=== PATIENT | male | born 1955 | race Caucasian/White ===

== ENCOUNTER 2021-01-09 13:45 | Emergency (ER) | payer BC, SELFPAY ==
[2021-01-09] VITALS (8 sets, daily range): BP systolic 99–131; BP diastolic 66–81; PULSE 74–103; RESP 18–36; TEMP 37.1; O2SAT 95–99
--- NOTE | ~2021-01-09 | XR_ITS ---
EXAMINATION: XR chest 1V portable DATE: 01/09/2021 16:37 INDICATION: Epigastric pain. TECHNIQUE: frontal view of the chest was obtained. COMPARISON: CT abdomen and pelvis dated 01/09/2021 FINDINGS: Patchy airspace opacities scattered throughout both lungs with appearance on CT suspicious for COVID pneumonia. No pleural effusion or pneumothorax. The cardiomediastinal silhouette is normal. Visualize d bones and soft tissues are unremarkable. IMPRESSION: 1. Patchy bilateral lung disease most suspicious for pneumonia including COVID pneumonia. Reviewed, dictated and finalized at location A.
--- NOTE | ~2021-01-09 | CT_ITS ---
EXAMINATION: CT abdomen pelvis w con DATE: 01/09/2021 16:24 INDICATION: Diffuse abdominal pain TECHNIQUE: Computed tomography (CT) of the abdomen and pelvis was performed with 100 cc Omnipaque 350 intravenous contrast. The dose-length product was 1509.64 mGy-cm. Automated exposure control and ite rative reconstruction technique were employed. COMPARISON: No prior studies for comparison. FINDINGS: There is patchy groundglass opacification, consistent with pneumonia. Heart size is normal. Small hiatal hernia. Atherosclerosis of the aorta and coronary arteries. No lymphadenopathy. Fatty infiltration of the liver. The spleen, pancreas, adrenal glands are unremarkable. There are small nonobstructing right renal sto santiago. There is a subcentimeter hypodensity in the left kidney, most likely benign cysts. Gallbladder i s present. No free air or free fluid. Mildly enlarged prostate gland. There is osteoarthritis of the hips, left greater than right. Mild lumbar spondylosis. IMPRESSION: 1. Patchy bilateral groundglass opacification, consistent with pneumonia. 2: Hepatic steatosis. 3: Nonobstructing right nephrolithiasis. Reviewed, dictated and finalized at location A.
[2021-01-09 14:29] LABS: Hematocrit 42.4 % (42.0-52.0); Hemoglobin 14.9 g/dL (14.0-18.0); Immature Granulocyte Absolute 0.02 K/mm3 (0.00-0.031); Immature Granulocyte Percent A 0.6 % (0-0.5); Lymphocytes Absolute Auto 0.42 K/mm3 (0.9-3.2); Lymphocytes Percent Auto 11.7 % (18.3-44.2); Mean Corpuscular HGB Conc 35.1 g/dl (32-36); Mean Corpuscular Hemoglobin 30.6 pg (26-34); Mean Corpuscular Volume 87.1 fl (80-100); Mean Platelet Volume 10.1 fl (7.4-10.4); Monocytes Absolute Auto 0.2 K/mm3 (0.1-0.6); Neutrophils Percent Auto 82.7 % (45.5-73.1); Platelet Count Result 163 k/mm3 (150-375); Red Blood Count 4.87 M/mm3 (4.6-6.20); Red Cell Distribution Width 13.8 % (11.5-14.5); White Blood Count 3.6 K/mm3 (4.5-10.0)
[2021-01-09 14:36] LABS: Potassium 3.3 mmol/L (3.4-5.0)
[2021-01-09 14:45] LABS: Alanine Aminotransferase 31 U/L (4-50); Albumin Level 4.2 g/dL (3.5-5.1); Alkaline Phosphatase 46 U/L (38-126); Anion Gap 8 mmol/L (8-16); Aspartate Amino Transferase 46 U/L (17-59); Bilirubin,Total 0.4 mg/dL (0.2-1.3); Blood Urea Nitrogen 16 mg/dL (9-20); Carbon Dioxide 28 mmol/L (22-30); Chloride 96 mmol/L (98-107); Estimated CRCL calculation 94 ml/min; Estimated Glomerular Filt Rate > 60; Glucose 134 mg/dL (75-110); Lipase 39 U/L (23-300); Sodium 132 mmol/L (137-145)
--- NOTE | 2021-01-09 15:44 | ED.NAVMDI ---
HPI - Nausea/Vomiting/Diarrhea General Chief complaint: Nausea/Vomiting/Diarrhea Stated complaint: vomiting x 4 days Time Seen by Provider: 01/09/21 15:40 Source: RN notes reviewed History of Present Illness HPI Narrative: Patient presents to emergency department from home for abdominal pain. Patient states symptoms began 4 days ago. States abdominal pain is diffuse described as cramping associated with numerous episodes of nausea vomiting. States has been unable to keep anything down. Denies any fevers or chills chest pain, shortness of breath, diarrhea or any other symptoms states he is taking no medication for the symptoms Related Data Allergies Allergy/AdvReac Type Severity Reaction Status Date / Time Sulfa (Sulfonamide Allergy Hives Verified 01/09/21 16:06 Antibiotics) Review of Systems Review of Systems: Narrative: Gen.: Denies fevers or chills ENT: Denies congestion Respiratory: Denies shortness of breath or cough CV: Denies chest pain or palpitations GI: See HPI denies burning, urgency, frequency or hematuria Musculoskeletal: Denies back pain or muscle pain Neuro: Denies numbness, tingling, weakness or focal weakness Skin: Denies rash Except as documented, all other systems reviewed and negative [facility] Past Medical History Medical History (Updated 01/09/21 @ 19:09 by Ricki Haider DO) Coronary artery disease Social History Social History (Updated 01/09/21 @ 15:45 by Ricki Haider DO) Smoking status: Never smoker Exam Narrative: Exam Narrative: APPEARANCE: No acute distress, nontoxic, resting in bed HEENT: Normocephalic, atraumatic, OMM RESPIRATORY: No respiratory distress, clear to auscultation bilaterally with no rhonchi wheezing or rales CARDIOVASCULAR: RRR s murmur ABDOMINAL: Soft nondistended diffusely tender to palpation no rebound or guarding MUSCULOSKELETAl: Moves all extremities. No clubbing, cyanosis or edema. NEURO: Awake and alert. Following commands, speech normal, no focal deficits SKIN:: Warm, dry. Normal Color PSYCHIATRIC: Normal affect/mood Course Course Emergency Course: Patient was CT scan obtained showing concerns of Covid pneumonia chest x-ray obtained which shows similar appearance will obtain swab patient's oxygen saturations remain normal in ED his nausea vomiting is improved he is able to eat and drink in ED with no emesis Discussed with patient results of workup and diagnosis. Discussed need for follow-up with primary care, proper use of medication, and reasons to return to the emergency department. Patient understands and agrees to current treatment plan Vital Signs Vital signs: Vital Signs Temperature 98.8 F 01/09/21 14:14 Pulse Rate 86 01/09/21 14:14 Respiratory Rate 18 01/09/21 14:14 Blood Pressure 124/69 01/09/21 14:14 Pulse Oximetry 98 01/09/21 14:14 Temperature 98.8 F 01/09/21 14:14 Pulse Rate 79 01/09/21 19:19 Respiratory Rate 36 H 01/09/21 19:19 Blood Pressure 115/68 01/09/21 19:19 Pulse Oximetry 95 01/09/21 19:19 MDM - Nausea/Vomiting/Diarrhea Lab Data Result diagrams: 01/09/21 14:20 01/09/21 14:20 Labs: Lab Results 01/09/21 01/09/21 01/09/21 Range/Units 14:20 14:20 16:48 WBC 3.6 L (4.5-10.0) K/mm3 RBC 4.87 (4.6-6.20) M/mm3 Hgb 14.9 (14.0-18.0) g/dL Hct 42.4 (42.0-52.0) % MCV 87.1 (80-100) fl MCH 30.6 (26-34) pg MCHC 35.1 (32-36) g/dl RDW 13.8 (11.5-14.5) % Plt Count 163 (150-375) k/mm3 MPV 10.1 (7.4-10.4) fl Immature Gran % (Auto) 0.6 H (0-0.5) % Neut % (Auto) 82.7 H (45.5-73.1) % Lymph % (Auto) 11.7 L (18.3-44.2) % [place] % (Auto) 5.0 (2.6-8.5) % Eos % (Auto) 0.0 (0-4.4) % Baso % (Auto) 0.0 L (0.2-1.2) % Lymph # (Auto) 0.42 L (0.9-3.2) K/mm3 [place] # (Auto) 0.2 (0.1-0.6) K/mm3 Eos # (Auto) 0.0 (0-0.3) K/mm3 Baso # (Auto) 0.0 (0.0-0.1) K/mm3 Abs Immat Gran (auto) 0.
[2021-01-09] MEDS: SODIUM CHLORIDE 0.9% IV 1,000 ML 999 ML IV CONT (16:12)
[2021-01-09] MEDS: KETOROLAC 30 MG/ML VIAL (*BKC) IV PUSH (16:13)
[2021-01-09] MEDS: ONDANSETRON INJ 4 MG/2 ML VIAL IV PUSH (16:13)
--- NOTE | 2021-01-09 16:15 | PC.NURSE ---
Pt to CT.
--- NOTE | 2021-01-09 16:28 | PC.NURSE ---
Pt returned from CT. No change in condition.
[2021-01-09 17:01] LABS: Add Urine Microscopic? YES; Appearance Urine Clear (Clear); Bilirubin Urine Negative (Negative); Blood Urine Negative (Negative); Color Urine Yellow (Yellow); Glucose Urine UA Negative (Negative); Ketones Urine Negative (Negative); Leukocyte Esterase Ur Negative LEU/UL (Negative); Mucus Urine Few /lpf; Nitrate Urine Negative (Negative); Protein Urine 2+ mg/dL (Negative); RBC Urine 0-2 /hpf (0-2); Squamous Epithelial Cell Urine Rare /hpf (Few); WBC Urine 0-3 /hpf
[2021-01-09 17:15] LABS: Specific Grav Ur 1.048 (1.001-1.035)
--- NOTE | 2021-01-09 17:58 | PC.NURSE ---
Pt given water, rosemarie mist, and crackers for PO challenge.
[2021-01-10 21:01] LABS: SARS-CoV-2 RNA PCR Positive
== END 2021-01-09 20:09 | disposition home or self-care (01) ==
PROVIDERS: Emergency Provider Emergency Medicine
DX: U07.1 COVID-19 (principal); R11.2 Nausea with vomiting, unspecified; I25.10 Atherosclerotic heart disease of native coronary artery without angina pectoris; K76.0 Fatty (change of) liver, not elsewhere classified; N20.0 Calculus of kidney; R91.8 Other nonspecific abnormal finding of lung field
CPT/HCPCS: 36415; 71045; 74177; 80053; 81001; 83690; 85025; 96361; 96374; 96375; 99284; C9803; J1885; J2405; J7030; Q9967; U0003; U0005

== ENCOUNTER 2021-01-13 17:38 | Emergency (ER) | payer BC, SELFPAY ==
[2021-01-13 17:44] VITALS: BP 119/67; PULSE 87; RESP 16; TEMP 35.6; O2SAT 94
[2021-01-13 18:51] VITALS: BP 131/85; PULSE 80; RESP 32; O2SAT 92
[2021-01-13 19:00] VITALS: O2SAT 92
[2021-01-13 19:03] LABS: Basophils Percent Auto 0.4 % (0.2-1.2); Eosinophils Absolute Auto 0.1 K/mm3 (0-0.3); Eosinophils Percent Auto 0.9 % (0-4.4); Hematocrit 45.9 % (42.0-52.0); Immature Granulocyte Absolute 0.05 K/mm3 (0.00-0.031); Immature Granulocyte Percent A 0.9 % (0-0.5); Lymphocytes Absolute Auto 0.83 K/mm3 (0.9-3.2); Mean Corpuscular HGB Conc 34.9 g/dl (32-36); Mean Corpuscular Hemoglobin 30.5 pg (26-34); Mean Corpuscular Volume 87.6 fl (80-100); Mean Platelet Volume 10.2 fl (7.4-10.4); Monocytes Absolute Auto 0.4 K/mm3 (0.1-0.6); Neutrophils Absolute Auto 4.1 K/mm3 (1.3-6.7); Neutrophils Percent Auto 74.8 % (45.5-73.1); Platelet Count Result 241 k/mm3 (150-375); Red Blood Count 5.24 M/mm3 (4.6-6.20); Red Cell Distribution Width 13.6 % (11.5-14.5); White Blood Count 5.5 K/mm3 (4.5-10.0)
--- NOTE | 2021-01-13 19:06 | ED.URI ---
HPI - URI/Sore Throat General Chief Complaint: Upper Respiratory Infection Stated Complaint: covid +, not getting better Time Seen by Provider: 01/13/21 19:06 History of Present Illness HPI Narrative: Nausea and vomiting for the past 8 days. This is associated with epigastric pain. He was seen here on 01/09 for these symptoms and had a CT of the abdomen which revealed lung findings consistent with COVID-19. Test confirmed that he had COVID. He reports that his symptoms have not changed since that time. He does have a cough as well. No Chest pain, SOB, fever. Related Data Home Medications Medication Instructions Recorded Confirmed atorvastatin 01/13/21 carvedilol 01/13/21 clopidogrel 01/13/21 fenofibrate micronized mg 01/13/21 hydrochlorothiazide 01/13/21 lisinopril 01/13/21 01/13/21 Allergies Allergy/AdvReac Type Severity Reaction Status Date / Time Sulfa (Sulfonamide Allergy Hives Verified 01/13/21 18:54 Antibiotics) Review of Systems Review of Systems: All systems reviewed & are unremarkable except as noted in HPI and below Constitutional: Constitutional: Denies fever(s) and Denies weakness ENT: Reports system reviewed and no additional complaints, except as documented Cardiovascular: Cardiovascular: Denies chest pain Respiratory: Respiratory: Reports cough and Denies dyspnea Gastrointestinal: Gastrointestinal: Reports abdominal pain, Denies diarrhea, Reports nausea and Reports vomiting Genitourinary: Genitourinary: Reports no additional male genitourinary complaints Musculoskeletal: Musculoskeletal: Reports myalgias Neurologic: Reports system reviewed and no additional complaints, except as documented [facility] Past Medical History Medical History (Updated 01/13/21 @ 20:35 by Cesar Barney MD) Coronary artery disease Social History Social History (Updated 01/09/21 @ 15:45 by Ricki Haider DO) Smoking status: Never smoker Gender identity (if verbalized by the patient): Male Exam Const: General: no acute distress and alert Nutritional Appearance: obese Orientation/consciousness: patient oriented x3 HENMT: Mouth: Yes dry mucous membranes Neck: Neck: normal visual inspection Resp: Effort & Inspection: normal respiratory effort Auscultation: crackles Cardio: Rate: regular rate Rhythm: regular rhythm GI: Inspection: non-distended GI Palp: Yes Soft to palpation, Yes Tenderness to palpation present (GI) (epigastric), No Guarding due to palpation present (GI) and No Rebound tenderness present Skin: General skin exam: normal color Neuro: General: patient oriented x3, moves all extremities and CN's II-XI intact bilaterally Speech: normal speech Extrem: General: normal to inspection Course Vital Signs Vital signs: Vital Signs Temperature 35.6 C L 01/13/21 17:44 Pulse Rate 87 01/13/21 17:44 Respiratory Rate 16 01/13/21 17:44 Blood Pressure 119/67 01/13/21 17:44 Pulse Oximetry 94 01/13/21 17:44 Temperature 36.8 C 01/13/21 19:22 Pulse Rate 80 01/13/21 19:22 Respiratory Rate 22 H 01/13/21 19:22 Blood Pressure 132/84 01/13/21 19:22 Pulse Oximetry 92 01/13/21 19:22 MDM - URI/Sore Throat MDM Narrative Medical decision making narrative: labs reassuring. Mild hypokalemia replaced. Feeling better after fluids and Reglan. Oxygenating well. No SOB. Medical Records Attestation: I reviewed the patient's medical records. Lab Data Attestation: I reviewed the patient's lab results. Result diagrams: 01/13/21 18:56 01/13/21 18:56 Labs: Lab Results 01/13/21 01/13/21 Range/Units 18:56 18:56 WBC 5.5 (4.5-10.0) K/mm3 RBC 5.24 (4.6-6.20) M/mm3 Hgb 16.0 (14.0-18.0) g/dL Hct 45.9 (42.0-52.0) % MCV 87.6 (80-100) fl MCH 30.5 (26-34) pg MCHC 34.9 (32-36) g/dl RDW 13.6 (11.5-14.5) % Plt Count 241 (150-375) k/mm3 MPV 10.2 (7.4-10.4) fl Immature Gran % (Auto)
--- NOTE | 2021-01-13 19:10 | PC.NURSE ---
Assumed care of pt. at this time. Report from NANDO Almaraz
[2021-01-13 19:13] LABS: Alanine Aminotransferase 29 U/L (4-50); Albumin Level 4.3 g/dL (3.5-5.1); Alkaline Phosphatase 53 U/L (38-126); Anion Gap 12 mmol/L (8-16); Aspartate Amino Transferase 48 U/L (17-59); Blood Urea Nitrogen 25 mg/dL (9-20); Calcium 9.4 mg/dL (8.4-10.2); Carbon Dioxide 24 mmol/L (22-30); Chloride 103 mmol/L (98-107); Estimated CRCL calculation 95 ml/min; Estimated Glomerular Filt Rate > 60; Glucose 129 mg/dL (75-110); Potassium 3.1 mmol/L (3.4-5.0); Sodium 139 mmol/L (137-145)
[2021-01-13 19:22] VITALS: BP 132/84; PULSE 80; RESP 22; TEMP 36.8; O2SAT 92
[2021-01-13] MEDS: SODIUM CHLORIDE 0.9% IV 1,000 ML 999 ML IV CONT (19:28)
[2021-01-13] MEDS: METOCLOPRAMIDE HCL INJ 10 MG/2 ML VIAL IV PUSH (19:28)
[2021-01-13] MEDS: POTASSIUM CHLORIDE 20 MEQ TABLET 40 MEQ PO (20:30)
[2021-01-13 20:40] VITALS: BP 148/79; PULSE 77; RESP 26; O2SAT 94
== END 2021-01-13 20:40 | disposition home or self-care (01) ==
PROVIDERS: Emergency Medicine; Emergency Provider Emergency Medicine
DX: R11.2 Nausea with vomiting, unspecified (principal); I25.10 Atherosclerotic heart disease of native coronary artery without angina pectoris
CPT/HCPCS: 36415; 80053; 85025; 96361; 96374; 99284; A9270; J2765; J7030

== ENCOUNTER 2024-08-21 23:54 | Inpatient (IN) | payer MEDICARE, SELFPAY ==
--- NOTE | ~2024-08-21 | XR_ITS ---
XR chest 1V portable Ordering provider: Addison Marlow MD History: 69 years Male with . RAPID HEART RATE HX OF NE WITH STENTS . Comparison: None. FINDINGS: MEDIASTINUM: The cardiac silhouette is slightly enlarged. Congestive claudia. LUNGS: No infiltrates, effusions or pneumothorax. Bilateral interstitial changes since noted suggesti ve of pulmonary edema. Superimposed Pneumonitis is not excluded.. OTHER: No free air under the diaphragm. IMPRESSION: Cardiomegaly with cardiac decompensation and pulmonary edema. Superimposed pneumonitis cannot be excl uded. Reviewed, dictated and finalized at location A. STANT STATISTICIAN IMPRESSION: Cardiomegaly with cardiac decompensation and pulmonary edema. Superimposed pneu monitis cannot be excluded.
[2024-08-22] VITALS (30 sets, daily range): BP systolic 109–140; BP diastolic 68–102; PULSE 64–150; RESP 17–26; TEMP 36.3–36.8; O2SAT 93–100; BMI 48.9
--- NOTE | 2024-08-22 | ECHO_ITS ---
Patient Info Name: Krishna Armando Age: 69 years : 1955 Gender: Male Ht: 67 in Wt: 290 lbs BSA: 2.56 m2 HR: 74 bpm BP: 130 / 81 mmHg Technical Quality: Poor Exam Date: 08/22/2024 3:42 PM Exam Location: Echo Lab Patient Status: Outpatient Admit Date: 08/22/2024 Staff Ordering Physician: Panfilo Salazar MD Courtesy Bus Driver: Elizabeth Paul RDCS Attending Provider: Adolfo Hunt MD Exam Type: CA echo dop color flow w con Study Info Indications - CHEST PAIN Complete two-dimensional, color flow and Doppler transthoracic echocardiogram is performed with contrast to opacify the left ventricle and to improve the deliniation of the left ventricle endocardial borders. Contrast/Agitated Saline Contrast/Ag. Saline: Definity Amount: 2.00 ml Existing IV Access: Yes Reason for Poor Study: patient body habitus Summary 1. Technically suboptimal study due to poor sonographic images. 2. Definity contrast administered improved wall motion interpretation. 3. Left ventricular chamber dimension is normal. 4. Left ventricular systolic function is normal, estimated at 60-65%. 5. There is mild concentric increased left ventricular wall thickness. 6. The left ventricular diastolic function is grade I diastolic dysfunction. 7. E/e' 9 is minimally elevated. 8. Left atrial chamber dimension is mildly enlarged. 9. There is mild aortic valve sclerosis. Left Ventricle E/e' 9 is minimally elevated. Definity contrast administered improved wall motion interpretation. Technically suboptimal study due to poor sonographic images. Left ventricular chamber dimension is normal. Left ventricular systolic function is normal, estimated at 60-65%. There is mild concentric increased left ventricular wall thickness. The left ventricular diastolic function is grade I diastolic dysfunction. Right Ventricle Right ventricular systolic function is normal and with normal TAPSE 2.3 cm. Right ventricular chamber dimension is normal. Left Atria Left atrial chamber dimension is mildly enlarged. Right Atria Right atrial chamber dimension is normal. Aortic Valve The aortic valve is not well visualized. Cannot determine number of aortic valve leaflets. There is no aortic valve stenosis by valve area and gradients. There is mild aortic valve sclerosis. There is no aortic valve regurgitation. Pulmonic Valve There is no pulmonic regurgitation. Mitral Valve There is no mitral valve stenosis. There is no mitral valve regurgitation. Tricuspid Valve There is no tricuspid valve regurgitation. Pericardium/Pleural There is no pericardial effusion. Inferior Vena Cava Normal inferior vena cava with >50% collapse upon inspiration consistent with normal right atrial pressure, 5 mmHg. Aorta The aortic root size at the sinus of Valsalva is normal. Left Ventricular Outflow Tract Name Value Normal LVOT 2D LVOT Diameter 2.08 cm LVOT Doppler LVOT Peak Gradient 3 mmHg LVOT Mean Gradient 2 mmHg LVOT VTI 17.90 cm LVOT VTI/AV VTI Ratio 0.67 LVOT Stroke Volume 60.79 ml LVOT CO 3.96 l/min LVOT CI 1.54 L/min/m2 Pulmonic Valve Name Value Normal RVOT Doppler RVOT Peak Gradient 4 mmHg PV Doppler PV Peak Gradient 4 mmHg Mitral Valve Name Value Normal MV Doppler MV Decel Hyde 472.00 cm/s2 MV PHT 0 s MV Area (PHT) 4.26 cm2 4.00-5.00 MV Diastolic Function MV E Peak Velocity 84.12 cm/s MV A Peak Velocity 89.71 cm/s MV E/A 0.94 MV Decel Time 0 s MV Annular TDI MV E/e' (Septal) 11.24 <=8.00 MV E/e' (Lateral) 8.24 <=8.00 MV E/e' (Average) 9.74 Tricuspid Valve Name Value Normal Estimated PAP/RSVP RA Pressure 5 mmHg <=5 Aorta Name Value Normal Ascending Aorta Ao Root Diameter (MM) 3.03 cm Ao Root Diam Index (MM) 1.18 cm/m2 Aortic Valve Name Value Normal AV Doppler AV Peak Velocity 120.81 cm/s AV Peak Gradient 6 mmHg AV Mean Gradient 3 mmHg AV VTI 26.81 cm AV Area (Cont Eq VTI) 2.27 cm2 >=3.00 AV Area (Cont Eq Stephen) 2.42 cm2 AV Regurgitation 2D LVOT Area 3.40 cm2 Ventricles Name Value Normal LV Dimensions 2D/MM IVS Diastolic Thickness (2D) 1.41 cm 0.60-1.00 LVID Diastole (2D) 5.13 cm 4.20-5.80 LVIW Diastolic Thickness (2D) 1.13 cm 0.60-1.00 LVID Systole (2D) 3.16 cm 2.50-4.00 LVOT Diameter 2.08 cm LV Mass (2D Cubed) 263.75 g 88.00-224.00 LV Mass Index (2D Cubed) 0.01 g/cm2 0.00-0.01 Relative Wall Thickness (2D) 0.44 LV Fractional Shortening/Ejection Fraction 2D/MM LV Fractional Shortening (2D) 38 % 25-43 LV EF (2D Teicholz) 68 % 52-72 LV Diastolic Volume (4C MOD) 136.00 ml LV EF (4C MOD) 71 % LV Diastolic Volume (2C MOD) 159.45 ml LV EF (2C MOD) 59 % LV Diastolic Volume (BP MOD) 147.31 ml 62.00-150.00 LV Diastolic Volume Index (BP MOD) 0.06 l/m2 0.03-0.07 LV Systolic Volume (BP MOD) 52.16 ml 21.00-61.00 LV Systolic Volume Index (BP MOD) 0.02 l/m2 0.01-0.03 LV EF (BP MOD) 65 % 52-72 LV Diastolic Length (4C) 9.40 cm LV Systolic Length (4C) 8.19 cm LV Stroke Volume (4C MOD) 95.92 ml Atria Name Value Normal LA Dimensions LA Dimension (MM) 3.60 cm 3.00-4.10 LA Volume (4C A-L) 76.32 ml LA Volume (BP A-L) 92.30 ml Report Signatures
--- NOTE | 2024-08-22 00:01 | ECG_ITS ---
Test Date: 2024-08-22 00:01:07 Measurements Intervals [place] Rate: 150 P: 0 UT: 0 QRS: 29 QRSD: 94 T: 38 QT: 275 QTc: 435 Interpretive Statements ATRIAL FIBRILLATION WITH RAPID VENTRICULAR RESPONSE No previous ECG available for comparison Electronically Signed On 08-22-2024 15:14:26 AUTOMATION CONSULTANT by Daylin Daigle M.D.
[2024-08-22] MEDS: ASPIRIN 81 MG CHEWABLE TABLET 324 MG PO (00:11)
[2024-08-22] MEDS: dilTIAZem HCl INJ 25 MG/5 ML VIAL 20 MG IV PUSH (00:24)
[2024-08-22] MEDS: dilTIAZem 100 MG/100 ML 100 MG/100 ML BAG IV CONT (00:27)
[2024-08-22 00:33] LABS: INR 0.9; Prothrombin Time 12.9 Seconds (11.1-14.7)
[2024-08-22 00:34] LABS: Partial Thromboplastin Time 22.1 Seconds (22.3-36.8)
[2024-08-22 00:37] LABS: Alanine Aminotransferase 26 U/L (6-50); Albumin Level 4.1 g/dL (3.5-5.1); Alkaline Phosphatase 60 U/L (38-126); Anion Gap 5 mmol/L (4-12); Aspartate Amino Transferase 24 U/L (17-59); Bilirubin,Total 0.5 mg/dL (0.2-1.3); Blood Urea Nitrogen 22 mg/dL (9-20); Calcium 8.8 mg/dL (8.4-10.2); Carbon Dioxide 26 mmol/L (22-30); Chloride 102 mmol/L (98-107); Estimated CRCL calculation 115 ml/min; Estimated Glomerular Filt Rate > 60; Glucose 202 mg/dL (65-110); Lipase 35 U/L (23-300); Potassium 4.5 mmol/L (3.4-5.0); Sodium 133 mmol/L (137-145)
[2024-08-22 00:46] LABS: Basophils Percent Auto 0.3 % (0.2-1.2); Eosinophils Percent Auto 0.1 % (0-4.4); Hematocrit 43.9 % (42.0-52.0); Hemoglobin 14.8 g/dL (14.0-18.0); Immature Granulocyte Percent A 2.4 % (0-0.5); Lymphocytes Absolute Auto 0.99 K/mm3 (0.9-3.2); Lymphocytes Percent Auto 7.9 % (18.3-44.2); Mean Corpuscular HGB Conc 33.7 g/dl (32-36); Mean Corpuscular Hemoglobin 31.2 pg (26-34); Mean Corpuscular Volume 92.6 fl (80-100); Mean Platelet Volume 10.3 fl (7.4-10.4); Monocytes Absolute Auto 0.8 K/mm3 (0.1-0.6); Monocytes Percent Auto 6.6 % (2.6-8.5); Neutrophils Absolute Auto 10.3 K/mm3 (1.3-6.7); Neutrophils Percent Auto 82.7 % (45.5-73.1); Platelet Count Result 227 k/mm3 (150-375); Red Blood Count 4.74 M/mm3 (4.6-6.20); Red Cell Distribution Width 14.5 % (11.5-14.5); White Blood Count 12.5 K/mm3 (4.5-10.0)
[2024-08-22 00:52] LABS: Troponin I 0.058 ng/mL (0.000-0.034)
[2024-08-22 01:34] LABS: NT Pro B Type Natriuretic Pept 416 pg/mL (19.9-100)
--- NOTE | 2024-08-22 01:47 | ED_ITS ---
HPI - General Adult General Chief complaint: Chest Pain Stated complaint: chest pain Time Seen by Provider: 08/22/24 00:19 History of Present Illness HPI narrative: patient is a 69-year-old gentleman presents emergency department with chief complaint of chest pain. Patient reports that he was sleeping and woke up with pain in his chest. Patient reports that he had an ME about 10 years ago and had stents placed in his heart the patient reports he also has history of hypertension high cholesterol the patient reports that he feels as though his heart is it is racing Related Data Home Medications Medication Instructions Recorded Confirmed atorvastatin 40 mg tablet 01/13/21 carvedilol 3.125 mg tablet 01/13/21 clopidogrel 75 mg tablet 01/13/21 fenofibrate micronized 134 mg mg 01/13/21 capsule hydrochlorothiazide 25 mg tablet 01/13/21 lisinopril 5 mg tablet 01/13/21 01/13/21 Allergies Allergy/AdvReac Type Severity Reaction Status Date / Time Sulfa (Sulfonamide Allergy Hives Verified 01/13/21 18:54 Antibiotics) Review of Systems Review of Systems: A 10 system review of systems was completed on the patient and is negative except for what is stated in the HPI. Nursing and ancillary documentation was reviewed. [facility] Past Medical History Medical History Coronary artery disease Social History Social History Smoking status: Never smoker Gender identity (if verbalized by the patient): Male Exam Narrative: GENERAL: Well-appearing, well-nourished, and in no acute distress. HEAD: Normocephalic, atraumatic. EYES: PERRLA and EOMI. ENT: Nares clear, no rhinorrhea or epistaxis. Mucous membranes moist. NECK: Supple. CHEST: Clear to auscultation. No respiratory distress. HEART: tachycardic rate and irregular rhythm. No murmur heard. Normal peripheral pulses. ABDOMEN: Soft, nontender, nondistended, normal active bowel sounds. EXTREMITIES: Normal range of motion. No edema. SKIN: Warm, dry, no rash. NEURO: No focal deficits. Alert and oriented x3. PSYCH: Normal mood and affect. Course Vital Signs Vital signs: Vital Signs Temperature 36.6 C 12/03/24 00:05 Pulse Rate 150 H 08/22/24 00:05 Respiratory Rate 26 H 08/22/24 00:05 Blood Pressure 135/102 H 08/22/24 00:05 Pulse Oximetry 95 08/22/24 00:05 Oxygen Delivery Room Air 08/22/24 00:05 Temperature 36.6 C 08/22/24 01:04 Pulse Rate 114 H 08/22/24 01:34 Respiratory Rate 20 08/22/24 01:04 Blood Pressure 120/77 08/22/24 01:34 Pulse Oximetry 96 08/22/24 01:04 Oxygen Delivery Room Air 08/22/24 00:16 Medical Decision Making MDM Narrative Medical decision making narrative: differential diagnosis includes dysrhythmia, ACS, EKG showed atrial fibrillation with rapid ventricular response chest x-ray showed no focal infiltrate initial troponin is 0.058 BNP was 416 patient was started on a Cardizem drip Vital Signs Vital Signs: Vital Signs Temperature 36.6 C 08/22/24 00:05 Pulse Rate 150 H 08/22/24 00:05 Respiratory Rate 26 H 08/22/24 00:05 Blood Pressure 135/102 H 08/22/24 00:05 Pulse Oximetry 95 08/22/24 00:05 Oxygen Delivery Room Air 08/22/24 00:05 Temperature 36.6 C 08/22/24 01:04 Pulse Rate 114 H 08/22/24 01:34 Respiratory Rate 20 08/22/24 01:04 Blood Pressure 120/77 08/22/24 01:34 Pulse Oximetry 96 08/22/24 01:04 Oxygen Delivery Room Air 08/22/24 00:16 Lab Data 08/22/24 00:12 08/22/24 00:12 Labs: Lab Results 08/22/24 Range/Units 00:12 WBC 12.5 H (4.5-10.0) K/mm3 RBC 4.74 (4.6-6.20) M/mm3 Hgb 14.8 (14.0-18.0) g/dL Hct 43.9 (42.0-52.0) % MCV 92.6 (80-100) fl MCH 31.2 (26-34) pg MCHC 33.7 (32-36) g/dl RDW 14.5 (11.5-14.5) % Plt Count 227 (150-375) k/mm3 MPV 10.3 (7.4-10.4) fl Immature Gran % (Auto) 2.4 H (0-0.5) % Neut % (Auto) 82.7 H (45.5-73.1) % Lymph % (Auto) 7.9 L (18.3-44.2) % [place] % (Auto) 6.6 (2.6-8.5) % Eos % (Auto) 0.1 (0-4.4) % Baso % (Auto) 0.3 (0.2-1.2) % Lymph # (Auto) 0.99 (0.9-3.2) K/mm3 [place] # (Auto) 0.8 H (0.1-0.6) K/mm3 Eos # (Auto) 0.0 (0-0.3) K/mm3 Baso # (Auto) 0.0 (0.0-0.1) K/mm3 Abs Immat Gran (auto) 0.30 H (0.00-0.031) K/mm3 Absolute Neuts (auto) 10.3 H (1.3-6.7) K/mm3 Absolute Nucleated RBC 0.000 (0.0-0.012) K/mm3 Nucleated RBC % 0.0 (0.0-0.2) % PT 12.9 (11.1-14.7) Seconds INR 0.9 APTT 22.1 L (22.3-36.8) Seconds Sodium 133 L (137-145) mmol/L Potassium 4.5 (3.4-5.0) mmol/L Chloride 102 (98-107) mmol/L Carbon Dioxide 26 (22-30) mmol/L Anion Gap 5 (4-12) mmol/L BUN 22 H (9-20) mg/dL Creatinine 0.70 (0.7-1.3) mg/dL Estim Creat Clear Calc 115 ml/min Estimated GFR > 60 (59 - ) Glucose 202 H (65-110) mg/dL Calcium 8.8 (8.4-10.2) mg/dL Total Bilirubin 0.5 (0.2-1.3) mg/dL AST 24 (17-59) U/L ALT 26 (6-50) U/L Alkaline Phosphatase 60 (38-126) U/L Troponin I 0.058 H* (0.000-0.034) ng/mL NT-Pro-B Natriuret Pep 416 H (19.9-100) pg/mL Total Protein 7.0 (6.3-8.2) g/dL Albumin 4.1 (3.5-5.1) g/dL Lipase 35 (23-300) U/L Critical Care Time Critical Care Time Critical Care Time: Yes Total Critical Care Time: 30 Discharge Plan Discharge Clinical Impression: Chest pain, Atrial fibrillation with rapid ventricular response Patient Disposition: Still a Patient Condition: Stable Prescriptions: No Action albuterol sulfate 90 mcg/actuation HFA aerosol inhaler 2 puff INHALATION QID PRN (Reason: shortness of breath or wheezing) Qty: 6.7 0RF promethazine 12.5 mg tablet 12.5 mg PO TID PRN (Reason: nausea and vomiting) Qty: 10 0RF Rx Instructions: 3 doses during day; last dose no later than 4 hr before bedtime atorvastatin 40 mg tablet clopidogrel 75 mg tablet carvedilol 3.125 mg tablet fenofibrate micronized 134 mg capsule lisinopril 5 mg tablet hydrochlorothiazide 25 mg tablet metoclopramide HCl [Reglan] 10 mg tablet 10 mg PO Q6H PRN (Reason: nausea and vomiting) Qty: 20 0RF Follow-up/Referrals: PHYSICIAN,FLIGHT COMMUNICATIONS SPECIALIST [Primary Care Provider] - Time of Disposition: 01:51
--- NOTE | 2024-08-22 02:41 | ECG_ITS ---
Test Date: 2024-08-22 02:49:04 Measurements Intervals [place] Rate: 119 P: 0 ND: 0 QRS: 26 QRSD: 93 T: 38 QT: 304 QTc: 428 Interpretive Statements ATRIAL FIBRILLATION WITH RAPID VENTRICULAR RESPONSE Compared to ECG 08/22/2024 00:01:07 No significant changes Electronically Signed On 08-22-2024 15:23:27 FINAL INSPECTOR SHUTTLE by Daylin Daigle M.D.
[2024-08-22 03:17] LABS: Troponin I 0.976 ng/mL (0.000-0.034)
--- NOTE | 2024-08-22 05:35 | ECG_ITS ---
Test Date: 2024-08-22 05:42:52 Measurements Intervals [place] Rate: 96 P: 0 IA: 0 QRS: 32 QRSD: 93 T: 42 QT: 348 QTc: 441 Interpretive Statements ATRIAL FIBRILLATION Compared to ECG 08/22/2024 02:49:04 RVR NO LONGER PRESENT Electronically Signed On 08-22-2024 15:24:06 GYMNASIUM TEACHER by Daylin Daigle M.D.
[2024-08-22] MEDS: dilTIAZem 100 MG/100 ML 100 MG/100 ML BAG 15 MG IV CONT (07:58)
[2024-08-22] MEDS: ASPIRIN 81 MG CHEWABLE TABLET PO (08:40)
--- NOTE | 2024-08-22 09:41 | ECG_ITS ---
Test Date: 2024-08-22 09:44:25 Measurements Intervals [place] Rate: 66 P: -66 ND: 148 QRS: 26 QRSD: 102 T: 48 QT: 400 QTc: 420 Interpretive Statements ECTOPIC ATRIAL RHYTHM POSSIBLE LEFT ATRIAL ENLARGEMENT [-0.1mV P-WAVE IN V1/V2] Compared to ECG 08/22/2024 05:42:52 Ectopic atrial rhythm now present Atrial fibrillation no longer present Electronically Signed On 08-22-2024 15:29:01 NONPROFIT FINANCIAL CONTROLLER by Daylin Daigle M.D.
[2024-08-22] MEDS: HEPARIN SOD/D5W 100 UNITS/ML 25,000 UNITS/250 ML BAG 10 UNITS IV CONT (09:48)
[2024-08-22] MEDS: HEPARIN SODIUM 5,000 UNITS/ML VIAL 4000 UNITS IV PUSH ×2 (09:48→17:29)
--- NOTE | 2024-08-22 09:53 | P.HP_ITS ---
H&P: HPI History of Present Illness Date/Time: 08/22/24 09:53 Chief Complaint: Chest pain Narrative: 69-year-old gentleman presents emergency department with chief complaint of chest pain. Patient reports that he was sleeping and woke up with pain in his chest. Patient reports that he had an ME about 10 years ago and had stents placed in his heart the patient reports he also has history of hypertension high cholesterol the patient reports that he feels as though his heart is it is racing. Upon evaluation in the ED patient denies any chest pain, shortness of breath, palpitation. Patient endorsed having cardiac stent that was placed in 2014 at [facility] at [place], [place]. 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 Patient denies any smoking history and diabetes. Yesterday alcides und 10:00 p.m. patient had a chest pain/tightness. He immediately seek medical attention. He reports the chest pain was not as painful as like last time when he had cardiac stent. Pertinent labs: WBC 12.5, PT 12.9, INR 0.9, PTT 22.1, sodium 133, glucose 202 Trop: 0.058>0.976> 2.620 EKG : Ectopic atrial rhythm possible left atrial enlargement CXR: Cardiomegaly with cardiac decompensation and pulmonary edema. Superimposed pneumonitis cannot be excluded Consulted cardiology. Started the patient on heparin drip and given aspirin and statin. Patient was started on Cardizem drip Review of Systems Review of Systems: A 10 system review of systems was completed on the patient and is negative ex cept for what is stated in the HPI. Nursing and ancillary documentation was reviewed. All systems reviewed & are unremarkable except as noted in HPI and below Constitutional: Constitutional: Reports as per HPI, Denies chills and Denies fever(s) ENT: Denies dizziness Cardiovascular: Cardiovascular: Reports as per HPI, Reports chest pain, Denies syncope, Reports irregular heart rhythm and Reports dyspnea Respiratory: Respiratory: Reports as per HPI and Reports dyspnea Gastrointestinal: Gastrointestinal: Reports as per HPI and Denies abdominal pain Genitourinary: Genitourinary: Reports as per HPI and Denies dysuria Musculoskeletal: Musculoskeletal: Reports as per HPI Neurologic: Reports as per HPI, Denies dizziness and Denies syncope [facility] Past Medical History Medical History Coronary artery disease Family History Family History (Updated 08/22/24 @ 03:39 by Katya Love RN) Mother Pancreatic cancer Sibling Breast cancer Grandparent Breast cancer Father Acute myocardial infarction Social History Social History Smoking packs per day: 1 Smoking cigarettes per day: 20.0 Years smoked: 20 Smoking pack-years: 20.00 Smoking status: Former smoker Substance use type: does not use Do You Feel Safe in your Home?: Yes Lack of Transportation: No Lack of Food: Never True Current Housing: I Have Housing Concerned About Future Housing: No Difficulty Paying Gas/Electric Bills: No Difficulty Paying for Meds: No Currently Unemployed: No Education: High School Diploma/GED Difficulty w/ Childcare or Family Care: No Gender identity (if verbalized by the patient): Male Spiritual care concerns: No Meds Home Medications and Allergies Home Medications Medication Instructions Recorded Confirmed Type atorvastatin 40 mg tablet 80 mg PO DAILY 01/13/21 08/22/24 History carvedilol 3.125 mg tablet 3.125 mg PO BID 01/13/21 08/22/24 History clopidogrel 75 mg tablet 75 mg PO DAILY 01/13/21 08/22/24 History hydrochlorothiazide 25 mg tablet 25 mg PO DAILY 01/13/21 08/22/24 History lisinopril 5 mg tablet 5 mg PO DAILY 01/13/21 08/22/24 History prednisone 20 mg tablet 40 mg PO DAILY 08/22/24 08/22/24 History Allergies Allergy/AdvReac Type Severity Reaction Status Date / Time Sulfa (Sulfonamide Allergy Hives Verified 01/13/21 18:54 Antibiotics) Vital Signs Vital Signs - 24 hr 08/22/24 00:05 08/22/24 00:12 08/22/24 00:16 Temperature 97.9 F Pulse Rate 150 H Respiratory Rate 26 H Blood Pressure 135/102 H Pulse Oximetry 95 100 96 Oxygen Delivery Room Air Room Air Room Air 08/22/24 00:20 08/22/24 00:27 08/22/24 01:03 Temperature Pulse Rate 134 H 136 H 119 H Respiratory Rate 22 H Blood Pressure 134/85 116/83 109/77 Pulse Oximetry 96 Oxygen Delivery 08/22/24 01:04 08/22/24 01:34 08/22/24 02:40 Temperature 97.8 F Pulse Rate 119 H 114 H 99 Respiratory Rate 20 Blood Pressure 109/77 120/77 Pulse Oximetry 96 Oxygen Delivery 08/22/24 02:54 08/22/24 04:38 08/22/24 06:18 Temperature 97.9 F 98.1 F 98.3 F Pulse Rate 102 H 101 H 91 Respiratory Rate 26 H 17 18 Blood Pressure 129/95 H 126/68 125/80 Pulse Oximetry 96 95 97 Oxygen Delivery 08/22/24 07:24 08/22/24 07:52 08/22/24 07:58 Temperature Pulse Rate 93 98 104 H Respiratory Rate Blood Pressure 119/91 H 129/79 Pulse Oximetry Oxygen Delivery 08/22/24 09:10 08/22/24 09:43 08/22/24 09:43 Temperature Pulse Rate 65 70 70 Respiratory Rate 20 Blood Pressure 140/88 130/78 Pulse Oximetry 98 Oxygen Delivery 08/22/24 09:45 Temperature Pulse Rate 70 Respiratory Rate 20 Blood Pressure 130/78 Pulse Oximetry 97 Oxygen Delivery Exam Narrative: GENERAL: Well-appearing, well-nourished, and in no acute distress. HEAD: Normocephalic, atraumatic. EYES: PERRLA and EOMI. ENT: Nares clear, no rhinorrhea or epistaxis. Mucous membranes moist. NECK: Supple. CHEST: Clear to auscultation. No respiratory distress. HEART: tachycardic rate and irregular rhythm. No murmur heard. Normal peripheral pulses. ABDOMEN: Soft, nontender, nondistended, normal active bowel sounds. EXTREMITIES: Normal range of motion. No edema. SKIN: Warm, dry, no rash. NEURO: No focal deficits. Alert and oriented x3. PSYCH: Normal mood and affect. Const: General: cooperative, healthy appearing, comfortable and obese Nutritional Appearance: obese Orientation/consciousness: oriented to person, oriented to place and oriented to time Resp: Auscultation: clear to auscultation bilaterally, no crackles, no rales, no rhonchi and no wheezes Cardio: Rate: regular rate Rhythm: regular rhythm Heart sounds: no murmurs Peripheral pulses: dorsalis pedis present Neuro: General: oriented to person, oriented to place and oriented to time Extrem: Right lower extremity: no edema Left lower extremity: no edema H&P: Results Labs Labs: Short CBC 08/22/24 Range/Units 00:12 WBC 12.5 H (4.5-10.0) K/mm3 Hgb 14.8 (14.0-18.0) g/dL Hct 43.9 (42.0-52.0) % Plt Count 227 (150-375) k/mm3 BMP 08/22/24 00:12 Sodium 133 L Potassium 4.5 Chloride 102 Carbon Dioxide 26 BUN 22 H Creatinine 0.70 Glucose 202 H Calcium 8.8 Cardiac Enzymes 08/22/24 08/22/24 08/22/24 Range/Units 00:12 02:44 05:31 Troponin I 0.058 H* 0.976 H* D 2.620 H* D (0.000-0.034) ng/mL Liver Function 08/22/24 Range/Units 00:12 Total Bilirubin 0.5 (0.2-1.3) mg/dL AST 24 (17-59) U/L ALT 26 (6-50) U/L Alkaline Phosphatase 60 (38-126) U/L Albumin 4.1 (3.5-5.1) g/dL Assessment and Plan Assessment and plan (1) Chest pain: Code(s): R07.9 - Chest pain, unspecified Status: Acute Assessment and Plan: No pain now. But due to significant rise in troponin at 2.62 discussed [facility] and he is agreeable. Continue heparin drip. Obtain echo. Risks/benefits/alternative to [facility] discuss and he is agreeable to [facility]. [place] [facility] [place] [facility] for tomorrow. Keep NPO after midnight. (2) Atrial fibrillation with rapid ventricular response: Code(s): I48.91 - Unspecified atrial fibrillation Status: Acute Assessment and Plan: Back in sinus rhythm. New onset. [id number] 3. Start Amiodarone 200 mg PO BID to maintain sinus rhythm. (3) Coronary artery disease: Code(s): I25.10 - Atherosclerotic heart disease of [place] coronary artery without angina pectoris Status: Acute Assessment and Plan: History of 2 stents in 2015 in [place], [place]. 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 (4) Hypertension: Code(s): I10 - Essential (primary) hypertension Status: Acute Assessment and Plan: Stable. (5) Dyslipidemia: Code(s): E78.5 - Hyperlipidemia, unspecified Status: Acute Assessment and Plan: On Atorvastatin. (6) Hypersomnia: Code(s): G47.10 - Hypersomnia, unspecified Status: Acute Assessment and Plan: Will need outpatient sleep study. Plan Non ST elevation [place] -Atorvastatin 40 mg, and aspirin 81 mg to his regimen -Cardiology consulted -Trend Troponin -Recommend weaning him off diltiazem drip -continue heparin drip and give sublingual nitro if needed -Echocardiogram pending -Denies any illicit drug use -Reviewed EKG and CXR A.Fib with RVR -Start Amiodarone 200 mg PO BID to maintain sinus rhythm. -Cardizem drip -On heparin drip -CHADVASC 3 Hospitalist [facility] Advance Care Plan I have confirmed that the patient's Advanced Care Plan is present, code status is documented, or surrogate decision maker is listed in patient medical record.: Yes Medication Reconciliation I have utilized all available resources to obtain, update and review the patients current medications (includes all prescriptions, OTC, herbals, cannabis, and nutritional supplements).: Yes
[2024-08-22] MEDS: AZITHROMYCIN 250 MG TABLET 500 MG PO (12:14)
[2024-08-22] MEDS: ATORVASTATIN 40 MG TABLET PO (12:15)
[2024-08-22] MEDS: cefTRIAXone 2 GM/NS 100 ML 2 GM/100 ML BAG IVPB (12:15)
--- NOTE | 2024-08-22 13:28 | PM.CNCAR ---
Assessment and Plan Assessment and plan (1) Atrial fibrillation with rapid ventricular response: Code(s): I48.91 - Unspecified atrial fibrillation Status: Acute Assessment and Plan: Back in sinus rhythm. New onset. [id number] 3. Start Amiodarone 200 mg PO BID to maintain sinus rhythm. (2) Chest pain: Code(s): R07.9 - Chest pain, unspecified Status: Acute Assessment and Plan: No pain now. But due to significant rise in troponin at 2.62 discussed [facility] and he is agreeable. Continue heparin drip. Obtain echo. Risks/benefits/alternative to C discuss and he is agreeable to [facility]. Will consult [facility] for [facility] for tomorrow. Keep NPO after midnight. (3) Coronary artery disease: Code(s): I25.10 - Atherosclerotic heart disease of [place] coronary artery without angina pectoris Status: Acute Assessment and Plan: History of 2 stents in 2014 in [place], [place]. 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 (4) Hypertension: Code(s): I10 - Essential (primary) hypertension Status: Acute Assessment and Plan: Stable. (5) Dyslipidemia: Code(s): E78.5 - Hyperlipidemia, unspecified Status: Acute Assessment and Plan: On Atorvastatin. (6) Hypersomnia: Code(s): G47.10 - Hypersomnia, unspecified Status: Acute Assessment and Plan: Will need outpatient sleep study. History of Present Illness History of Present Illness Consult date/time: 08/22/24 13:28 Reason For Visit: Atrial fibrillation with rapid ventricular respons Narrative: 69 yr old man presents to ER with chest pain. He has a history of [facility] with 2 stents placed in 2014 in [facility], hypertension, dyslipidemia. is at bedside. He is visiting the area and from [place], [place] and has stand up forklift operator there. Reports he went to bed and woke up at 10 pm with chest pain. He came to ER and found to be in rapid atrial fib and elevated troponin. He then spontaneously converted to sinus rhythm and no longer having chest pains. He normally can walk 1 block. Admits to snoring, waking up and daytime sleepiness. Denies orthopnea, PND, edema, dizziness. Review of Systems Review of Systems: All systems reviewed & are unremarkable except as noted in HPI and below Constitutional: Constitutional: Reports as per HPI, Denies chills and Denies fever(s) Cardiovascular: Cardiovascular: Reports as per HPI, Reports chest pain and Reports irregular heart rhythm Respiratory: Respiratory: Reports as per HPI and Reports dyspnea Gastrointestinal: Gastrointestinal: Reports as per HPI and Denies abdominal pain Genitourinary: Genitourinary: Reports as per HPI and Denies dysuria Musculoskeletal: Musculoskeletal: Reports as per HPI Neurologic: Reports as per HPI, Denies dizziness and Denies syncope [facility] Past Medical History Medical History Coronary artery disease Family History Family History (Updated 08/22/24 @ 03:39 by Katya Love RN) Mother Pancreatic cancer Sibling Breast cancer Grandparent Breast cancer Father Acute myocardial infarction Social History Social History Smoking packs per day: 1 Smoking cigarettes per day: 20.0 Years smoked: 20 Smoking pack-years: 20.00 Smoking status: Former smoker Substance use type: does not use Do You Feel Safe in your Home?: Yes Lack of Transportation: No Lack of Food: Never True Current Housing: I Have Housing Concerned About Future Housing: No Difficulty Paying Gas/Electric Bills: No Difficulty Paying for Meds: No Currently Unemployed: No Education: High School Diploma/GED Difficulty w/ Childcare or Family Care: No Gender identity (if verbalized by the patient): Male Spiritual care concerns: No Meds Home Medications and Allergies Home Medications Medication Instructions Recorded Confirmed Type atorvastatin 40 mg tablet 80 mg PO DAILY 01/13/21 08/22/24 History carvedilol 3.125 mg tablet 3.125 mg PO BID 01/13/21 08/22/24 History clopidogrel 75 mg tablet 75 mg PO DAILY 01/13/21 08/22/24 History hydrochlorothiazide 25 mg tablet 25 mg PO DAILY 01/13/21 08/22/24 History lisinopril 5 mg tablet 5 mg PO DAILY 01/13/21 08/22/24 History prednisone 20 mg tablet 40 mg PO DAILY 08/22/24 08/22/24 History Allergies Allergy/AdvReac Type Severity Reaction Status Date / Time Sulfa (Sulfonamide Allergy Hives Verified 01/13/21 18:54 Antibiotics) Vital Signs Vital Signs - 24 hr 08/22/24 00:05 08/22/24 00:12 08/22/24 00:16 Temperature 97.9 F Pulse Rate 150 H Respiratory Rate 26 H Blood Pressure 135/102 H Pulse Oximetry 95 100 96 Oxygen Delivery Room Air Room Air Room Air 08/22/24 00:20 08/22/24 00:27 08/22/24 01:03 Temperature Pulse Rate 134 H 136 H 119 H Respiratory Rate 22 H Blood Pressure 134/85 116/83 109/77 Pulse Oximetry 96 Oxygen Delivery 08/22/24 01:04 08/22/24 01:34 08/22/24 02:40 Temperature 97.8 F Pulse Rate 119 H 114 H 99 Respiratory Rate 20 Blood Pressure 109/77 120/77 Pulse Oximetry 96 Oxygen Delivery 08/22/24 02:54 08/22/24 04:38 08/22/24 06:18 Temperature 97.9 F 98.1 F 98.3 F Pulse Rate 102 H 101 H 91 Respiratory Rate 26 H 17 18 Blood Pressure 129/95 H 126/68 125/80 Pulse Oximetry 96 95 97 Oxygen Delivery 08/22/24 07:24 08/22/24 07:52 08/22/24 07:58 Temperature Pulse Rate 93 98 104 H Respiratory Rate Blood Pressure 119/91 H 129/79 Pulse Oximetry Oxygen Delivery 08/22/24 09:10 08/22/24 09:43 08/22/24 09:43 Temperature Pulse Rate 65 70 70 Respiratory Rate 20 Blood Pressure 140/88 130/78 Pulse Oximetry 98 Oxygen Delivery 08/22/24 09:45 08/22/24 11:19 08/22/24 12:18 Temperature Pulse Rate 70 74 67 Respiratory Rate 20 19 20 Blood Pressure 130/78 130/81 136/79 Pulse Oximetry 97 97 99 Oxygen Delivery 08/22/24 13:04 Temperature Pulse Rate 73 Respiratory Rate 18 Blood Pressure 126/80 Pulse Oximetry 100 Oxygen Delivery Exam Const: General: cooperative, healthy appearing, comfortable and obese Resp: Auscultation: clear to auscultation bilaterally, no crackles, no rales, no rhonchi and no wheezes Cardio: Rate: regular rate Rhythm: regular rhythm Heart sounds: no murmurs Peripheral pulses: dorsalis pedis present GI: GI Palp: No abdominal tenderness and Yes Soft to palpation Neuro: General: oriented to person, oriented to place and oriented to time Extrem: Right lower extremity: no edema Left lower extremity: no edema Results Labs and Meds 08/22/24 00:12 08/22/24 00:12 Lab results: Cardiac Enzymes 08/22/24 08/22/24 08/22/24 Range/Units 00:12 02:44 05:31 AST 24 (17-59) U/L Troponin I 0.058 H* 0.976 H* D 2.620 H* D (0.000-0.034) ng/mL Coagulation 08/22/24 Range/Units 00:12 PT 12.9 (11.1-14.7) Seconds APTT 22.1 L (22.3-36.8) Seconds CBC 08/22/24 Range/Units 00:12 WBC 12.5 H (4.5-10.0) K/mm3 RBC 4.74 (4.6-6.20) M/mm3 Hgb 14.8 (14.0-18.0) g/dL Hct 43.9 (42.0-52.0) % Plt Count 227 (150-375) k/mm3 Lymph # (Auto) 0.99 (0.9-3.2) K/mm3 [place] # (Auto) 0.8 H (0.1-0.6) K/mm3 Eos # (Auto) 0.0 (0-0.3) K/mm3 Baso # (Auto) 0.0 (0.0-0.1) K/mm3 Comprehensive Metabolic Panel 08/22/24 Range/Units 00:12 Sodium 133 L (137-145) mmol/L Potassium 4.5 (3.4-5.0) mmol/L Chloride 102 (98-107) mmol/L Carbon Dioxide 26 (22-30) mmol/L BUN 22 H (9-20) mg/dL Creatinine 0.70 (0.7-1.3) mg/dL Glucose 202 H (65-110) mg/dL Calcium 8.8 (8.4-10.2) mg/dL AST 24 (17-59) U/L ALT 26 (6-50) U/L Alkaline Phosphatase 60 (38-126) U/L Total Protein 7.0 (6.3-8.2) g/dL Albumin 4.1 (3.5-5.1) g/dL Intake and Output 08/21/24 08/22/24 08/22/24 23:59 07:59 15:59 Intake Total 100.0 126.3 Balance 100.0 126.3 Intake: IV 100.0 126.3 dilTIAZem 100 MG/100 ML 100 mg 100.0 26.3 In 100 ml @ 15 MG/HR 15 mls/hr IV CONT .[id number] [facility] Rx#: [id number] cefTRIAXone 2 GM/NS 100 ML 2 gm 100 In 100 ml @ 200 mls/hr IVPB Q24H [facility] Rx#:[id number] Patient Weight 08/22/24 23:59 Weight 131.81 kg
--- NOTE | 2024-08-22 14:17 | ADMGEN ---
This patient, Krishna Armando, was admitted to Intensive Care Unit-4. Patient/family oriented to hospital policies and general routines including ID bracelet, bed and alarms, visiting hours, pain management, procedures, bathroom and other care routines, personal items, smoking policy, room service/diet, and visiting hours. Information on how to activate the Rapid Response Team has been discussed. Patient/Family are encouraged to report perceived risks to care and to ask questions if they do not understand what they are told or what they should do.
[2024-08-22 14:52] LABS: Cholesterol 192 mg/dL (0-200); HDL Direct 59 mg/dL; Triglycerides 113 mg/dL (<150)
[2024-08-22 15:02] LABS: LDL Cholesterol Direct 103 mg/dL
[2024-08-22] MEDS: PERFLUTREN LIPID MICROSPHERES 1.5 ML VIAL DILUTED TO 10 ML TOTAL VOLUME IV PUSH (16:30)
[2024-08-22] MEDS: AMIODARONE HCL 200 MG TABLET PO (16:38)
[2024-08-22 17:10] LABS: Partial Thromboplastin Time 28.4 Seconds (22.3-36.8)
[2024-08-22] MEDS: carvediloL 3.125 MG TABLET PO (20:23)
[2024-08-22 23:16] LABS: Partial Thromboplastin Time 52.2 Seconds (22.3-36.8)
[2024-08-23] VITALS (34 sets, daily range): BP systolic 91–140; BP diastolic 53–87; PULSE 62–93; RESP 14–25; TEMP 36.6–36.9; O2SAT 94–100
[2024-08-23] MEDS: HEPARIN SODIUM 5,000 UNITS/ML VIAL 4000 UNITS IV PUSH (00:20)
[2024-08-23] MEDS: HEPARIN SOD/D5W 100 UNITS/ML 25,000 UNITS/250 ML BAG 18 UNITS IV CONT (05:42)
[2024-08-23 07:14] LABS: Basophils Absolute Auto 0.1 K/mm3 (0.0-0.1); Basophils Percent Auto 0.6 % (0.2-1.2); Eosinophils Absolute Auto 0.2 K/mm3 (0-0.3); Eosinophils Percent Auto 2.1 % (0-4.4); Hematocrit 43.9 % (42.0-52.0); Hemoglobin 14.5 g/dL (14.0-18.0); Immature Granulocyte Absolute 0.24 K/mm3 (0.00-0.031); Immature Granulocyte Percent A 2.3 % (0-0.5); Lymphocytes Absolute Auto 1.86 K/mm3 (0.9-3.2); Lymphocytes Percent Auto 18.1 % (18.3-44.2); Mean Corpuscular Hemoglobin 31.4 pg (26-34); Monocytes Absolute Auto 0.8 K/mm3 (0.1-0.6); Monocytes Percent Auto 8.2 % (2.6-8.5); Neutrophils Percent Auto 68.7 % (45.5-73.1); Platelet Count Result 185 k/mm3 (150-375); Red Blood Count 4.62 M/mm3 (4.6-6.20); Red Cell Distribution Width 14.7 % (11.5-14.5); White Blood Count 10.3 K/mm3 (4.5-10.0)
[2024-08-23 07:27] LABS: Partial Thromboplastin Time 86.9 Seconds (22.3-36.8)
[2024-08-23 07:49] LABS: Troponin I 0.995 ng/mL (0.000-0.034)
--- NOTE | 2024-08-23 07:57 | PM.PNCARD ---
Progress Note: A&P Assessment and Plan (1) Atrial fibrillation with rapid ventricular response: Code(s): I48.91 - Unspecified atrial fibrillation Status: Acute Assessment and Plan: Back in sinus rhythm. New onset. [id number] 3. Start Amiodarone 200 mg PO BID to maintain sinus rhythm. After LHC, will start DOAC. (2) Chest pain: Code(s): R07.9 - Chest pain, unspecified Status: Acute Assessment and Plan: No pain now. But due to significant rise in troponin and peaked at 2.62 discussed LHC and he is agreeable. 08/22/24 Echo: TDS. EF 60-65%, mild LVH, grade I diastolic dysfunction (E/e' 9), mild LAE. Continue heparin drip. Risks/benefits/alternative to LHC discuss and he is agreeable to [facility]. Consulted [facility] for C. Keep NPO. (3) Coronary artery disease: Code(s): I25.10 - Atherosclerotic heart disease of [place] coronary artery without angina pectoris Status: Acute Assessment and Plan: History of 2 stents in 2015 in [place], [place]. 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 (4) Hypertension: Code(s): I10 - Essential (primary) hypertension Status: Acute Assessment and Plan: Stable. (5) Dyslipidemia: Code(s): E78.5 - Hyperlipidemia, unspecified Status: Acute Assessment and Plan: On Atorvastatin. (6) Hypersomnia: Code(s): G47.10 - Hypersomnia, unspecified Status: Acute Assessment and Plan: Will need outpatient sleep study. Subjective Date/time seen: 08/23/24 07:57 Interval history: Denies any more chest pain or sob. Exam Const: General: cooperative, healthy appearing, comfortable and obese Nutritional Appearance: obese Orientation/consciousness: oriented to person, oriented to place and oriented to time Resp: Auscultation: clear to auscultation bilaterally, no crackles, no rales, no rhonchi and no wheezes Cardio: Rate: regular rate Rhythm: regular rhythm Heart sounds: no murmurs Peripheral pulses: dorsalis pedis present Neuro: General: oriented to person, oriented to place and oriented to time Extrem: Right lower extremity: no edema Left lower extremity: no edema Objective Data Vital Signs Vital Signs: Vital Signs - 24 hr 08/22/24 07:58 08/22/24 09:10 08/22/24 09:43 Temperature Pulse Rate 104 H 65 70 Respiratory Rate 20 Blood Pressure 129/79 140/88 130/78 Pulse Oximetry 98 Oxygen Delivery 08/22/24 09:43 08/22/24 09:45 08/22/24 11:19 Temperature Pulse Rate 70 70 74 Respiratory Rate 20 19 Blood Pressure 130/78 130/81 Pulse Oximetry 97 97 Oxygen Delivery 08/22/24 12:18 08/22/24 13:04 08/22/24 14:16 Temperature 97.5 F L Pulse Rate 67 73 67 Respiratory Rate 20 18 20 Blood Pressure 136/79 126/80 138/87 Pulse Oximetry 99 100 97 Oxygen Delivery 08/22/24 14:00 08/22/24 14:00 08/22/24 14:03 Temperature Pulse Rate 64 72 Respiratory Rate Blood Pressure Pulse Oximetry Oxygen Delivery Room Air 08/22/24 16:38 08/22/24 16:00 08/22/24 16:00 Temperature 97.4 F L Pulse Rate 68 65 Respiratory Rate 19 Blood Pressure 131/84 Pulse Oximetry 96 Oxygen Delivery Room Air 08/22/24 16:00 08/22/24 18:00 08/22/24 20:20 Temperature 97.6 F Pulse Rate 64 73 71 Respiratory Rate 23 H Blood Pressure 115/68 Pulse Oximetry 93 Oxygen Delivery 08/22/24 20:23 08/22/24 20:00 08/22/24 20:00 Temperature Pulse Rate 76 70 Respiratory Rate Blood Pressure Pulse Oximetry Oxygen Delivery Room Air 08/23/24 00:16 08/23/24 00:00 08/23/24 00:00 Temperature 98.4 F Pulse Rate 67 65 Respiratory Rate 17 Blood Pressure 100/58 L Pulse Oximetry 100 Oxygen Delivery Room Air 08/23/24 04:00 08/23/24 04:21 08/23/24 04:00 Temperature 98.3 F Pulse Rate 68 63 Respiratory Rate 18 Blood Pressure 122/53 L Pulse Oximetry 96 Oxygen Delivery Room Air 08/23/24 05:53 Temperature Pulse Rate 69 Respiratory Rate Blood Pressure Pulse Oximetry Oxygen Delivery Intake/Output Intake/Output: Intake & Output 08/20/24 08/21/24 08/22/24 08/23/24 23:59 23:59 23:59 23:59 Intake Total 938.3 723.4 Output Total 700 400 Balance 238.3 323.4 Meds/Results Medications: Active Medications Generic Name Dose Route Start Last Admin Trade Name Freq PRN Reason Stop Dose Admin Acetaminophen 650 mg 08/22/24 01:52 Acetaminophen 325 Mg Tablet PO Q4H PRN Mild Pain (1-3) or Fever Amiodarone HCl 200 mg 08/22/24 17:00 08/22/24 16:38 Amiodarone Hcl 200 Mg Tablet PO 200 mg BID BETITO Administration Aspirin 81 mg 08/22/24 08:00 08/22/24 08:40 Aspirin 81 Mg Chewable Tablet PO 81 mg DAILY@0800 BETITO Administration Atorvastatin Calcium 40 mg 08/22/24 10:00 08/22/24 12:15 Atorvastatin 40 Mg Tablet PO 40 mg DAILY BETITO Administration Azithromycin 500 mg 08/22/24 10:10 08/22/24 12:14 Azithromycin 250 Mg Tablet PO 500 mg DAILY BETITO Administration Carvedilol 3.125 mg 08/22/24 21:00 08/22/24 20:23 Carvedilol 3.125 Mg Tablet PO 3.125 mg Q12HR BETITO Administration Heparin Sodium (Porcine) 4,000 units 08/22/24 09:28 08/23/24 00:20 Heparin Sodium 5,000 Units/Ml Vial IV PUSH 4,000 units PRN PRN Administration aPTT less than 55 seconds Heparin Sodium (Porcine) 3,500 units 08/22/24 09:28 Heparin Sodium 5,000 Units/Ml Vial IV PUSH PRN PRN aPTT 55 - 70 seconds Heparin Sodium/Dextrose 25,000 units in 250 mls @ 18 mls/hr 08/22/24 10:00 08/23/24 07:40 Heparin Sodium/D5w 100 Units/Ml IV CONT 1,800 units/hr .[id number] [facility] 18 mls/hr Titration Protocol 1,800 UNITS/HR Ceftriaxone Sodium 2 gm in 100 mls @ 200 mls/hr 08/22/24 10:00 08/22/24 13:04 Rocephin 2 Gm/Ns 100 Ml IVPB Infused Q24H BETITO Infusion Lisinopril 5 mg 08/23/24 09:00 Lisinopril 5 Mg Tablet PO QAM BETITO Ondansetron HCl 4 mg 08/22/24 01:52 Ondansetron Inj 4 Mg/2 Ml Vial IV PUSH Q4H PRN Nausea Radiology Results: ITS Impressions Chest X-Ray 08/22/24 00:45 IMPRESSION: Cardiomegaly with cardiac decompensation and pulmonary edema. Superimposed pneumonitis cannot be excluded. Labs Labs: Laboratory Results - last 24 hr 08/22/24 08/22/24 08/22/24 05:22 16:38 22:55 WBC RBC Hgb Hct MCV MCH MCHC RDW Plt Count MPV Immature Gran % (Auto) Neut % (Auto) Lymph % (Auto) [place] % (Auto) Eos % (Auto) Baso % (Auto) Lymph # (Auto) [place] # (Auto) Eos # (Auto) Baso # (Auto) Abs Immat Gran (auto) Absolute Neuts (auto) Absolute Nucleated RBC Nucleated RBC % APTT 28.4 52.2 H Troponin I Triglycerides 113 Cholesterol 192 LDL Cholesterol Direct 103 HDL Direct 59 08/23/24 07:04 WBC 10.3 H RBC 4.62 Hgb 14.5 Hct 43.9 MCV 95.0 MCH 31.4 MCHC 33.0 RDW 14.7 H Plt Count 185 MPV 10.0 Immature Gran % (Auto) 2.3 H Neut % (Auto) 68.7 Lymph % (Auto) 18.1 L [place] % (Auto) 8.2 Eos % (Auto) 2.1 Baso % (Auto) 0.6 Lymph # (Auto) 1.86 [place] # (Auto) 0.8 H Eos # (Auto) 0.2 Baso # (Auto) 0.1 Abs Immat Gran (auto) 0.24 H Absolute Neuts (auto) 7.0 H Absolute Nucleated RBC 0.000 Nucleated RBC % 0.0 APTT 86.9 H Troponin I 0.995 H* Triglycerides Cholesterol LDL Cholesterol Direct HDL Direct
--- NOTE | 2024-08-23 09:00 | ECG_ITS ---
Test Date: 2024-08-23 09:40:17 Measurements Intervals [place] Rate: 68 P: 44 NH: 137 QRS: 8 QRSD: 97 T: 34 QT: 417 QTc: 447 Interpretive Statements SINUS RHYTHM CAN NOT RULE OUT INFERIOR MYOCARDIAL INFARCTION ABNORMAL ECG Compared to ECG 08/22/2024 09:44:25 Ectopic atrial rhythm no longer present Electronically Signed On 08-23-2024 11:01:08 ASSISTANCE COORDINATOR by Dinesh Martinez M.D.
[2024-08-23] MEDS: lisinopriL 5 MG TABLET PO (09:21)
[2024-08-23] MEDS: AZITHROMYCIN 250 MG TABLET 500 MG PO (09:21)
[2024-08-23] MEDS: ASPIRIN 81 MG CHEWABLE TABLET PO (09:21)
[2024-08-23] MEDS: ATORVASTATIN 40 MG TABLET PO (09:21)
[2024-08-23] MEDS: carvediloL 3.125 MG TABLET PO ×2 (09:21→20:05)
[2024-08-23] MEDS: AMIODARONE HCL 200 MG TABLET PO ×2 (09:22→20:05)
[2024-08-23] MEDS: cefTRIAXone 2 GM/NS 100 ML 2 GM/100 ML BAG IVPB (10:00)
--- NOTE | 2024-08-23 14:03 | PM.CNCAR ---
Assessment and Plan Assessment and plan (1) Atrial fibrillation with rapid ventricular response: Code(s): I48.91 - Unspecified atrial fibrillation Status: Acute (2) Chest pain: Code(s): R07.9 - Chest pain, unspecified Status: Acute (3) Hypertension: Code(s): I10 - Essential (primary) hypertension Status: Acute (4) Dyslipidemia: Code(s): E78.5 - Hyperlipidemia, unspecified Status: Acute (5) Elevated troponin: Code(s): R79.89 - Other specified abnormal findings of blood chemistry Status: Acute Assessment and Plan: Will proceed with [facility]. Further recommendations and plan pending results of cardiac catheterization. History of Present Illness History of Present Illness Consult date/time: 08/23/24 14:03 Requesting physician: Mushtaq Maharaj DO Consult reason: Other ([facility]) Reason For Visit: Atrial fibrillation with rapid ventricular respons Narrative: We are consulted for [facility] by Dr. Maharaj. This is a 69 year old male with CAD s/p prior stents, hypertension, hyperlipidemia who presented to [facility] for chest pain. Found to be in atrial fibrillation with RVR, which is a new diagnosis for him. Workup showed troponin elevation with peak of 2.620. Initial EKGs with atrial fibrillation with RVR, now in sinus rhythm. Echocardiogram shows LVEF 60-65%, no regional wall motion abnormality noted. Given chest pain and elevated troponins, patient is referred for [facility]. Review of Systems Review of Systems: All systems reviewed & are unremarkable except as noted in HPI and below (HPI) [facility] Past Medical History Medical History Coronary artery disease Family History Family History Mother Pancreatic cancer Sibling Breast cancer Grandparent Breast cancer Father Acute myocardial infarction Social History Social History Smoking packs per day: 1 Smoking cigarettes per day: 20.0 Years smoked: 20 Smoking pack-years: 20.00 Smoking status: Former smoker Substance use type: does not use Do You Feel Safe in your Home?: Yes Lack of Transportation: No Lack of Food: Never True Current Housing: I Have Housing Concerned About Future Housing: No Difficulty Paying Gas/Electric Bills: No Difficulty Paying for Meds: No Currently Unemployed: No Education: High School Diploma/GED Difficulty w/ Childcare or Family Care: No Gender identity (if verbalized by the patient): Male Spiritual care concerns: No Meds Home Medications and Allergies Home Medications Medication Instructions Recorded Confirmed Type atorvastatin 40 mg tablet 80 mg PO DAILY 01/13/21 08/22/24 History carvedilol 3.125 mg tablet 3.125 mg PO BID 01/13/21 08/22/24 History clopidogrel 75 mg tablet 75 mg PO DAILY 01/13/21 08/22/24 History hydrochlorothiazide 25 mg tablet 25 mg PO DAILY 01/13/21 08/22/24 History lisinopril 5 mg tablet 5 mg PO DAILY 01/13/21 08/22/24 History prednisone 20 mg tablet 40 mg PO DAILY 08/22/24 08/22/24 History Allergies Allergy/AdvReac Type Severity Reaction Status Date / Time Sulfa (Sulfonamide Allergy Hives Verified 01/13/21 18:54 Antibiotics) Vital Signs Vital Signs - 24 hr 08/22/24 14:16 08/22/24 16:38 08/22/24 16:00 Temperature 36.4 C L 36.3 C L Pulse Rate 67 68 65 Respiratory Rate 20 19 Blood Pressure 138/87 131/84 Pulse Oximetry 97 96 Oxygen Delivery 08/22/24 16:00 08/22/24 16:00 08/22/24 18:00 Temperature Pulse Rate 64 73 Respiratory Rate Blood Pressure Pulse Oximetry Oxygen Delivery Room Air 08/22/24 20:20 08/22/24 20:23 08/22/24 20:00 Temperature 36.4 C Pulse Rate 71 76 Respiratory Rate 23 H Blood Pressure 115/68 Pulse Oximetry 93 Oxygen Delivery Room Air 08/22/24 20:00 08/23/24 00:16 08/23/24 00:00 Temperature 36.9 C Pulse Rate 70 67 Respiratory Rate 17 Blood Pressure 100/58 L Pulse Oximetry 100 Oxygen Delivery Room Air 08/23/24 00:00 08/23/24 04:00 08/23/24 04:21 Temperature 36.8 C Pulse Rate 65 68 Respiratory Rate 18 Blood Pressure 122/53 L Pulse Oximetry 96 Oxygen Delivery Room Air 08/23/24 04:00 08/23/24 05:53 08/23/24 08:00 Temperature 36.6 C Pulse Rate 63 69 66 Respiratory Rate 14 Blood Pressure 117/60 Pulse Oximetry 95 Oxygen Delivery 08/23/24 09:21 08/23/24 09:22 08/23/24 08:00 Temperature Pulse Rate 69 77 68 Respiratory Rate Blood Pressure Pulse Oximetry Oxygen Delivery 08/23/24 10:00 08/23/24 11:41 08/23/24 12:00 Temperature 36.9 C Pulse Rate 69 71 62 Respiratory Rate 23 H Blood Pressure 121/83 Pulse Oximetry 96 Oxygen Delivery Exam Const: General: no acute distress Other: Morbidly obese HENMT: Mouth: Yes moist mucous membranes Eyes: General: appearance normal, both eyes and all related structures Sclera: sclerae normal Resp: Effort & Inspection: normal respiratory effort Cardio: Rate: regular rate Rhythm: regular rhythm Skin: General skin exam: normal color Neuro: Speech: normal speech Psych: Mental Status: mental status grossly normal Affect: normal affect Results Labs and Meds 08/23/24 07:04 08/22/24 00:12 Lab results: Cardiac Enzymes 08/23/24 Range/Units 07:04 Troponin I 0.995 H* (0.000-0.034) ng/mL Coagulation 08/22/24 08/22/24 08/23/24 Range/Units 16:38 22:55 07:04 APTT 28.4 52.2 H 86.9 H (22.3-36.8) Seconds Lipids 08/22/24 Range/Units 05:22 Triglycerides 113 (<150) mg/dL Cholesterol 192 (0-200) mg/dL CBC 08/23/24 Range/Units 07:04 WBC 10.3 H (4.5-10.0) K/mm3 RBC 4.62 (4.6-6.20) M/mm3 Hgb 14.5 (14.0-18.0) g/dL Hct 43.9 (42.0-52.0) % Plt Count 185 (150-375) k/mm3 Lymph # (Auto) 1.86 (0.9-3.2) K/mm3 [place] # (Auto) 0.8 H (0.1-0.6) K/mm3 Eos # (Auto) 0.2 (0-0.3) K/mm3 Baso # (Auto) 0.1 (0.0-0.1) K/mm3 Intake and Output 08/22/24 08/23/24 08/23/24 23:59 07:59 15:59 Intake Total 712.0 723.4 100 Output Total 700 400 850 Balance 12.0 323.4 -750 Intake: IV 112.0 173.4 100 Heparin Sod/D5w 100 Units/ml 25 112.0 173.4 ,000 units In 250 ml @ 1,800 UNITS/HR 18 mls/hr IV CONT . [id number] [facility] Rx#:[id number] cefTRIAXone 2 GM/NS 100 ML 2 gm 100 In 100 ml @ 200 mls/hr IVPB Q24H [facility] Rx#:[id number] Oral 600 550 Output: Urine 700 400 850 Patient Weight 08/23/24 23:59 Weight 142.5 kg
--- NOTE | 2024-08-23 14:09 | WPDMODSED ---
Moderate Sedation Note-Pt Data Patient Data Diagnosis: Coronary artery disease Present Complaint: Chest pain Procedure to be performed/Plan: Coronary angiography, left heart cath, +/- PCI Allergies Allergy/AdvReac Type Severity Reaction Status Date / Time Sulfa (Sulfonamide Allergy Hives Verified 01/13/21 18:54 Antibiotics) Home Medications Medication Instructions Recorded Confirmed Type atorvastatin 40 mg tablet 80 mg PO DAILY 01/13/21 08/22/24 History carvedilol 3.125 mg tablet 3.125 mg PO BID 01/13/21 08/22/24 History clopidogrel 75 mg tablet 75 mg PO DAILY 01/13/21 08/22/24 History hydrochlorothiazide 25 mg tablet 25 mg PO DAILY 01/13/21 08/22/24 History lisinopril 5 mg tablet 5 mg PO DAILY 01/13/21 08/22/24 History prednisone 20 mg tablet 40 mg PO DAILY 08/22/24 08/22/24 History Current Medications: Active Medications Acetaminophen (Acetaminophen 325 Mg Tablet) 650 mg PO Q4H PRN PRN Reason: Mild Pain (1-3) or Fever Amiodarone HCl (Amiodarone Hcl 200 Mg Tablet) 200 mg PO BID [facility] Last Admin: 08/23/24 09:22 Dose: 200 mg Aspirin (Aspirin 81 Mg Chewable Tablet) 81 mg PO DAILY@0800 [facility] Last Admin: 08/23/24 09:21 Dose: 81 mg Atorvastatin Calcium (Atorvastatin 40 Mg Tablet) 40 mg PO DAILY [facility] Last Admin: 08/23/24 09:21 Dose: 40 mg Azithromycin (Azithromycin 250 Mg Tablet) 500 mg PO DAILY [facility] Last Admin: 08/23/24 09:21 Dose: 500 mg Carvedilol (Carvedilol 3.125 Mg Tablet) 3.125 mg PO Q12HR [facility] Last Admin: 08/23/24 09:21 Dose: 3.125 mg Heparin Sodium (Porcine) (Heparin Sodium 5,000 Units/Ml Vial) 4,000 units IV PUSH PRN PRN PRN Reason: aPTT less than 55 seconds Last Admin: 08/23/24 00:20 Dose: 4,000 units Heparin Sodium (Porcine) (Heparin Sodium 5,000 Units/Ml Vial) 3,500 units IV PUSH PRN PRN PRN Reason: aPTT 55 - 70 seconds Heparin Sodium/Dextrose (Heparin Sodium/D5w 100 Units/Ml) 25,000 units in 250 mls @ 18 mls/hr IV CONT .[id number] [facility]; Protocol Last Titration: 08/23/24 07:40 Dose: 1,800 units/hr, 18 mls/hr Ceftriaxone Sodium (Rocephin 2 Gm/Ns 100 Ml) 2 gm in 100 mls @ 200 mls/hr IVPB Q24H [facility] Last Infusion: 08/23/24 10:30 Dose: Infused Lisinopril (Lisinopril 5 Mg Tablet) 5 mg PO QAM [facility] Last Admin: 08/23/24 09:21 Dose: 5 mg Ondansetron HCl (Ondansetron Inj 4 Mg/2 Ml Vial) 4 mg IV PUSH Q4H PRN PRN Reason: Nausea Sedation/Anesthesia: No previous sedation/anesthesia problems (including family history). [facility] Past Medical History Medical History Coronary artery disease Family History Family History Mother Pancreatic cancer Sibling Breast cancer Grandparent Breast cancer Father Acute myocardial infarction Social History Social History Smoking packs per day: 1 Smoking cigarettes per day: 20.0 Years smoked: 20 Smoking pack-years: 20.00 Smoking status: Former smoker Substance use type: does not use Do You Feel Safe in your Home?: Yes Lack of Transportation: No Lack of Food: Never True Current Housing: I Have Housing Concerned About Future Housing: No Difficulty Paying Gas/Electric Bills: No Difficulty Paying for Meds: No Currently Unemployed: No Education: High School Diploma/GED Difficulty w/ Childcare or Family Care: No Gender identity (if verbalized by the patient): Male Spiritual care concerns: No Mod Sed Physical Exam Physical Exam Pre Procedural Exam: Normal: Appearance, Lungs, Heart Rate, Heart Rhythm and Neuro Exam Hours since solid foods: 12 Hours since liquid intake: 8 Mallampati Classification: class III Internal Medicine - PN: Obj Da Vital Signs Vital Signs: Vital Signs - 24 hr 08/22/24 14:16 08/22/24 16:38 08/22/24 16:00 Temperature 36.4 C L 36.3 C L Pulse Rate 67 68 65 Respiratory Rate 20 19 Blood Pressure 138/87 131/84 Pulse Oximetry 97 96 Oxygen Delivery 08/22/24 16:00 08/22/24 16:00 08/22/24 18:00 Temperature Pulse Rate 64 73 Respiratory Rate Blood Pressure Pulse Oximetry Oxygen Delivery Room Air 08/22/24 20:20 08/22/24 20:23 08/22/24 20:00 Temperature 36.4 C Pulse Rate 71 76 Respiratory Rate 23 H Blood Pressure 115/68 Pulse Oximetry 93 Oxygen Delivery Room Air 08/22/24 20:00 08/23/24 00:16 08/23/24 00:00 Temperature 36.9 C Pulse Rate 70 67 Respiratory Rate 17 Blood Pressure 100/58 L Pulse Oximetry 100 Oxygen Delivery Room Air 08/23/24 00:00 08/23/24 04:00 08/23/24 04:21 Temperature 36.8 C Pulse Rate 65 68 Respiratory Rate 18 Blood Pressure 122/53 L Pulse Oximetry 96 Oxygen Delivery Room Air 08/23/24 04:00 08/23/24 05:53 08/23/24 08:00 Temperature 36.6 C Pulse Rate 63 69 66 Respiratory Rate 14 Blood Pressure 117/60 Pulse Oximetry 95 Oxygen Delivery 08/23/24 09:21 08/23/24 09:22 08/23/24 08:00 Temperature Pulse Rate 69 77 68 Respiratory Rate Blood Pressure Pulse Oximetry Oxygen Delivery 08/23/24 10:00 08/23/24 11:41 08/23/24 12:00 Temperature 36.9 C Pulse Rate 69 71 62 Respiratory Rate 23 H Blood Pressure 121/83 Pulse Oximetry 96 Oxygen Delivery 08/23/24 14:00 Temperature Pulse Rate 79 Respiratory Rate Blood Pressure Pulse Oximetry Oxygen Delivery Intake/Output Intake/Output: Intake & Output 08/20/24 08/21/24 08/22/24 08/23/24 23:59 23:59 23:59 23:59 Intake Total 938.3 823.4 Output Total 700 1250 Balance 238.3 -426.6 Meds/Results Medications: Active Medications Generic Name Dose Route Start Last Admin Trade Name Freq PRN Reason Stop Dose Admin Acetaminophen 650 mg 08/22/24 01:52 Acetaminophen 325 Mg Tablet PO Q4H PRN Mild Pain (1-3) or Fever Amiodarone HCl 200 mg 08/22/24 17:00 08/23/24 09:22 Amiodarone Hcl 200 Mg Tablet PO 200 mg BID BETITO Administration Aspirin 81 mg 08/22/24 08:00 08/23/24 09:21 Aspirin 81 Mg Chewable Tablet PO 81 mg DAILY@0800 BETITO Administration Atorvastatin Calcium 40 mg 08/22/24 10:00 08/23/24 09:21 Atorvastatin 40 Mg Tablet PO 40 mg DAILY BETITO Administration Azithromycin 500 mg 08/22/24 10:10 08/23/24 09:21 Azithromycin 250 Mg Tablet PO 500 mg DAILY BETITO Administration Carvedilol 3.125 mg 08/22/24 21:00 08/23/24 09:21 Carvedilol 3.125 Mg Tablet PO 3.125 mg Q12HR BETITO Administration Heparin Sodium (Porcine) 4,000 units 08/22/24 09:28 08/23/24 00:20 Heparin Sodium 5,000 Units/Ml Vial IV PUSH 4,000 units PRN PRN Administration aPTT less than 55 seconds Heparin Sodium (Porcine) 3,500 units 08/22/24 09:28 Heparin Sodium 5,000 Units/Ml Vial IV PUSH PRN PRN aPTT 55 - 70 seconds Heparin Sodium/Dextrose 25,000 units in 250 mls @ 18 mls/hr 08/22/24 10:00 08/23/24 07:40 Heparin Sodium/D5w 100 Units/Ml IV CONT 1,800 units/hr .[id number] BETITO 18 mls/hr Titration Protocol 1,800 UNITS/HR Ceftriaxone Sodium 2 gm in 100 mls @ 200 mls/hr 08/22/24 10:00 08/23/24 10:30 Rocephin 2 Gm/Ns 100 Ml IVPB Infused Q24H BETITO Infusion Lisinopril 5 mg 08/23/24 09:00 08/23/24 09:21 Lisinopril 5 Mg Tablet PO 5 mg QAM BETITO Administration Ondansetron HCl 4 mg 08/22/24 01:52 Ondansetron Inj 4 Mg/2 Ml Vial IV PUSH Q4H PRN Nausea Radiology Results: ITS Impressions Chest X-Ray 08/22/24 00:45 IMPRESSION: Cardiomegaly with cardiac decompensation and pulmonary edema. Superimposed pneumonitis cannot be excluded. Labs 08/23/24 07:04 08/22/24 00:12 Labs: Laboratory Results - last 24 hr 08/22/24 08/22/24 08/22/24 05:22 16:38 22:55 WBC RBC Hgb Hct MCV MCH MCHC RDW Plt Count MPV Immature Gran % (Auto) Neut % (Auto) Lymph % (Auto) [place] % (Auto) Eos % (Auto) Baso % (Auto) Lymph # (Auto) [place] # (Auto) Eos # (Auto) Baso # (Auto) Abs Immat Gran (auto) Absolute Neuts (auto) Absolute Nucleated RBC Nucleated RBC % APTT 28.4 52.2 H Troponin I Triglycerides 113 Cholesterol 192 LDL Cholesterol Direct 103 HDL Direct 59 08/23/24 07:04 WBC 10.3 H RBC 4.62 Hgb 14.5 Hct 43.9 MCV 95.0 MCH 31.4 MCHC 33.0 RDW 14.7 H Plt Count 185 MPV 10.0 Immature Gran % (Auto) 2.3 H Neut % (Auto) 68.7 Lymph % (Auto) 18.1 L [place] % (Auto) 8.2 Eos % (Auto) 2.1 Baso % (Auto) 0.6 Lymph # (Auto) 1.86 [place] # (Auto) 0.8 H Eos # (Auto) 0.2 Baso # (Auto) 0.1 Abs Immat Gran (auto) 0.24 H Absolute Neuts (auto) 7.0 H Absolute Nucleated RBC 0.000 Nucleated RBC % 0.0 APTT 86.9 H Troponin I 0.995 H* Triglycerides Cholesterol LDL Cholesterol Direct HDL Direct ASA Classification/Sedation ASA Classification/Sedation ASA Class: III Emergent: No Risks: Risks, benefits and alternatives explained and patient/family accepted plan for sedation. Patient re-evaluated immediately prior to sedation.
[2024-08-23 14:13] LABS: Partial Thromboplastin Time 76.4 Seconds (22.3-36.8)
--- NOTE | 2024-08-23 14:19 | P.PCNCC_ITS ---
Cardiac Cath Procedure Note Date of procedure:: 08/23/24 Performing physician:: CATHETERIZATION LABORATORY REPORT Procedure Date: 08/23/2024 Biological Science Technician: Daylin Daigle M.D., [facility]? Referring Physician: Dr. Mushtaq Maharaj ? Anesthesia: Versed and Fentanyl were ordered and given in my presence at 14:43, procedure en ded at 15:13. Supervision of nurse monitored moderate sedation with Versed and Fentanyl was provided for 30 minutes. Total of Versed 1mg, Fentanyl 75mcg, Morphine 0.5mg were administered by the Brush Worker NANDO Kahn Pre-op Diagnosis: Coronary artery disease Post-op Diagnosis: 1. Angiographically, there is a moderate hazy 50% stenosis of the distal left main. IVUS of the distal left main shows an eccentric calcific stenosis, with MLA of 7.8mm2. 2. The RCA is METAL[employer] OPERATION in the distal portion. There are [id number] collaterals filling the distal RCA branches. Procedure(s): 1. Moderate sedation 2. Ultrasound-guided access of the right radial artery 3. Coronary angiography 4. IVUS of the left main Access Site: Right radial artery Brief History and Clinical Indications: Patient is a 69 year old male with CAD s/p prior stents, hypertension, hyperlipidemia who presented to [place] for chest pain. Found to be in atrial fibrillation with RVR, which is a new diagnosis for him. Workup showed troponin elevation with peak of 2.620. Initial EKGs with atrial fibrillation with RVR, now in sinus rhythm. Echocardiogram shows LVEF 60-65%, no regional wall motion abnormality noted. Given chest pain a nd elevated troponins, patient is referred for [facility]. All risks, benefits and alternatives to left heart catheterization with or without percutaneous coronary intervention was discussed at length with the patient. Risk of complications including but not limited to bleeding, infection, arrhythmia, stroke, worsening kidney function, blood loss, groin hematoma, limb loss, emergency coronary artery bypass grafting, and even were discussed with the patient and all questions were answered. The patient understood and wished to proceed. Time out called, patient name, date of , medical record number, allergies, procedure performed, identify Biological Science Technician, patient and staff member concurred with accurate data, procedure carried on. Findings: LEFT HEART CATHETERIZATION FINDINGS: 1. Left main: There is haziness in the distal left main, appreciated on the caudal views. Angiographically, there is a moderate 50% stenosis of the distal left main. IVUS of the distal left main shows an eccentric calcific stenosis, with MLA of 7.8mm2. 2. Left anterior descending: The LAD and the diagonal branches have mild diffuse disease without any significant obstructive angiographic disease. 3. Left circumflex: The left circumflex artery and the main marginal branches have mild diffuse disease without any significant obstructive angiographic disease. 4. Right coronary artery: The RCA is the dominant vessel. The RCA has slow flow. The RCA is METALIZ[employer] FIELD OPERATION in the distal portion. There are [id number] collaterals filling the distal RCA branches. Description of Procedure: Informed consent signed and placed in the chart. Patient transferred to forestry farm laborer room. Prepped and draped in usual sterile fashion. 2% lidocaine injected subcutaneously in right wrist area. 22-gauge venipuncture catheter used to access the right radial artery under u ltrasound guidance. 6-FR slender sheath placed in right radial artery. Nitroglycerine and Verapamil were given intraarterial through the sheath. Versacore wire advanced under fluoroscopy 5F Tig 4 diagnostic catheter engaged Left Main Coronary Artery. 5F Tig 4 diagnostic catheter engaged Right Coronary Artery Multiple orthogonal angiogram obtained and reviewed Angiomax was used for anticoagulation. 6F EBU 3.0 guide catheter was used to intubate the left main 0.014 [place] coronary wire was passed in to the LAD. IVUS catheter advanced into the LAD and pulled back into the left main. IVUS of the distal left main shows an eccentric calcific stenosis, with MLA of 7.8mm2. IVUS catheter removed. Coronary wire and guide-catheter were removed No angiographic complications identified. Hemostasis was achieved by application of TR band. Disposition: Floor Plan: The patient will be monitored in the recovery area. The above findings were discussed with the referring physician. Continue aggressive medical therapy and risk factor modification. ? Daylin Daigle M.D. Interventional Cardiology
--- NOTE | 2024-08-23 15:20 | P.PNIM_ITS ---
Progress Note: A&P Assessment and Plan (1) Chest pain: Code(s): R07.9 - Chest pain, unspecified Status: Acute Assessment and Plan: No pain now. But due to significant rise in troponin at 2.62 discussed [facility] and he is agreeable. Continue heparin drip. Obtain echo. Risks/benefits/alternative to [facility] discuss and he is agreeable to [facility]. Will consult [facility] [place] [facility] for tomorrow. Keep NPO after midnight. (2) Atrial fibrillation with rapid ventricular response: Code(s): I48.91 - Unspecified atrial fibrillation Status: Acute Assessment and Plan: Back in sinus rhythm. New onset. [id number] 3. Start Amiodarone 200 mg PO BID to maintain sinus rhythm. (3) Coronary artery disease: Code(s): I25.10 - Atherosclerotic heart disease of [place] coronary artery without angina pectoris Status: Acute Assessment and Plan: History of 2 stents in 2015 in [place], [place]. 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 (4) Hypertension: Code(s): I10 - Essential (primary) hypertension Status: Acute Assessment and Plan: Stable. (5) Dyslipidemia: Code(s): E78.5 - Hyperlipidemia, unspecified Status: Acute Assessment and Plan: On Atorvastatin. (6) Hypersomnia: Code(s): G47.10 - Hypersomnia, unspecified Status: Acute Assessment and Plan: Will need outpatient sleep study. Plan Non ST elevation NE -Patient underwent cardiac catheterization today. Left main artery shows moderate 50% stenosis, left anterior descending and diagonal branches shows mild diffuse disease without any significant obstructive, left circumflex and main marginal branches have mild diffuse disease without any significant obstruction, right coronary artery has slow flow. Please refer to the full cardiac catheterization report. Cardiology advised aggressive medical therapy and risk factor modification -Atorvastatin 40 mg, and aspirin 81 mg to his regimen -Cardiology consulted -Trend Troponin -Recommend weaning him off diltiazem drip -continue heparin drip and give sublingual nitro if needed -Echocardiogram pending -Denies any illicit drug use -Reviewed EKG and CXR A.Fib with RVR -Start Amiodarone 200 mg PO BID to maintain sinus rhythm. -Cardizem drip -On heparin drip -CHADVASC 3 Subjective Date/time seen: 08/23/24 15:20 Interval history: Patient underwent cardiac catheterization today. Left main artery shows moderate 50% stenosis, left anterior descending and diagonal branches shows mild diffuse disease without any significant obstructive, left circumflex and main marginal branches have mild diffuse disease without any significant obstruction, right coronary artery has slow flow. Please refer to the full cardiac catheterization report. Cardiology advised aggressive medical therapy and risk factor modification Review of Systems Review of Systems: A 10 system review of systems was completed on the patient and is negative except for what is stated in the HPI. Nursing and ancillary documentation was reviewed. All systems reviewed & are unremarkable except as noted in HPI and below Constitutional: Constitutional: Reports as per HPI, Denies chills and Denies fever(s) ENT: Denies dizziness Cardiovascular: Cardiovascular: Reports as per HPI, Reports chest pain, Denies syncope, Reports irregular heart rhythm and Reports dyspnea Respiratory: Respiratory: Reports as per HPI and Reports dyspnea Gastrointestinal: Gastrointestinal: Reports as per HPI and Denies abdominal pain Genitourinary: Genitourinary: Reports as per HPI and Denies dysuria Musculoskeletal: Musculoskeletal: Reports as per HPI Neurologic: Reports as per HPI, Denies dizziness and Denies syncope Exam Narrative: GENERAL: Well-appearing, well-nourished, and in no acute distress. HEAD: Normocephalic, atraumatic. EYES: PERRLA and EOMI. ENT: Nares clear, no rhinorrhea or epistaxis. Mucous membranes moist. NECK: Supple. CHEST: Clear to auscultation. No respiratory distress. HEART: tachycardic rate and irregular rhythm. No murmur heard. Normal peripheral pulses. ABDOMEN: Soft, nontender, nondistended, normal active bowel sounds. EXTREMITIES: Normal range of motion. No edema. SKIN: Warm, dry, no rash. NEURO: No focal deficits. Alert and oriented x3. PSYCH: Normal mood and affect. Const: General: cooperative, healthy appearing, comfortable and obese Nutritional Appearance: obese Orientation/consciousness: oriented to person, oriented to place and oriented to time Resp: Auscultation: clear to auscultation bilaterally, no crackles, no rales, no rhonchi and no wheezes Cardio: Rate: regular rate Rhythm: regular rhythm Heart sounds: no murmurs Peripheral pulses: dorsalis pedis present Neuro: General: oriented to person, oriented to place and oriented to time Extrem: Right lower extremity: no edema Left lower extremity: no edema Objective Data Vital Signs Vital Signs: Vital Signs - 24 hr 08/22/24 16:38 08/22/24 16:00 08/22/24 16:00 Temperature 97.4 F L Pulse Rate 68 65 Respiratory Rate 19 Blood Pressure 131/84 Pulse Oximetry 96 Oxygen Delivery Room Air 08/22/24 16:00 08/22/24 18:00 08/22/24 20:20 Temperature 97.6 F Pulse Rate 64 73 71 Respiratory Rate 23 H Blood Pressure 115/68 Pulse Oximetry 93 Oxygen Delivery 08/22/24 20:23 08/22/24 20:00 08/22/24 20:00 Temperature Pulse Rate 76 70 Respiratory Rate Blood Pressure Pulse Oximetry Oxygen Delivery Room Air 08/23/24 00:16 08/23/24 00:00 08/23/24 00:00 Temperature 98.4 F Pulse Rate 67 65 Respiratory Rate 17 Blood Pressure 100/58 L Pulse Oximetry 100 Oxygen Delivery Room Air 08/23/24 04:00 08/23/24 04:21 08/23/24 04:00 Temperature 98.3 F Pulse Rate 68 63 Respiratory Rate 18 Blood Pressure 122/53 L Pulse Oximetry 96 Oxygen Delivery Room Air 08/23/24 05:53 08/23/24 08:00 08/23/24 09:21 Temperature 97.8 F Pulse Rate 69 66 69 Respiratory Rate 14 Blood Pressure 117/60 Pulse Oximetry 95 Oxygen Delivery 08/23/24 09:22 08/23/24 08:00 08/23/24 10:00 Temperature Pulse Rate 77 68 69 Respiratory Rate Blood Pressure Pulse Oximetry Oxygen Delivery 08/23/24 11:41 08/23/24 12:00 08/23/24 14:00 Temperature 98.4 F Pulse Rate 71 62 79 Respiratory Rate 23 H Blood Pressure 121/83 Pulse Oximetry 96 Oxygen Delivery Intake/Output Intake/Output: Intake & Output 08/20/24 08/21/24 08/22/24 08/23/24 23:59 23:59 23:59 23:59 Intake Total 938.3 941.9 Output Total 700 1250 Balance 238.3 -308.1 Meds/Results Medications: Active Medications Generic Name Dose Route Start Last Admin Trade Name Freq PRN Reason Stop Dose Admin Acetaminophen 650 mg 08/22/24 01:52 Acetaminophen 325 Mg Tablet PO Q4H PRN Mild Pain (1-3) or Fever Amiodarone HCl 200 mg 08/22/24 17:00 08/23/24 09:22 Amiodarone Hcl 200 Mg Tablet PO 200 mg BID BETITO Administration Aspirin 81 mg 08/22/24 08:00 08/23/24 09:21 Aspirin 81 Mg Chewable Tablet PO 81 mg DAILY@0800 BETITO Administration Atorvastatin Calcium 40 mg 08/22/24 10:00 08/23/24 09:21 Atorvastatin 40 Mg Tablet PO 40 mg DAILY BETITO Administration Azithromycin 500 mg 08/22/24 10:10 08/23/24 09:21 Azithromycin 250 Mg Tablet PO 500 mg DAILY BETITO Administration Carvedilol 3.125 mg 08/22/24 21:00 08/23/24 09:21 Carvedilol 3.125 Mg Tablet PO 3.125 mg Q12HR BETITO Administration Heparin Sodium (Porcine) 4,000 units 08/22/24 09:28 08/23/24 00:20 Heparin Sodium 5,000 Units/Ml Vial IV PUSH 4,000 units PRN PRN Administration aPTT less than 55 seconds Heparin Sodium (Porcine) 3,500 units 08/22/24 09:28 Heparin Sodium 5,000 Units/Ml Vial IV PUSH PRN PRN aPTT 55 - 70 seconds Heparin Sodium/Dextrose 25,000 units in 250 mls @ 18 mls/hr 08/22/24 10:00 08/23/24 14:15 Heparin Sodium/D5w 100 Units/Ml IV CONT 1,800 units/hr .[id number] BETITO 18 mls/hr Titration Protocol 1,800 UNITS/HR Ceftriaxone Sodium 2 gm in 100 mls @ 200 mls/hr 08/22/24 10:00 08/23/24 10:30 Rocephin 2 Gm/Ns 100 Ml IVPB Infused Q24H BETITO Infusion Lisinopril 5 mg 08/23/24 09:00 08/23/24 09:21 Lisinopril 5 Mg Tablet PO 5 mg QAM BETITO Administration Ondansetron HCl 4 mg 08/22/24 01:52 Ondansetron Inj 4 Mg/2 Ml Vial IV PUSH Q4H PRN Nausea Radiology Results: ITS Impressions Chest X-Ray 08/22/24 00:45 IMPRESSION: Cardiomegaly with cardiac decompensation and pulmonary edema. Superimposed pneumonitis cannot be excluded. Labs Labs: Laboratory Results - last 24 hr 08/22/24 08/22/24 08/23/24 16:38 22:55 07:04 WBC 10.3 H RBC 4.62 Hgb 14.5 Hct 43.9 MCV 95.0 MCH 31.4 MCHC 33.0 RDW 14.7 H Plt Count 185 MPV 10.0 Immature Gran % (Auto) 2.3 H Neut % (Auto) 68.7 Lymph % (Auto) 18.1 L [place] % (Auto) 8.2 Eos % (Auto) 2.1 Baso % (Auto) 0.6 Lymph # (Auto) 1.86 [place] # (Auto) 0.8 H Eos # (Auto) 0.2 Baso # (Auto) 0.1 Abs Immat Gran (auto) 0.24 H Absolute Neuts (auto) 7.0 H Absolute Nucleated RBC 0.000 Nucleated RBC % 0.0 APTT 28.4 52.2 H 86.9 H Troponin I 0.995 H* 08/23/24 13:47 WBC RBC Hgb Hct MCV MCH MCHC RDW Plt Count MPV Immature Gran % (Auto) Neut % (Auto) Lymph % (Auto) [place] % (Auto) Eos % (Auto) Baso % (Auto) Lymph # (Auto) [place] # (Auto) Eos # (Auto) Baso # (Auto) Abs Immat Gran (auto) Absolute Neuts (auto) Absolute Nucleated RBC Nucleated RBC % APTT 76.4 H Troponin I Hospitalist [facility] Advance Care Plan I have confirmed that the patient's Advanced Care Plan is present, code status is documented, or surrogate decision maker is listed in patient medical record.: Yes Medication Reconciliation I have utilized all available resources to obtain, update and review the patients current medications (includes all prescriptions, OTC, herbals, cannabis, and nutritional supplements).: Yes
[2024-08-23] MEDS: APIXABAN 5 MG TABLET PO (20:05)
[2024-08-24] VITALS (11 sets, daily range): BP systolic 100–161; BP diastolic 58–86; PULSE 55–82; RESP 18–22; TEMP 36.6–36.8; O2SAT 92–97
--- NOTE | 2024-08-24 07:55 | P.PNCA_ITS ---
Progress Note: A&P Assessment and Plan (1) Atrial fibrillation with rapid ventricular response: Code(s): I48.91 - Unspecified atrial fibrillation Status: Acute Assessment and Plan: Back in sinus rhythm. New onset. [id number] 3. On Amiodarone 200 mg PO BID to maintain sinus rhythm. Started Eliquis 5 mg BID. May d/c home from cardiology standpoint. 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 (2) Chest pain: Code(s): R07.9 - Chest pain, unspecified Status: Acute Assessment and Plan: Resolved. Due to rapid HR in atrial fib with 100% CARE COORDINATION MANAGER of distal RCA. But due to significant rise in troponin and peaked at 2.62 discussed [facility] and he is agreeable. 08/22/24 Echo: TDS. EF 60-65%, mild LVH, grade I diastolic dysfunction (E/e' 9), mild LAE. (3) Coronary artery disease: Code(s): I25.10 - Atherosclerotic heart disease of [place] coronary artery without angina pectoris Status: Acute Assessment and Plan: History of 2 stents in 2014 in [place], [place]. 08/23/[address] Daigle: LM distal 50%, RCA distal CARE COORDINATION MANAGER with left to right collaterals. (4) Hypertension: Code(s): I10 - Essential (primary) hypertension Status: Acute Assessment and Plan: Stable. (5) Dyslipidemia: Code(s): E78.5 - Hyperlipidemia, unspecified Status: Acute Assessment and Plan: On Atorvastatin. (6) Hypersomnia: Code(s): G47.10 - Hypersomnia, unspecified Status: Acute Assessment and Plan: Will need outpatient sleep study. Subjective Date/time seen: 08/24/24 07:55 Interval history: Denies any more chest pain or sob. Right wrist splinted on arm board. No bruits/hematoma/bleeding. Exam Const: General: cooperative, healthy appearing, comfortable and obese Nutritional Appearance: obese Orientation/consciousness: oriented to person, oriented to place and oriented to time Resp: Auscultation: clear to auscultation bilaterally, no crackles, no rales, no rhonchi and no wheezes Cardio: Rate: regular rate Rhythm: regular rhythm Heart sounds: no murmurs Peripheral pulses: dorsalis pedis present Neuro: General: oriented to person, oriented to place and oriented to time Extrem: Right lower extremity: no edema Left lower extremity: no edema Objective Data Vital Signs Vital Signs: Vital Signs - 24 hr 08/23/24 08:00 08/23/24 09:21 08/23/24 09:22 Temperature 97.8 F Pulse Rate 66 69 77 Pulse Rate [Bilateral Radial Palpation] Respiratory Rate 14 Blood Pressure 117/60 Pulse Oximetry 95 Oxygen Delivery 08/23/24 08:00 08/23/24 10:00 08/23/24 11:41 Temperature 98.4 F Pulse Rate 68 69 71 Pulse Rate [Bilateral Radial Palpation] Respiratory Rate 23 H Blood Pressure 121/83 Pulse Oximetry 96 Oxygen Delivery 08/23/24 12:00 08/23/24 14:00 08/23/24 15:40 Temperature Pulse Rate 62 79 68 Pulse Rate [Bilateral Radial Palpation] Respiratory Rate 18 Blood Pressure 118/75 Pulse Oximetry 97 Oxygen Delivery Room Air 08/23/24 15:40 08/23/24 15:55 08/23/24 15:55 Temperature Pulse Rate 71 Pulse Rate [Bilateral Radial Palpation] 68 71 Respiratory Rate 23 H Blood Pressure 133/76 Pulse Oximetry 100 Oxygen Delivery Room Air 08/23/24 16:10 08/23/24 16:15 08/23/24 16:25 Temperature Pulse Rate 71 82 Pulse Rate [Bilateral Radial Palpation] 71 Respiratory Rate 21 H 18 Blood Pressure 120/68 125/70 Pulse Oximetry 98 98 Oxygen Delivery Room Air Room Air 08/23/24 16:25 08/23/24 16:40 08/23/24 16:40 Temperature Pulse Rate 91 Pulse Rate [Bilateral Radial Palpation] 71 91 Respiratory Rate 21 H Blood Pressure 120/68 Pulse Oximetry 97 Oxygen Delivery Room Air 08/23/24 16:55 08/23/24 16:55 08/23/24 17:15 Temperature 97.8 F Pulse Rate 78 78 Pulse Rate [Bilateral Radial Palpation] 78 Respiratory Rate 19 17 Blood Pressure 132/74 103/62 Pulse Oximetry 97 97 Oxygen Delivery Room Air 08/23/24 17:26 08/23/24 17:15 08/23/24 17:46 Temperature Pulse Rate 79 93 77 Pulse Rate [Bilateral Radial Palpation] Respiratory Rate 19 20 22 H Blood Pressure 103/59 L 103/62 123/67 Pulse Oximetry 96 98 97 Oxygen Delivery Room Air 08/23/24 18:00 08/23/24 18:06 08/23/24 18:30 Temperature Pulse Rate 78 80 75 Pulse Rate [Bilateral Radial Palpation] Respiratory Rate 16 20 Blood Pressure 140/54 L 125/75 Pulse Oximetry 96 95 Oxygen Delivery 08/23/24 18:50 08/23/24 19:02 08/23/24 20:05 Temperature Pulse Rate 70 75 72 Pulse Rate [Bilateral Radial Palpation] Respiratory Rate 17 20 Blood Pressure 121/80 124/68 Pulse Oximetry 96 97 Oxygen Delivery 08/23/24 20:05 08/23/24 20:00 08/23/24 19:15 Temperature 98 F Pulse Rate 72 76 Pulse Rate [Bilateral Radial Palpation] Respiratory Rate 25 H Blood Pressure 103/87 Pulse Oximetry 96 Oxygen Delivery Room Air 08/23/24 19:30 08/23/24 20:00 08/23/24 20:30 Temperature Pulse Rate 85 69 79 Pulse Rate [Bilateral Radial Palpation] Respiratory Rate 25 H 20 18 Blood Pressure 91/65 L 106/59 L 137/80 Pulse Oximetry 95 96 96 Oxygen Delivery 08/23/24 21:00 08/23/24 20:00 08/23/24 22:00 Temperature Pulse Rate 82 74 77 Pulse Rate [Bilateral Radial Palpation] Respiratory Rate 23 H 20 Blood Pressure 94/55 L 116/70 Pulse Oximetry 94 96 Oxygen Delivery 08/24/24 00:00 08/24/24 00:00 08/24/24 00:00 Temperature 98 F Pulse Rate 79 55 L Pulse Rate [Bilateral Radial Palpation] Respiratory Rate 20 Blood Pressure 161/67 H Pulse Oximetry 97 Oxygen Delivery Room Air 08/24/24 01:00 08/24/24 02:00 08/24/24 03:40 Temperature Pulse Rate 61 64 Pulse Rate [Bilateral Radial Palpation] Respiratory Rate 22 H 20 Blood Pressure 125/63 125/63 Pulse Oximetry 96 97 Oxygen Delivery Room Air 08/24/24 03:42 08/24/24 04:00 Temperature 98.2 F Pulse Rate 77 67 Pulse Rate [Bilateral Radial Palpation] Respiratory Rate 20 Blood Pressure 134/75 Pulse Oximetry 95 Oxygen Delivery Intake/Output Intake/Output: Intake & Output 08/21/24 08/22/24 08/23/24 08/24/24 23:59 23:59 23:59 23:59 Intake Total 938.3 1266.9 240 Output Total 700 1250 1000 Balance 238.3 16.9 -760 Meds/Results Medications: Active Medications Generic Name Dose Route Start Last Admin Trade Name Freq PRN Reason Stop Dose Admin Acetaminophen 650 mg 08/22/24 01:52 Acetaminophen 325 Mg Tablet PO Q4H PRN Mild Pain (1-3) or Fever Amiodarone HCl 200 mg 08/22/24 17:00 08/23/24 20:05 Amiodarone Hcl 200 Mg Tablet PO 200 mg BID BETITO Administration Apixaban 5 mg 08/23/24 21:00 08/23/24 20:05 Apixaban 5 Mg Tablet PO 5 mg Q12HR BETITO Administration Aspirin 81 mg 08/22/24 08:00 08/23/24 09:21 Aspirin 81 Mg Chewable Tablet PO 81 mg DAILY@0800 BETITO Administration Atorvastatin Calcium 40 mg 08/22/24 10:00 08/23/24 09:21 Atorvastatin 40 Mg Tablet PO 40 mg DAILY BETITO Administration Azithromycin 500 mg 08/22/24 10:10 08/23/24 09:21 Azithromycin 250 Mg Tablet PO 500 mg DAILY BETITO Administration Carvedilol 3.125 mg 08/22/24 21:00 08/23/24 20:05 Carvedilol 3.125 Mg Tablet PO 3.125 mg Q12HR BETITO Administration Ceftriaxone Sodium 2 gm in 100 mls @ 200 mls/hr 08/22/24 10:00 08/23/24 10:30 Rocephin 2 Gm/Ns 100 Ml IVPB Infused Q24H BETITO Infusion Lisinopril 5 mg 08/23/24 09:00 08/23/24 09:21 Lisinopril 5 Mg Tablet PO 5 mg QAM BETITO Administration Ondansetron HCl 4 mg 08/22/24 01:52 Ondansetron Inj 4 Mg/2 Ml Vial IV PUSH Q4H PRN Nausea Radiology Results: ITS Impressions Chest X-Ray 08/22/24 00:45 IMPRESSION: Cardiomegaly with cardiac decompensation and pulmonary edema. Superimposed pneumonitis cannot be excluded. Labs Labs: Laboratory Results - last 24 hr 08/23/24 13:47 APTT 76.4 H
[2024-08-24] MEDS: lisinopriL 5 MG TABLET PO (08:59)
[2024-08-24] MEDS: AZITHROMYCIN 250 MG TABLET 500 MG PO (08:59)
[2024-08-24] MEDS: ATORVASTATIN 40 MG TABLET PO (08:59)
[2024-08-24] MEDS: ASPIRIN 81 MG CHEWABLE TABLET PO (08:59)
[2024-08-24] MEDS: carvediloL 3.125 MG TABLET PO (08:59)
[2024-08-24] MEDS: APIXABAN 5 MG TABLET PO (09:00)
[2024-08-24] MEDS: cefTRIAXone 2 GM/NS 100 ML 2 GM/100 ML BAG IVPB (09:00)
[2024-08-24] MEDS: AMIODARONE HCL 200 MG TABLET PO (09:00)
--- NOTE | 2024-08-24 12:44 | PM.DS ---
DS: Admitting Diagnosis Discharge Date 08/24/2024 Admitting Diagnosis Chest pain DS: Discharge Diagnosis Discharge Diagnosis (1) Chest pain: Code(s): R07.9 - Chest pain, unspecified Status: Acute Assessment and Plan: Please refer to hospital course for brief summary No pain now. But due to significant rise in troponin at 2.62 discussed [facility] and he is agreeable. Continue heparin drip. Obtain echo. Risks/benefits/alternative to [facility] discuss and he is agreeable to [facility]. [place] [facility] [place] [facility] for tomorrow. Keep NPO after midnight. (2) Atrial fibrillation with rapid ventricular response: Code(s): I48.91 - Unspecified atrial fibrillation Status: Acute Assessment and Plan: Back in sinus rhythm. New onset. [id number] 3. Start Amiodarone 200 mg PO BID to maintain sinus rhythm. (3) Coronary artery disease: Code(s): I25.10 - Atherosclerotic heart disease of [place] coronary artery without angina pectoris Status: Acute Assessment and Plan: History of 2 stents in 2014 in [place], [place]. 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 (4) Hypertension: Code(s): I10 - Essential (primary) hypertension Status: Acute Assessment and Plan: Stable. (5) Dyslipidemia: Code(s): E78.5 - Hyperlipidemia, unspecified Status: Acute Assessment and Plan: On Atorvastatin. (6) Hypersomnia: Code(s): G47.10 - Hypersomnia, unspecified Status: Acute Assessment and Plan: Will need outpatient sleep study. Plan Non ST elevation DC -Patient underwent cardiac catheterization today. Left main artery shows moderate 50% stenosis, left anterior descending and diagonal branches shows mild diffuse disease without any significant obstructive, left circumflex and main marginal branches have mild diffuse disease without any significant obstruction, right coronary artery has slow flow. Please refer to the full cardiac catheterization report. Cardiology advised aggressive medical therapy and risk factor modification -Atorvastatin 40 mg, and aspirin 81 mg to his regimen -Cardiology consulted -Trend Troponin -Recommend weaning him off diltiazem drip -continue heparin drip and give sublingual nitro if needed -Echocardiogram pending -Denies any illicit drug use -Reviewed EKG and CXR A.Fib with RVR -Start Amiodarone 200 mg PO BID to maintain sinus rhythm. -Cardizem drip -On heparin drip -CHADVASC 3 DS: Summary Hospital Course Hospital Course: 69-year-old gentleman presents emergency department with chief complaint of chest pain. Patient reports that he was sleeping and woke up with pain in his chest. Patient reports that he had an DC about 10 years ago and had stents placed in his heart the patient reports he also has history of hypertension high cholesterol the patient reports that he feels as though his heart is it is racing. Upon evaluation in the ED patient denies any chest pain, shortness of breath, palpitation. Patient endorsed having cardiac stent that was placed in 2014 at [facility] at [place], [place]. He follows with the dog food shredder operator at [place], [place]. Patient denies any smoking history and diabetes. Yesterday around 10:00 p.m. patient had a chest pain/tightness. He immediately seek medical attention. He reports the chest pain was not as painful as like last time when he had cardiac stent. Pertinent labs: WBC 12.5, PT 12.9, INR 0.9, PTT 22.1, sodium 133, glucose 202 Trop: 0.058>0.976> 2.620 EKG : Ectopic atrial rhythm possible left atrial enlargement CXR: Cardiomegaly with cardiac decompensation and pulmonary edema. Superimposed pneumonitis cannot be excluded Consulted cardiology. Started the patient on heparin drip and given aspirin and statin. Patient underwent cardiac catheterization . Left main artery shows moderate 50% stenosis, left anterior descending and diagonal branches shows mild diffuse disease without any significant obstructive, left circumflex and main marginal branches have mild diffuse disease without any significant obstruction, right coronary artery has slow flow. Please refer to the full cardiac catheterization report. Cardiology advised aggressive medical therapy. Patient had a new onset of AFib. Cardiology started the patient on amiodarone 200 mg p.o. b.i.d. and started Eliquis 5 mg b.i.d.. Patient was already taking aspirin and Plavix due to his stent placement in 2014. Today I discussed with the patient and stop the Plavix and agreed to continuing aspirin and Eliquis. Patient agrees with the complete plan. Patient is discharged with the following instruction: Advised to follow with the dog food shredder operator at [place], [place] In the event of chest pain, shortness of breath, palpitation medical attention. During the hospitalization patient was diagnosed with AFib and started on amiodarone 200 mg p.o. q.d. and apixaban 5 mg p.o. b.i.d.. Patient takes aspirin and clopidogrel due to cardiac stent that was placed 2014. Currently with stopping clopidogrel and continuing aspirin and apixaban for his anticoagulation. Status at Discharge Cognitive/behavioral status at discharge: Stable Time Spent with Patient Time attestation: Total time spent providing and/or coordinating discharge services: 45 minutes Exam Narrative: GENERAL: Well-appearing, well-nourished, and in no acute distress. HEAD: Normocephalic, atraumatic. EYES: PERRLA and EOMI. ENT: Nares clear, no rhinorrhea or epistaxis. Mucous membranes moist. NECK: Supple. CHEST: Clear to auscultation. No respiratory distress. HEART: tachycardic rate and irregular rhythm. No murmur heard. Normal peripheral pulses. ABDOMEN: Soft, nontender, nondistended, normal active bowel sounds. EXTREMITIES: Normal range of motion. No edema. SKIN: Warm, dry, no rash. NEURO: No focal deficits. Alert and oriented x3. PSYCH: Normal mood and affect. Const: General: cooperative, healthy appearing, comfortable and obese Nutritional Appearance: obese Orientation/consciousness: oriented to person, oriented to place and oriented to time Resp: Auscultation: clear to auscultation bilaterally, no crackles, no rales, no rhonchi and no wheezes Cardio: Rate: regular rate Rhythm: regular rhythm Heart sounds: no murmurs Peripheral pulses: dorsalis pedis present Neuro: General: oriented to person, oriented to place and oriented to time Extrem: Right lower extremity: no edema Left lower extremity: no edema DS: Data Data Completed and Pending Labs on day of discharge: Labs from last 24 hours 08/23/24 13:47 APTT 76.4 H Discharge Plan Discharge Attending physician on discharge: Panfilo Salazar Consulting providers: Randy Campo; Mushtaq Maharaj; Daylin Daigle Discharging Clinician: Panfilo Salazar Anticipated Discharge Date/Time: 08/24/24 11:05 Patient Disposition: Home, Self-Care Activity: as tolerated Diet: heart healthy Discharge Instructions: Advised to follow with the dog food shredder operator at [place], [place] In the event of chest pain, shortness of breath, palpitation medical attention. During the hospitalization patient was diagnosed with AFib and started on amiodarone 200 mg p.o. q.d. and apixaban 5 mg p.o. b.i.d.. Patient takes aspirin and clopidogrel due to cardiac stent that was placed 2014. Currently with stopping clopidogrel and continuing aspirin and apixaban for his anticoagulation. Patient Instructions: Antibiotic Form, A-fib (Atrial Fibrillation) (DC), Heart Catheterization (DC) Stand Alone Forms: General Discharge Information Follow-up/Referrals: Mushtaq Maharaj DO [Physician] - 1 Week (During the hospitalization patient was diagnosed with AFib and started on amiodarone 200 mg p.o. q.d. and apixaban 5 mg p.o. b.i.d.. Patient takes aspirin and clopidogrel due to cardiac stent that was placed 2014. Currently with stopping clopidogrel and continuing aspirin and apixaban for his anticoagulation.) Randy Campo MD [Physician] - 1 Week (During the hospitalization patient was diagnosed with AFib and started on amiodarone 200 mg p.o. q.d. and apixaban 5 mg p.o. b.i.d.. Patient takes aspirin and clopidogrel due to cardiac stent that was placed 2014. Currently with stopping clopidogrel and continuing aspirin and apixaban for his anticoagulation.) Discharge Medications: New amiodarone [Pacerone] 200 mg Tablet 200 mg PO BID Qty: 30 0RF carvedilol [Coreg] 3.125 mg Tablet 3.125 mg PO Q12HR Qty: 30 0RF aspirin [Children's Aspirin] 81 mg Tablet,Chewable 81 mg PO DAILY@0800 Qty: 30 0RF Eliquis 5 mg Tablet 5 mg PO Q12HR Qty: 30 0RF Continued atorvastatin 40 mg tablet 80 mg PO DAILY lisinopril 5 mg tablet 5 mg PO DAILY hydrochlorothiazide 25 mg tablet 25 mg PO DAILY Discontinued clopidogrel 75 mg tablet 75 mg PO DAILY carvedilol 3.125 mg tablet 3.125 mg PO BID prednisone 20 mg tablet 40 mg PO DAILY Date of admission: 08/23/24 16:14 Primary Care Provider: PHYSICIAN,SPECIAL EDUCATION PARAPROFESSIONAL Admitting Provider: Adolfo Hunt Attending physician on admission: Adolfo Hunt Condition: Stable
--- NOTE | 2024-08-24 13:34 | PC.NURSE ---
PT dc with . iv and tele leads removed. Instructions given to both parties and both parties verbalized understanding. Patient had eloquis coupon. Medical record release form placed in chart. BRANDIN sampson.
--- NOTE | 2024-09-01 15:27 | IVDEFINITY ---
Prior to administration of IV Definity the patient was educated on the risks and benefits of the imaging enhancing agent including potential adverse side effects. The patient verbalized understanding. Allergies were verified. No exclusion criteria were identified and at least one of the following inclusion criteria were met: 1) physician request, 2) patient technically difficult to image (per the [place] Society of Echocardiography guidelines of two or more segments not discernable within the apical view), or 3) questionable left ventricular function. ?
== END 2024-08-24 13:25 | disposition home or self-care (01) | DRG 287 ==
LOC: ANHED 08-22 01:53 → ANHIMU 08-22 02:35 → ANHICU 08-22 12:25
PROVIDERS: Internal Medicine; Internal Medicine Cardiovascular Disease; Admitting Provider Internal Medicine; Emergency Provider Emergency Medicine; Visit Provider General Practice
PROC: 4A023N7 Measurement of Cardiac Sampling and Pressure, Left Heart, Percutaneous Approach (ICD-10-PCS; CPT 93454; principal; 2024-08-23 13:00)
PROC: 4A023N7 Measurement of Cardiac Sampling and Pressure, Left Heart, Percutaneous Approach (ICD-10-PCS; 2024-08-23 13:00)
DX: I25.10 Atherosclerotic heart disease of native coronary artery without angina pectoris (principal); I25.2 Old myocardial infarction; I25.82 Chronic total occlusion of coronary artery; I10 Essential (primary) hypertension; I48.91 Unspecified atrial fibrillation; E78.5 Hyperlipidemia, unspecified; G47.10 Hypersomnia, unspecified; R07.9 Chest pain, unspecified; R79.89 Other specified abnormal findings of blood chemistry; Z95.5 Presence of coronary angioplasty implant and graft; Z79.82 Long term (current) use of aspirin; Z87.891 Personal history of nicotine dependence; Z79.02 Long term (current) use of antithrombotics/antiplatelets; Z28.21 Immunization not carried out because of patient refusal
CPT/HCPCS: 36415; 71045; 80053; 80061; 83690; 83880; 84484; 85025; 85610; 85730; 92978; 93005; 93454; 96365; 96366; 96375; 99285; A9270; C1753; C1769; C1887; C1894; C8929; G0378; J0583; J0696; J1644; J2003; J2250; J2270; J2305; J3010; J7050; Q9957

== ENCOUNTER 2024-10-27 09:39 | Emergency (ER) | payer MEDICARE, SELFPAY ==
[2024-10-27 09:51] VITALS: BP 126/98; PULSE 74; RESP 14; TEMP 36.5; O2SAT 96
--- OUTSIDE RECORDS SUMMARY | 2024-10-27 10:23 | XMS_ITS ---
Author Organization [facility] Address [address], [place] [id number] Care Team Providers Care Subcontract Manager Name Role Phone DAFNE DWYER Primary Care Provider REASON FOR VISIT annual check up/allergies/rash Encounters Encounter Location Date Provider Diagnosis [facility] [address], [place] [id number] 06/14/2024 DAFNE DWYER Plan Of Treatment No Information Progress Notes * Krishna ARMANDO EDOB:1955 (69 yo M)Acc No.[id number]:06/14/2024 Progress Notes Patient: Suleiman OBRIENy Delia Provider: Sharon DWYER MD :1955 A ge:69 Y S ex:Male Date:06/14/2024 Address:[address] [id number] Subjective: * Chief Complaints: * 1 . Annual check up/allergies/rash. * Medical History: Objective: * Vitals: Assessment: Plan: * Treatment: * * Electronic signature of DAFNE DWYER MD on 10/27/2024 at 10:23 AM CIRCULAR TANK COOPER Sign off status: Pending * Provider: Sharon DWYER MD Date: 0 06/14/2024 Generated for Shruti travis/Catalino/eTransmitting on: 10/27/2024 10:23 AM CIRCULAR TANK COOPER
--- OUTSIDE RECORDS SUMMARY | 2024-10-27 10:23 | XMS_ITS | Encounter Summary ---
Author Organization [facility] Address [address] [facility] [place] [address] Phone Care Team Providers Care Airport Manager Name Role Phone Provider, None Primary Care Provider Unavailabl e Reason for Visit * Reason Comments Medication Refill Lisinopril Encounter Details Date Type Department Care Team (Late st Contact Info) Description 03/03/2021 Refill [facility] [place] - [facility] - [facility] [address] [place] [id number] Rj Kern MD [address], [place] [id number] Medication Refill (Lisinopril) Social History Tobacco Use Types Packs/Day Years Used Date Smoking Tobacco: Former Cigarettes 1 13 0 09/20/1988 - 09/20/2001 Smokeless Tobacco: Never Alcohol Use Standard Drinks/Week Comments No 0 (1 standard drink = 0.6 oz pur e alcohol) Sex and Gender Information Value Date Recorded Sex Assigned at Not on file Legal Sex Male 3:36 PM CDT Gender Identity Not on file Sexual Orientation Not on file documented as of this encounter Miscellaneous Notes * Telephone Encounter - Daphne Gomes RN - 03/03/2021 3:38 PM CDT Medication failed the protocol, provider to review and approve the medication order if appropriate. In recall 10/2021 Lab request mailed to patient 02/05/21 Requested Prescriptions Signed Prescriptions Disp Refills lisinopril (PRINIVIL, ZESTRIL) 5 MG Tablet 90 Tablet 0 Sig: TAKE 1 TABLET BY MOUTH DAILY RUDDY Inhibitors Protocol Failed - 03/03/2021 2:46 PM Failed - Serum potassium on record in past 12 months No results found for: POTASSIUM, POCTK Failed - GFR on record in past 12 months GFR, EST. Date Value Ref Range Status 05/25/2015 >60 >=60 Final Comment: Creatinine Clearance is the preferred criteria for selecting drug dose adjustments in renally impaired patients. The GFR is provided as additional pertinent clinical information. GFR is reported in mL/min/1.73 sq m. GFR, EST. NONAFRICAN Date Value Ref Range Status 05/25/2015 >60 >=60 Final Passed - Visit with relevant provider in past 18 months or upcoming 90 days Recent Visits Date Type Provider Dept 11/13/20 Office Visit Best Stone MD [facility] [place] 10/31/19 Office Visit Latha Romero MULTIPLE SLIDE OPERATOR, REMARKETING REP [facility] [place] [facility] Showing recent visits within past 548 days and meeting all other requirements Future Appointments No visits were found meeting these conditions. Showing future appointments within next 90 days and meeting all other requirements Passed - Blood pressure on record Clinician-entered: BP Readings from Last 3 Encounters: 11/13/20 110/70 10/31/19 116/70 09/21/18 102/70 Patient-entered: No data recorded documented in this encounter Plan of Treatment Upcoming Encounters Date Type Department Care Team (Late st Contact Info) Description 12/19/2024 11:45 AM CDT [facility] [place] [facility] - [facility] [address] [place] [phone] Emily Knight APRN, REMARKETING REP [address] [place] [address] documented as of this encounter Visit Diagnoses Diagnosis Coronary artery disease involving [place] coronary artery of [place] heart without angina pectoris ST elevation myocardial infarction involving right coronary artery (HCC) Acute myocardial infarction of inferoposterior wall, initial episode of care Essential hypertension Unspecified essential hypertension documented in this encounter Care Teams Airport Manager Relationship Specialty Start Date End Date Provider, None [place] PCP - General 06/20/15 documented as of this encounter
--- OUTSIDE RECORDS SUMMARY | 2024-10-27 10:23 | XMS_ITS | Patient Health Record ---
Author Organization [facility] Address [address] [place] [address] Care Team Providers Care Woodworking Bench Carpenter Name Role Phone Sanjay Mcwilliams MD Primary Care Provider Unavailtanya e Myles Simeon Unavailable [phone] Allergies No Known Allergies Reason For Referral No Information Medications Medication SIG (Take, Route, Frequency, Duration) Notes Start Date End Date Status Cyclobenzaprine HCl 10 MG 1 tablet at bedtime as needed Orally Once a day 07/13/2022 Active Aspirin Adult Low Strength 81 MG Oral daily for 0 take 1 (one) Tablet by Oral route daily 05/13/2022 Active Fenofibrate Micronized 134 MG Oral daily for 0 take 1 (one) Capsule by Oral route daily 05/13/2022 Active Docusate Sodium 100 MG TAKE ONE CAPSULE BY MOUTH TWICE DAILY NEEDED for 90 Active Atorvastatin Calcium 40 MG Oral daily for 0 take 1 (one) Tablet by Oral route daily 05/13/2022 Active Clopidogrel Bisulfate 75 MG Oral daily for 0 heaven e 1 (one) Tablet by Oral route daily 05/13/2022 Active HYDROcodone-Acetaminophen 10-325 MG 1 tablet as needed Orally every 6 hrs 06/25/2022 Active Carvedilol 3.125 MG Oral daily for 0 take 1 (one ) Tablet by Oral route daily 05/13/2022 Active Lisinopril 5 MG Oral daily for 0 take 1 (one) Tablet by Oral route daily 05/13/2022 Active hydroCHLOROthiazide 25 MG Oral daily for 0 take 1 (one) Tablet by Oral route daily 05/13/2022 Active Problems Problem Type SNOMED Code ICD Code Onset Dates Problem Status W/U Status Risk Notes Problem [id number] Unilateral primary osteoarthritis, left hip (M16.12) Active confirmed Problem 23720762 Left hip pain (M25.552) Active confirmed Problem 36411612 Impaired gait an d mobility (R26.89) Active confirmed Problem Localized, primary osteoarthritis of the pelvic region and thigh (334002054) Bilateral primary osteoarthritis of hip (M16.0) 05/13/20 22 Active confirmed Plan Of Treatment No Information Insurance Providers Payer Name Payer Address Payer Phone Subscriber Number Group Number Insured Name Patient Relationship to Insured Coverage Start Date Coverage End Date Medicare Part B [address] [facility] [place] [id number] Krishna Armando Self - patient is the insured 2 [facility] [address] [place] [address] [phone] [id number] Krishna Armando Self - patient is the insured 2 Medical (General) History Medical History History ICD Code ACUTE MYOCARDIAL INFARCTION, HYPERLIPIDEMIA, HYPERTENSION, Surgical History Surgery Date(Month/Year) Heart Surgery Heart surgery Left JONNATHAN 2021
--- OUTSIDE RECORDS SUMMARY | 2024-10-27 10:23 | XMS_ITS ---
Author Organization [facility] Address [address], [place] [id number] Care Team Providers Care Donor Technician Name Role Phone DAFNE DWYER Primary Care Provider [phone] REASON FOR VISIT annual visit Encounters Encounter Location Date Provider Diagnosis [facility] [address], [place] [id number] 06/28/2024 DAFNE DWYER Plan Of Treatment No Information Progress Notes * Krishna ARMANDO EDOB:1955 (69 yo M)Acc No.[id number]:06/28/2024 Progress Notes Patient: Krishna OBRIEN Provider: Sharon DWYER MD :1955 A ge:69 Y S ex:Male Date:06/28/2024 Address:[address] [id number] Subjective: * Chief Complaints: * 1 . Annual visit. * Medical History: Objective: * Vitals: Assessment: Plan: * Treatment: * * Electronic signature of DAFNE DWYER MD on 10/27/2024 at 10:23 AM HOME DELIVERY DRIVER Sign off status: Pending * Provider: Sharon DWYER MD Date: 1 Generated for Shruti travis/Catalino/Elliotitting on: 0 10/27/2024 10:23 AM HOME DELIVERY DRIVER
--- OUTSIDE RECORDS SUMMARY | 2024-10-27 10:23 | XMS_ITS | Clinical Summary ---
Author Organization [facility] Address [address] [place] [address] Phone Care Team Providers Care Inventory Control Supervisor Name Role Phone Provider, None Primary Care Provider Unavailabl e Allergies Active Allergy Reactions Criticality Noted Date Comments Statins Other (see Comments) 02/05/2016 Intolerance to high intensity statin Sulfa Antibiotics Hives,Unknown 05/23/2015 Medications ibuprofen (MOTRIN) 200 MG Tablet Take 800 mg by mouth every 8 hours as needed. Active aspirin 81 MG Chewable Tablet Take 1 Tab by mouth daily. 100 Tab 0 5 Active carvedilol (COREG) 3.125 MG TabletIndication s:ST elevation myocardial infarction involving right coronary artery (HCC),Coronary artery disease involving [place] coronary artery of [place] heart without angina pectoris Take 1 Tablet by mouth 2 times daily. 180 Tablet 3 4 Active hydroCHLOROthiaz julio c 25 MG Tablet Take 1 Tablet by mouth daily. 90 Tablet 3 4 Active lisinopril (PRINIVIL, ZESTRIL) 5 MG TabletIndication s:ST elevation myocardial infarction involving right coronary artery (HCC),Coronary artery disease involving [place] coronary artery of [place] heart without angina pectoris Take 1 Tablet by mouth daily. 90 Tablet 3 4 Active nitroGLYCERIN (NITROSTAT) 0.4 MG SL TabletIndication s:ST elevation myocardial infarction involving right coronary artery (HCC),Coronary artery disease involving [place] coronary artery of [place] heart without angina pectoris 1 Tablet by Sublingual route every 5 minutes as needed for Chest pain. 25 Tablet 3 4 Active atorvastatin (LIPITOR) 80 MG Tablet TAKE 1 TABLET BY MOUTH DAILY 90 Tablet 3 4 Active rivaroxaban (Xarelto) 20 MG TabletIndication s:Atrial Fibrillation Take 1 Tablet by mouth daily (with dinner). Take with food. Indications: Atrial Fibrillation 90 Tablet 3 4 Active amiodarone (CORDARONE) 200 MG Tablet Take 1 Tablet by mouth daily. 90 Tablet 4 Active Active Problems Problem Noted Date Diagnosed Date Coronary artery disease invo lving [place] coronary artery of [place] heart without angina pectoris 02/05/2016 STEMI (ST elevation myocardial infarction) 05/23 HTN (hypertension) 05/23/2015 HLD (hyperlipidemia) 05/23/2015 Encounters Date Type Department Care Team Description 09/18/2024 11:00 AM MANNEQUIN SANDER AND FINISHER Office Visit [id number] [place] [address] elevation myocardial infarction involving right coronary artery (HCC) (Primary Dx); Primary hypertension; Pure hypercholesterolemia ; Coronary artery disease involving [place] coronary artery of [place] heart without angina pectoris Discharge Disposition: Discharged to home or Selfcare 09/18/2024 Travel 09/07/2024 [facility] [address] [place] [address] Rj Kern MD OTHER (Eliquis cost - changed to Xarelto ) 09/04[facility]20[facility] [address] [place] [address] Rj Kern MD Medication Refill 08/22/2024 Telephone [facility] [address] [place] [phone] Rj Kern MD patient is in ED at [facility] (Emergency room near [facility] ) from Last 3 Months Immunizations Immunization Administration Dates Next Due TDAP Vaccine 05/01/2021 Family History Medical History Relation Name Comments Heart Attack Father Relation Name Status Comments Father Social History Tobacco Use Types Packs/Day Years Used Date Smoking Tobacco: Former Cigarettes 1 13 0 09/20/1988 - 09/20/2001 Smokeless Tobacco: Never Tobacco Cessation:Counseling Given: Not Answered Alcohol Use Standard Drinks/Week Comments No 0 (1 standard drink = 0.6 oz pur e alcohol) Sex and Gender Information Value Date Recorded Sex Assigned at Not on file Legal Sex Male 3:36 PM CDT Gender Identity Not on file Sexual Orientation Not on file Last Filed Vital Signs Vital Sign Reading Time Taken Comments Blood Pressure 120/70 09/18/2024 11:08 AM MANNEQUIN SANDER AND FINISHER Pulse 76 09/18/2024 11:08 AM MANNEQUIN SANDER AND FINISHER Temperature 36.9 C (98.4 F) 05/25/2015 7:29 AM CDT Respiratory Rate 16 09/18/2024 11:08 AM MANNEQUIN SANDER AND FINISHER Oxygen Saturation 96% 10/31/2019 2:57 PM MANNEQUIN SANDER AND FINISHER Inhaled Oxygen Concentration - - Weight 146 kg (321 lb 12.8 oz) 09/18/2024 11:08 AM MANNEQUIN SANDER AND FINISHER Height 172.7 cm (5' 8 ) 09/18/2024 11:08 AM MANNEQUIN SANDER AND FINISHER Body Mass Index 48.93 09/18/2024 11:08 AM MANNEQUIN SANDER AND FINISHER Plan of Treatment Upcoming Encounters Date Type Department Care Team (Late st Contact Info) Description 12/19/2024 11:45 AM CDT Office Visit [facility] Cardiovascular [place] - Cardiology [facility] [address] [place] [phone] Emily Knight, PARTS ANALYST, TECHNICIAN TRAINEE [address] [place] [address] Health Maintenance Due Date Last Done Comments Hepatitis C Virus (HCV) Screening 1955 Colonoscopy 2002 Colorectal Cancer Screening 2002 Cologuard 2007 Immunochemical Fecal Occult Blood 2007 Pneumococcal Immunization (5 0+ years) (1 of 1 - PCV) 2007 Zoster Immunization (1 of 2) 2007 PSA Discussion 2012 Respiratory Syncytial Virus (RSV) Immunization (Adult) (1 - Risk 60-74 years 1-dose series) 2017 AAA Screening Ultrasound 2022 Influenza Immunization (#1) 2024 SARS-COV-2 Immunization ( season) 2024 03/11/2021, 02/04/2021 Td Immunization Every 10 Yea rs (Adults With 1 Tdap) 05/01/2031 05/01/2021 DTaP/Tdap/Td Immunization Discontinued 05/01/2021 Hepatitis B Immunization Aged Out No longer eligible based on patient's age to complete this topic Meningococcal Immunization (ACWY) Aged Out No longer eligible based on patient's age to complete this topic Rotavirus Immunization Aged Out No lo nger eligible based on patient's age to complete this topic Medical Devices Implanted Type Area Proposal Analyst Device Identifier Shelf Expiration Date Model / Serial / Lot Stent Cor Zahraak Rx Vision 3.5x12mm - [id number] Implanted:Qty : 1 on 05/23/2015 [facility]PL[facility] Right: Coronary [employer] [id number] / / [id number] Device Clsr Plug Angio-Seal Sts + 6fr - [id number] Implanted:Qty : 1 on 05/23/2015 by [facility] IMPLANT Right: Groin ST [employer] / ATRIAL FIB [id number] / / [id number] Procedures Procedure Name Priority Date/Time Associated Diagnosis Comments EKG SCAN 08/23/2024 12:00 AM MANNEQUIN SANDER AND FINISHER UR 24 HR CREATININE CLEARANCE 08/23/2024 12:00 AM MANNEQUIN SANDER AND FINISHER CMP (COMPREHENSIVE METABOLIC PANEL) 08/23/2024 12:00 AM MANNEQUIN SANDER AND FINISHER TROPONIN I (TRP I) 08/23/2024 12 :00 AM MANNEQUIN SANDER AND FINISHER APTT (PTT) 08/23/2024 12:00 AM MANNEQUIN SANDER AND FINISHER COMPLETE BLOOD COUNT (CBC) WITH DIFF 08/23/2024 12:00 AM MANNEQUIN SANDER AND FINISHER CARDIOLOGY PROCEDURE 08/23/2024 12:00 AM MANNEQUIN SANDER AND FINISHER EKG SCAN 08/22/2024 12:00 AM MANNEQUIN SANDER AND FINISHER CARDIOLOGY CONSULT 08/22/2024 12 :00 AM MANNEQUIN SANDER AND FINISHER LIPID PANEL 08/22/2024 12:00 AM MANNEQUIN SANDER AND FINISHER PROTIME (PT) (PROTHROMBIN TIME) 08/22/2024 12:00 AM MANNEQUIN SANDER AND FINISHER LIPASE 08/22/2024 12:00 AM MANNEQUIN SANDER AND FINISHER B-TYPE NATRIURETIC PEPTIDE (BNP) 08/22/2024 12:00 AM MANNEQUIN SANDER AND FINISHER ECHO GENERIC 08/22/2024 12:00 AM MANNEQUIN SANDER AND FINISHER XR - CHEST 08/22/2024 12:00 AM MANNEQUIN SANDER AND FINISHER from Last 3 Months Results * EKG SCAN (08/23/2024 12:00 AM MANNEQUIN SANDER AND FINISHER) Only the most recent of2 resultswithin the time period is included. 08/23/2024 us Provider Scan IMG ECG ORDERABLES Final Result Performing Organization Address [facility] de Phone Number RESULTING AGENCY * CARDIOLOGY PROCEDURE (08/23/2024 12:00 AM MANNEQUIN SANDER AND FINISHER) Anatomical Region Laterality Modality Other 08/23/2024 us Provider Scan CV PROCEDURES SCHED Final Result * UR 24 HR CREATININE CLEARANCE (08/23/2024 12:00 AM MANNEQUIN SANDER AND FINISHER) 08/23/2024 us Provider Scan CHEMISTRY ORDERABLES Final Resul t Performing Organization Address [facility] de Phone Number SCAN * TROPONIN I (TRP I) (08/23/2024 12:00 AM MANNEQUIN SANDER AND FINISHER) 08/23/2024 us Provider Scan CHEMISTRY ORDERABLES Final Resul t Performing Organization Address [facility] Co de Phone Number SCAN * APTT (PTT) (08/23/2024 12:00 AM MANNEQUIN SANDER AND FINISHER) 08/23/2024 us Provider Scan HEMATOLOGY ORDERABLES Final Resu lt Performing Organization Address [facility] de Phone Number SCAN * CMP (COMPREHENSIVE METABOLIC PANEL) (08/23/2024 12:00 AM MANNEQUIN SANDER AND FINISHER) 08/23/2024 us Provider Scan CHEMISTRY ORDERABLES Final Resul t Performing Organization Address [facility] de Phone Number SCAN * COMPLETE BLOOD COUNT (CBC) WITH DIFF (08/23/2024 12:00 AM MANNEQUIN SANDER AND FINISHER) 08/23/2024 us Provider Scan HEMATOLOGY ORDERABLES Final Resu lt Performing Organization Address [facility] de Phone Number SCAN * ECHO GENERIC (08/22/2024 12:00 AM MANNEQUIN SANDER AND FINISHER) LV EF(estimated)% 63 RESULTING AGENCY 08/22/2024 us Provider Scan IMG ECHO ORDERABLES Final Result Performing Organization Address [facility] de Phone Number RESULTING AGENCY * XR - CHEST (08/22/2024 12:00 AM MANNEQUIN SANDER AND FINISHER) 08/22/2024 us Provider Scan IMG DIAGNOSTIC ORDERABLES Final Result Performing Organization Address [facility] de Phone Number SCAN * CARDIOLOGY CONSULT (08/22/2024 12:00 AM MANNEQUIN SANDER AND FINISHER) 08/22/2024 us Provider Scan GENERIC SCAN ORDERS CONSULT Madhavi l Result Performing Organization Address [facility] de Phone Number SCAN * PROTIME (PT) (PROTHROMBIN TIME) (08/22/2024 12:00 AM MANNEQUIN SANDER AND FINISHER) INR 0.9 SCAN 08/22/2024 us Provider Scan HEMATOLOGY ORDERABLES Final Resu lt SCAN * LIPID PANEL (08/22/2024 12:00 AM MANNEQUIN SANDER AND FINISHER) CHOLESTEROL 192 SCAN HDL CHOLESTEROL 59 SCAN LDL 103 SCAN 08/22/2024 us Provider Scan CHEMISTRY ORDERABLES Final Resul t SCAN * LIPASE (08/22/2024 12:00 AM MANNEQUIN SANDER AND FINISHER) 08/22/2024 us Provider Scan CHEMISTRY ORDERABLES Final Resul t SCAN * B-TYPE NATRIURETIC PEPTIDE (BNP) (08/22/2024 12:00 AM MANNEQUIN SANDER AND FINISHER) 08/22/2024 us Provider Scan CHEMISTRY ORDERABLES Final Resul t SCAN from Last 3 Months Insurance MEDICARE [place] Advance Directives * Full Code (Latest Code Status on File) Date Activated Date Inactivated Comments 05/23/2015 5:21 PM 05/25/2015 1:20 PM Full Code: FULL ARREST: Attempt Resuscitation/CPR and use intubation and mechanical ventilation as indicated. PRE-ARREST: Use all measures to stabilize patient. Care Teams Inventory Control Supervisor Relationship Specialty Start Date End Date Provider, Janey CHARLES PCP - General 06/20/15
--- OUTSIDE RECORDS SUMMARY | 2024-10-27 10:23 | XMS_ITS ---
Author Organization [facility] Address [address] [place], [place] [id number] Care Team Providers Care Road Train Driver Name Role Phone DAFNE DWYER Primary Care Provider REASON FOR VISIT rash Medications Medication SIG (Take, Route, Fr equency, Duration) Notes Start Date End Date Status predniSONE 20 mg 3 tablets daily for 5 days then 2 tablets daily for 5 days then 1 tablet daily for 5 days then 1/2 tablet daily for 4 days. orally once a day for 19 days 08/16/2024 Active Encounters Encounter Location Date Provider Diagnosis [facility] Primary and [facility] [address] [place] [phone] 08/16/2024 DAFNE DWYER Plan Of Treatment Medication Medication Name Sig Start Date Stop Date Notes predniSONE 20 mg 3 tablets daily for 5 days then 2 tablets daily for 5 days then 1 tablet daily for 5 days then 1/2 tablet daily for 4 days. orally once a day for 19 days 08/16/2024 Progress Notes * Krishna ARMANDO EDOB:1955 (69 yo M)Acc No.[id number]:08/16/2024 Patient: Ant BANKS Krishna Lin :1955 A ge:69 Y S ex:Male [address] [place] [address] * Refills Start predniSONE tablet, 20 mg, orally, 34, 3 tablets daily for 5 days then 2 tablets daily for 5 days then 1 tablet daily for 5 days then 1/2 tablet daily for 4 days., once a day, 19 days, Refills=0 Subjective: * Chief Complaints: * R thais * Medical History: * Surgical History: * Hospitalization/Major Diagno stic Procedure: * Medications: Objective: * Vitals: * Physical Examination: Assessment: Plan: * Treatment: * Procedure Codes: * true * Date: Generated for Shruti Farley/Javid on: 0 10/27/2024 10:23 AM TRAINING PROJECT MANAGER
--- OUTSIDE RECORDS SUMMARY | 2024-10-27 10:24 | XMS_ITS | Encounter Summary ---
Author Organization [facility] Address [address] [place] [address] Phone Care Team Providers Care Home Care Physical Therapist Name Role Phone Sanjay Mcwilliams MD Primary Care Provider [phone] Encounter Details Date Type Department Care Team ([facility] st Contact Info) Description 07/02/2022 Anesthesia Event [facility] [address] [place] [address] Jc Toledo, DO [address] [place] [address] Social History Tobacco Use Types Packs/Day Years Used Date Smoking Tobacco: Never Assessed Sex and Gender Information Value Date Recorded Sex Assigned at Not on file Legal Sex Male 8:45 AM CDT Gender Identity Not on file Sexual Orientation Not on file documented as of this encounter Plan of Treatment Not on file documented as of this encounter Visit Diagnoses Not on filedocumented in this encounter Care Teams Home Care Physical Therapist Relationship Specialty Start Date End Date Sanjay Mcwilliams MD [address] [place] [address] PCP - General 06/25/22 documented as of this encounter
--- OUTSIDE RECORDS SUMMARY | 2024-10-27 10:24 | XMS_ITS | Clinical Summary ---
Author Organization [facility] Address [address] [place] [address] Phone Care Team Providers Care Hr Assistant Name Role Phone Sanjay Mcwilliams MD Primary Care Provider [phone] Medications * This document contains information received from the source organization and may not represent a complete record from that organization. lisinopriL 5 mg tablet Take 1 tablet by mouth daily. 01/06/2017 Active aspirin 81 mg chewable tablet Chew 81 mg by mouth daily. 05/24/2015 Active atorvastatin (LIPITOR) 40 mg tablet Take 40 mg by mouth daily. Active fenofibrate micronized (LOFIBRA) 134 mg Cap capsule Take 134 mg by mouth daily. Active carvediloL (COREG) 3.125 mg tablet Take 1 tablet by mouth 2 (two) times daily. 12/16/2016 Active hydroCHLOROthiaz julio c 25 mg tablet 1 tablet daily. 06/16/2012 Active clopidogreL (PLAVIX) 75 mg tablet 1 tablet daily. 08/06/2021 Active nitroglycerin (NITROSTAT) 0.3 mg sublingual tablet as needed 08/06/2021 Active Family History Medical History Relation Name Comments Heart Father Ovarian Cancer Mother Breast Cancer Sister Relation Name Status Comments Father Alive Mother Sister Social History Tobacco Use Types Packs/Day Years Used Date Smoking Tobacco: Former Cigarettes Q uit: 10/21/2006 Smokeless Tobacco: Never Alcohol Use Standard Drinks/Week Comments No 0 (1 standard drink = 0.6 oz pur e alcohol) Interpersonal Safety Answer Date Record ed Feels unsafe at home, work, or school Not on joe e 10/24/2023 Feels threatened by someone Not on file 12/2023 Witholding contact with othe rs or doing things outside of your home Not on file 10/24/2023 Physical Abuse Not on file 10/24/2023 Sex and Gender Information Value Date Recorded Sex Assigned at Not on file Legal Sex Male 8:45 AM CDT Gender Identity Not on file Sexual Orientation Not on file Last Filed Vital Signs Vital Sign Reading Time Taken Comments Blood Pressure 112/60 07/02/2022 3:10 PM CDT Pulse 99 07/02/2022 3:10 PM CDT Temperature 36.1 C (97 F) 07/02/2022 3:10 PM CDT Respiratory Rate 20 07/02/2022 3:10 PM CDT Oxygen Saturation - - Inhaled Oxygen Concentration - - Weight 128.3 kg (282 lb 13.6 oz) 07/02/2022 8:30 AM CDT Height 170.2 cm (5' 7 ) 07/02/2022 8:30 AM CDT Body Mass Index 44.3 07/02/2022 8:30 AM CDT Plan of Treatment Not on file Medical Devices Implanted Type Area Blending Machine Feeder Device Identifier Shelf Expiration Date Model / Serial / Lot Acet Shell R3 3h 60mm - [id number] Implanted:06/20 (Quantity not on file) Left: Hip [employer] [id number] 12/26/2031 [id number] / / [id number] Fem Head 09/02 Oxnm 28mm +8 - [id number] Implanted:06/20 (Quantity not on file) Left: Hip [employer] [id number] 08/16/2031 [id number] / / [id number] Or 30 Degree Dual Mobility Insert Implanted:06/20 (Quantity not on file) Left: Hip [employer] ORTH[employer] [id number] 03/15/2031 [id number] / / [id number] Or 30 Degree Dual Mobility Liner Implanted:06/20 (Quantity not on file) Left: Hip [employer]TH[employer] [id number] 03/30/2031 [id number] / / [id number] Pwdr Hemoabsorb Jenna 3gm - [id number] Implanted:06/20 (Quantity not on file) Left: Hip [email or web address] [id number] 03/17/2027 [id number] / / [id number] Redapt Femoral Standard Offset Implanted:06/20 (Quantity not on file) Left: Hip [employer] ORTHO [id number] 12/22/2029 [id number] / / [id number] Care Teams Hr Assistant Relationship Specialty Start Date End Date Sanjay Mcwilliams MD [address] [place] [address] PCP - General 06/25/22
--- OUTSIDE RECORDS SUMMARY | 2024-10-27 10:24 | XMS_ITS | Encounter Summary ---
Author Organization [facility] Address [address] [facility] [place] [address] Phone Care Team Providers Care Master Steam Yacht Name Role Phone Provider, None Primary Care Provider Unavailabl e Reason for Visit * Reason Comments Medication Refill Plavix- patient requ ires 90 day supply Encounter Details Date Type Department Care Team (Late st Contact Info) Description 05/13/2021 Refill [facility] Cardiovascular [place] - Cardiology - [facility] [address] [place] [phone] Rj Kern MD [address], [place] [id number] Medication Refill (Plavix- patient requires 90 day supply) Social History Tobacco Use Types Packs/Day Years [...] encounter Miscellaneous Notes * Telephone Encounter - Chinyere Schmidt RN - 05/13/2021 1:13 PM CDT Medication failed the protocol, provider to review and approve the medication order if appropriate. - Second letter sent to patient to obtain missing labs - small supply of medication given to patient - ok per Dr. Kern In recall for 10/2021 Requested Prescriptions Pending Prescriptions Disp Refills clopidogrel (PLAVIX) 75 MG Tablet [Pharmacy Med Name: CLOPIDOGREL 75MG TABLETS] 90 Tablet 0 Sig: TAKE 1 TABLET BY MOUTH DAILY Plavix Protocol Failed - 05/13/2021 1:13 PM Failed - GFR on record in past 12 months No results found for: GFRNA Passed - Visit with relevant provider in past 18 months or upcoming 90 days Recent Visits Date Type Provider Dept 11/13/20 Office Visit Best Stone MD [facility] [place] Showing recent visits within past 548 days and meeting all other requirements Future Appointments No visits were found meeting these conditions. Showing future appointments within next 90 days and meeting all other requirements documented in this encounter Plan of Treatment Upcoming Encounters Date Type Department Care Team (Late st Contact Info) Description 12/19/2024 11:45 AM CDT Office Visit [facility] Cardiovascular [place] - Cardiology - [facility] [address] [place] [address] Emily Knight, NURSING STAFFING COORDINATOR, SPOUT WORKER [address] [place] [address] documented as of this encounter Visit Diagnoses Diagnosis Coronary artery disease involving [place] coronary artery of [place] heart without angina pectoris ST elevation myocardial infarction involving right coronary artery (HCC) Acute myocardial infarction of inferoposterior wall, initial episode of care documented in this encounter Care Teams Master Steam Yacht Relationship Specialty Start Date End Date Provider, None [place] PCP - General 06/20/15 documented as of this encounter
--- OUTSIDE RECORDS SUMMARY | 2024-10-27 10:24 | XMS_ITS | Patient Health Record ---
Author Organization [facility] Address [address], [place] [id number] Care Team Providers Care Fitter Up Name Role Phone DAFNE DWYER Primary Care Provider Allergies Allergen (clinical drug ingredient) Drug/Non Drug Allergy documented on EMR Reaction Allergy Type Onset Date Status Sulfa hives Drug Allergy Active Reason For Referral No Information Medications Medication SIG (Take, Route, Frequency, Duration) Notes Start Date End Date Status Nitrostat 0.3 mg 1 tab(s) sublinguall y every 5 minutes for 30 days prn Active predniSONE 20 mg 3 tablets daily for 5 days then 2 tablets daily for 5 days then 1 tablet daily for 5 days then 1/2 tablet daily for 4 days. orally once a day for 19 days 08/16/2024 Active atorvastatin 40 mg 1 tab(s) orally once a day (at bedtime) Active Plavix 75 mg 1 tab(s) orally once a day Active hydroCHLOROthiazide 25 mg 1 cap(s) orally once a day 06/16/2012 Active aspirin 81 mg 1 tab(s) orally once a day Active fenofibrate 134 mg 1 cap(s) orally once a day 05/22 Active Coreg 3.125 mg 1 tab(s) orally once a day Active lisinopril 5 mg 1 tab(s) orally once a day Active Immunizations Vaccine Route Administration Date Status Comme nts Boostrix (Tdap) IM Intramuscular 05/01/2021 Administered Social History Tobacco Use: Social History Observation Description Date Details (start date - stop date) Former Smoker NA - NA Tobacco Use: Question Answer Notes Are you a: former smoker Start age-16, Qu it age-37, Packs per day-1 Are you an other tobacco user? No Alcohol Screening: Question Answer Notes Did you have a drink containing alcohol in the p ast year? No Points 0 Interpretation Negative Section Notes: Diet Healthy , Lifestyle act theodora Diet Healthy , Lifestyle act theodora Diet Healthy , Lifestyle act theodora Diet Healthy , Lifestyle act theodora Diet Healthy , Lifestyle act theodora Diet Healthy , Lifestyle act theodora Diet Healthy , Lifestyle act theodora Diet Healthy , Lifestyle act theodora Diet Healthy , Lifestyle act theodora Diet Healthy , Lifestyle act theodora Diet Healthy , Lifestyle act theodora Diet Healthy , Lifestyle act theodora Diet Healthy , Lifestyle act theodora Diet Healthy , Lifestyle act theodora Diet Healthy , Lifestyle act theodora Diet Healthy , Lifestyle act theodora Diet Healthy , Lifestyle act theodora Diet Healthy , Lifestyle act theodora Problems Problem Type SNOMED Code ICD Code Onset Dates Problem Status W/U Status Risk Notes Problem 226902426 Impaired fasting glucose (R73.01) Active confirmed Problem Essential hypertension (57647137) Essential (primary) hypertension (I10) Active confirmed Problem Morbid obesity (666026948) Morbid obesity with BMI of 40.0-44.9, adult (E66.01) Active confirmed Problem 168011582 Atherosclerotic heart disease of [place] coronary artery without angina pectoris (I25.10) Active confirmed Problem 217677997 Mixed hyperlipidemia (E78.2) Active confirmed Problem 928014932860130 Primary osteoarthritis of left hip (M16.12) Active confirmed Problem 878842977 History of [place] (myocardial infarction) (I25.2) Active confirmed Encounters Encounter Location Date Provider Diagnosis [facility] and [facility] [address] [place] [id number] 08/16/2024 DAFNE DWYER Plan Of Treatment No Information Medical (General) History Medical History History ICD Code Essential (primary) hypertension I10 Morbid obesity with BMI of 40.0-44.9, ad ult E66.01 Mixed hyperlipidemia E78.2 Atherosclerotic heart diseas e of [place] coronary artery without angina pectoris I25.10 History of [place] (myocardial infarction) I2 5.2 Impaired fasting glucose R73.01 Primary osteoarthritis of left hip M16.1 2 Surgical History Surgery Date(Month/Year) Restorationist-Left Hip Replacement-Dr. Mary shaneelt July 02, 2022 stents in heart: 80% occluded Hospitalization History Reason Date(Month/Year) heart attack
[2024-10-27 11:36] VITALS: RESP 18
--- OUTSIDE RECORDS SUMMARY | 2024-10-27 12:11 | XMS_ITS | Clinical Summary ---
Author Organization [facility] Address [address] [place] [address] Phone Care Team Providers Care Oxyacetylene Burner Name Role Phone Provider, None Primary Care [...] right coronary artery (HCC),Coronary artery disease involving [place] coronary artery of [place] heart without angina pectoris Take 1 Tablet by mouth 2 times daily. 180 Tablet 3 4 Active hydroCHLOROthiaz julio c 25 MG Tablet Take 1 Tablet by mouth daily. 90 Tablet 3 4 Active lisinopril (PRINIVIL, ZESTRIL) 5 MG TabletIndication s:ST elevation myocardial infarction involving right coronary artery (HCC),Coronary artery disease involving [place] coronary artery of [place] heart without angina pectoris Take 1 Tablet by mouth daily. 90 Tablet 3 4 Active nitroGLYCERIN (NITROSTAT) 0.4 MG SL TabletIndication s:ST elevation myocardial infarction involving right coronary artery (HCC),Coronary artery disease involving [place] coronary artery of [place] heart without angina pectoris 1 Tablet by [...] Diagnosed Date Coronary artery disease invo lving [place] coronary artery of [place] heart without angina pectoris 02/05/2016 STEMI (ST elevation myocardial infarction) 05/23 HTN (hypertension) 05/23/2015 HLD (hyperlipidemia) 05/23/2015 Encounters Date Type Department Care Team Description 09/18/2024 11:00 AM SENSOR SPECIALIST Office Visit [facility] [id number] [place] [address] elevation myocardial infarction involving right coronary artery (HCC) (Primary Dx); Primary hypertension; Pure hypercholesterolemia ; Coronary artery disease involving [place] coronary artery of [place] heart without angina pectoris Discharge Disposition: Discharged to home or Selfcare 09/18/2024 Travel 09/07/2024 [facility] [address] [place] [address] Rj Kern MD OTHER (Eliquis cost - changed to Xarelto ) 09/04/2024 [facility] [address] [place] [address] Rj Kern MD Medication Refill 08/22/2024 Telephone [facility] [address] [place] [phone] Rj Kern MD patient is in ED at [facility] (Emergency room near [facility] ) from Last 3 Months Immunizations Immunization [...] Comments Blood Pressure 120/70 09/18/2024 11:08 AM SENSOR SPECIALIST Pulse 76 09/18/2024 11:08 AM SENSOR SPECIALIST Temperature 36.9 C (98.4 F) 05/25/2015 7:29 AM CDT Respiratory Rate 16 09/18/2024 11:08 AM SENSOR SPECIALIST Oxygen Saturation 96% 10/31/2019 2:57 PM SENSOR SPECIALIST Inhaled Oxygen Concentration - - Weight 146 kg (321 lb 12.8 oz) 09/18/2024 11:08 AM SENSOR SPECIALIST Height 172.7 cm (5' 8 ) 09/18/2024 11:08 AM SENSOR SPECIALIST Body Mass Index 48.93 09/18/2024 11:08 AM SENSOR SPECIALIST Plan of Treatment Upcoming Encounters Date Type Department Care Team (Late st Contact Info) Description 12/19/2024 11:45 AM CDT Office Visit [facility] Cardiovascular [place] - Cardiology [facility] [address] [place] [phone] Emily Knight, STAMP CLERK, NURSING HOME DIRECTOR [address] [place] [address] Health Maintenance Due Date Last Done Comments [...] this topic Medical Devices Implanted Type Area End Polisher Device Identifier Shelf Expiration Date Model / Serial / Lot Stent Cor Zahraak Rx Vision 3.5x12mm - [id number] Implanted:Qty : 1 on 05/23/2015 by Ian Cisneros MD at [facility] IMPLANT Right: Coronary [employer] [id number] / / [id number] Device Clsr Plug Angio-Seal Sts + 6fr - [id number] Implanted:Qty : 1 on 05/23/2015 by Ian Cisneros MD at [facility] IMPLANT Right: Groin ST YSABEL / ATRIAL FIB [id number] / / [id number] Procedures Procedure Name Priority Date/Time Associated Diagnosis Comments EKG SCAN 08/23/2024 12:00 AM SENSOR SPECIALIST UR 24 HR CREATININE CLEARANCE 08/23/2024 12:00 AM SENSOR SPECIALIST CMP (COMPREHENSIVE METABOLIC PANEL) 08/23/2024 12:00 AM SENSOR SPECIALIST TROPONIN I (TRP I) 08/23/2024 12 :00 AM SENSOR SPECIALIST APTT (PTT) 08/23/2024 12:00 AM SENSOR SPECIALIST COMPLETE BLOOD COUNT (CBC) WITH DIFF 08/23/2024 12:00 AM SENSOR SPECIALIST CARDIOLOGY PROCEDURE 08/23/2024 12:00 AM SENSOR SPECIALIST EKG SCAN 08/22/2024 12:00 AM SENSOR SPECIALIST CARDIOLOGY CONSULT 08/22/2024 12 :00 AM SENSOR SPECIALIST LIPID PANEL 08/22/2024 12:00 AM SENSOR SPECIALIST PROTIME (PT) (PROTHROMBIN TIME) 08/22/2024 12:00 AM SENSOR SPECIALIST LIPASE 08/22/2024 12:00 AM SENSOR SPECIALIST B-TYPE NATRIURETIC PEPTIDE (BNP) 08/22/2024 12:00 AM SENSOR SPECIALIST ECHO GENERIC 08/22/2024 12:00 AM SENSOR SPECIALIST XR - CHEST 08/22/2024 12:00 AM SENSOR SPECIALIST from Last 3 Months Results * EKG SCAN (08/23/2024 12:00 AM SENSOR SPECIALIST) Only the most recent of2 resultswithin the time period is included. 08/23/2024 us Provider Scan IMG ECG ORDERABLES Final Result Performing Organization Address [facility] de Phone Number RESULTING AGENCY * CARDIOLOGY PROCEDURE (08/23/2024 12:00 AM SENSOR SPECIALIST) Anatomical Region Laterality Modality Other 08/23/2024 us Provider Scan CV PROCEDURES SCHED Final Result * UR 24 HR CREATININE CLEARANCE (08/23/2024 12:00 AM SENSOR SPECIALIST) 08/23/2024 us Provider Scan CHEMISTRY ORDERABLES Final Resul t Performing Organization Address [facility] de Phone Number SCAN * TROPONIN I (TRP I) (08/23/2024 12:00 AM SENSOR SPECIALIST) 08/23/2024 us Provider Scan CHEMISTRY ORDERABLES Final Resul t Performing Organization Address [facility] Co de Phone Number SCAN * APTT (PTT) (08/23/2024 12:00 AM SENSOR SPECIALIST) 08/23/2024 us Provider Scan HEMATOLOGY ORDERABLES Final Resu lt Performing Organization Address [facility] de Phone Number SCAN * CMP (COMPREHENSIVE METABOLIC PANEL) (08/23/2024 12:00 AM SENSOR SPECIALIST) 08/23/2024 us Provider Scan CHEMISTRY ORDERABLES Final Resul t Performing Organization Address [facility] de Phone Number SCAN * COMPLETE BLOOD COUNT (CBC) WITH DIFF (08/23/2024 12:00 AM SENSOR SPECIALIST) 08/23/2024 us Provider Scan HEMATOLOGY ORDERABLES Final Resu lt Performing Organization Address [facility] de Phone Number SCAN * ECHO GENERIC (08/22/2024 12:00 AM SENSOR SPECIALIST) LV EF(estimated)% 63 RESULTING AGENCY 08/22/2024 us Provider Scan IMG ECHO ORDERABLES Final Result Performing Organization Address [facility] de Phone Number RESULTING AGENCY * XR - CHEST (08/22/2024 12:00 AM SENSOR SPECIALIST) 08/22/2024 us Provider Scan IMG DIAGNOSTIC ORDERABLES Final Result Performing Organization Address [facility] de Phone Number SCAN * CARDIOLOGY CONSULT (08/22/2024 12:00 AM SENSOR SPECIALIST) 08/22/2024 us Provider Scan GENERIC SCAN ORDERS CONSULT Madhavi l Result Performing Organization Address [facility] de Phone Number SCAN * PROTIME (PT) (PROTHROMBIN TIME) (08/22/2024 12:00 AM SENSOR SPECIALIST) INR 0.9 SCAN 08/22/2024 us Provider Scan HEMATOLOGY ORDERABLES Final Resu lt SCAN * LIPID PANEL (08/22/2024 12:00 AM SENSOR SPECIALIST) CHOLESTEROL 192 SCAN HDL CHOLESTEROL 59 SCAN LDL 103 SCAN 08/22/2024 us Provider Scan CHEMISTRY ORDERABLES Final Resul t SCAN * LIPASE (08/22/2024 12:00 AM SENSOR SPECIALIST) 08/22/2024 us Provider Scan CHEMISTRY ORDERABLES Final Resul t SCAN * B-TYPE NATRIURETIC PEPTIDE (BNP) (08/22/2024 12:00 AM SENSOR SPECIALIST) 08/22/2024 us Provider Scan CHEMISTRY ORDERABLES Final Resul t SCAN from Last 3 Months Insurance MEDICARE [address] [place] [address] [place] [id number] Advance Directives * Full Code (Latest Code Status on File) Date Activated Date Inactivated Comments 05/23/2015 5:21 PM 05/25/2015 1:20 PM Full Code: FULL ARREST: Attempt Resuscitation/CPR and use intubation and mechanical ventilation as indicated. PRE-ARREST: Use all measures to stabilize patient. Care Teams Oxyacetylene Burner Relationship Specialty Start Date End Date Provider, Janey CHARLES PCP - General 06/20/15
--- OUTSIDE RECORDS SUMMARY | 2024-10-27 12:11 | XMS_ITS | Clinical Summary ---
Author Organization [facility] Address [address] [place] [address] Phone Care Team Providers Care Leather Sponger Name Role Phone Sanjay Mcwilliams MD Primary Care Provider [phone] Medications * This document contains information received [...] on file Medical Devices Implanted Type Area Silver Miner Device Identifier Shelf Expiration Date Model / Serial / Lot Acet Shell R3 3h 60mm - [id number] Implanted:06/20 (Quantity not on file) Left: Hip [employer] [id number] 12/26/2031 [id number] / / [id number] Fem Head 09/02 Oxnm 28mm +8 - [id number] Implanted:06/20 (Quantity not on file) Left: Hip [employer] [id number] 08/16/2031 [id number] / / [id number] Or 30 Degree Dual Mobility Insert Implanted:06/20 (Quantity not on file) Left: Hip [employer] ORTHO [id number] 03/15/2031 [id number] / / [id number] Or 30 Degree Dual Mobility Liner Implanted:06/20 (Quantity not on file) Left: Hip [employer]THO [id number] 03/30/2031 [id number] / / [id number] Pwdr Hemoabsorb Jenna 3gm - [id number] Implanted:06/20 (Quantity not on file) Left: Hip [employer] [id number] 03/17/2027 [id number] / / [id number] Redapt Femoral Standard Offset Implanted:06/20 (Quantity not on file) Left: Hip [employer] ORTHO [id number] 12/22/2029 [id number] / / [id number] Care Teams Leather Sponger Relationship Specialty Start Date End Date Sanjay Mcwilliams MD [address] [place] [address] PCP - General 06/25/22
--- OUTSIDE RECORDS SUMMARY | 2024-10-27 12:11 | XMS_ITS | Encounter Summary ---
Author Organization [facility] Address [address] [place] [address] Phone Care Team Providers Care Forensic Audit Expert Name Role Phone Sanjay Mcwilliams MD Primary Care Provider [phone] Encounter Details Date Type Department Care Team ([facility] st Contact Info) Description 07/02/2022 Anesthesia Event [facility] [address] [place] [address] Jc Toledo, DO [address] [place] [address] Social History Tobacco Use Types Packs/Day Years [...] on filedocumented in this encounter Care Teams Forensic Audit Expert Relationship Specialty Start Date End Date Sanjay Mcwilliams MD [address] [place] [address] PCP - General 06/25/22 documented as of this encounter
--- OUTSIDE RECORDS SUMMARY | 2024-10-27 12:11 | XMS_ITS | Encounter Summary ---
Author Organization [facility] Address [address] [facility] [place] [address] Phone Care Team Providers Care Cat Swamper Name Role Phone Provider, None Primary Care Provider Unavailabl e Reason for Visit * Reason Comments Medication Refill Lisinopril Encounter Details Date Type Department Care Team (Late st Contact Info) Description 03/03/2021 Refill [facility] Cardiovascular [place] - Cardiology - [facility] [address] [place] [phone] Rj Kern MD [address] [place], [place] [phone] Medication Refill (Lisinopril) Social History Tobacco Use [...] Office Visit Best Stone MD [facility] [place] 10/31/19 Office Visit Latha Romero NET SQL DEVELOPER, SECURITY CONTROL CENTER OPERATOR [facility] [place] Showing recent visits within past 548 days [...] Description 12/19/2024 11:45 AM CDT [facility] [place] [facility] [address] [place] [phone] Emily Knight APRN, SECURITY CONTROL CENTER OPERATOR [address] [place] [address] documented as of this encounter Visit Diagnoses Diagnosis Coronary artery disease involving [place] coronary artery of [place] heart without angina pectoris ST elevation myocardial infarction involving right coronary artery (HCC) Acute myocardial infarction of inferoposterior wall, initial episode of care Essential hypertension Unspecified essential hypertension documented in this encounter Care Teams Cat Swamper Relationship Specialty Start Date End Date Provider, None [place] PCP - General 06/20/15 documented as of this encounter
--- OUTSIDE RECORDS SUMMARY | 2024-10-27 12:11 | XMS_ITS | Encounter Summary ---
Author Organization [facility] Address [address] [facility] [place] [address] Phone Care Team Providers Care Art Specialist Name Role Phone Provider, None Primary Care Provider Unavailabl e Reason for Visit * Reason Comments Medication Refill Plavix- patient requ ires 90 day supply Encounter Details Date Type Department Care Team (Late st Contact Info) Description 05/13/2021 Refill [facility] Cardiovascular [place] - Cardiology - [facility] [address] [place] [address] Rj Kern MD [address] [place], [place] [phone] Medication Refill (Plavix- patient requires 90 day [...] Office Visit Best Stone MD [facility] [place] Showing recent visits within past 548 days and meeting all other requirements Future Appointments No visits were found meeting these conditions. Showing future appointments within next 90 days and meeting all other requirements documented in this encounter Plan of Treatment Upcoming Encounters Date Type Department Care Team (Late st Contact Info) Description 12/19/2024 11:45 AM CDT Office Visit [facility] Cardiovascular [place] - Cardiology - [facility] [address] [place] [address] Emily Knight, CARPET INSTALLATION SPECIALIST, SERGING MACHINE OPERATOR AUTOMATIC [address] [place] [address] documented as of this encounter Visit Diagnoses Diagnosis Coronary artery disease involving [place] coronary artery of [place] heart without angina pectoris ST elevation myocardial infarction involving right coronary artery (HCC) Acute myocardial infarction of inferoposterior wall, initial episode of care documented in this encounter Care Teams Art Specialist Relationship Specialty Start Date End Date Provider, None [place] PCP - General 06/20/15 documented as of this encounter
--- NOTE | 2024-10-27 12:21 | ED_ITS ---
HPI - General Adult General Chief complaint: Unspecified <NANCY Jacob Last Filed: 10/27/24 18:44> Stated complaint: woke up w/ swelling to the R. side of the face <Ewa Moses PA-C - Last Filed: 10/27/24 18:44> Time Seen by Provider: 10/27/24 11:23 <NANCY Jacob Last Filed: 10/27/24 18:44> History of Present Illness HPI narrative: 69-year-old male with history of hyper lipidemia, hypertension, AFib, CAD presents to emergency department for swelling to the right side of his face. Patient's is at bedside and states she notices swelling at the kitchen table this morning around 6:00 a.m.. States the patient's lips were swollen, more so on the right side. [place] told that many of his buddies there that the right side his face seemed more swollen and that he should come to the ED. The patient is on lisinopril for hypertension. He states the swelling is significantly improved. He denies tongue swelling, difficulty breathing, neck swelling, difficulty swallowing, otalgia, sore th roat, dental pain. Denies focal numbness or weakness. <NANCY Jacob Last Filed: 10/27/24 18:44> Related Data Home medications: Home Medications ?Medication ?Instructions ?Recorded ?Confirmed ?Last Taken ?Type atorvastatin 40 mg tablet 80 mg PO DAILY 01/13/21 10/27/24 10/27/24 History hydrochlorothiazide 25 mg tablet 25 mg PO DAILY 01/13/21 10/27/24 10/27/24 History lisinopril 5 mg tablet 5 mg PO DAILY 01/13/21 10/27/24 10/27/24 History amiodarone 200 mg tablet (Pacerone) 200 mg PO Q24H 10/27/24 10/27/24 10/27/24 History rivaroxaban 20 mg tablet (Xarelto) 20 mg PO DAILY afib 10/27/24 10/27/24 10/26/24 History <Ewa Moses PA-C - Last Filed: 10/27/24 18:44> Allergies/adverse reactions: Allergies Allergy/AdvReac Type Severity Reaction Status Date / Time Sulfa (Sulfonamide Allergy Hives Verified 01/13/21 18:54 Antibiotics) <Ewa Moses PA-C - Last Filed: 10/27/24 18:44> Review of Systems Review of Systems: All systems reviewed & are unremarkable except as noted in HPI and below <Ewa Moses PA-C - Last Filed: 10/27/24 18:44> PMFSH Past Medical History Medical History: Medical History Coronary artery disease <Ewa Moses PA-C - Last Filed: 10/27/24 18:44> Family History Family History: Family History Mother Pancreatic cancer Sibling Breast cancer Grandparent Breast cancer Father Acute myocardial infarction <Ewa Moses PA-C - Last Filed: 10/27/24 18:44> Social History Social History: Social History Smoking packs per day: 1 Smoking cigarettes per day: 20.0 Years smoked: 20 Smoking pack-years: 20.00 Smoking status: Former smoker Substance use type: does not use Do You Feel Safe in your Home?: Yes Lack of Transportation: No Lack of Food: Never True Current Housing: I Have Housing Concerned About Future Housing: No Difficulty Paying Gas/Electric Bills: No Difficulty Paying for Meds: No Currently Unemployed: No Education: High School Diploma/GED Difficulty w/ Childcare or Family Care: No Gender identity (if verbalized by the patient): Male Spiritual care concerns: No <Ewa Moses PA-C - Last Filed: 10/27/24 18:44> Exam Narrative: GENERAL: Well-appearing, well-nourished, and in no acute distress. HEAD: Normocephalic, atraumatic. EYES: PERRLA and EOMI. ENT: Nares clear, no rhinorrhea or epistaxis. Mucous membranes moist. right upper lip edema, no wounds, edentulous, no tongue edema, no edema posterior pharynx or uvula, no airway compromise, no dysphonia or dysphagia NECK: Supple. CHEST: Clear to auscultation. No respiratory distress. HEART: Regular rate and rhythm. No murmur heard. Normal peripheral pulses. EXTREMITIES: Normal range of motion. No edema. SKIN: Warm, dry, no rash. NEURO: No focal deficits. Alert and oriented x3. Cranial nerves 2-12 intact. Strength 5/5 BUE and BLE. Sensation intact throughout. Normal [id number]. No pronator drift. <Ewa Moses PA-C - Last Filed: 10/27/24 18:44> Course JUNIOR QA ANALYST/PA Physician Supervision I agree with midlevel documentation; I performed the medical decision making component of this evaluation. I had independent ratw-yz-[id number] time with the patient and performed my own independent evaluation and assessment. <Mat York MD - Last Filed: 10/28/24 11:30> Vital Signs Vital signs: Vital Signs Temperature 36.5 C 10/27/24 09:51 Pulse Rate 74 10/27/24 09:51 Respiratory Rate 14 10/27/24 09:51 Blood Pressure 126/98 H 10/27/24 09:51 Pulse Oximetry 96 10/27/24 09:51 Oxygen Delivery Room Air 10/27/24 09:51 Temperature 36.8 C 10/27/24 14:03 Pulse Rate 82 10/27/24 14:03 Respiratory Rate 19 10/27/24 14:03 Blood Pressure 152/84 H 10/27/24 14:03 Pulse Oximetry 98 10/27/24 14:03 Oxygen Delivery Room Air 10/27/24 09:51 <Ewa Moses PA-C - Last Filed: 10/27/24 18:44> Vital Signs Temperature 36.5 C 10/27/24 09:51 Pulse Rate 74 10/27/24 09:51 Respiratory Rate 14 10/27/24 09:51 Blood Pressure 126/98 H 10/27/24 09:51 Pulse Oximetry 96 10/27/24 09:51 Oxygen Delivery Room Air 10/27/24 09:51 Temperature 36.8 C 10/27/24 14:03 Pulse Rate 82 10/27/24 14:03 Respiratory Rate 19 10/27/24 14:03 Blood Pressure 152/84 H 10/27/24 14:03 Pulse Oximetry 98 10/27/24 14:03 Oxygen Delivery Room Air 10/27/24 09:51 <Mat York MD - Last Filed: 10/28/24 11:30> Medical Decision Making MDM Narrative Medical decision making narrative: 69-year-old male presents emergency department for right-sided facial swelling since 6:00 a.m. this morning. Vitals are stable. Exam significant for mild edema to the right upper lip. He has no tongue edema, no posterior pharynx edema, no airway compromise, dysphonia or dysphagia. Patient is neurovascularly intact. He is on lisinopril. Suspect mild angioedema. Patient was given IM Decadron, Pepcid and Benadryl in the ED and monitored with improvement. Feel he is safe to be discharged home. Discussed discontinuation of lisinopril and close follow-up with PCP. Return precautions discussed. He is agreeable to plan verbalized understanding. Discharged in stable condition. <Ewa Moses PA-C - Last Filed: 10/27/24 18:44> Vital Signs Vital Signs: Vital Signs Temperature 36.5 C 10/27/24 09:51 Pulse Rate 74 10/27/24 09:51 Respiratory Rate 14 10/27/24 09:51 Blood Pressure 126/98 H 10/27/24 09:51 Pulse Oximetry 96 10/27/24 09:51 Oxygen Delivery Room Air 10/27/24 09:51 Temperature 36.8 C 10/27/24 14:03 Pulse Rate 82 10/27/24 14:03 Respiratory Rate 19 10/27/24 14:03 Blood Pressure 152/84 H 10/27/24 14:03 Pulse Oximetry 98 10/27/24 14:03 Oxygen Delivery Room Air 10/27/24 09:51 <Ewa Moses PA-C - Last Filed: 10/27/24 18:44> Vital Signs Temperature 36.5 C 10/27/24 09:51 Pulse Rate 74 10/27/24 09:51 Respiratory Rate 14 10/27/24 09:51 Blood Pressure 126/98 H 10/27/24 09:51 Pulse Oximetry 96 10/27/24 09:51 Oxygen Delivery Room Air 10/27/24 09:51 Temperature 36.8 C 10/27/24 14:03 Pulse Rate 82 10/27/24 14:03 Respiratory Rate 19 10/27/24 14:03 Blood Pressure 152/84 H 10/27/24 14:03 Pulse Oximetry 98 10/27/24 14:03 Oxygen Delivery Room Air 10/27/24 09:51 <Mat York MD - Last Filed: 10/28/24 11:30> Discharge Plan Discharge Clinical Impression: Lip edema <Ewa Moses PA-C - Last Filed: 10/27/24 18:44> Patient Disposition: Home, Self-Care <Ewa Moses PA-C - Last Filed: 10/27/24 18:44> Condition: Stable <Ewa Moses PA-C - Last Filed: 10/27/24 18:44> Instructions: Antibiotic Form, Angioedema (ED) <NANCY Jacob Last Filed: 10/27/24 18:44> Additional Instructions: Your evaluated in the emergency department for swelling to her lip. This may be due to the lisinopril your on for blood pressure. Please stop taking his medicine and follow up with her primary care provider. Take the steroids, Benadryl Pepcid as directed. Return to the emergency department if you develop worsening swelling, difficulty breathing or swallowing, or other concerning symptoms. <Ewa Moses PA-C - Last Filed: 10/27/24 18:44> Patient Language: Cape Verdean <Ewa Moses PA-C - Last Filed: 10/27/24 18:44> Prescriptions: New prednisone 20 mg tablet 40 mg PO DAILY Qty: 10 0RF diphenhydramine HCl 25 mg capsule 25 mg PO TID PRN (Reason: allergic reaction) Qty: 14 0RF famotidine 20 mg tablet 20 mg PO BID Qty: 14 0RF No Action atorvastatin 40 mg tablet 80 mg PO DAILY lisinopril 5 mg tablet 5 mg PO DAILY hydrochlorothiazide 25 mg tablet 25 mg PO DAILY carvedilol [Coreg] 3.125 mg Tablet 3.125 mg PO Q12HR Qty: 30 0RF aspirin [Children's Aspirin] 81 mg Tablet,Chewable 81 mg PO DAILY@0800 Qty: 30 0RF Eliquis 5 mg Tablet 5 mg PO Q12HR Qty: 30 0RF Xarelto 20 mg tablet 20 mg PO DAILY Rx Instructions: must administer with evening meal amiodarone [Pacerone] 200 mg Tablet 200 mg PO Q24H <Ewa Moses PA-C - Last Filed: 10/27/24 18:44> Follow-up/Referrals: PHYSICIAN,DIRECTOR OF DANCE [Primary Care Provider] - <Ewa Moses PA-C - Last Filed: 10/27/24 18:44>
[2024-10-27] MEDS: diphenhydrAMINE HCl CAP 25 MG CAPSULE PO (12:40)
[2024-10-27] MEDS: FAMOTIDINE 20 MG TABLET PO (12:40)
[2024-10-27] MEDS: dexAMETHasone SOD PHOS INJ 10 MG/ML 1 ML VIAL IM (12:40)
[2024-10-27 14:03] VITALS: BP 152/84; PULSE 82; RESP 19; TEMP 36.8; O2SAT 98
== END 2024-10-27 14:05 | disposition home or self-care (01) ==
PROVIDERS: Emergency Provider Physician Assistant
DX: R60.0 Localized edema (principal); E78.5 Hyperlipidemia, unspecified; I10 Essential (primary) hypertension; I48.91 Unspecified atrial fibrillation; I25.10 Atherosclerotic heart disease of native coronary artery without angina pectoris; Z79.01 Long term (current) use of anticoagulants; Z87.891 Personal history of nicotine dependence
CPT/HCPCS: 96372; 99283; A9270; J1100

== ENCOUNTER 2024-11-04 08:39 | Outpatient (CLI) | payer MEDICARE, SELFPAY ==
--- OUTSIDE RECORDS SUMMARY | 2024-11-04 08:50 | XMS_ITS | Clinical Summary ---
Author Organization [facility] Address [address] [place] [address] Phone Care Team Providers Care Seafood Farmer Name Role Phone Provider, None Primary Care [...] right coronary artery (HCC),Coronary artery disease involving ho-chunk coronary artery of ho-chunk heart without angina pectoris Take 1 Tablet by mouth 2 times daily. 180 Tablet 3 4 Active hydroCHLOROthiaz julio c 25 MG Tablet Take 1 Tablet by mouth daily. 90 Tablet 3 4 Active lisinopril (PRINIVIL, ZESTRIL) 5 MG TabletIndication s:ST elevation myocardial infarction involving right coronary artery (HCC),Coronary artery disease involving ho-chunk coronary artery of ho-chunk heart without angina pectoris Take 1 Tablet by mouth daily. 90 Tablet 3 4 Active nitroGLYCERIN (NITROSTAT) 0.4 MG SL TabletIndication s:ST elevation myocardial infarction involving right coronary artery (HCC),Coronary artery disease involving ho-chunk coronary artery of ho-chunk heart without angina pectoris 1 Tablet by [...] Diagnosed Date Coronary artery disease invo lving ho-chunk coronary artery of ho-chunk heart without angina pectoris 02/05/2016 STEMI (ST elevation myocardial infarction) 05/23 HTN (hypertension) 05/23/2015 HLD (hyperlipidemia) 05/23/2015 Encounters Date Type Department Care Team Description 09/18/2024 11:00 AM REPORTING SPECIALIST Office Visit [facility] [place] [id number] [place] [address] elevation myocardial infarction involving right coronary artery (HCC) (Primary Dx); Primary hypertension; Pure hypercholesterolemia ; Coronary artery disease involving ho-chunk coronary artery of ho-chunk heart without angina pectoris Discharge Disposition: Discharged to home or Selfcare 09/18/2024 Travel 09/07/2024 [facility] [address] [place] [address] Rj Kern MD OTHER (Eliquis cost - changed to Xarelto ) 09/04/2024 [facility] [address] [place] [address] Rj Kern MD Medication Refill 08/22/2024 Telephone [facility] [address] [place] [phone] Rj Kern MD patient is in ED at [facility] (Emergency room near [facility] ) from Last 3 Months Immunizations [...] Comments Blood Pressure 120/70 09/18/2024 11:08 AM REPORTING SPECIALIST Pulse 76 09/18/2024 11:08 AM REPORTING SPECIALIST Temperature 36.9 C (98.4 F) 05/25/2015 7:29 AM CDT Respiratory Rate 16 09/18/2024 11:08 AM REPORTING SPECIALIST Oxygen Saturation 96% 10/31/2019 2:57 PM REPORTING SPECIALIST Inhaled Oxygen Concentration - - Weight 146 kg (321 lb 12.8 oz) 09/18/2024 11:08 AM REPORTING SPECIALIST Height 172.7 cm (5' 8 ) 09/18/2024 11:08 AM REPORTING SPECIALIST Body Mass Index 48.93 09/18/2024 11:08 AM REPORTING SPECIALIST Plan of Treatment Upcoming Encounters Date Type Department Care Team (Late st Contact Info) Description 12/19/2024 11:45 AM CDT Office Visit [facility] Cardiovascular [place] - Cardiology [facility] [address] [place] [phone] Emily Knight, SUSTAINABILITY CONSULTANT, TDP DISPLAYS ANALYST [address] [place] [address] Health Maintenance Due Date Last Done Comments [...] this topic Medical Devices Implanted Type Area Almond Paste Mixer Device Identifier Shelf Expiration Date Model / Serial / Lot Stent Cor Zahraak Rx Vision 3.5x12mm - [id number] Implanted:Qty : 1 on 05/23/2015 by [facility]neros [facility] at [facility] IMPLANT Right: Coronary [employer] [id number] / / [id number] Device Clsr Plug Angio-Seal Sts + 6fr - [id number] Implanted:Qty : 1 on 05/23/2015 by Ian Cinseros MD at [facility] IMPLANT Right: Groin ST [employer] / ATRIAL FIB [id number] / / [id number] Procedures Procedure Name Priority Date/Time Associated Diagnosis Comments EKG SCAN 08/23/2024 12:00 AM REPORTING SPECIALIST UR 24 HR CREATININE CLEARANCE 08/23/2024 12:00 AM REPORTING SPECIALIST CMP (COMPREHENSIVE METABOLIC PANEL) 08/23/2024 12:00 AM REPORTING SPECIALIST TROPONIN I (TRP I) 08/23/2024 12 :00 AM REPORTING SPECIALIST APTT (PTT) 08/23/2024 12:00 AM REPORTING SPECIALIST COMPLETE BLOOD COUNT (CBC) WITH DIFF 08/23/2024 12:00 AM REPORTING SPECIALIST CARDIOLOGY PROCEDURE 08/23/2024 12:00 AM REPORTING SPECIALIST EKG SCAN 08/22/2024 12:00 AM REPORTING SPECIALIST CARDIOLOGY CONSULT 08/22/2024 12 :00 AM REPORTING SPECIALIST LIPID PANEL 08/22/2024 12:00 AM REPORTING SPECIALIST PROTIME (PT) (PROTHROMBIN TIME) 08/22/2024 12:00 AM REPORTING SPECIALIST LIPASE 08/22/2024 12:00 AM REPORTING SPECIALIST B-TYPE NATRIURETIC PEPTIDE (BNP) 08/22/2024 12:00 AM REPORTING SPECIALIST ECHO GENERIC 08/22/2024 12:00 AM REPORTING SPECIALIST XR - CHEST 08/22/2024 12:00 AM REPORTING SPECIALIST from Last 3 Months Results * EKG SCAN (08/23/2024 12:00 AM REPORTING SPECIALIST) Only the most recent of2 resultswithin the time period is included. 08/23/2024 us Provider Scan IMG ECG ORDERABLES Final Result Performing Organization Address [facility] de Phone Number RESULTING AGENCY * CARDIOLOGY PROCEDURE (08/23/2024 12:00 AM REPORTING SPECIALIST) Anatomical Region Laterality Modality Other 08/23/2024 us Provider Scan CV PROCEDURES SCHED Final Result * UR 24 HR CREATININE CLEARANCE (08/23/2024 12:00 AM REPORTING SPECIALIST) 08/23/2024 us Provider Scan CHEMISTRY ORDERABLES Final Resul t Performing Organization Address [facility] de Phone Number SCAN * TROPONIN I (TRP I) (08/23/2024 12:00 AM REPORTING SPECIALIST) 08/23/2024 us Provider Scan CHEMISTRY ORDERABLES Final Resul t Performing Organization Address [facility] Co de Phone Number SCAN * APTT (PTT) (08/23/2024 12:00 AM REPORTING SPECIALIST) 08/23/2024 us Provider Scan HEMATOLOGY ORDERABLES Final Resu lt Performing Organization Address [facility] de Phone Number SCAN * CMP (COMPREHENSIVE METABOLIC PANEL) (08/23/2024 12:00 AM REPORTING SPECIALIST) 08/23/2024 us Provider Scan CHEMISTRY ORDERABLES Final Resul t Performing Organization Address [facility] de Phone Number SCAN * COMPLETE BLOOD COUNT (CBC) WITH DIFF (08/23/2024 12:00 AM REPORTING SPECIALIST) 08/23/2024 us Provider Scan HEMATOLOGY ORDERABLES Final Resu lt Performing Organization Address [facility] de Phone Number SCAN * ECHO GENERIC (08/22/2024 12:00 AM REPORTING SPECIALIST) LV EF(estimated)% 63 RESULTING AGENCY 08/22/2024 us Provider Scan IMG ECHO ORDERABLES Final Result Performing Organization Address [facility] de Phone Number RESULTING AGENCY * XR - CHEST (08/22/2024 12:00 AM REPORTING SPECIALIST) 08/22/2024 us Provider Scan IMG DIAGNOSTIC ORDERABLES Final Result Performing Organization Address [facility] de Phone Number SCAN * CARDIOLOGY CONSULT (08/22/2024 12:00 AM REPORTING SPECIALIST) 08/22/2024 us Provider Scan GENERIC SCAN ORDERS CONSULT Madhavi l Result Performing Organization Address [facility] de Phone Number SCAN * PROTIME (PT) (PROTHROMBIN TIME) (08/22/2024 12:00 AM REPORTING SPECIALIST) INR 0.9 SCAN 08/22/2024 us Provider Scan HEMATOLOGY ORDERABLES Final Resu lt SCAN * LIPID PANEL (08/22/2024 12:00 AM REPORTING SPECIALIST) CHOLESTEROL 192 SCAN HDL CHOLESTEROL 59 SCAN LDL 103 SCAN 08/22/2024 us Provider Scan CHEMISTRY ORDERABLES Final Resul t SCAN * LIPASE (08/22/2024 12:00 AM REPORTING SPECIALIST) 08/22/2024 us Provider Scan CHEMISTRY ORDERABLES Final Resul t SCAN * B-TYPE NATRIURETIC PEPTIDE (BNP) (08/22/2024 12:00 AM REPORTING SPECIALIST) 08/22/2024 us Provider Scan CHEMISTRY ORDERABLES Final Resul t SCAN from Last 3 Months Insurance MEDICARE [place] Advance Directives * Full Code (Latest Code Status on File) Date Activated Date Inactivated Comments 05/23/2015 5:21 PM 05/25/2015 1:20 PM Full Code: FULL ARREST: Attempt Resuscitation/CPR and use intubation and mechanical ventilation as indicated. PRE-ARREST: Use all measures to stabilize patient. Care Teams Seafood Farmer Relationship Specialty Start Date End Date Provider, Janey CHARLES PCP - General 06/20/15
--- OUTSIDE RECORDS SUMMARY | 2024-11-04 08:51 | XMS_ITS | Encounter Summary ---
Author Organization [facility] Address [address] [facility] [place] [address] Phone Care Team Providers Care Traffic Ii Manager Name Role Phone Provider, None Primary Care Provider Unavailabl e Reason for Visit * Reason Comments Medication Refill Lisinopril Encounter Details Date Type Department Care Team (Late st Contact Info) Description 03/03/2021 Refill [facility] Cardiovascular [place] - Cardiology - [facility] [address] [place] [phone] Rj Kern MD [address] [place], [place] [phone] Medication Refill (Lisinopril) Social History Tobacco Use [...] Office Visit Best Stone MD [facility] [place] 10/31/19 Office Visit Latha Romero PIER WORKER, DIRECTOR OF REHABILITATION AND WELLNESS [facility] [place] Showing recent visits within past 548 days [...] Description 12/19/2024 11:45 AM CDT [facility] [place] - Card[facility] - [facility] [address] [place] [phone] Emily Knight APRN, DIRECTOR OF REHABILITATION AND WELLNESS [address] [place] [address] documented as of this encounter Visit Diagnoses Diagnosis Coronary artery disease involving [place] coronary artery of [place] heart without angina pectoris ST elevation myocardial infarction involving right coronary artery (HCC) Acute myocardial infarction of inferoposterior wall, initial episode of care Essential hypertension Unspecified essential hypertension documented in this encounter Care Teams Traffic Ii Manager Relationship Specialty Start Date End Date Provider, None [place] PCP - General 06/20/15 documented as of this encounter
--- OUTSIDE RECORDS SUMMARY | 2024-11-04 08:51 | XMS_ITS | Clinical Summary ---
Author Organization [facility] Address [address] [place] [address] Phone Care Team Providers Care Pipe Layer Name Role Phone Sanjay Mcwilliams MD Primary Care Provider [phone] Medications * This document contains information received [...] on file Medical Devices Implanted Type Area Talent Advisor Device Identifier Shelf Expiration Date Model / Serial / Lot Acet Shell R3 3h 60mm - [id number] Implanted:06/20 (Quantity not on file) Left: Hip [employer] [id number] 12/26/2031 [id number] / / [id number] Fem Head 09/02 Oxnm 28mm +8 - [id number] Implanted:06/20 (Quantity not on file) Left: Hip [employer] [id number] 08/16/2031 [id number] / / [id number] Or 30 Degree Dual Mobility Insert Implanted:06/20 (Quantity not on file) Left: Hip [employer]THO [id number] 03/15/2031 [id number] / / [id number] Or 30 Degree Dual Mobility Liner Implanted:06/20 (Quantity not on file) Left: Hip [employer]THO [id number] 03/30/2031 [id number] / / [id number] Pwdr Hemoabsorb Jenna 3gm - [id number] Implanted:06/20 (Quantity not on file) Left: Hip [employer] [id number] 03/17/2027 [id number] / / [id number] Redapt Femoral Standard Offset Implanted:06/20 (Quantity not on file) Left: Hip [employer] ORTHO [id number] 12/22/2029 [id number] / / [id number] Care Teams Pipe Layer Relationship Specialty Start Date End Date Sanjay Mcwilliams MD [address] [place] [address] PCP - General 06/25/22
--- OUTSIDE RECORDS SUMMARY | 2024-11-04 08:51 | XMS_ITS | Encounter Summary ---
Author Organization [facility] Address [address] [facility] [address] Phone Care Team Providers Care Sales And Marketing Assistant Name Role Phone Provider, None Primary Care Provider Unavailabl e Reason for Visit * Reason Comments Medication Refill Plavix- patient requ ires 90 day supply Encounter Details Date Type Department Care Team (Late st Contact Info) Description 05/13/2021 Refill [facility] Cardiovascular [place] - Cardiology - [facility] [address] [place] [phone] Rj Kern MD [address], [place] [phone] Medication Refill (Plavix- patient requires 90 day [...] Office Visit Best Stone MD [facility] [place] Showing recent visits within past 548 days and meeting all other requirements Future Appointments No visits were found meeting these conditions. Showing future appointments within next 90 days and meeting all other requirements documented in this encounter Plan of Treatment Upcoming Encounters Date Type Department Care Team (Late st Contact Info) Description 12/19/2024 11:45 AM CDT Office Visit [facility] Cardiovascular [place] - Cardiology - [facility] [address] [place] [address] Emily Knight, TRANSITION COACH, BIOMEDICAL SPECIALIST [address] [place] [address] documented as of this encounter Visit Diagnoses Diagnosis Coronary artery disease involving sitka coronary artery of sitka heart without angina pectoris ST elevation myocardial infarction involving right coronary artery (HCC) Acute myocardial infarction of inferoposterior wall, initial episode of care documented in this encounter Care Teams Sales And Marketing Assistant Relationship Specialty Start Date End Date Provider, None [place] PCP - General 06/20/15 documented as of this encounter
--- OUTSIDE RECORDS SUMMARY | 2024-11-04 08:51 | XMS_ITS | Encounter Summary ---
Author Organization [facility] Address [address] [place] [address] Phone Care Team Providers Care Sealer Dry Cell Name Role Phone Sanjay Mcwilliams MD Primary Care Provider [phone] Encounter Details Date Type Department Care Team ([facility] st Contact Info) Description 07/02/2022 Anesthesia Event [facility] [address] [place] [address] Jc [place], DO [address] [place] [address] Social History Tobacco Use Types Packs/Day Years [...] on filedocumented in this encounter Care Teams Sealer Dry Cell Relationship Specialty Start Date End Date Sanjay Mcwilliams MD [address] [place] [address] PCP - General 06/25/22 documented as of this encounter
--- OUTSIDE RECORDS SUMMARY | 2024-11-04 08:51 | XMS_ITS | Patient Health Record ---
Author Organization [facility] Address [address] [place] [address] Care Team Providers Care Car Rental Sales Assistant Name Role Phone Sanjay Mcwilliams MD Primary Care Provider Unavailtanya e Myles Simeon Unavailable [phone] Allergies No Known Allergies Reason For Referral [...] Problem Status W/U Status Risk Notes Problem [id number] Unilateral primary osteoarthritis, left hip (M16.12) Active confirmed Problem 21298143 Left hip pain (M25.552) Active confirmed Problem 47072846 Impaired gait an d mobility (R26.89) Active confirmed Problem Localized, primary osteoarthritis of the pelvic region and thigh (963678148) Bilateral primary osteoarthritis of hip (M16.0) 05/13/20 22 Active confirmed Plan Of Treatment No Information Insurance Providers Payer Name Payer Address Payer Phone Subscriber Number Group Number Insured Name Patient Relationship to Insured Coverage Start Date Coverage End Date Medicare Part B [address] [facility] [place] [id number] Krishna Armando Self - patient is the insured 2 [facility] Insurance [address] [place] [address] [phone] [id number] Krishna Armando Self - patient is the insured 2 Medical (General) History Medical History History ICD Code ACUTE MYOCARDIAL INFARCTION, HYPERLIPIDEMIA, HYPERTENSION, Surgical History Surgery Date(Month/Year) Heart Surgery Heart surgery Left JONNATHAN 2021
[2024-11-04 10:35] LABS: Thyroid Stimulating Hormone 0.914 uIU/mL (0.465-4.680)
== END 2024-11-04 08:40 | disposition home or self-care (01) ==
DX: E78.00 Pure hypercholesterolemia, unspecified (principal); I10 Essential (primary) hypertension; I25.10 Atherosclerotic heart disease of native coronary artery without angina pectoris; I21.11 ST elevation (STEMI) myocardial infarction involving right coronary artery
CPT/HCPCS: 36415; 84443

== ENCOUNTER 2025-05-04 13:37 | Emergency (ER) | payer MEDICARE, SELFPAY ==
[2025-05-04] VITALS (8 sets, daily range): BP systolic 132–156; BP diastolic 67–83; PULSE 60–72; RESP 16–24; TEMP 36.4; O2SAT 87–97
--- NOTE | ~2025-05-04 | CT_ITS ---
CLINICAL INDICATION: Right sided abdominal pain COMPARISON: 01/09/2021. TECHNIQUE: Multiple contiguous axial images of the abdomen and pelvis were performed following the ad ministration of with 100 mL Omnipaque-350 intravenous contrast The dose-length product (DLP) was 1826.14 mGy-cm. Automated exposure control and iterative reconstruction technique were employed. FINDINGS/OBSERVATIONS: Visualized lower thorax: The bilateral lung bases are clear. The heart is enlarged, without pericardial effusion. Liver: The liver demonstrates homogeneously decreased enhancement and is enlarged measuring 21 cm in longitu dinal dimension, increased from 2020 examination within the liver measured 19 cm. In longitudinal dim ension. Gallbladder and biliary system: The gallbladder is only minimally distended, and otherwise unremarkable. Pancreas: Fatty atrophy of the pancreas, all but the distal most tail, without enlargement since 2020 . The pancreas otherwise enhances homogeneously without ductal dilatation. Spleen: The spleen enhances homogeneously and is borderline enlarged measuring 13 cm in longitudinal dimensio n. Kidneys: Interval development of a 4.5 mm obstructing stone within the proximal right ureter with res ulting hydronephrosis and proximal hydroureteronephrosis. Redemonstration of nonobstructing stones within the upper and lower poles of the right kidney, both m easuring 4 mm. Interval development of a 3 mm nonobstructing calculus within the interpolar region of the left kidne y and an additional 3 mm calculus within the upper pole of the left kidney. The remainder of the left kidney and ureter are unremarkable. Adrenal glands: Unremarkable. Gastrointestinal tract: Colonic diverticulosis without surrounding inflammatory change.. Appendix: The appendix is not definitively visualized. However, no pericecal inflammatory change is identified suggest the presence of acute appendicitis. Vasculature: Calcified atherosclerotic disease within the abdominal aorta, without aneurysmal dilatation. Lymph nodes: No pathologically enlarged or morphologically suspicious lymph nodes within the retroperitoneum or at the root of the mesentery. Pelvic structures: The bladder is only minimally distended, and otherwise unremarkable. The prostate gland is not enlarged. Body wall and musculoskeletal: Small fat-containing umbilical hernia. Age-appropriate degenerative disease within the lower thoracic and lumbosacral spines. There are brid ging endplate osteophytes at multiple levels in the lower thoracic spine, consistent with diffuse idi opathic skeletal hyperostosis (DISH). Interval placement of a left total hip prosthetic since prior examination. IMPRESSION: Right-sided hydronephrosis and proximal hydroureter secondary to a 4.5 mm obstructing stone in the pr oximal right ureter. Nonobstructing stones present bilaterally. Hepatomegaly with borderline splenomegaly, an interval change from prior. Reviewed, dictated and finalized at location A. IMPRESSION: Right-sided hydronephrosis and proximal hydroureter secondary to a 4.5 mm obstr ucting stone in the proximal right ureter. Nonobstructing stones present bilaterally. Hepatomegaly with borderline splenomegaly, an interval change from prior.
--- NOTE | ~2025-05-04 | XR_ITS ---
Exam: Abdomen 1V HISTORY: prox R stone COMPARISON: Reference is made to CT examination of the abdomen and pelvis performed 2 hours earlier TECHNIQUE: Supine images of the abdomen FINDINGS: Redemonstration of a 4.5 mm calculus within the proximal to mid right ureter with right-sided hydrone phrosis. The left kidney is unremarkable. IMPRESSION: 4.5 mm calculus within the proximal to mid right ureter. Reviewed, dictated and finalized at location A.
--- OUTSIDE RECORDS SUMMARY | 2025-05-04 13:40 | XMS_ITS ---
Author Organization [facility] Address [address], [place] [address] Care Team Providers Care Camp Nurse Name Role Phone DAFNE DWYER Primary Care Provider REASON FOR VISIT annual check up/allergies/rash Encounters Encounter Location Date Provider Diagnosis [facility] [address], [place] [address] 06/14/2024 DAFNE DWYER Plan Of Treatment No Information Progress Notes * Krishna ARMANDO EDOB:1955 (70 yo M)Acc No.[id number]:06/14/2024 Progress Notes Patient: Suleiman OBRIENy Delia Provider: Sharon DWYER MD :1955 A ge:69 Y S ex:Male Date:06/14/2024 Address[place] [place] Subjective: * Chief Complaints: * 1 . Annual check up/allergies/rash. * Medical History: Objective: * Vitals: Assessment: Plan: * Treatment: * Images: * Electronic signature of DAFNE DWYER MD on 05/04/2025 at 01:40 PM CDT Sign off status: Pending * Provider: Sharon DWYER MD Date: 06/14/2024 Generated for Dericki angy/Catalino/eTransmitting on: 05/04/2025 01:40 PM CDT
--- OUTSIDE RECORDS SUMMARY | 2025-05-04 13:40 | XMS_ITS | Clinical Summary ---
Author Organization [facility] Address [address] [facility] [address] Phone Care Team Providers Care Traffic Maintenance Officer Name Role Phone Provider, None Primary Care Provider Emily Lam APRN, SLUDGE CONTROL OPERATOR Unavailable [phone] Allergies Active Allergy Reactions Criticality Noted Date Comments Carlos Inhibitors Other (see Comments) High 02/15/2025 Probable angioedema wit Lisinopril Lisinopril Swelling 01/15/2025 Lip and tongue swelling Statins Other (see Comments) 02/05/2016 Intolerance to high intensity statin Sulfa Antibiotics Hives,Unknown 05/23/2015 Medications ibuprofen (MOTRIN) 200 MG Tablet Take 800 mg by mouth every 8 hours as needed. Active aspirin 81 MG Chewable Tablet Take 1 Tab by mouth daily. 100 Tab 0 5 Active nitroGLYCERIN (NITROSTAT) 0.4 MG SL TabletIndication s:ST elevation myocardial infarction involving right coronary artery (HCC),Coronary artery disease involving [place] coronary artery of [place] heart without angina pectoris 1 Tablet by [...] Atrial Fibrillation 90 Tablet 3 4 Active carvedilol (COREG) 3.125 MG TabletIndication s:ST elevation myocardial infarction involving right coronary artery (HCC),Coronary artery disease involving [place] coronary artery of [place] heart without angina pectoris Take 2 Tablets by mouth 2 times daily. 180 Tablet 3 5 Active amiodarone (CORDARONE) 200 MG Tablet Take 1 Tablet by mouth daily. 90 Tablet 5 Active amLODIPine (NORVASC) 5 MG Tablet Take 1 Tablet by mouth daily. 90 Tablet 3 5 Active hydroCHLOROthiaz julio c 25 MG Tablet TAKE 1 TABLET BY MOUTH DAILY 90 Tablet 3 5 Active Active Problems Problem Noted Date Diagnosed Date Coronary artery disease invo lving [place] coronary artery of [place] heart without angina pectoris 02/05/2016 STEMI (ST elevation myocardial infarction) 05/23 HTN (hypertension) 05/23/2015 HLD (hyperlipidemia) 05/23/2015 Encounters Date Type Department Care Team Description 04/17/[address] [facility] [address] [place] [address] Rj Kern MD Edema in Legs (Likely from Amlodipine ) 02/15/2025 [facility] [address] [facility] [place] [address] Rj Kern MD Medication Refill 02/14/2025 [facility] [facility] [address] [facility] [place] [address] Rj Kern MD BP update - Amlodipine added 02/14/2025 [facility] [address] [facility] [place] [address] Rj Kern MD Medication Management (Refills on Amiodarone) 02/01/2025 [facility] [address] [facility] [place] [address] Rj Kern MD OTHER (Lisinopril) from Last 3 Months Immunizations Immunization Administration [...] Sign Reading Time Taken Comments Blood Pressure 120/80 01/15/2025 10:32 AM CDT left arm Pulse 60 01/15/2025 10:32 AM CDT Temperature 36.9 C (98.4 F) 05/25/2015 7:29 AM CDT Respiratory Rate 16 01/15/2025 10:3 2 AM CDT Oxygen Saturation 96% 10/31/2019 2:57 PM WINDOW MAKER Inhaled Oxygen Concentration - - Weight 147.6 kg (325 lb 6.4 oz) 025 10:32 AM CDT Height 172.7 cm (5' 8) 01/15/2025 10:3 2 AM CDT Body Mass Index 49.48 01/15/2025 10:32 AM CDT Plan of Treatment Upcoming Encounters Date Type Department Care Team (Late st Contact Info) Description 10/18/2025 9:15 AM WINDOW MAKER Office Visit [facility] - [facility] [address] [place] [address] Leyda Brooks, BRAKE DRUM MOLDER, SLUDGE CONTROL OPERATOR [address] [place] [address] Health Maintenance Due Date Last Done Comments Hepatitis C Virus (HCV) Screening 1955 Cologuard 2002 Colonoscopy 2002 Colorectal Cancer Screening 2002 Immunochemical Fecal Occult Blood 2002 Pneumococcal Immunization (5 0+ years) (1 of 1 - PCV) 2007 Zoster Immunization (1 of 2) 2007 PSA Discussion 2012 Respiratory Syncytial Virus (RSV) Immunization (Adult) (1 - Risk 60-74 years 1-dose series) 2017 AAA Screening Ultrasound 2022 SARS-COV-2 Immunization (3 - season) 2024 03/11/2021, 02/04/2021 Influenza Immunization (#1) 2025 Td Immunization Every 10 Yea rs (Adults With 1 Tdap) 05/01/2031 05/01/2021 DTaP/Tdap/Td Immunization Discontinued 05/01/2021 Hepatitis B Immunization Aged Out No longer eligible based on patient's age to complete this topic Human Papillomavirus (HPV) Immunization Aged Out No longer eligible based on patient's age to complete this topic Meningococcal Immunization (ACWY) Aged Out No longer eligible based on patient's age to complete this topic Rotavirus Immunization Aged Out No lo nger eligible based on patient's age to complete this topic Medical Devices Implanted Type Area Diabetes Trainer Device Identifier Shelf Expiration Date Model / Serial / Lot Stent Cor Maritza Rx Vision 3.5x12mm - [id number] Implanted:Qty : 1 on 05/23/2015 by Ian [facility]neros MD at [facility] IMPLANT Right: Coronary [employer] [id number] / / [id number] Device Clsr Plug Angio-Seal Sts + 6fr - [id number] Implanted:Qty : 1 on 05/23/2015 by Ian Cisneros MD at [facility] IMPLANT Right: Groin ST YSABEL / ATRIAL FIB [id number] / / [id number] Insurance MEDICARE C [employer] Advance Directives * Full Code (Latest Code Status on File) Date Activated Date Inactivated Comments 05/23/2015 5:21 PM 05/25/2015 1:20 PM Full Code: FULL ARREST: Attempt Resuscitation/CPR and use intubation and mechanical ventilation as indicated. PRE-ARREST: Use all measures to stabilize patient. Care Teams Traffic Maintenance Officer Relationship Specialty Start Date End Date Provider, None [place] PCP - General 06/20/15 Emily Knight, BRAKE DRUM MOLDER, SLUDGE CONTROL OPERATOR [address] [place] [address] Nurse Practitioner Advanced Practice Nurse 12/05/24
--- OUTSIDE RECORDS SUMMARY | 2025-05-04 13:40 | XMS_ITS | Clinical Summary ---
Author Organization [facility] Address [address] [place] [address] Care Team Providers Care Weir Fisher Name Role Phone Sanjay Mcwilliams MD Primary Care Provider [phone] Source Comments This disclosure is being made pursuant to the [employer] program and maynot contain all information available regarding this patient.[facility] Allergies Active Allergy Reactions Criticality Noted Date Comments Statins Other (See Comments) 01/25/2017 Intolerance to high intensity statin Sulfa Antibiotics Hives,Other (See Comments) High 01/25/2017 Medications lisinopril (PRINIVIL,ZESTRI L) 5 MG tablet Take 1 tablet by mouth daily. 0 01/06/2017 Active aspirin low dose 81 MG CHEW Chew 81 mg by mouth daily. 05/24/2015 Active atorvastatin (LIPITOR) 40 MG tablet Take 40 mg by mouth daily. Active fenofibrate micronized (LOFIBRA) 134 MG capsule Take 134 mg by mouth daily. Active carvedilol (COREG) 3.125 MG tablet Take 1 tablet by mouth 2 (two) times daily. 1 12/16/2016 Active hydrochlorothiaz julio c (HYDRODIURIL) 25 MG tablet 1 tablet daily. 06/16/2012 Active clopidogrel (PLAVIX) 75 MG tablet 1 tablet daily. 08/06/2021 Active nitroGLYCERIN (NITROSTAT) 0.3 MG SL tablet as needed. 08/06/2021 Activ e Active Problems Problem Noted Date Diagnosed Date BMI 45.0-49.9, adult 01/25/2017 Coronary artery disease invo lving [place] coronary artery of [place] heart without angina pectoris 02/05/2016 STEMI (ST elevation myocardial infarction) 05/23 HTN (hypertension) 05/23/2015 Hyperlipidemia 05/23/2015 Family History Medical History Relation Name Comments Heart disease Father Ovarian cancer Mother Breast cancer Sister Relation Name Status Comments Father Alive Mother Sister Social History Tobacco Use Types Packs/Day Years Used Date Smoking Tobacco: Former Cigarettes Q uit: 10/21/2006 Smokeless Tobacco: Never Alcohol Use Standard Drinks/Week Comments No 0 (1 standard drink = 0.6 oz pur e alcohol) Sex and Gender Information Value Date Recorded Sex Assigned at Not on file Legal Sex Male 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 Gender Identity Not on file Sexual Orientation Not on file Last Filed Vital Signs Vital Sign Reading Time Taken Comments Blood Pressure 112/60 07/02/2022 3:10 PM CDT Pulse 99 07/02/2022 3:10 PM CDT Temperature 36.1 C (97 F) 07/02/2022 3:10 PM CDT Respiratory Rate 20 07/02/2022 3:10 PM CDT Oxygen Saturation 94% 07/02/2022 3:10 PM CDT Inhaled Oxygen Concentration - - Weight 128.3 kg (282 lb 13.6 oz) 07/02/2022 8:30 AM CDT Height 170.2 cm (5' 7) 07/02/2022 8:30 AM CDT Body Mass Index 44.3 07/02/2022 8:30 AM CDT Plan of Treatment Health Maintenance Due Date Last Done Comments CT Colonography 1955 Colonoscopy 1955 Colorectal Cancer Screening 1955 Fecal DNA Test 1955 Lab-Cholesterol Screening 1955 Lab-Hepatitis C Screening 1955 Sigmoidoscopy 1955 Pneumococcal Vaccines 50+ (1 of 2 - PCV) 1976 Tetanus/Pertussis Vaccine Teen/Adult (1 - Tdap) 1976 FOBT/FIT 1977 Zoster (Shingles) Vaccine 50 + (1 of 2) 2007 First Medicare Annual Wellne ss (AWV) 03/20/2023 COVID-19 Vaccine (3 - 2023-2 5 season) 2024 03/11/2021, 02/04/2021 Influenza Vaccine (#1) 2025 RSV Adult (1 - 1-dose 75+ series) 2032 HIB Vaccine Aged Out No longer eligi ble based on patient's age to complete this topic HPV Vaccine (9-26yo & Shared Decision 27-45yo) Aged Out No longer eligible b ased on patient's age to complete this topic Hepatitis A Vaccine Aged Out No longe r eligible based on patient's age to complete this topic IPV Vaccine Aged Out No longer eligi ble based on patient's age to complete this topic Meningococcal Conjugate Vaccine Aged Out No longer eligible b ased on patient's age to complete this topic RSV < 20 Months Aged Out No longer el igible based on patient's age to complete this topic Goals Goal Patient Goal Type Associated Problems Recent Progress Patient-Stated? Author Blood Pressure < 140/90 Blood Pressure 112/60(2021 3:10 PM CDT) Sara Nam APN Medical Devices Implanted Type Area Hospice Registered Nurse Device Identifier Shelf Expiration Date Model / Serial / Lot Pwdr Hemoabsorb Jenna 3gm - [id number] Implanted:Qty: 1 on 07/02/2022 by Myles Simeon MD at [facility] Left: Hip BARD ACCESS SYSTEMS I [id number] 03/17/2027 [id number] / / [id number] Or 30 Degree Dual Mobility Liner Implanted:Qty: 1 on 07/02/2022 by Myles Simeon MD at [facility] Left: Hip HAIDER \T\ NEPHEW ORTHO [id number] 03/30/2031 [id number] / / [id number] Acet Shell R3 3h 60mm - [id number] Implanted:Qty: 1 on 07/02/2022 by Myles Simeon MD at [facility] Left: Hip HAIDER \T\ NEPHEW INC [id number] 12/26/2031 [id number] / / [id number] Redapt Femoral Standard Offset Implanted:Qty: 1 on 07/02/2022 by Myles Simeon MD at [facility] Left: Hip HAIDER \T\ NEPHEW ORTHO [id number] 12/22/2029 [id number] / / [id number] Fem Head 09/02 Oxnm 28mm +8 - [id number] Implanted:Qty: 1 on 07/02/2022 by Myles Simeon MD at [facility] Left: Hip HAIDER \T\ [employer] INC [id number] 08/16/2031 [id number] / / [id number] Or 30 Degree Dual Mobility Insert Implanted:Qty: 1 on 07/02/2022 by Myles Simeon MD at [facility] Left: Hip HAIDER \T\ NEPHEW ORTHO [id number] 03/15/2031 [id number] / / [id number] Insurance MEDICARE [facility] Care Teams Weir Fisher Relationship Specialty Start Date End Date Sanjay Mcwilliams MD [address] [place] [address] PCP - General Family Medicine 06/25/22
--- OUTSIDE RECORDS SUMMARY | 2025-05-04 13:40 | XMS_ITS ---
Author Organization [facility] Address [address], [place] [address] Care Team Providers Care Aquatics Group Fitness Instructor Name Role Phone DAFNE DWYER Primary Care Provider REASON FOR VISIT annual visit Encounters Encounter Location Date Provider Diagnosis [facility] [address], [place] [id number] 06/28/2024 DAFNE DWYER Plan Of Treatment No Information Progress Notes * Krishna ARMANDO EDOB:1955 (70 yo M)Acc No.[id number]:06/28/2024 Progress Notes Patient: Krishna OBRIEN Provider: Sharon DWYER MD :1955 A ge:69 Y S ex:Male Date:06/28/2024 Address:[address] [id number] Subjective: * Chief Complaints: * 1 . Annual visit. * Medical History: Objective: * Vitals: Assessment: Plan: * Treatment: * Images: * Electronic signature of DAFNE DWYER MD on 05/04/2025 at 01:40 PM CDT Sign off status: Pending * Provider: Sharon DWYER MD Date: 1 Generated for Shruti travis/Catalino/Elliotitting on: 0 05/04/2025 01:40 PM CDT
--- OUTSIDE RECORDS SUMMARY | 2025-05-04 13:41 | XMS_ITS | Clinical Summary ---
Author Organization [facility] Address [address] [place] [address] Phone Care Team Providers Care District Medical Examiner Name Role Phone Sanjay Mcwilliams MD Primary Care Provider [phone] Medications * This document contains information received [...] on file Medical Devices Implanted Type Area Batch Freezer Device Identifier Shelf Expiration Date Model / Serial / Lot Acet Shell R3 3h 60mm - [id number] Implanted:06/20 (Quantity not on file) Left: Hip HAIDER AND [employer] [id number] 12/26/2031 [id number] / / [id number] Fem Head 09/02 Oxnm 28mm +8 - [id number] Implanted:06/20 (Quantity not on file) Left: Hip Koudai AND NEP[employer]W INC [id number] 08/16/2031 [id number] / / [id number] Or 30 Degree Dual Mobility Insert Implanted:06/20 (Quantity not on file) Left: Hip HAIDER AND NEPHEW ORTHO [id number] 03/15/2031 [id number] / / [id number] Or 30 Degree Dual Mobility Liner Implanted:06/20 (Quantity not on file) Left: Hip HAIDER AND NEPHEW ORTHO [id number] 03/30/2031 [id number] / / [id number] Pwdr Hemoabsorb Jenna 3gm - [id number] Implanted:06/20 (Quantity not on file) Left: Hip GlobeIn [employer]ESS [employer] INC [id number] 03/17/2027 [id number] / / [id number] Redapt Femoral Standard Offset Implanted:06/20 (Quantity not on file) Left: Hip HAIDER AND NEPHEW ORTHO [id number] 12/22/2029 [id number] / / [id number] Care Teams District Medical Examiner Relationship Specialty Start Date End Date Sanjay Mcwilliams MD [address] [place] [address] [facility] - General 06/25/22
--- OUTSIDE RECORDS SUMMARY | 2025-05-04 13:41 | XMS_ITS | Patient Health Record ---
Author Organization [facility] Address [address] [place] [address] Care Team Providers Care Protection Officer Name Role Phone Sanjay Mcwilliams MD Primary Care Provider Unavailtanya e Myles Simeon Unavailable [phone] Allergies No Known Allergies Reason For Referral No Information Medications Medication SIG (Take, Route, Frequency, Duration) Notes Start Date End Date Status Cyclobenzaprine HCl 10 MG 1 tablet at bedtime as needed Orally Once a day 07/13/2022 Active Aspirin Adult Low Strength 81 MG Oral daily; Duration: 0 take 1 (one) Tablet by Oral route daily 05/13/2022 Active Fenofibrate Micronized 134 MG Oral daily; Duration: 0 take 1 (one) Capsule by Oral route daily 05/13/2022 Active Docusate Sodium 100 MG TAKE ONE CAPSULE BY MOUTH TWICE DAILY NEEDED; Duration: 90 Active Atorvastatin Calcium 40 MG Oral daily; Duration: 0 take 1 (one) Tablet by Oral route daily 05/13/2022 Active Clopidogrel Bisulfate 75 MG Oral daily; Duration: 0 take 1 (one) Tablet by Oral route daily 05/13/2022 Active HYDROcodone-Acetaminophen 10-325 MG 1 tablet as needed Orally every 6 hrs 06/25/2022 Active Carvedilol 3.125 MG Oral daily; Duration: 0 take 1 (one) Tablet by Oral route daily 05/13/2022 Active Lisinopril 5 MG Oral daily; Duration: 0 take 1 (one) Tablet by Oral route daily 05/13/2022 Active hydroCHLOROthiazide 25 MG Oral daily; Duration: 0 take 1 (one) Tablet by Oral route daily 05/13/2022 Active Problems Problem Type SNOMED Code ICD Code Onset Dates Problem Status W/U Status Risk Notes Problem Localized, primary osteoarthritis of the pelvic region and thigh (679112418) Unilateral primary osteoarthritis, left hip (M16.12) Active confirmed Problem Arthralgia of the pelvic region and thigh (064121664) Left hip pain (M25.552) Active confirmed Problem Abnormal gait (59525206) Impaired gait and mobility (R26.89) Active confirmed Problem Localized, primary osteoarthritis of the pelvic region and thigh (242639288) Bilateral primary osteoarthritis of hip (M16.0) 05/13/20 22 Active confirmed Plan Of Treatment No Information Insurance Providers Payer Name Payer Address Payer Phone Subscriber Number Group Number Insured Name Patient Relationship to Insured Coverage Start Date Coverage End Date Medicare Part B [address] [place], [place] [id number] Krishna Armando Self - patient is the insured 2 [facility] Insurance [address] [place] [address] [id number] Krishna Armando Self - patient is the insured 2 Medical (General) History Medical History History ICD Code ACUTE MYOCARDIAL INFARCTION, HYPERLIPIDEMIA, HYPERTENSION, Surgical History Surgery Date(Month/Year) Heart Surgery Heart surgery Left JONNATHAN 2021
--- OUTSIDE RECORDS SUMMARY | 2025-05-04 13:41 | XMS_ITS | Patient Health Record ---
Author Organization [facility] Address [address], [place] [address] Care Team Providers Care Financial Sales Associate Name Role Phone DAFNE DWYER Primary Care Provider [phone] GILMAR GALAN Unavailable [phone] Allergies Allergen (clinical drug ingredient) Drug/Non Drug [...] Problem Status W/U Status Risk Notes Problem 209066767 Impaired fasting glucose (R73.01) Active confirmed Problem Essential hypertension (76508708) Essential (primary) hypertension (I10) Active confirmed Problem Morbid obesity (553232050) Morbid obesity with BMI of 40.0-44.9, adult (E66.01) Active confirmed Problem 387330789 Atherosclerotic heart disease of [place] coronary artery without angina pectoris (I25.10) Active confirmed Problem 277401110 Mixed hyperlipidemia (E78.2) Active confirmed Problem 820744839227501 Primary osteoarthritis of left hip (M16.12) Active confirmed Problem 448083032 History of ND (myocardial infarction) (I25.2) Active confirmed Encounters Encounter Location Date Provider Diagnosis [facility] [address] [place] [address] 08/16/2024 DAFNE DWYER [facility] [address], [place] [address] 11/01/2024 GILMAR GALAN Plan Of Treatment No Information Medical (General) History Medical History History ICD Code Essential (primary) hypertension I10 Morbid obesity with BMI of 40.0-44.9, ad ult E66.01 Mixed hyperlipidemia E78.2 Atherosclerotic heart diseas e of [place] coronary artery without angina pectoris I25.10 History of ND (myocardial infarction) I2 5.2 Impaired fasting glucose R73.01 Primary osteoarthritis of left hip M16.1 2 Surgical History Surgery Date(Month/Year) [facility]Left [facility]-Dr. Hernandez jone July 02, 2022 stents in heart: 80% occluded Hospitalization History Reason Date(Month/Year) heart attack
--- OUTSIDE RECORDS SUMMARY | 2025-05-04 13:41 | XMS_ITS | Encounter Summary ---
Author Organization [facility] Address [address] [place] [address] Phone Care Team Providers Care Video Clerk Name Role Phone Sanjay Mcwilliams MD Primary Care Provider [phone] Encounter Details Date Type Department Care Team (Late st Contact Info) Description 07/02/2022 Anesthesia Event [facility] [address] [place] [address] Jc Toledo, DO [address] [place] [address] Social History Tobacco Use Types Packs/Day Years [...] on filedocumented in this encounter Care Teams Video Clerk Relationship Specialty Start Date End Date Sanjay Mcwilliams MD [address] [place] [address] PCP - General 06/25/22 documented as of this encounter
--- OUTSIDE RECORDS SUMMARY | 2025-05-04 13:41 | XMS_ITS | Encounter Summary ---
Author Organization [facility] Address [address] [facility] [place] [address] Phone Care Team Providers Care Game Developer Name Role Phone Provider, None Primary Care Provider Emily Lam APRN, ABSTRACT CLERK Unavailable [phone] Reason for Visit * Reason Comments Medication Refill Lisinopril Encounter Details Date Type Department Care Team (Late st Contact Info) Description 03/03/2021 [facility]ill [facility] [address] [place] [address] Rj Kern MD [address], [place] [address] Medication Refill (Lisinopril) Social History Tobacco Use [...] Office Visit Best Stone MD [facility] 10/31/19 Office Visit Latha Romero APN, ABSTRACT CLERK [facility] Showing recent visits within past 548 days [...] st Contact Info) Description 10/18/2025 9:15 AM FINANCIAL SERVICES ASSISTANT Office Visit [facility] [address] [place] [phone] Leyda Brooks APRN, ABSTRACT CLERK [address] [facility] [place] [address] documented as of this encounter Visit Diagnoses Diagnosis Coronary artery disease involving [place] coronary artery of king salmon heart without angina pectoris ST elevation myocardial infarction involving right coronary artery (HCC) Acute myocardial infarction of inferoposterior wall, initial episode of care Essential hypertension Unspecified essential hypertension documented in this encounter Care Teams Game Developer Relationship Specialty Start Date End Date Provider, None [place] PCP - General 06/20/15 Emily Knight, ENTRY LEVEL ACCOUNT REPRESENTATIVE, ABSTRACT CLERK [address] [place] [address] Nurse Practitioner Advanced Practice Nurse 12/05/24 documented as of this encounter
--- OUTSIDE RECORDS SUMMARY | 2025-05-04 13:41 | XMS_ITS | Encounter Summary ---
Author Organization [facility] Address [address] [facility] [place] [address] Phone Care Team Providers Care Hog Killer Name Role Phone Provider, None Primary Care Provider Emily Lam APRN, COMBAT SYSTEMS OFFICER Unavailable [phone] Reason for Visit * Reason Comments Medication Refill Plavix- patient requ ires 90 day supply Encounter Details Date Type Department Care Team (Late st Contact Info) Description 05/13/[facility] [place] [facility] - [facility] [address] [place] [address] Rj Kern MD [address] [place], [place] [id number] Medication Refill (Plavix- patient requires 90 day [...] Office Visit Best Stone MD [facility] [place] Showing recent visits within past 548 days and meeting all other requirements Future Appointments No visits were found meeting these conditions. Showing future appointments within next 90 days and meeting all other requirements documented in this encounter Plan of Treatment Upcoming Encounters Date Type Department Care Team (Late st Contact Info) Description 10/18/2025 9:15 AM ENGINEERING DESIGN SUPERVISOR Office Visit [facility] Cardiovascular [place] - Cardiology - [facility] [address] [place] [address] Leyda Brooks APRN, COMBAT SYSTEMS OFFICER [address] [place] [address] documented as of this encounter Visit Diagnoses Diagnosis Coronary artery disease involving [place] coronary artery of [place] heart without angina pectoris ST elevation myocardial infarction involving right coronary artery (HCC) Acute myocardial infarction of inferoposterior wall, initial episode of care documented in this encounter Care Teams Hog Killer Relationship Specialty Start Date End Date Provider, None [place] PCP - General 06/20/15 Emily Knight APRN, COMBAT SYSTEMS OFFICER [address] [place] [address] Nurse Practitioner Advanced Practice Nurse 12/05/24 documented as of this encounter
[2025-05-04 14:43] LABS: Hematocrit 40.4 % (42.0-52.0); Hemoglobin 13.5 g/dL (14.0-18.0); Immature Granulocyte Percent A 0.7 % (0-0.5); Lymphocytes Absolute Auto 1.14 K/mm3 (0.9-3.2); Mean Corpuscular HGB Conc 33.4 g/dl (32-36); Mean Corpuscular Hemoglobin 30.8 pg (26-34); Mean Corpuscular Volume 92.2 fl (80-100); Nucleated Red Blood Cells Absolute Auto 0.000 K/mm3 (0.0-0.012); Nucleated Red Blood Cells Perc 0.0 % (0.0-0.2); Platelet Count Result 194 k/mm3 (150-375); Red Blood Count 4.38 M/mm3 (4.6-6.20); White Blood Count 8.4 K/mm3 (4.5-10.0)
--- NOTE | 2025-05-04 14:51 | ED.ABDPAIN ---
HPI - Abdominal Pain General Chief Complaint: Abdominal Pain Stated Complaint: abd/back Time Seen by Provider: 05/04/25 14:16 Source: patient Mode of arrival: ambulatory Limitations: no limitations History of Present Illness HPI narrative: Patient is a 70-year-old male who presents the ED with report of right-sided abdominal and flank pain. Patient reports he has had intermittent right-sided abdominal pain for the past couple of days. Became more localized to right side and wrapping around to his right mid back today. Reports nausea. Denies vomiting. Denies diarrhea. Has had some recent constipation, but took a pfhc-ovu-xrigaev laxative and states this is resolved. Denies urinary complaints, dysuria, hematuria. Denies fevers. Reports history of kidney stone, but unsure if this felt similar. Related Data Home Medications ?Medication ?Instructions ?Recorded ?Confirmed ?Last Taken ?Type atorvastatin 40 mg tablet 80 mg PO DAILY 01/13/21 10/27/24 10/27/24 History hydrochlorothiazide 25 mg tablet 25 mg PO DAILY 01/13/21 10/27/24 10/27/24 History lisinopril 5 mg tablet 5 mg PO DAILY 01/13/21 10/27/24 10/27/24 History amiodarone 200 mg tablet (Pacerone) 200 mg PO Q24H 10/27/24 10/27/24 10/27/24 History rivaroxaban 20 mg tablet (Xarelto) 20 mg PO DAILY afib 10/27/24 10/27/24 10/26/24 History Allergies Allergy/AdvReac Type Severity Reaction Status Date / Time Sulfa (Sulfonamide Allergy Hives Verified 05/04/25 14:09 Antibiotics) Review of Systems Review of Systems: All systems reviewed & are unremarkable except as noted in HPI. All systems reviewed & are unremarkable except as noted in HPI and below PMFSH Past Medical History Medical History Coronary artery disease Family History Family History Mother Pancreatic cancer Sibling Breast cancer Grandparent Breast cancer Father Acute myocardial infarction Social History Social History Smoking packs per day: 1 Smoking cigarettes per day: 20.0 Years smoked: 20 Smoking pack-years: 20.00 Smoking status: Former smoker Substance use type: does not use Do You Feel Safe in your Home?: Yes Lack of Transportation: No Lack of Food: Never True Current Housing: I Have Housing Concerned About Future Housing: No Difficulty Paying Gas/Electric Bills: No Difficulty Paying for Meds: No Currently Unemployed: No Education: High School Diploma/GED Difficulty w/ Childcare or Family Care: No Gender identity (if verbalized by the patient): Male Spiritual care concerns: No Exam Narrative: GENERAL: Uncomfortable, morbidly obese with BMI of 46.6, in moderate acute distress due to pain. HEAD: Normocephalic, atraumatic. RESPIRATORY: Airway patent, respirations nonlabored. Clear to auscultation bilaterally, no rales, rhonchi, wheezing. CARDIOVASCULAR: Regular rate and rhythm without murmurs, rubs, or gallops. ABDOMINAL: Soft, tenderness to palpation right mid to upper abdomen, nondistended. Normoactive BS. Positive CVA tenderness on right. MUSCULOSKELETAL: Moves all extremities. No gross deformities. SKIN: Warm, dry, normal color. NEURO: A&O X3. Speech clear. No ataxic movements. PSYCHIATRIC: Anxious. Normal interaction. Course Vital Signs Vital signs: Vital Signs Temperature 97.6 F 05/04/25 13:46 Pulse Rate 65 05/04/25 13:46 Respiratory Rate 16 05/04/25 13:46 Blood Pressure 150/80 H 05/04/25 13:46 Pulse Oximetry 97 05/04/25 13:46 Temperature 97.6 F 05/04/25 13:46 Pulse Rate 69 05/04/25 16:32 Respiratory Rate 21 H 05/04/25 16:32 Blood Pressure 151/83 H 05/04/25 16:32 Pulse Oximetry 94 05/04/25 16:32 Oxygen Delivery Room Air 05/04/25 14:07 MDM - Abdominal Pain MDM Narrative Medical decision making narrative: Patient presented to ED with right-sided abdominal and flank pain. Vital signs stable upon arrival, however patient very uncomfortable appearing, in mild acute distress due to pain. Pain control given. Laboratory studies without leukocytosis or significant anemia. Kidney function is stable. Blood glucose is mildly elevated to 174. Lactic acid 1.7. Normal LFTs and lipase. UA with small amount of RBC, no signs of infection. CT scan of abdomen/pelvis was obtained and showing 4.5 mm proximal right ureteral stone. Consistent with clinical picture. Does show right hydroureteronephrosis. KUB was obtained and shows evidence of stone as well. Patient given fluids, Flomax, pain control. On re-evaluation, he is feeling improved. Discussed discharge home with pain medication versus admission for urologic evaluation. Patient would like to try going home. Does feel comfortable doing so. Discussed strict return precautions. He voiced understanding. Will provide Urology information for follow-up. Discharged in stable condition. Medical Records Attestation: I reviewed the patient's medical records. Lab Data Attestation: I reviewed the patient's lab results. 05/04/25 14:37 05/04/25 14:37 Labs: Lab Results 05/04/25 05/04/25 Range/Units 14:37 16:44 WBC 8.4 (4.5-10.0) K/mm3 RBC 4.38 L (4.6-6.20) M/mm3 Hgb 13.5 L (14.0-18.0) g/dL Hct 40.4 L (42.0-52.0) % MCV 92.2 (80-100) fl MCH 30.8 (26-34) pg MCHC 33.4 (32-36) g/dl RDW 14.8 H (11.5-14.5) % Plt Count 194 (150-375) k/mm3 MPV 10.1 (7.4-10.4) fl Immature Gran % (Auto) 0.7 H (0-0.5) % Neut % (Auto) 75.4 H (45.5-73.1) % Lymph % (Auto) 13.6 L (18.3-44.2) % [place] % (Auto) 8.8 H (2.6-8.5) % Eos % (Auto) 1.0 (0-4.4) % Baso % (Auto) 0.5 (0.2-1.2) % Lymph # (Auto) 1.14 (0.9-3.2) K/mm3 [place] # (Auto) 0.7 H (0.1-0.6) K/mm3 Eos # (Auto) 0.1 (0-0.3) K/mm3 Baso # (Auto) 0.0 (0.0-0.1) K/mm3 Abs Immat Gran (auto) 0.06 H (0.00-0.031) K/mm3 Absolute Neuts (auto) 6.3 (1.3-6.7) K/mm3 Absolute Nucleated RBC 0.000 (0.0-0.012) K/mm3 Nucleated RBC % 0.0 (0.0-0.2) % Sodium 137 (137-145) mmol/L Potassium 3.6 (3.4-5.0) mmol/L Chloride 103 (98-107) mmol/L Carbon Dioxide 24 (22-30) mmol/L Anion Gap 10 (4-12) mmol/L BUN 11 D (9-20) mg/dL Creatinine 0.78 (0.7-1.3) mg/dL Estim Creat Clear Calc 104 ml/min Estimated GFR > 60 (59 - ) Glucose 174 H (65-110) mg/dL Lactic Acid 1.7 (0.7-2.0) mmol/L Calcium 9.1 (8.4-10.2) mg/dL Total Bilirubin 0.6 (0.2-1.3) mg/dL AST 29 (17-59) U/L ALT 33 (6-50) U/L Alkaline Phosphatase 65 (38-126) U/L Total Protein 7.3 (6.3-8.2) g/dL Albumin 4.2 (3.5-5.1) g/dL Lipase 17 L (23-300) U/L Urine Color Yellow (Yellow) Urine Appearance Clear (Clear) Urine pH 5.5 (5.0-9.0) Ur Specific Noel > 1.045 H (1.001-1.035) Urine Protein Negative (Negative) mg/dL Urine Glucose (UA) Negative (Negative) mg/dL Urine Ketones Negative (Negative) mg/dL Ur Blood (Man) 1+ H (Negative) Urine Nitrate Negative (Negative) Urine Bilirubin Negative (Negative) Urine Urobilinogen 0.2 (<2.0) mg/dL Leukocyte Esterase Rfl Negative (Negative) CHANDU/UL Urine RBC 11-20 H (0-2) /hpf Urine WBC 0-5 (0-3) /hpf Ur Squamous Epith Cells None seen (Few) /hpf Urine Bacteria None seen /hpf Urine Casts 0-2 Imaging Data Attestation: I personally reviewed and interpreted this imaging study as follows: Radiologist's impression: ITS Impressions Abdomen/Pelvis CT 05/04/25 15:27 IMPRESSION: Right-sided hydronephrosis and proximal hydroureter secondary to a 4.5 mm obstructing stone in the proximal right ureter. Nonobstructing stones present bilaterally. Hepatomegaly with borderline splenomegaly, an interval change from prior. Abdomen X-Ray 05/04/25 17:29 IMPRESSION: 4.5 mm calculus within the proximal to mid right ureter. Discharge Plan Discharge Clinical Impression: Calculus of proximal right ureter Patient Disposition: Home Condition: Stable Instructions: Antibiotic Form, Kidney Stones (ED), How to Strain Your Urine (ED), Flank Pain (ED) Additional Instructions: Take Flomax daily as prescribed. Continue Tylenol as needed for pain, 1000mg every 6 hours. Utilize oxycodone as needed for more severe pain. Zofran for nausea. Stay well hydrated. Strain urine to collect stone. Follow-up with urology for further evaluation if needed. Return to the ED if you experience worsening or severe pain, unable to keep down food/drink, fevers, uncontrollable nausea/vomiting, unable to urinate, or any other symptoms of concern. Patient Language: Rwandan Prescriptions: New tamsulosin [Flomax] 0.4 mg capsule 0.4 mg PO DAILY Qty: 7 0RF ondansetron 4 mg tablet,disintegrating 4 mg PO Q8H PRN (Reason: nausea and vomiting) Qty: 15 0RF oxycodone 5 mg tablet 5 mg PO Q6H PRN (Reason: pain) Qty: 15 0RF No Action atorvastatin 40 mg tablet 80 mg PO DAILY lisinopril 5 mg tablet 5 mg PO DAILY hydrochlorothiazide 25 mg tablet 25 mg PO DAILY carvedilol [Coreg] 3.125 mg Tablet 3.125 mg PO Q12HR Qty: 30 0RF aspirin [Children's Aspirin] 81 mg Tablet,Chewable 81 mg PO DAILY@0800 Qty: 30 0RF Eliquis 5 mg Tablet 5 mg PO Q12HR Qty: 30 0RF Xarelto 20 mg tablet 20 mg PO DAILY Rx Instructions: must administer with evening meal amiodarone [Pacerone] 200 mg Tablet 200 mg PO Q24H prednisone 20 mg tablet 40 mg PO DAILY Qty: 10 0RF diphenhydramine HCl 25 mg capsule 25 mg PO TID PRN (Reason: allergic reaction) Qty: 14 0RF famotidine 20 mg tablet 20 mg PO BID Qty: 14 0RF Follow-up/Referrals: Angel Luis Lovell MD [Physician] - (UROLOGY) PHYSICIAN,MUSICAL INSTRUMENT MAKER [Primary Care Provider] - Time of Disposition: 17:34
[2025-05-04] MEDS: MORPHINE SULFATE (*CRX) 4 MG/ML INJ IV PUSH (14:53)
[2025-05-04] MEDS: ONDANSETRON INJ 4 MG/2 ML VIAL IV PUSH (14:53)
[2025-05-04 14:59] LABS: Alanine Aminotransferase 33 U/L (6-50); Albumin Level 4.2 g/dL (3.5-5.1); Alkaline Phosphatase 65 U/L (38-126); Anion Gap 10 mmol/L (4-12); Aspartate Amino Transferase 29 U/L (17-59); Bilirubin,Total 0.6 mg/dL (0.2-1.3); Blood Urea Nitrogen 11 mg/dL (9-20); Calcium 9.1 mg/dL (8.4-10.2); Carbon Dioxide 24 mmol/L (22-30); Chloride 103 mmol/L (98-107); Estimated CRCL calculation 104 ml/min; Estimated Glomerular Filt Rate > 60; Glucose 174 mg/dL (65-110); Lipase 17 U/L (23-300); Potassium 3.6 mmol/L (3.4-5.0); Sodium 137 mmol/L (137-145); Total Protein 7.3 g/dL (6.3-8.2)
[2025-05-04] MEDS: HYDROmorphone HCL INJ (*CRX) 1 MG/ML SYR 0.5 MG IV PUSH (15:46)
[2025-05-04] MEDS: SODIUM CHLORIDE 0.9% IV 1,000 ML 999 ML IV CONT (16:19)
[2025-05-04 16:54] LABS: Add Urine Microscopic? YES; Appearance Urine Clear (Clear); Glucose Urine UA Negative (Negative); Leukocyte Esterase Ur Negative LEU/UL (Negative); Nitrate Urine Negative (Negative); Non Pathogenic Casts 0-2; Specific Grav Ur > 1.045 (1.001-1.035)
--- OUTSIDE RECORDS SUMMARY | 2025-05-04 16:58 | XMS_ITS | Encounter Summary ---
Author Organization [facility] Address [address] [facility] [place] [address] Phone Care Team Providers Care Traveler Changer Name Role Phone Provider, None Primary Care Provider Emily Lam APRN, DRY DRUG WORKER Unavailable [phone] Reason for Visit * Reason Comments Medication Refill Lisinopril Encounter Details Date Type Department Care Team (Late st Contact Info) Description 03/03/20[facility] [place] [facility] - [facility] [address] [place] [address] Rj Kern MD [address], [place] [id number] Medication Refill (Lisinopril) Social History Tobacco Use [...] Office Visit Best Stone MD [facility] [place] 10/31/19 Office Visit Latha Romero APN, DRY DRUG WORKER [facility] [place] Showing recent visits within past 548 days [...] st Contact Info) Description 10/18/2025 9:15 AM LATHE SPOTTER [facility] [place] - [facility] - [facility] [address] [place] [phone] Leyda Brooks APRN, DRY DRUG WORKER [address] [facility] [place] [address] documented as of this encounter Visit Diagnoses Diagnosis Coronary artery disease involving [place] coronary artery of [place] heart without angina pectoris ST elevation myocardial infarction involving right coronary artery (HCC) Acute myocardial infarction of inferoposterior wall, initial episode of care Essential hypertension Unspecified essential hypertension documented in this encounter Care Teams Traveler Changer Relationship Specialty Start Date End Date Provider, None [place] PCP - General 06/20/15 Emily Knight, LEAD ENTERPRISE ARCHITECT, DRY DRUG WORKER [address] [place] [address] Nurse Practitioner Advanced Practice Nurse 12/05/24 documented as of this encounter
--- OUTSIDE RECORDS SUMMARY | 2025-05-04 16:58 | XMS_ITS | Clinical Summary ---
Author Organization [employer] [facility] Address [address] [place] [address] Phone Care Team Providers Care Sunglass Clip Attacher Name Role Phone Sanjay Mcwilliams MD Primary Care Provider [phone] Medications * This document contains information received [...] on file Medical Devices Implanted Type Area Settlement Clerk Device Identifier Shelf Expiration Date Model / Serial / Lot Acet Shell R3 3h 60mm - [id number] Implanted:06/20 (Quantity not on file) Left: Hip [employer]IDER [employer] NEP[employer] INC [id number] 12/26/2031 [id number] / / [id number] Fem Head 09/02 Oxnm 28mm +8 - [id number] Implanted:06/20 (Quantity not on file) Left: Hip Travolver [employer] NE[employer] INC [id number] 08/16/2031 [id number] / / [id number] Or 30 Degree Dual Mobility Insert Implanted:06/20 (Quantity not on file) Left: Hip HAIDER AND NEPHEW ORTHO [id number] 03/15/2031 [id number] / / [id number] Or 30 Degree Dual Mobility Liner Implanted:06/20 (Quantity not on file) Left: Hip HAIDER AND NEPHEW ORTHO [id number] 03/30/2031 [id number] / / [id number] Pwdr Hemoabsorb Jenna 3gm - [id number] Implanted:06/20 (Quantity not on file) Left: Hip [employer]s ACCESS [employer] INC [id number] 03/17/2027 [id number] / / [id number] Redapt Femoral Standard Offset Implanted:06/20 (Quantity not on file) Left: Hip HAIDER AND NEPHEW ORTHO [id number] 12/22/2029 [id number] / / [id number] Care Teams Sunglass Clip Attacher Relationship Specialty Start Date End Date Sanjay Mcwilliams MD [address] [place] [address] [facility] - General 06/25/22
--- OUTSIDE RECORDS SUMMARY | 2025-05-04 16:58 | XMS_ITS | Clinical Summary ---
Author Organization [facility] Address [address] [place] [address] Care Team Providers Care Morgue Technician Name Role Phone Sanjay Mcwilliams MD Primary Care Provider [phone] Source Comments This disclosure is being made pursuant to the mySociety program and maynot contain all information available regarding this patient.[facility] Allergies Active Allergy Reactions Criticality Noted Date [...] adult 01/25/2017 Coronary artery disease invo lving citizen [place] coronary artery of citizen [place] heart without angina pectoris 02/05/2016 STEMI (ST [...] on file Legal Sex Male 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 Gender Identity Not on file Sexual Orientation [...] Nam APN Medical Devices Implanted Type Area Pattern Maker Programer Device Identifier Shelf Expiration Date Model / Serial / Lot Pwdr Hemoabsorb Jenna 3gm - [id number] Implanted:Qty: 1 on 07/02/2022 by Myles Simeon MD at [facility] Left: Hip BARD ACCESS SYSTEMS I [id number] 03/17/2027 [id number] / / [id number] Or 30 Degree Dual Mobility Liner Implanted:Qty: 1 on 07/02/2022 by Myles Simeon MD at [facility] Left: Hip HAIDER \T\ NEPHEW ORTHO [id number] 03/30/2031 [id number] / / [id number] Acet Shell R3 3h 60mm - [id number] Implanted:Qty: 1 on 07/02/2022 by Myles Simeon MD at [facility] Left: Hip HAIDER \T\ NEPHEW INC [id number] 12/26/2031 [id number] / / [id number] Redapt Femoral Standard Offset Implanted:Qty: 1 on 07/02/2022 by Myles Simeon MD at [facility] Left: Hip HAIDER \T\ NEPHEW ORTHO [id number] 12/22/2029 [id number] / / [id number] Fem Head 09/02 Oxnm 28mm +8 - [id number] Implanted:Qty: 1 on 07/02/2022 by Myles Simeon MD at [facility] Left: Hip HAIDER \T\ NEP[employer]W INC [id number] 08/16/2031 [id number] / / [id number] Or 30 Degree Dual Mobility Insert Implanted:Qty: 1 on 07/02/2022 by Myles Simeon MD at [facility] Left: Hip HAIDER \T\ NEPHEW ORTHO [id number] 03/15/2031 [id number] / / [id number] Insurance MEDICARE [facility] Care Teams Morgue Technician Relationship Specialty Start Date End Date Sanjay Mcwilliams MD [address] [place] [address] PCP - General Family Medicine 06/25/22
--- OUTSIDE RECORDS SUMMARY | 2025-05-04 16:58 | XMS_ITS | Encounter Summary ---
Author Organization [facility] Address [address] [place] [address] Phone Care Team Providers Care Diamond Picker Name Role Phone Sanjay Mcwilliams MD Primary Care Provider [phone] Encounter Details Date Type Department Care Team (Late st Contact Info) Description 07/02/2022 Anesthesia Event [facility] [address] [place] [address] Jc Toledo, DO [address] [place] [address] Social History Tobacco Use Types Packs/Day Years [...] on filedocumented in this encounter Care Teams Diamond Picker Relationship Specialty Start Date End Date Sanjay Mcwilliams MD [address] [place] [address] PCP - General 06/25/22 documented as of this encounter
--- OUTSIDE RECORDS SUMMARY | 2025-05-04 16:58 | XMS_ITS | Clinical Summary ---
Author Organization [facility] Address [address] [place] [address] Phone Care Team Providers Care Tapper Shank Name Role Phone Provider, None Primary Care Provider Emily Lam APRN, MOBILE PHONE SALESPERSON Unavailable [phone] Allergies Active Allergy Reactions Criticality Noted Date [...] right coronary artery (HCC),Coronary artery disease involving [place] coronary artery of [place] heart without angina pectoris 1 Tablet by [...] right coronary artery (HCC),Coronary artery disease involving [place] coronary artery of [place] heart without angina pectoris Take 2 Tablets [...] Diagnosed Date Coronary artery disease invo lving [place] coronary artery of [place] heart without angina pectoris 02/05/2016 STEMI (ST elevation myocardial infarction) 05/23 HTN (hypertension) 05/23/2015 HLD (hyperlipidemia) 05/23/2015 Encounters Date Type Department Care Team Description 04/17/20[address] [facility] [address] [place] [address] Rj Kern MD Edema in Legs (Likely from Amlodipine ) 02/15/2025 Refill [facility] [address] [facility] [place] [address] Rj Kern MD Medication Refill 02/14/2025 Telephone [facility] [address] [facility] [place] [address] Rj Kern MD BP update - Amlodipine added 02/14/2025 Telephone [facility] [address] [facility] [place] [address] Rj Kern MD Medication Management (Refills on Amiodarone) 02/01/2025 Telephone [facility] [address] [facility] [place] [address] Rj Kern MD OTHER (Lisinopril) from [...] CDT Oxygen Saturation 96% 10/31/2019 2:57 PM RIDING SILKS CUSTODIAN Inhaled Oxygen Concentration - - Weight 147.6 kg (325 lb 6.4 oz) 025 10:32 AM CDT Height 172.7 cm (5' 8) 01/15/2025 10:3 2 AM CDT Body Mass Index 49.48 01/15/2025 10:32 AM CDT Plan of Treatment Upcoming Encounters Date Type Department Care Team (Late st Contact Info) Description 10/18/2025 9:15 AM RIDING SILKS CUSTODIAN Office Visit [facility] Cardi[facility] [place] - Cardiology - [facility] [address] [place] [address] Leyda Brooks, TRANSMISSION TECHNICIAN, MOBILE PHONE SALESPERSON [address] [place] [address] Health Maintenance Due Date Last Done Comments [...] this topic Medical Devices Implanted Type Area Material Scheduler Device Identifier Shelf Expiration Date Model / Serial / Lot Stent Cor Maritza Rx Vision 3.5x12mm - [id number] Implanted:Qty : 1 on 05/23/2015 by Ian Cisneros MD at [facility] IMPLANT Right: Coronary [employer] [id number] / / [id number] Device Clsr Plug Angio-Seal Sts + 6fr - [id number] Implanted:Qty : 1 on 05/23/2015 by Ian Cisneros MD at [facility] IMPLANT Right: Groin ST YSABEL / ATRIAL FIB [id number] / / [id number] Insurance MEDICARE C [employer] Advance Directives * Full Code (Latest Code Status on File) Date Activated Date Inactivated Comments 05/23/2015 5:21 PM 05/25/2015 1:20 PM Full Code: FULL ARREST: Attempt Resuscitation/CPR and use intubation and mechanical ventilation as indicated. PRE-ARREST: Use all measures to stabilize patient. Care Teams Tapper Shank Relationship Specialty Start Date End Date Provider, None [place] PCP - General 06/20/15 Emily Knight, TRANSMISSION TECHNICIAN, MOBILE PHONE SALESPERSON [address] [place] [address] Nurse Practitioner Advanced Practice Nurse 12/05/24
--- OUTSIDE RECORDS SUMMARY | 2025-05-04 16:58 | XMS_ITS | Encounter Summary ---
Author Organization [facility] Address [address] [facility] [place] [address] Phone Care Team Providers Care Dispatch Supervisor Name Role Phone Provider, None Primary Care Provider Emily Lam APRN, CUTTING AND CREASING PRESS OPERATOR Unavailable [phone] Reason for Visit * Reason Comments Medication Refill Plavix- patient requ ires 90 day supply Encounter Details Date Type Department Care Team (Late st Contact Info) Description 05/13/2021 [facility] [place] [facility] - [facility] [address] [place] [address] Rj Kern MD [address] [place], [place] [id number] Medication Refill (Plavix- patient requires 90 day [...] Office Visit Best Stone MD [facility] [place] Showing recent visits within past 548 days and meeting all other requirements Future Appointments No visits were found meeting these conditions. Showing future appointments within next 90 days and meeting all other requirements documented in this encounter Plan of Treatment Upcoming Encounters Date Type Department Care Team (Late st Contact Info) Description 10/18/2025 9:15 AM JTAC Office Visit [facility] Cardiovascular [place] - Cardiology - [facility] [address] [place] [address] Leyda Brooks APRN, CUTTING AND CREASING PRESS OPERATOR [address] [place] [address] documented as of this encounter Visit Diagnoses Diagnosis Coronary artery disease involving tribe coronary artery of tribe heart without angina pectoris ST elevation myocardial infarction involving right coronary artery (HCC) Acute myocardial infarction of inferoposterior wall, initial episode of care documented in this encounter Care Teams Dispatch Supervisor Relationship Specialty Start Date End Date Provider, None [place] PCP - General 06/20/15 Emily Knight APRN, CUTTING AND CREASING PRESS OPERATOR [address] [place] [address] Nurse Practitioner Advanced Practice Nurse 12/05/24 documented as of this encounter
[2025-05-04] MEDS: TAMSULOSIN HCL 0.4 MG CAPSULE PO (17:40)
== END 2025-05-04 17:58 | disposition home or self-care (01) ==
PROVIDERS: Student in an Organized Health Care Education/Training Program; Emergency Provider Physician Assistant
DX: N13.2 Hydronephrosis with renal and ureteral calculous obstruction (principal); I25.10 Atherosclerotic heart disease of native coronary artery without angina pectoris; E66.01 Morbid (severe) obesity due to excess calories; Z68.42 Body mass index [BMI] 45.0-49.9, adult; Z87.891 Personal history of nicotine dependence; Z79.01 Long term (current) use of anticoagulants; Z79.899 Other long term (current) drug therapy; Z79.82 Long term (current) use of aspirin; R16.0 Hepatomegaly, not elsewhere classified
CPT/HCPCS: 36415; 74018; 74177; 80053; 81001; 83605; 83690; 85025; 96361; 96374; 96375; 96376; 99284; A9270; J1171; J2270; J2405; J7030; Q9967

== ENCOUNTER 2025-05-05 11:21 | Observation (INO) | payer MEDICARE, SELFPAY ==
--- NOTE | ~2025-05-05 | CT_ITS ---
EXAMINATION: CT abdomen pelvis wo con DATE: 05/05/2025 11:56 INDICATION: Flank pain TECHNIQUE: Computed tomography (CT) of the abdomen and pelvis was performed without intravenous contr ast. Automated exposure control and iterative reconstruction technique were employed. The dose-length product was 1325.67 mGy-cm. COMPARISON: 05/04/2025 FINDINGS: Mild dependent atelectasis in bilateral lower lobes with small bilateral calcified pulmonary nodules consistent with old granulomatous disease. Heart size is normal. Atherosclerotic coronary artery calc ification. No pericardial or pleural effusion. Small sliding-type hiatal hernia. Liver, gallbladder, spleen and bilateral adrenal glands are normal. Mild fatty pancreatic atrophy. Bilateral nephrolithia sis with 2 stones in the right kidney measuring up to 5 mm, 2 stones in left kidney measuring up to 2 mm and 5 mm stone in the proximal right ureter with mild right hydronephrosis. Subcentimeter high at tenuation likely proteinaceous/hemorrhagic cyst at the interpolar region of the left kidney. Addition al 1.5 cm low-attenuation left renal cyst. Single diverticulum along the distal descending colon with out adjacent from positioning to suggest diverticular colitis. No bowel obstruction. The appendix is not visualized. No pericecal inflammatory change to suggest acute appendicitis. Prostatomegaly measur ing approximately 5.4 x 4.4 cm. The prostate and bladder are partially obscured by dense metallic str eak artifact from a left total hip arthroplasty. No free intraperitoneal gas or fluid. No pathologica lly enlarged abdominal or pelvic lymphadenopathy. Moderate lower thoracic, mild lumbar and severe lum bosacral spondylosis. IMPRESSION: 1. No significant change in bilateral nephrolithiasis with 5 mm at least partially obstructing stone at the proximal right ureter with mild right hydronephrosis. Reviewed, dictated and finalized at location A. IMPRESSION: 1. No significant change in bilateral nephrolithiasis with 5 mm at least partia lly obstructing stone at the proximal right ureter with mild right hydronephros is.
--- NOTE | ~2025-05-05 | XR_ITS ---
INTRAOPERATIVE FLUOROSCOPY: CLINICAL HISTORY: 70 years old Male; stone, rt cysto w/stent PROCEDURE COMMENTS: Limited intraoperative fluoroscopy of the retroperitoneum was performed. CUMULATIVE DOSE: 53 mGy FLUOROSCOPY TIME: 54 seconds FINDINGS/IMPRESSION: Please refer to operative note for further details. Reviewed, dictated and finalized at location A.
--- NOTE | ~2025-05-05 | XR_ITS ---
EXAMINATION: XR chest 1V portable Exam Date/Time: 05/05/2025 16:50 CDT HISTORY: Hypoxia Comparison: 08/22/2024. RESULT: Lines, tubes, and devices: None. Lungs and pleura: Clear. Cardiomediastinal silhouette: Stable. Other: No acute osseous or upper abdominal finding. IMPRESSION: No acute cardiopulmonary process. Reviewed, dictated and finalized at location K.
--- OUTSIDE RECORDS SUMMARY | 2025-05-05 11:23 | XMS_ITS | Encounter Summary ---
Author Organization [facility] Address [address] [place] [address] Phone Care Team Providers Care Transitions Manager Name Role Phone Sanjay Mcwilliams MD Primary Care Provider [phone] Encounter Details Date Type Department Care Team (Late st Contact Info) Description 07/02/2022 Anesthesia Event [facility] [address] [place] [address] Jc Toledo, DO [address] [place] [address] Social History Tobacco Use Types Packs/Day Years [...] on filedocumented in this encounter Care Teams Transitions Manager Relationship Specialty Start Date End Date Sanjay Mcwilliams MD [address] [place] [address] PCP - General 06/25/22 documented as of this encounter
--- OUTSIDE RECORDS SUMMARY | 2025-05-05 11:23 | XMS_ITS | Encounter Summary ---
Author Organization [facility] Address [address] [facility] [place] [address] Phone Care Team Providers Care Nuclear Medicine Technician Name Role Phone Provider, None Primary Care Provider Emily Lam APRN, HELMET HAT PUNCHER Unavailable [phone] Reason for Visit * Reason Comments Medication Refill Lisinopril Encounter Details Date Type Department Care Team (Late st Contact Info) Description 03/03/2021 [facility] [place] [facility] - [facility] [address] [place] [address] Rj Kern MD [address], [place] [id number] Medication Refill (Lisinopril) Social History Tobacco Use [...] Office Visit Best Stone MD [facility] [place] 10/31/19 Office Visit Latha Romero APN, HELMET HAT PUNCHER [facility] [place] Showing recent visits within past 548 days [...] st Contact Info) Description 10/18/2025 9:15 AM GAS LINE INSTALLER SUPERVISOR [facility] [place] [facility] - [facility] [address] [place] [phone] Leyda Brooks APRN, HELMET HAT PUNCHER [address] [facility] [address] documented as of this encounter Visit Diagnoses Diagnosis Coronary artery disease involving [place] coronary artery of [place] heart without angina pectoris ST elevation myocardial infarction involving right coronary artery (HCC) Acute myocardial infarction of inferoposterior wall, initial episode of care Essential hypertension Unspecified essential hypertension documented in this encounter Care Teams Nuclear Medicine Technician Relationship Specialty Start Date End Date Provider, None [place] PCP - General 06/20/15 Emily Knight, WIND POWER PROJECT MANAGER, HELMET HAT PUNCHER [address] [place] [address] Nurse Practitioner Advanced Practice Nurse 12/05/24 documented as of this encounter
--- OUTSIDE RECORDS SUMMARY | 2025-05-05 11:23 | XMS_ITS | Clinical Summary ---
Author Organization [employer] [facility] Address [address] [place] [address] Phone Care Team Providers Care Dispatch Machine Runner Name Role Phone Sanjay Mcwilliams MD Primary Care Provider [phone] Medications * This document contains information received [...] on file Medical Devices Implanted Type Area Counsellors Device Identifier Shelf Expiration Date Model / Serial / Lot Acet Shell R3 3h 60mm - [id number] Implanted:06/20 (Quantity not on file) Left: Hip [employer]IDER [employer] NEPHE[employer] INC [id number] 12/26/2031 [id number] / / [id number] Fem Head 09/02 Oxnm 28mm +8 - [id number] Implanted:06/20 (Quantity not on file) Left: Hip Livemocha [employer] NE[employer] INC [id number] 08/16/2031 [id number] / / [id number] Or 30 Degree Dual Mobility Insert Implanted:06/20 (Quantity not on file) Left: Hip HAIDER AND NEPHEW ORTHO [id number] 03/15/2031 [id number] / / [id number] Or 30 Degree Dual Mobility Liner Implanted:06/20 (Quantity not on file) Left: Hip HAIDER AND NEPHEW ORTHO [id number] 03/30/2031 [id number] / / [id number] Pwdr Hemoabsorb Jenna 3gm - [id number] Implanted:06/20 (Quantity not on file) Left: Hip [employer] [id number] 03/17/2027 [id number] / / [id number] Redapt Femoral Standard Offset Implanted:06/20 (Quantity not on file) Left: Hip HAIDER AND NEPHEW ORTHO [id number] 12/22/2029 [id number] / / [id number] Care Teams Dispatch Machine Runner Relationship Specialty Start Date End Date Sanjay Mcwilliams MD [address] [place] [address] [facility] - General 06/25/22
--- OUTSIDE RECORDS SUMMARY | 2025-05-05 11:23 | XMS_ITS | Patient Health Record ---
Author Organization [facility] Address [address] [place] [address] Care Team Providers Care Tour Operator Name Role Phone Sanjay Mcwilliams MD Primary Care Provider Unavailabl e Myles Simeon Unavailable [phone] Allergies No Known Allergies Reason For Referral [...] osteoarthritis of the pelvic region and thigh (470656990) Unilateral primary osteoarthritis, left hip (M16.12) Active confirmed Problem Arthralgia of the pelvic region and thigh (408559544) Left hip pain (M25.552) Active confirmed Problem Abnormal gait (12253330) Impaired gait and mobility (R26.89) Active confirmed Problem Localized, primary osteoarthritis of the pelvic region and thigh (364798578) Bilateral primary osteoarthritis of hip (M16.0) 05/13/20 22 Active confirmed Plan Of Treatment No Information Insurance Providers Payer Name Payer Address Payer Phone Subscriber Number Group Number Insured Name Patient Relationship to Insured Coverage Start Date Coverage End Date Medicare Part B [address] [place], [place] [id number] Krishna Armando Self - patient is the insured 2 [employer] [address] [place] [address] [id number] Krishna Armando Self - patient is the insured 2 Medical (General) History Medical History History ICD Code ACUTE MYOCARDIAL INFARCTION, HYPERLIPIDEMIA, HYPERTENSION, Surgical History Surgery Date(Month/Year) Heart Surgery Heart surgery Left JONNATHAN 2021
--- OUTSIDE RECORDS SUMMARY | 2025-05-05 11:23 | XMS_ITS | Clinical Summary ---
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 Gender Identity Not on file Sexual Orientation [...] Nam APN Medical Devices Implanted Type Area Flight Engineer Manager Device Identifier Shelf Expiration Date Model / Serial / Lot Pwdr Hemoabsorb Jenna 3gm - [id number] Implanted:Qty: 1 on 07/02/2022 by Myles Simeon MD at [facility] Left: Hip BARD ACCESS SYSTEMS I [id number] 03/17/2027 [id number] / / [id number] Or 30 Degree Dual Mobility Liner Implanted:Qty: 1 on 07/02/2022 by Myles Simeon MD at [facility] Left: Hip HAIDER \T\ NEPHEW ORTHO [id number] 03/30/2031 [id number] / / [id number] Acet Shell R3 3h 60mm - [id number] Implanted:Qty: 1 on 07/02/2022 by Myles Simeon MD at [facility] Left: Hip HAIDER \T\ NEPHEW INC [id number] 12/26/2031 [id number] / / [id number] Redapt Femoral Standard Offset Implanted:Qty: 1 on 07/02/2022 by Myles Simeon MD at [facility] Left: Hip HAIDER \T\ NEPHEW ORTHO [id number] 12/22/2029 [id number] / / [id number] Fem Head 09/02 Oxnm 28mm +8 - [id number] Implanted:Qty: 1 on 07/02/2022 by Myles Simeon MD at [facility] Left: Hip HAIDER \T\ NEPHEW INC [id number] 08/16/2031 [id number] / / [id number] Or 30 Degree Dual Mobility Insert Implanted:Qty: 1 on 07/02/2022 by Myles Simeon MD at [facility] Left: Hip HAIDER \T\ NEPHEW ORTHO [id number] 03/15/2031 [id number] / / [id number] Insurance MEDICARE [facility] INS[facility]ANCE Care Teams Head Filter Press Tender Relationship Specialty Start Date End Date Sanjay Mcwilliams MD [address] [place] [address] PCP - General Family Medicine 06/25/22
--- OUTSIDE RECORDS SUMMARY | 2025-05-05 11:23 | XMS_ITS | Clinical Summary ---
Author Organization [facility] Address [address] [place] [address] Phone Care Team Providers Care Quotation Checker Name Role Phone Provider, None Primary Care Provider Emily Lam APRN, SYSTEMS TEST TECHNICIAN Unavailable [phone] Allergies Active Allergy Reactions Criticality Noted Date [...] right coronary artery (HCC),Coronary artery disease involving [place] coronary artery of [place] heart without angina pectoris 1 Tablet by [...] right coronary artery (HCC),Coronary artery disease involving [place] coronary artery of [place] heart without angina pectoris Take 2 Tablets [...] Diagnosed Date Coronary artery disease invo lving [place] coronary artery of [place] heart without angina pectoris 02/05/2016 STEMI (ST elevation myocardial infarction) 05/23 HTN (hypertension) 05/23/2015 HLD (hyperlipidemia) 05/23/2015 Encounters Date Type Department Care Team Description [facility] [address] [place] [address] Rj Kern MD Edema in Legs (Likely from Amlodipine ) 02/[facility] [address] [place] [address] Rj Kern MD Medication Refill 02/14/20[facility] [address] [place] [address] Rj Kern MD BP update - Amlodipine added 02/14/2025 [facility] [address] [place] [address] Rj Kern MD Medication Management (Refills on Amiodarone) from Last 3 Months Immunizations Immunization Administration [...] CDT Oxygen Saturation 96% 10/31/2019 2:57 PM ROLLS BAKER Inhaled Oxygen Concentration - - Weight 147.6 kg (325 lb 6.4 oz) 025 10:32 AM CDT Height 172.7 cm (5' 8) 01/15/2025 10:3 2 AM CDT Body Mass Index 49.48 01/15/2025 10:32 AM CDT Plan of Treatment Upcoming Encounters Date Type Department Care Team (Late st Contact Info) Description 10/18/2025 9:15 AM ROLLS BAKER Office [facility] Cardiovascular [place] - Cardiology - [facility] [address] [place] [address] Leyda Brooks, ENTERPRISE SYSTEMS ADMINISTRATOR, SYSTEMS TEST TECHNICIAN [address] [place] [address] Health Maintenance Due Date Last Done Comments [...] 2017 AAA Screening Ultrasound 2022 SARS-COV-2 Immunization ( season) 2024 03/11/2021, 02/04/2021 Influenza Immunization (#1) [...] this topic Medical Devices Implanted Type Area Access Control Specialist Device Identifier Shelf Expiration Date Model / Serial / Lot Stent Cor Zahraak Rx Vision 3.5x12mm - [id number] Implanted:Qty : 1 on 05/23/2015 [facility]PL[facility] Right: Coronary [employer] [id number] / / [id number] Device Clsr Plug Angio-Seal Sts + 6fr - [id number] Implanted:Qty : 1 on 05/23/2015 by [facility] IMPLANT Right: Groin ST YSABEL / ATRIAL FIB [id number] / / [id number] Insurance MEDICARE C [employer] Advance Directives * Full Code (Latest Code Status on File) Date Activated Date Inactivated Comments 05/23/2015 5:21 PM 05/25/2015 1:20 PM Full Code: FULL ARREST: Attempt Resuscitation/CPR and use intubation and mechanical ventilation as indicated. PRE-ARREST: Use all measures to stabilize patient. Care Teams Quotation Checker Relationship Specialty Start Date End Date Provider, None [place] PCP - General 06/20/15 Emily Knight APRN, SYSTEMS TEST TECHNICIAN [address] [place] [address] Nurse Practitioner Advanced Practice Nurse 12/05/24
--- OUTSIDE RECORDS SUMMARY | 2025-05-05 11:23 | XMS_ITS | Encounter Summary ---
Author Organization [facility] Address [address] [facility] [place] [address] Phone Care Team Providers Care Loan Inspector Name Role Phone Provider, None Primary Care Provider Emily Lam APRN, GUNITE MIXER Unavailable [phone] Reason for Visit * Reason Comments Medication Refill Plavix- patient requ ires 90 day supply Encounter Details Date Type Department Care Team (Late st Contact Info) Description 05/13/[facility] [place] [facility] [address] [place] [address] Rj Kern MD [address] [place], [place] [address] Medication Refill (Plavix- patient requires 90 day [...] Office Visit Best Stone MD [facility] [place] Showing recent visits within past 548 days and meeting all other requirements Future Appointments No visits were found meeting these conditions. Showing future appointments within next 90 days and meeting all other requirements documented in this encounter Plan of Treatment Upcoming Encounters Date Type Department Care Team (Late st Contact Info) Description 10/18/2025 9:15 AM APPLICATION ANALYST Office Visit [facility] Cardiovascular [place] - Cardiology - [facility] [address] [place] [address] Leyda Brooks APRN, GUNITE MIXER [address] [place] [address] documented as of this encounter Visit Diagnoses Diagnosis Coronary artery disease involving [place] coronary artery of [place] heart without angina pectoris ST elevation myocardial infarction involving right coronary artery (HCC) Acute myocardial infarction of inferoposterior wall, initial episode of care documented in this encounter Care Teams Loan Inspector Relationship Specialty Start Date End Date Provider, None [place] PCP - General 06/20/15 Emily Knight APRN, GUNITE MIXER [address] [place] [address] Nurse Practitioner Advanced Practice Nurse 12/05/24 documented as of this encounter
--- OUTSIDE RECORDS SUMMARY | 2025-05-05 11:23 | XMS_ITS | Patient Health Record ---
Author Organization [facility] Address [address], [place] [address] Care Team Providers Care Peanut Blancher Name Role Phone DAFNE DWYER Primary Care Provider GILMAR GALAN Unavailable [phone] Allergies Allergen (clinical drug ingredient) Drug/Non Drug [...] Problem Status W/U Status Risk Notes Problem 480174671 Impaired fasting glucose (R73.01) Active confirmed Problem Essential hypertension (89383202) Essential (primary) hypertension (I10) Active confirmed Problem Morbid obesity (615628357) Morbid obesity with BMI of 40.0-44.9, adult (E66.01) Active confirmed Problem 800704923 Atherosclerotic heart disease of [place] coronary artery without angina pectoris (I25.10) Active confirmed Problem 782220927 Mixed hyperlipidemia (E78.2) Active confirmed Problem 948817890361647 Primary osteoarthritis of left hip (M16.12) Active confirmed Problem 085025776 History of NM (myocardial infarction) (I25.2) Active confirmed Encounters Encounter Location Date Provider Diagnosis [facility] [address] [place] [address] 08/16/2024 DAFNE DWYER [facility] [address], [place] [address] 11/01/2024 GILMAR GALAN Plan Of Treatment No Information Medical (General) History Medical History History ICD Code Essential (primary) hypertension I10 Morbid obesity with BMI of 40.0-44.9, ad ult E66.01 Mixed hyperlipidemia E78.2 Atherosclerotic heart diseas e of [place] coronary artery without angina pectoris I25.10 History of NM (myocardial infarction) I2 5.2 Impaired fasting glucose R73.01 Primary osteoarthritis of left hip M16.1 2 Surgical History Surgery Date(Month/Year) Zoroastrian-Left Hip Replacement-Dr. Hernandez jone July 02, 2022 stents in heart: 80% occluded Hospitalization History Reason Date(Month/Year) heart attack
--- OUTSIDE RECORDS SUMMARY | 2025-05-05 11:23 | XMS_ITS ---
Author Organization [facility] Address [address] [place], [place] [address] Care Team Providers Care Lockmaker Name Role Phone DAFNE DWYER Primary Care Provider [phone] REASON FOR VISIT annual check up/allergies/rash Encounters Encounter Location Date Provider Diagnosis [facility] [address] [place], [place] [address] 06/14/2024 DAFNE DWYER Plan Of Treatment No Information Progress Notes * Krishna ARMANDO EDOB:1955 (70 yo M)Acc No.[id number]:06/14/2024 Progress Notes Patient: Suleiman OBRIENy Delia Provider: Sharon DWYER MD :1955 A ge:69 Y S ex:Male Date:06/14/2024 Address[place] [place], [id number] Subjective: * Chief Complaints: * 1 . Annual check up/allergies/rash. * Medical History: Objective: * Vitals: Assessment: Plan: * Treatment: * Images: * Electronic signature of ADFNE DWYER MD on 05/05/2025 at 11:22 AM CDT Sign off status: Pending * Provider: Sharon DWYER MD Date: 06/14/2024 Generated for Dericki angy/Catalino/eTransmitting on: 05/05/2025 11:22 AM CDT
--- OUTSIDE RECORDS SUMMARY | 2025-05-05 11:23 | XMS_ITS ---
Author Organization [facility] Address [address], [place] [address] Care Team Providers Care Sound Effects Supervisor Name Role Phone DAFNE DWYER Primary Care Provider [phone] REASON FOR VISIT annual visit Encounters Encounter Location Date Provider Diagnosis [facility] [address], [place] [address] 06/28/2024 DAFNE DWYER Plan Of Treatment No Information Progress Notes * Krishna ARMANDO EDOB:1955 (70 yo M)Acc No.[id number]:06/28/2024 Progress Notes Patient: Krishna OBRIEN Provider: Sharon DWYER MD :1955 A ge:69 Y S ex:Male Date:06/28/2024 Address:[address] [id number] Subjective: * Chief Complaints: * 1 . Annual visit. * Medical History: Objective: * Vitals: Assessment: Plan: * Treatment: * Images: * Electronic signature of DAFNE DWYER MD on 05/05/2025 at 11:22 AM CDT Sign off status: Pending * Provider: Sharon DWYER MD Date: Generated for Shruti travis/Catalino/Elliotitting on: 0 05/05/2025 11:22 AM CDT
[2025-05-05 11:30] VITALS: BP 138/70; PULSE 69; RESP 16; TEMP 36.4; O2SAT 98
[2025-05-05] MEDS: ONDANSETRON INJ 4 MG/2 ML VIAL IV PUSH (11:44)
[2025-05-05] MEDS: MORPHINE SULFATE (*CRX) 4 MG/ML INJ IV PUSH (11:45)
--- OUTSIDE RECORDS SUMMARY | 2025-05-05 11:45 | XMS_ITS | Clinical Summary ---
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 Gender Identity Not on file Sexual Orientation [...] Nam APN Medical Devices Implanted Type Area Swimming Pool Service Technician Device Identifier Shelf Expiration Date Model / Serial / Lot Pwdr Hemoabsorb Jenna 3gm - [id number] Implanted:Qty: 1 on 07/02/2022 by Myles Simeon MD at [facility] Left: Hip BARD ACCESS SYSTEMS I [id number] 03/17/2027 [id number] / / [id number] Or 30 Degree Dual Mobility Liner Implanted:Qty: 1 on 07/02/2022 by Myles Simeon MD at [facility] Left: Hip HAIDER \T\ NEPHEW ORTHO [id number] 03/30/2031 [id number] / / [id number] Acet Shell R3 3h 60mm - [id number] Implanted:Qty: 1 on 07/02/2022 by Myles Simeon MD at [facility] Left: Hip HAIDER \T\ NEPHEW INC [id number] 12/26/2031 [id number] / / [id number] Redapt Femoral Standard Offset Implanted:Qty: 1 on 07/02/2022 by Myles Simeon MD at [facility] Left: Hip HAIDER \T\ NEPHEW ORTHO [id number] 12/22/2029 [id number] / / [id number] Fem Head 09/02 Oxnm 28mm +8 - [id number] Implanted:Qty: 1 on 07/02/2022 by Myles Simeon MD at [facility] Left: Hip HAIDER \T\ NEPHE[employer] INC [id number] 08/16/2031 [id number] / / [id number] Or 30 Degree Dual Mobility Insert Implanted:Qty: 1 on 07/02/2022 by Myles Simeon MD at [facility] Left: Hip HAIDER \T\ NEPHEW ORTHO [id number] 03/15/2031 [id number] / / [id number] Insurance MEDICARE [facility] Care Teams Tooth Grinder Relationship Specialty Start Date End Date Sanjay Mcwilliams MD [address] [place] [address] PCP - General Family Medicine 06/25/22
--- OUTSIDE RECORDS SUMMARY | 2025-05-05 11:46 | XMS_ITS | Clinical Summary ---
Author Organization [facility] Address [address] [address] Phone Care Team Providers Care Scientific Laboratory Supervisor Name Role Phone Provider, None Primary Care Provider Emily Lam APRN, ALUM PLANT SUPERVISOR Unavailable [phone] Allergies Active Allergy Reactions Criticality Noted Date [...] right coronary artery (HCC),Coronary artery disease involving [place] coronary artery of [place] heart without angina pectoris 1 Tablet by [...] right coronary artery (HCC),Coronary artery disease involving [place] coronary artery of [place] heart without angina pectoris Take 2 Tablets [...] Diagnosed Date Coronary artery disease invo lving [place] coronary artery of [place] heart without angina pectoris 02/05/2016 STEMI (ST elevation myocardial infarction) 05/23 HTN (hypertension) 05/23/2015 HLD (hyperlipidemia) 05/23/2015 Encounters Date Type Department Care Team Description 04/17/20[facility] [address] [place] [address] Rj Kern MD Edema in Legs (Likely from Amlodipine ) 02/15/20[address] [facility] [address] [place] [address] Rj Kern MD Medication Refill 02/14/[address] [facility] [address] [place] [address] Rj Kern MD BP update - Amlodipine added 02/14/[address] [facility] [address] [place] [address] Rj Kern MD Medication Management [...] CDT Oxygen Saturation 96% 10/31/2019 2:57 PM LANDSCAPE LABORER Inhaled Oxygen Concentration - - Weight 147.6 kg (325 lb 6.4 oz) 025 10:32 AM CDT Height 172.7 cm (5' 8) 01/15/2025 10:3 2 AM CDT Body Mass Index 49.48 01/15/2025 10:32 AM CDT Plan of Treatment Upcoming Encounters Date Type Department Care Team (Late st Contact Info) Description 10/18/2025 9:15 AM LANDSCAPE LABORER Office Visit [facility] [place] - Cardiology - [facility] [address] [place] [phone] Leyda Brooks, PRACTICING MD ANESTHESIOLOGIST, ALUM PLANT SUPERVISOR [address] [place] [address] Health Maintenance Due Date Last Done Comments [...] this topic Medical Devices Implanted Type Area Appeals Reviewer Veteran Device Identifier Shelf Expiration Date Model / Serial / Lot Stent Cor Zahraak Rx Vision 3.5x12mm - [id number] Implanted:Qty : 1 on 05/23/2015 by [facility] at [facility] IMPLANT Right: Coronary [employer] [id number] / / [id number] Device Clsr Plug Angio-Seal Sts + 6fr - [id number] Implanted:Qty : 1 on 05/23/2015 by Ian Cisneros MD at [facility] IMPLANT Right: Groin ST YSABEL / ATRIAL FIB [id number] / / [id number] Insurance MEDICARE C HUMANA Advance Directives * Full Code (Latest Code Status on File) Date Activated Date Inactivated Comments 05/23/2015 5:21 PM 05/25/2015 1:20 PM Full Code: FULL ARREST: Attempt Resuscitation/CPR and use intubation and mechanical ventilation as indicated. PRE-ARREST: Use all measures to stabilize patient. Care Teams Scientific Laboratory Supervisor Relationship Specialty Start Date End Date Provider, None [place] PCP - General 06/20/15 Emily Knight APRN, ALUM PLANT SUPERVISOR [address] [place] [address] Nurse Practitioner Advanced Practice Nurse 12/05/24
--- OUTSIDE RECORDS SUMMARY | 2025-05-05 11:46 | XMS_ITS | Encounter Summary ---
Author Organization [facility] Address [address] [facility] [place] [address] Phone Care Team Providers Care Soybean Specialties Cook Name Role Phone Provider, None Primary Care Provider Emily Lam APRN, REGISTERED NURSE FETAL Unavailable [phone] Reason for Visit * Reason Comments Medication Refill Lisinopril Encounter Details Date Type Department Care Team (Late st Contact Info) Description 03/03/20[facility] [place] [facility] - [facility] [address] [place] [address] Rj Kern MD [address], [place] [id number] Medication Refill (Lisinopril) Social History Tobacco Use [...] Office Visit Best Stone MD [facility] [place] 10/31/19 Office Visit Latha Romero APN, REGISTERED NURSE FETAL [facility] [place] Showing recent visits within past 548 days [...] st Contact Info) Description 10/18/2025 9:15 AM RESPIRATORY CARE TECHNICIAN [facility] [place] [facility] - [facility] [address] [place] [phone] Leyda Brooks APRN, REGISTERED NURSE FETAL [address] [facility] [place] [address] documented as of this encounter Visit Diagnoses Diagnosis Coronary artery disease involving [place] coronary artery of [place] heart without angina pectoris ST elevation myocardial infarction involving right coronary artery (HCC) Acute myocardial infarction of inferoposterior wall, initial episode of care Essential hypertension Unspecified essential hypertension documented in this encounter Care Teams Soybean Specialties Cook Relationship Specialty Start Date End Date Provider, None [place] PCP - General 06/20/15 Emily Knight, TICKER MAINTAINER, REGISTERED NURSE FETAL [address] [place] [address] Nurse Practitioner Advanced Practice Nurse 12/05/24 documented as of this encounter
--- OUTSIDE RECORDS SUMMARY | 2025-05-05 11:46 | XMS_ITS | Encounter Summary ---
Author Organization [facility] Address [address] [place] [address] Phone Care Team Providers Care Landscape Architecture Professor Name Role Phone Sanjay Mcwilliams MD Primary Care Provider [phone] Encounter Details Date Type Department Care Team (Late st Contact Info) Description 07/02/2022 Anesthesia Event [facility] [address] [place] [address] Jc Tol[place], DO [address] [place] [address] Social History Tobacco Use Types Packs/Day Years [...] on filedocumented in this encounter Care Teams Landscape Architecture Professor Relationship Specialty Start Date End Date Sanjay Mcwilliams MD [address] [place] [address] PCP - General 06/25/22 documented as of this encounter
--- OUTSIDE RECORDS SUMMARY | 2025-05-05 11:46 | XMS_ITS | Encounter Summary ---
Author Organization [facility] Address [address] [facility] [place] [address] Phone Care Team Providers Care Marking Machine Tender Name Role Phone Provider, None Primary Care Provider Emily Lam APRN, SCUDDING INSPECTOR Unavailable [phone] Reason for Visit * Reason Comments Medication Refill Plavix- patient requ ires 90 day supply Encounter Details Date Type Department Care Team (Late st Contact Info) Description [facility]/13[facility]20[facility] [place] [facility] - [facility] [address] [place] [address] Rj Kern MD [address] [place], [place] [id number] Medication Refill (Plavix- patient requires 90 day [...] Office Visit Best Stone MD [facility] [place] Showing recent visits within past 548 days and meeting all other requirements Future Appointments No visits were found meeting these conditions. Showing future appointments within next 90 days and meeting all other requirements documented in this encounter Plan of Treatment Upcoming Encounters Date Type Department Care Team (Late st Contact Info) Description 10/18/2025 9:15 AM PART TIME Office Visit [facility] Cardi[facility] [place] - Cardiology - [facility] [address] [place] [address] Leyda Brooks APRN, SCUDDING INSPECTOR [address] [place] [address] documented as of this encounter Visit Diagnoses Diagnosis Coronary artery disease involving [place] coronary artery of [place] heart without angina pectoris ST elevation myocardial infarction involving right coronary artery (HCC) Acute myocardial infarction of inferoposterior wall, initial episode of care documented in this encounter Care Teams Marking Machine Tender Relationship Specialty Start Date End Date Provider, None [place] PCP - General 06/20/15 Emily Knight APRN, SCUDDING INSPECTOR [address] [place] [address] Nurse Practitioner Advanced Practice Nurse 12/05/24 documented as of this encounter
--- OUTSIDE RECORDS SUMMARY | 2025-05-05 11:46 | XMS_ITS | Clinical Summary ---
Author Organization [facility] Address [address] [place] [address] Phone Care Team Providers Care Countersinker Balance Screw Hole Name Role Phone Sanjay Mcwilliams MD Primary Care Provider [phone] Medications * This document contains information received [...] on file Medical Devices Implanted Type Area Radio Frequency Technician Device Identifier Shelf Expiration Date Model / Serial / Lot Acet Shell R3 3h 60mm - [id number] Implanted:06/20 (Quantity not on file) Left: Hip [employer] [id number] 12/26/2031 [id number] / / [id number] Fem Head 09/02 Oxnm 28mm +8 - [id number] Implanted:06/20 (Quantity not on file) Left: Hip [employer] [id number] 08/16/2031 [id number] / / [id number] Or 30 Degree Dual Mobility Insert Implanted:06/20 (Quantity not on file) Left: Hip [employer] ORTHO [id number] 03/15/2031 [id number] / / [id number] Or 30 Degree Dual Mobility Liner Implanted:06/20 (Quantity not on file) Left: Hip [employer] ORTHO [id number] 03/30/2031 [id number] / / [id number] Pwdr Hemoabsorb Jenna 3gm - [id number] Implanted:06/20 (Quantity not on file) Left: Hip [employer] [id number] 03/17/2027 [id number] / / [id number] Redapt Femoral Standard Offset Implanted:06/20 (Quantity not on file) Left: Hip [employer]W ORTHO [id number] 12/22/2029 [id number] / / [id number] Care Teams Countersinker Balance Screw Hole Relationship Specialty Start Date End Date Sanjay Mcwilliams MD [address] [place] [address] [facility] - General 06/25/22
[2025-05-05 11:51] LABS: Hematocrit 38.8 % (42.0-52.0); Hemoglobin 12.8 g/dL (14.0-18.0); Immature Granulocyte Percent A 0.6 % (0-0.5); Lymphocytes Absolute Auto 1.05 K/mm3 (0.9-3.2); Mean Corpuscular HGB Conc 33.0 g/dl (32-36); Mean Corpuscular Hemoglobin 30.8 pg (26-34); Mean Corpuscular Volume 93.5 fl (80-100); Nucleated Red Blood Cells Absolute Auto 0.000 K/mm3 (0.0-0.012); Nucleated Red Blood Cells Perc 0.0 % (0.0-0.2); Platelet Count Result 166 k/mm3 (150-375); Red Blood Count 4.15 M/mm3 (4.6-6.20); White Blood Count 8.0 K/mm3 (4.5-10.0)
[2025-05-05 12:09] LABS: Alanine Aminotransferase 37 U/L (6-50); Albumin Level 4.1 g/dL (3.5-5.1); Alkaline Phosphatase 64 U/L (38-126); Anion Gap 8 mmol/L (4-12); Aspartate Amino Transferase 33 U/L (17-59); Bilirubin,Total 0.6 mg/dL (0.2-1.3); Blood Urea Nitrogen 13 mg/dL (9-20); Calcium 8.9 mg/dL (8.4-10.2); Carbon Dioxide 26 mmol/L (22-30); Chloride 102 mmol/L (98-107); Estimated CRCL calculation 104 ml/min; Estimated Glomerular Filt Rate > 60; Glucose 163 mg/dL (65-110); Potassium 3.7 mmol/L (3.4-5.0); Sodium 136 mmol/L (137-145); Total Protein 6.8 g/dL (6.3-8.2)
[2025-05-05] MEDS: HYDROmorphone HCL INJ (*CRX) 1 MG/ML SYR IV PUSH (12:19)
[2025-05-05 12:32] VITALS: BP 135/92; PULSE 66; RESP 20; O2SAT 95
--- NOTE | 2025-05-05 13:40 | ED_ITS ---
HPI - General Adult General Chief complaint: Urogenital-Male Stated complaint: flank pain Time Seen by Provider: 05/05/25 11:25 Source: patient and family Mode of arrival: ambulatory Limitations: no limitations History of Present Illness HPI narrative: 70-year-old with a history of hypertension, atrial fibrillation on Xarelto here with a complains of right side abdominal pain. Patient was seen yesterday in the ER was diagnosed with a small kidney stone. He states that he was given pain medication however since last night the pain has been quite intense. His unable to get any relief. Denies any fever or chills. Onset (ago): day(s) (1) Radiation: back Severity: moderate Pain Consistency: constant Relieving factors: none Exacerbating factors: none Associated symptoms: denies other symptoms Related Data Home Medications ?Medication ?Instructions ?Recorded ?Confirmed ?Last Taken ?Type atorvastatin 40 mg tablet 80 mg PO DAILY 01/13/21 10/27/24 10/27/24 History hydrochlorothiazide 25 mg tablet 25 mg PO DAILY 01/13/21 10/27/24 10/27/24 History lisinopril 5 mg tablet 5 mg PO DAILY 01/13/21 10/27/24 10/27/24 History amiodarone 200 mg tablet (Pacerone) 200 mg PO Q24H 10/27/24 10/27/24 10/27/24 History rivaroxaban 20 mg tablet (Xarelto) 20 mg PO DAILY afib 10/27/24 10/27/24 10/26/24 History Allergies Allergy/AdvReac Type Severity Reaction Status Date / Time Sulfa (Sulfonamide Allergy Hives Verified 05/05/25 11:21 Antibiotics) Review of Systems 2 Review of Systems: All systems reviewed & are unremarkable except as noted in HPI and below Constitutional: Constitutional: Reports no additional constitutional complaints Eyes: Eyes: Reports no additional eye complaints ENT: Reports system reviewed and no additional complaints, except as documented Cardiovascular: Cardiovascular: Reports no additional cardiovascular complaints Respiratory: Respiratory: Reports no additional respiratory complaints Gastrointestinal: Gastrointestinal: Reports as per HPI Genitourinary: Genitourinary: Reports as per HPI Musculoskeletal: Musculoskeletal: Reports no additional musculoskeletal complaints Neurologic: Reports system reviewed and no additional complaints, except as documented [facility] Past Medical History Medical History Coronary artery disease Family History Family History Mother Pancreatic cancer Sibling Breast cancer Grandparent Breast cancer Father Acute myocardial infarction Social History Social History Smoking packs per day: 1 Smoking cigarettes per day: 20.0 Years smoked: 20 Smoking pack-years: 20.00 Smoking status: Former smoker Substance use type: does not use Do You Feel Safe in your Home?: Yes Lack of Transportation: No Lack of Food: Never True Current Housing: I Have Housing Concerned About Future Housing: No Difficulty Paying Gas/Electric Bills: No Difficulty Paying for Meds: No Currently Unemployed: No Education: High School Diploma/GED Difficulty w/ Childcare or Family Care: No Gender identity (if verbalized by the patient): Male Spiritual care concerns: No Exam 2 Narrative: GENERAL: Well-appearing, well-nourished, and in no acute distress. HEAD: Normocephalic, atraumatic. EYES: PERRLA and EOMI. ENT: Nares clear, no rhinorrhea or epistaxis. Mucous membranes moist. NECK: Supple. CHEST: Clear to auscultation. No respiratory distress. HEART: Regular rate and rhythm. No murmur heard. Normal peripheral pulses. ABDOMEN: Soft, nontender, nondistended, normal active bowel sounds. EXTREMITIES: Normal range of motion. No edema. SKIN: Warm, dry, no rash. NEURO: No focal deficits. Alert and oriented x3. PSYCH: Normal mood and affect. Course Course Emergency Course: Patient received multiple doses of IV pain medication his pain gets better for a short duration . I did review on his lab work and CT findings agreeable with admission. Discussed with Dr. Lovell and hospitalist. Vital Signs Vital signs: Vital Signs Temperature 36.4 C 05/05/25 11:30 Pulse Rate 69 05/05/25 11:30 Respiratory Rate 16 05/05/25 11:30 Blood Pressure 138/70 05/05/25 11:30 Pulse Oximetry 98 05/05/25 11:30 Temperature 36.4 C 05/05/25 11:30 Pulse Rate 66 05/05/25 12:32 Respiratory Rate 20 05/05/25 12:32 Blood Pressure 135/92 H 05/05/25 12:32 Pulse Oximetry 95 05/05/25 12:32 Medical Decision Making Differential Diagnosis Differential Diagnosis: UTI, pyelonephritis, infected renal stone, Medical Records Medical records reviewed: Yes I reviewed the external patient's medical records. Vital Signs Vital Signs: Vital Signs Temperature 36.4 C 05/05/25 11:30 Pulse Rate 69 05/05/25 11:30 Respiratory Rate 16 05/05/25 11:30 Blood Pressure 138/70 05/05/25 11:30 Pulse Oximetry 98 05/05/25 11:30 Temperature 36.4 C 05/05/25 11:30 Pulse Rate 66 05/05/25 12:32 Respiratory Rate 20 05/05/25 12:32 Blood Pressure 135/92 H 05/05/25 12:32 Pulse Oximetry 95 05/05/25 12:32 Lab Data Lab results reviewed: Yes I reviewed the patient's lab results. 05/05/25 11:43 05/05/25 11:43 Labs: Lab Results 05/05/25 Range/Units 11:43 WBC 8.0 (4.5-10.0) K/mm3 RBC 4.15 L (4.6-6.20) M/mm3 Hgb 12.8 L (14.0-18.0) g/dL Hct 38.8 L (42.0-52.0) % MCV 93.5 (80-100) fl MCH 30.8 (26-34) pg MCHC 33.0 (32-36) g/dl RDW 15.0 H (11.5-14.5) % Plt Count 166 (150-375) k/mm3 MPV 10.3 (7.4-10.4) fl Immature Gran % (Auto) 0.6 H (0-0.5) % Neut % (Auto) 77.7 H (45.5-73.1) % Lymph % (Auto) 13.1 L (18.3-44.2) % [place] % (Auto) 7.5 (2.6-8.5) % Eos % (Auto) 0.9 (0-4.4) % Baso % (Auto) 0.2 (0.2-1.2) % Lymph # (Auto) 1.05 (0.9-3.2) K/mm3 [place] # (Auto) 0.6 (0.1-0.6) K/mm3 Eos # (Auto) 0.1 (0-0.3) K/mm3 Baso # (Auto) 0.0 (0.0-0.1) K/mm3 Abs Immat Gran (auto) 0.05 H (0.00-0.031) K/mm3 Absolute Neuts (auto) 6.3 (1.3-6.7) K/mm3 Absolute Nucleated RBC 0.000 (0.0-0.012) K/mm3 Nucleated RBC % 0.0 (0.0-0.2) % Sodium 136 L (137-145) mmol/L Potassium 3.7 (3.4-5.0) mmol/L Chloride 102 (98-107) mmol/L Carbon Dioxide 26 (22-30) mmol/L Anion Gap 8 (4-12) mmol/L BUN 13 (9-20) mg/dL Creatinine 0.84 (0.7-1.3) mg/dL Estim Creat Clear Calc 104 ml/min Estimated GFR > 60 (59 - ) Glucose 163 H (65-110) mg/dL Calcium 8.9 (8.4-10.2) mg/dL Total Bilirubin 0.6 (0.2-1.3) mg/dL AST 33 (17-59) U/L ALT 37 (6-50) U/L Alkaline Phosphatase 64 (38-126) U/L Total Protein 6.8 (6.3-8.2) g/dL Albumin 4.1 (3.5-5.1) g/dL Imaging Data Radiologist's impression: ITS Impressions Abdomen/Pelvis CT 05/05/25 12:03 IMPRESSION: 1. No significant change in bilateral nephrolithiasis with 5 mm at least partially obstructing stone at the proximal right ureter with mild right hydronephrosis. Discharge Plan Discharge Clinical Impression: Ureterolithiasis Patient Disposition: Home Condition: Stable Instructions: Antibiotic Form Patient Language: Citizen Of [place] Prescriptions: No Action atorvastatin 40 mg tablet 80 mg PO DAILY lisinopril 5 mg tablet 5 mg PO DAILY hydrochlorothiazide 25 mg tablet 25 mg PO DAILY carvedilol [Coreg] 3.125 mg Tablet 3.125 mg PO Q12HR Qty: 30 0RF aspirin [Children's Aspirin] 81 mg Tablet,Chewable 81 mg PO DAILY@0800 Qty: 30 0RF Eliquis 5 mg Tablet 5 mg PO Q12HR Qty: 30 0RF Xarelto 20 mg tablet 20 mg PO DAILY Rx Instructions: must administer with evening meal amiodarone [Pacerone] 200 mg Tablet 200 mg PO Q24H prednisone 20 mg tablet 40 mg PO DAILY Qty: 10 0RF diphenhydramine HCl 25 mg capsule 25 mg PO TID PRN (Reason: allergic reaction) Qty: 14 0RF famotidine 20 mg tablet 20 mg PO BID Qty: 14 0RF tamsulosin [Flomax] 0.4 mg capsule 0.4 mg PO DAILY Qty: 7 0RF ondansetron 4 mg tablet,disintegrating 4 mg PO Q8H PRN (Reason: nausea and vomiting) Qty: 15 0RF oxycodone 5 mg tablet 5 mg PO Q6H PRN (Reason: pain) Qty: 15 0RF Follow-up/Referrals: PHYSICIAN,SCRUB WHEEL OPERATOR [Primary Care Provider] - Time of Disposition: 13:45
[2025-05-05] MEDS: HYDROmorphone HCL INJ (*CRX) 1 MG/ML SYR 0.5 MG IV PUSH ×2 (13:45→13:46)
--- NOTE | 2025-05-05 14:04 | P.HP_ITS ---
H&P: HPI History of Present Illness Date/Time: 05/05/25 14:04 Chief Complaint: Flank pain Narrative: 70-year-old male history of CAD, AFib on anticoagulation, presents the hospital with right flank and abdominal pain. Patient states that his right flank pain into the abdomen has increased overnight I presented back to the hospital because he is no longer able to tolerate the pain at home. Patient denies hist ory of CHF. Patient did present to the emergency room yesterday with similar complaints found to have a 4.5 mm proximal right ureteral stone and right hydronephrosis and hydroureter, after IV fluids and pain management patient wanted to go home and try to pass the stone follow-up with Urology outpatient verses being admitted to the hospital for pain management and Neurology consult. With recommendations to come back into the emergency room if pain was not controlled. Patient denies nausea vomiting fever chills. Lab work in the ED shows hemoglobin 12.8, sodium of 136, glucose of 163, UA from yesterday appears being noninfective with 1+ blood and 11-20 rbc's no vasiliy hematuria. Repeat CT abdomen pelvis for today shows no significant change in bilateral nephrolithiasis with 5 mm partially obstructing stone in the proximal right urethra with mild hydronephrosis. consulted for possible procedure. Review of Systems Review of Systems: 12 systems were reviewed and are negativ e except for as per HPI. [facility] Past Medical History Medical History (Updated 05/05/25 @ 16:44 by Tori Harmon APRN) Hypersomnia Dyslipidemia Atrial fibrillation with rapid ventricular response Hypertension Atrial fibrillation Coronary artery disease Family History Family History Mother Pancreatic cancer Sibling Breast cancer Grandparent Breast cancer Father Acute myocardial infarction Social History Social History Smoking packs per day: 1 Smoking cigarettes per day: 20.0 Years smoked: 20 Smoking pack-years: 20.00 Smoking status: Former smoker Tobacco type: cigarettes Alcohol intake: never Substance use: never Substance use type: does not use Do You Feel Safe in your Home?: Yes Lack of Transportation: No Lack of Food: Never True Current Housing: I Have Housing Concerned About Future Housing: No Difficulty Paying Gas/Electric Bills: No Difficulty Paying for Meds: No Currently Unemployed: No Education: Associate Degree Difficulty w/ Childcare or Family Care: No Gender identity (if verbalized by the patient): Male Spiritual care concerns: No Meds Home Medications and Allergies Home Medications ?Medication ?Instructions ?Recorded ?Confirmed ?Type atorvastatin 40 mg tablet 80 mg PO DAILY 01/13/21 05/05/25 History hydrochlorothiazide 25 mg tablet 25 mg PO DAILY 01/13/21 05/05/25 History lisinopril 5 mg tablet 5 mg PO DAILY 01/13/21 05/05/25 History apixaban 5 mg tablet (Eliquis) 5 mg PO Q12HR #30 tabs 08/24/24 05/05/25 Rx aspirin 81 mg chewable tablet 81 mg PO DAILY@0800 #30 tabs 08/24/24 05/05/25 Rx (Children's Aspirin) amiodarone 200 mg tablet (Pacerone) 200 mg PO Q24H 10/27/24 05/05/25 History diphenhydramine HCl 25 mg capsule 25 mg PO TID PRN allergic reaction 10/27/24 05/05/25 Rx #14 caps famotidine 20 mg tablet 20 mg PO BID #14 tabs 10/27/24 05/05/25 Rx prednisone 20 mg tablet 40 mg (2 x 20 mg) PO DAILY #10 tabs 10/27/24 05/05/25 Rx rivaroxaban 20 mg tablet (Xarelto) 20 mg PO DAILY afib 10/27/24 05/05/25 History ondansetron 4 mg disintegrating 4 mg PO Q8H PRN nausea and 05/04/25 05/05/25 Rx tablet vomiting #15 tabs oxycodone 5 mg tablet 5 mg PO Q6H PRN pain #15 tabs 05/04/25 05/05/25 Rx tamsulosin 0.4 mg capsule (Flomax) 0.4 mg PO DAILY #7 caps 05/04/25 05/05/25 Rx amlodipine 5 mg tablet 5 mg PO DAILY 05/05/25 05/05/25 History carvedilol 3.125 mg tablet (Coreg) 6.25 mg PO Q12HR 05/05/25 05/05/25 History Allergies Allergy/AdvReac Type Severity Reaction Status Date / Time Sulfa (Sulfonamide Allergy Hives Verified 05/05/25 11:21 Antibiotics) Vital Signs Vital Signs - 24 hr 05/05/25 11:30 05/05/25 12:32 Temperature 97.6 F Pulse Rate 69 66 Respiratory Rate 16 20 Blood Pressure 138/70 135/92 H Pulse Oximetry 98 95 Exam Narrative: General: Chronically ill, no acute distress HEENT: normocephalic, atraumatic. Mucous membranes moist. EOMI, PERRLA, bilate ral sclera anicteric, no conjunctival injection. Neck supple without JVD, lymphadenopathy, or bruit. Respiratory: Diminished to ascultation bilaterally. No rales/rhonic/wheezes. Cardiovascular: Regular rate and rhythm, normal S1-S2 upon ascultation. No murmurs, rubs, or clicks. PMI is nondisplaced, capillary refill less than 3 second. Abdomen: Obese, round, no pulsatile masses, nondistended and nontender. No rebound, no guarding. No CVA tenderness, no hepatosplenomegaly. Bowel sounds present to all four quadrants. No high pitch or tinkling sounds, resonant to percussion. Extremities: No cyanosis, clubbing, Pulses are palpable 2/2. Active ROM to all four extremities. 2+ edema to mid messer Neuro: Alert and orientated x 4. PERRLA. Cranial nerves 2-12 intact without focal deficit. Skin: Warm, dry, and intact, without rash, erythema, or lesion. Psych: pleasant, cooperative, normal speech, normal affect, no hallucinations, no dysarthia Patient 2 L oxygen H&P: Results Labs Labs: Short CBC 05/05/25 Range/Units 11:43 WBC 8.0 (4.5-10.0) K/mm3 Hgb 12.8 L (14.0-18.0) g/dL Hct 38.8 L (42.0-52.0) % Plt Count 166 (150-375) k/mm3 BMP 05/05/25 11:43 Sodium 136 L Potassium 3.7 Chloride 102 Carbon Dioxide 26 BUN 13 Creatinine 0.84 Glucose 163 H Calcium 8.9 Liver Function 05/05/25 Range/Units 11:43 Total Bilirubin 0.6 (0.2-1.3) mg/dL AST 33 (17-59) U/L ALT 37 (6-50) U/L Alkaline Phosphatase 64 (38-126) U/L Albumin 4.1 (3.5-5.1) g/dL Assessment and Plan Assessment and plan (1) Hydronephrosis concurrent with and due to calculi of kidney and ureter: Code(s): N13.2 - Hydronephrosis with renal and ureteral calculous obstruction Status: Acute Assessment and Plan: consulted Plan for cystoscopy in a.m. Hold Xarelto NPO midnight sips with med Pain management Gentle IVF Continue Flomax Strain urine (2) Ureterolithiasis: Code(s): N20.1 - Calculus of ureter Status: Acute Assessment and Plan: See plan above (3) Hypoxia: Code(s): R09.02 - Hypoxemia Status: Acute Assessment and Plan: Patient states that he was placed on oxygen after given pain medicine could be medication induced verses CHF verses sleep apnea Chest x-ray shows no acute process Likely related to medications an sleep apnea Patient would likely benefit from a outpatient sleep study (4) Atrial fibrillation: Code(s): I48.91 - Unspecified atrial fibrillation Status: Acute Assessment and Plan: Currently holding anticoagulation Xarelto Continue Amiodarone (5) Hyperglycemia: Code(s): R73.9 - Hyperglycemia, unspecified Status: Acute Assessment and Plan: Could be due to prednisone verses undiagnosed diabetes Patient states that he is no longer taking prednisone, and has a history of diabetes A1c pending (6) Dyslipidemia: Code(s): E78.5 - Hyperlipidemia, unspecified Status: Acute Assessment and Plan: Continue statin (7) Coronary artery disease: Code(s): I25.10 - Atherosclerotic heart disease of torres martinez coronary artery without angina pectoris Status: Acute Assessment and Plan: Continue Aspirin, Coreg, statin, and hydrochlorothiazide (8) Hypertension: Code(s): I10 - Essential (primary) hypertension Status: Acute Assessment and Plan: Continue amlodipine Quality VTE Prophylaxis VTE prophylaxis: mechanical ordered If No VTE Prophylaxis Answer both mechanical and pharmacologic: Reason no pharmacologic proph: medical contraindication Hospitalist MIPS Advance Care Plan I have confirmed that the patient's Advanced Care Plan is present, code status is documented, or surrogate decision maker is listed in patient medical record.: Yes Medication Reconciliation I have utilized all available resources to obtain, update and review the patients current medications (includes all prescriptions, OTC, herbals, cannabis, and nutritional supplements).: Yes
[2025-05-05 14:14] VITALS: BP 162/90; PULSE 60; RESP 22; O2SAT 93
--- NOTE | 2025-05-05 14:19 | ECG_ITS ---
Test Date: 2025-05-05 22:40:59 Measurements Intervals [place] Rate: 59 P: 68 ID: [id number] QRS: 28 QRSD: 105 T: 44 QT: 349 QTc: 347 Interpretive Statements SINUS BRADYCARDIA INFERIOR INFARCT, AGE INDETERMINATE ABNORMAL ECG Compared to ECG 08/23/2024 09:40:17 HEART RATE HAS DECREASED Electronically Signed On 05-06-2025 07:30:44 CDT by Mushtaq Maharaj D.O.
[2025-05-05 14:27] LABS: Add Urine Microscopic? YES; Appearance Urine Clear (Clear); Glucose Urine UA Negative (Negative); Leukocyte Esterase Ur Negative LEU/UL (Negative); Nitrate Urine Negative (Negative); Non Pathogenic Casts 0-2; Specific Grav Ur 1.021 (1.001-1.035)
--- OUTSIDE RECORDS SUMMARY | 2025-05-05 14:28 | XMS_ITS | Encounter Summary ---
Author Organization [facility] Address [address] [place] [address] Phone Care Team Providers Care Toe Puller Name Role Phone Sanjay Mcwilliams MD Primary Care Provider [phone] Encounter Details Date Type Department Care Team (Late st Contact Info) Description 07/02/2022 Anesthesia Event [facility] [address] [place] [address] Jc Toledo, DO [address] [place] [address] Social History Tobacco Use Types Packs/Day Years [...] on filedocumented in this encounter Care Teams Toe Puller Relationship Specialty Start Date End Date Sanjay Mcwilliams MD [address] [place] [address] PCP - General 06/25/22 documented as of this encounter
--- OUTSIDE RECORDS SUMMARY | 2025-05-05 14:28 | XMS_ITS | Encounter Summary ---
Author Organization [facility] Address [address] [facility] [place] [address] Phone Care Team Providers Care Er Nurse Name Role Phone Provider, None Primary Care Provider Emily Lam APRN, HARDWOOD FLOORING SPECIALIST Unavailable [phone] Reason for Visit * Reason Comments Medication Refill Plavix- patient requ ires 90 day supply Encounter Details Date Type Department Care Team (Late st Contact Info) Description 05/13/2021 [facility] [place] - Cardiology - [facility] [address] [place] [address] Rj Kern MD [address], [place] [id number] Medication Refill (Plavix- patient requires 90 day [...] Office Visit Best Stone MD [facility] [place] Showing recent visits within past 548 days and meeting all other requirements Future Appointments No visits were found meeting these conditions. Showing future appointments within next 90 days and meeting all other requirements documented in this encounter Plan of Treatment Upcoming Encounters Date Type Department Care Team (Late st Contact Info) Description 10/18/2025 9:15 AM CAREER RESOURCE SPECIALIST Office Visit [facility] Cardiovascular [place] - Cardiology - [facility] [address] [place] [address] Leyda Brooks APRN, HARDWOOD FLOORING SPECIALIST [address] [place] [address] documented as of this encounter Visit Diagnoses Diagnosis Coronary artery disease involving augustine coronary artery of augustine heart without angina pectoris ST elevation myocardial infarction involving right coronary artery (HCC) Acute myocardial infarction of inferoposterior wall, initial episode of care documented in this encounter Care Teams Er Nurse Relationship Specialty Start Date End Date Provider, None [place] PCP - General 06/20/15 Emily Knight APRN, HARDWOOD FLOORING SPECIALIST [address] [place] [address] Nurse Practitioner Advanced Practice Nurse 12/05/24 documented as of this encounter
--- OUTSIDE RECORDS SUMMARY | 2025-05-05 14:28 | XMS_ITS | Clinical Summary ---
Author Organization [facility] Address [address] [facility] [place] [address] Phone Care Team Providers Care Sheet Metal Erector Name Role Phone Provider, None Primary Care Provider Emily Lam APRN, INCINERATOR PLANT LABORER Unavailable [phone] Allergies Active Allergy Reactions Criticality Noted Date [...] right coronary artery (HCC),Coronary artery disease involving douglas coronary artery of douglas heart without angina pectoris 1 Tablet by [...] right coronary artery (HCC),Coronary artery disease involving douglas coronary artery of douglas heart without angina pectoris Take 2 Tablets [...] Diagnosed Date Coronary artery disease invo lving douglas coronary artery of douglas heart without angina pectoris 02/05/2016 STEMI (ST elevation myocardial infarction) 05/23 HTN (hypertension) 05/23/2015 HLD (hyperlipidemia) 05/23/2015 Encounters Date Type Department Care Team Description 04/17/20[facility] [address] [place] [address] Rj Kern MD Edema in Legs (Likely from Amlodipine ) 02/15/2025 [facility] [address] [place] [address] Rj Kern MD Medication Refill 02/14/2025 [facility] [address] [place] [address] Rj Kern MD BP update - Amlodipine added 02/14/2025 [facility] [address] [place] [address] Rj Kern MD Medication Management [...] CDT Oxygen Saturation 96% 10/31/2019 2:57 PM DATA PROCESSING CONSULTANT Inhaled Oxygen Concentration - - Weight 147.6 kg (325 lb 6.4 oz) 025 10:32 AM CDT Height 172.7 cm (5' 8) 01/15/2025 10:3 2 AM CDT Body Mass Index 49.48 01/15/2025 10:32 AM CDT Plan of Treatment Upcoming Encounters Date Type Department Care Team (Late st Contact Info) Description 10/18/2025 9:15 AM DATA PROCESSING CONSULTANT Office Visit [facility] Cardiovascular [place] - Cardiology - [facility] [address] [place] [phone] Leyda Brooks, MUSICAL INSTRUMENTS ASSEMBLER, INCINERATOR PLANT LABORER [address] [place] [address] Health Maintenance Due Date Last Done Comments [...] this topic Medical Devices Implanted Type Area Stacker Attendant Device Identifier Shelf Expiration Date Model / Serial / Lot Stent Cor Zahraak Rx Vision 3.5x12mm - [id number] Implanted:Qty : 1 on 05/23/2015 by Ian Cisneros MD at [facility] IMPLANT Right: Coronary [employer] [facility] [id number] / / [id number] Device Clsr Plug Angio-Seal Sts + 6fr - [id number] Implanted:Qty : 1 on 05/23/2015 by Ian Cisneros MD at [facility] IMPLANT Right: Groin ST YSABEL / ATRIAL FIB [id number] / / [id number] Insurance MEDICARE C [employer] Advance Directives * Full Code (Latest Code Status on File) Date Activated Date Inactivated Comments 05/23/2015 5:21 PM 05/25/2015 1:20 PM Full Code: FULL ARREST: Attempt Resuscitation/CPR and use intubation and mechanical ventilation as indicated. PRE-ARREST: Use all measures to stabilize patient. Care Teams Sheet Metal Erector Relationship Specialty Start Date End Date Provider, None [place] PCP - General 06/20/15 Emily Knight APRN, INCINERATOR PLANT LABORER [address] [place] [address] Nurse Practitioner Advanced Practice Nurse 12/05/24
--- OUTSIDE RECORDS SUMMARY | 2025-05-05 14:28 | XMS_ITS | Clinical Summary ---
Author Organization [facility] Address [address] [place] [address] Phone Care Team Providers Care Broadband Technician Name Role Phone Sanjay Mcwilliams MD Primary Care Provider [phone] Medications * This document contains information received [...] on file Medical Devices Implanted Type Area Property Field Inspector Device Identifier Shelf Expiration Date Model / Serial / Lot Acet Shell R3 3h 60mm - [id number] Implanted:06/20 (Quantity not on file) Left: Hip [employer] [id number] 12/26/2031 [id number] / / [id number] Fem Head 09/02 Oxnm 28mm +8 - [id number] Implanted:06/20 (Quantity not on file) Left: Hip Kotak Urja [employer] [id number] 08/16/2031 [id number] / / [id number] Or 30 Degree Dual Mobility Insert Implanted:06/20 (Quantity not on file) Left: Hip HAIDER AND NEPHEW ORTHO [id number] 03/15/2031 [id number] / / [id number] Or 30 Degree Dual Mobility Liner Implanted:06/20 (Quantity not on file) Left: Hip HAIDER AND NEPHEW ORTHO [id number] 03/30/2031 [id number] / / [id number] Pwdr Hemoabsorb Jenna 3gm - [id number] Implanted:06/20 (Quantity not on file) Left: Hip RayV [employer] INC [id number] 03/17/2027 [id number] / / [id number] Redapt Femoral Standard Offset Implanted:06/20 (Quantity not on file) Left: Hip HAIDER AND NEPHEW ORTHO [id number] 12/22/2029 [id number] / / [id number] Care Teams Broadband Technician Relationship Specialty Start Date End Date Sanjay Mcwilliams MD [address] [place] [address] [facility] - General 06/25/22
--- OUTSIDE RECORDS SUMMARY | 2025-05-05 14:28 | XMS_ITS | Clinical Summary ---
Author Organization [facility] Address [address] [place] [address] Care Team Providers Care Site Monitor Name Role Phone Sanjay Mcwilliams MD Primary Care Provider [phone] Source Comments This disclosure is being made pursuant to the Tunespeak program and maynot contain all information available regarding this patient.[facility] Allergies Active Allergy Reactions Criticality Noted Date [...] adult 01/25/2017 Coronary artery disease invo lving alturas coronary artery of alturas heart without angina pectoris 02/05/2016 STEMI (ST [...] on file Legal Sex Male 4:11 AM LOCATOR SPECIALIST Gender Identity Not on file Sexual Orientation [...] Nam APN Medical Devices Implanted Type Area Grain Elevator Man Device Identifier Shelf Expiration Date Model / Serial / Lot Pwdr Hemoabsorb Jenna 3gm - [id number] Implanted:Qty: 1 on 07/02/2022 by Myles Simeon MD at [facility] Left: Hip BARD [employer]ESS SYSTEM[employer] I [id number] 03/17/2027 [id number] / / [id number] Or 30 Degree Dual Mobility Liner Implanted:Qty: 1 on 07/02/2022 by Myles Simeon MD at [facility] Left: Hip HAIDER \T\ NEPHEW ORTHO [id number] 03/30/2031 [id number] / / [id number] Acet Shell R3 3h 60mm - [id number] Implanted:Qty: 1 on 07/02/2022 by Myles Simeon MD at [facility] Left: Hip HAIDER \T\ NE[employer] INC [id number] 12/26/2031 [id number] / / [id number] Redapt Femoral Standard Offset Implanted:Qty: 1 on 07/02/2022 by Myles Simeon MD at [facility] Left: Hip HAIDER \T\ NEPHEW ORTHO [id number] 12/22/2029 [id number] / / [id number] Fem Head 09/02 Oxnm 28mm +8 - [id number] Implanted:Qty: 1 on 07/02/2022 by Myles Simeon MD at [facility] Left: Hip HAIDER \T\ [employer] INC [id number] 08/16/2031 [id number] / / [id number] Or 30 Degree Dual Mobility Insert Implanted:Qty: 1 on 07/02/2022 by Myles Simeon MD at [facility] Left: Hip HAIDER \T\ NEPHEW ORTHO [id number] 03/15/2031 [id number] / / [id number] Insurance MEDICARE [facility] Care Teams Site Monitor Relationship Specialty Start Date End Date Sanjay Mcwilliams MD [address] [place] [address] PCP - General Family Medicine 06/25/22
--- OUTSIDE RECORDS SUMMARY | 2025-05-05 14:28 | XMS_ITS | Encounter Summary ---
Author Organization [facility] Address [address] [address] Phone Care Team Providers Care Proposal Lead Writer Name Role Phone Provider, None Primary Care Provider Emily Lam APRN, TIERCE FILLER Unavailable [phone] Reason for Visit * Reason Comments Medication Refill Lisinopril Encounter Details Date Type Department Care Team (Late st Contact Info) Description 03/03/2021 [facility] [place] - Card[facility] - [facility] [address] [place] [address] Rj Kern MD [address], [place] [id number] Medication Refill (Lisinopril) Social History Tobacco Use [...] Office Visit Best Stone MD [facility] [place] 10/31/19 Office Visit Latha Romero APN, TIERCE FILLER [facility] [place] Showing recent visits within past 548 days [...] st Contact Info) Description 10/18/2025 9:15 AM RUST PROOFER [facility] [place] - Cardiology - [facility] [address] [place] [phone] Leyda Brooks APRN, TIERCE FILLER [address] [place] [facility] [address] documented as of this encounter Visit Diagnoses Diagnosis Coronary artery disease involving [place] coronary artery of [place] heart without angina pectoris ST elevation myocardial infarction involving right coronary artery (HCC) Acute myocardial infarction of inferoposterior wall, initial episode of care Essential hypertension Unspecified essential hypertension documented in this encounter Care Teams Proposal Lead Writer Relationship Specialty Start Date End Date Provider, None [place] PCP - General 06/20/15 Emily Knight, HOLLOW HANDLE KNIFE ASSEMBLER, TIERCE FILLER [address] [place] [address] Nurse Practitioner Advanced Practice Nurse 12/05/24 documented as of this encounter
[2025-05-05 14:40] VITALS: BMI 52.4
[2025-05-05 14:53] VITALS: BP 133/65; PULSE 63; RESP 16; TEMP 36.4; O2SAT 97
--- NOTE | 2025-05-05 14:58 | ADMGEN ---
This patient, Krishna Armando, was admitted to Medical Room 252-01. Patient/family oriented to hospital policies and general routines including ID bracelet, bed and alarms, visiting hours, pain management, procedures, bathroom and other care routines, personal items, smoking policy, room service/diet, and visiting hours. Information on how to activate the Rapid Response Team has been discussed. Patient/Family are encouraged to report perceived risks to care and to ask questions if they do not understand what they are told or what they should do.
[2025-05-05] MEDS: KETOROLAC 15 MG/ML VIAL (*BKC) IV PUSH ×2 (17:12→21:44)
--- NOTE | 2025-05-05 21:39 | WPDANESEPP ---
Anes - Eval Pre Procedure Procedure: cysto, right stent Date/Time: 05/05/25 21:39 Surgeon: Nas Preop Diagnosis: right ureteral stone Pre Op Diagnosis: Ureterolithiasis on the right Patient Data Age: 70 Gender: M Height: 1.7 m Weight: 152 kg Last Vital Signs Temp 97.5 F L 05/05/25 14:53 Pulse 63 05/05/25 14:53 Resp 16 05/05/25 14:53 BP 133/65 05/05/25 14:53 Pulse Ox 97 05/05/25 14:53 O2 Del Method Room Air 05/05/25 20:47 Allergies Allergy/AdvReac Type Severity Reaction Status Date / Time Sulfa (Sulfonamide Allergy Hives Verified 05/05/25 11:21 Antibiotics) Home Medications ?Medication ?Instructions ?Recorded ?Confirmed ?Type atorvastatin 40 mg tablet 80 mg PO DAILY 01/13/21 05/05/25 History hydrochlorothiazide 25 mg tablet 25 mg PO DAILY 01/13/21 05/05/25 History lisinopril 5 mg tablet 5 mg PO DAILY 01/13/21 05/05/25 History apixaban 5 mg tablet (Eliquis) 5 mg PO Q12HR #30 tabs 08/24/24 05/05/25 Rx aspirin 81 mg chewable tablet 81 mg PO DAILY@0800 #30 tabs 08/24/24 05/05/25 Rx (Children's Aspirin) amiodarone 200 mg tablet (Pacerone) 200 mg PO Q24H 10/27/24 05/05/25 History diphenhydramine HCl 25 mg capsule 25 mg PO TID PRN allergic reaction 10/27/24 05/05/25 Rx #14 caps famotidine 20 mg tablet 20 mg PO BID #14 tabs 10/27/24 05/05/25 Rx prednisone 20 mg tablet 40 mg (2 x 20 mg) PO DAILY #10 tabs 10/27/24 05/05/25 Rx rivaroxaban 20 mg tablet (Xarelto) 20 mg PO DAILY afib 10/27/24 05/05/25 History ondansetron 4 mg disintegrating 4 mg PO Q8H PRN nausea and 05/04/25 05/05/25 Rx tablet vomiting #15 tabs oxycodone 5 mg tablet 5 mg PO Q6H PRN pain #15 tabs 05/04/25 05/05/25 Rx tamsulosin 0.4 mg capsule (Flomax) 0.4 mg PO DAILY #7 caps 05/04/25 05/05/25 Rx amlodipine 5 mg tablet 5 mg PO DAILY 05/05/25 05/05/25 History carvedilol 3.125 mg tablet (Coreg) 6.25 mg PO Q12HR 05/05/25 05/05/25 History Laboratory Tests 05/05/25 05/05/25 11:43 14:13 WBC 8.0 K/mm3 (4.5-10.0) RBC 4.15 L M/mm3 (4.6-6.20) Hgb 12.8 L g/dL (14.0-18.0) Hct 38.8 L % (42.0-52.0) MCV 93.5 fl (80-100) MCH 30.8 pg (26-34) MCHC 33.0 g/dl (32-36) RDW 15.0 H % (11.5-14.5) Plt Count 166 k/mm3 (150-375) MPV 10.3 fl (7.4-10.4) Immature Gran % (Auto) 0.6 H % (0-0.5) Neut % (Auto) 77.7 H % (45.5-73.1) Lymph % (Auto) 13.1 L % (18.3-44.2) [place] % (Auto) 7.5 % (2.6-8.5) Eos % (Auto) 0.9 % (0-4.4) Baso % (Auto) 0.2 % (0.2-1.2) Lymph # (Auto) 1.05 K/mm3 (0.9-3.2) [place] # (Auto) 0.6 K/mm3 (0.1-0.6) Eos # (Auto) 0.1 K/mm3 (0-0.3) Baso # (Auto) 0.0 K/mm3 (0.0-0.1) Abs Immat Gran (auto) 0.05 H K/mm3 (0.00-0.031) Absolute Neuts (auto) 6.3 K/mm3 (1.3-6.7) Absolute Nucleated RBC 0.000 K/mm3 (0.0-0.012) Nucleated RBC % 0.0 % (0.0-0.2) Sodium 136 L mmol/L (137-145) Potassium 3.7 mmol/L (3.4-5.0) Chloride 102 mmol/L (98-107) Carbon Dioxide 26 mmol/L (22-30) Anion Gap 8 mmol/L (4-12) BUN 13 mg/dL (9-20) Creatinine 0.84 mg/dL (0.7-1.3) Estim Creat Clear Calc 104 ml/min Estimated GFR > 60 (59 - ) Glucose 163 H mg/dL (65-110) Calcium 8.9 mg/dL (8.4-10.2) Total Bilirubin 0.6 mg/dL (0.2-1.3) AST 33 U/L (17-59) ALT 37 U/L (6-50) Alkaline Phosphatase 64 U/L (38-126) Total Protein 6.8 g/dL (6.3-8.2) Albumin 4.1 g/dL (3.5-5.1) Urine Color Yellow (Yellow) Urine Appearance Clear (Clear) Urine pH 5.0 (5.0-9.0) Ur Specific [place] 1.021 (1.001-1.035) Urine Protein Negative mg/dL (Negative) Urine Glucose (UA) Negative mg/dL (Negative) Urine Ketones Negative mg/dL (Negative) Ur Blood (Man) 1+ H (Negative) Urine Nitrate Negative (Negative) Urine Bilirubin Negative (Negative) Urine Urobilinogen 0.2 mg/dL (<2.0) Leukocyte Esterase Rfl Negative CHANDU/UL (Negative) Urine RBC 6-10 H /hpf (0-2) Urine WBC 0-5 /hpf (0-3) Ur Squamous Epith Cells None seen /hpf (Few) Urine Bacteria None seen /hpf Urine Casts 0-2 Other studies: 08/23/2024 Echo: EF 60-65%, valves normal, mild LVH, grade I diastolic dysfunction Patient hx anesthesia problems: none Family hx anesthesia problems: none Results Review: All pre-operative results and documents have been reviewed as part of the pre-operative evaluation. [facility] Past Medical History Medical History Morbid obesity with BMI of 50.0-59.9, adult Hypersomnia Dyslipidemia Atrial fibrillation with rapid ventricular response 08/22/2024 new onset. spontaneously converted. maintained on amiodarone & Xarelto Hypertension Atrial fibrillation Coronary artery disease 2015 NM, stent X 2 Family History Family History Mother Pancreatic cancer Sibling Breast cancer Grandparent Breast cancer Father Acute myocardial infarction Social History Social History Smoking packs per day: 1 Smoking cigarettes per day: 20.0 Years smoked: 20 Smoking pack-years: 20.00 Smoking status: Former smoker Tobacco type: cigarettes Alcohol intake: never Substance use: never Substance use type: does not use Do You Feel Safe in your Home?: Yes Lack of Transportation: No Lack of Food: Never True Current Housing: I Have Housing Concerned About Future Housing: No Difficulty Paying Gas/Electric Bills: No Difficulty Paying for Meds: No Currently Unemployed: No Education: Associate Degree Difficulty w/ Childcare or Family Care: No Gender identity (if verbalized by the patient): Male Spiritual care concerns: No Exam Day of Procedure 05/05/25 21:39
[2025-05-05 21:45] VITALS: PULSE 65
[2025-05-05 21:46] VITALS: BP 142/74; PULSE 65; RESP 16; TEMP 36.8; O2SAT 95
[2025-05-06] VITALS (16 sets, daily range): BP systolic 130–152; BP diastolic 64–84; PULSE 52–64; RESP 16–25; TEMP 36.4–37.1; O2SAT 92–99
[2025-05-06] MEDS: KETOROLAC 15 MG/ML VIAL (*BKC) IV PUSH ×2 (04:09→17:34)
[2025-05-06 04:58] LABS: Hematocrit 37.1 % (42.0-52.0); Hemoglobin 12.2 g/dL (14.0-18.0); Immature Granulocyte Percent A 0.5 % (0-0.5); Lymphocytes Absolute Auto 0.84 K/mm3 (0.9-3.2); Mean Corpuscular HGB Conc 32.9 g/dl (32-36); Mean Corpuscular Hemoglobin 31.2 pg (26-34); Mean Corpuscular Volume 94.9 fl (80-100); Nucleated Red Blood Cells Absolute Auto 0.000 K/mm3 (0.0-0.012); Nucleated Red Blood Cells Perc 0.0 % (0.0-0.2); Platelet Count Result 153 k/mm3 (150-375); Red Blood Count 3.91 M/mm3 (4.6-6.20); White Blood Count 8.6 K/mm3 (4.5-10.0)
[2025-05-06 05:05] LABS: Hemoglobin A1C 6.8 % (<5.7)
[2025-05-06 05:33] LABS: Anion Gap 8 mmol/L (4-12); Blood Urea Nitrogen 17 mg/dL (9-20); Calcium 8.7 mg/dL (8.4-10.2); Carbon Dioxide 26 mmol/L (22-30); Chloride 100 mmol/L (98-107); Estimated CRCL calculation 77 ml/min; Estimated Glomerular Filt Rate > 60; Glucose 131 mg/dL (65-110); Potassium 3.5 mmol/L (3.4-5.0); Sodium 134 mmol/L (137-145)
--- NOTE | 2025-05-06 07:54 | P.PNAN_ITS ---
Anes - Eval Final PreProcedure Day of Procedure 05/06/25 07:54 Patient weight: morbidly obese (BMI 52.5) Heart: bradycardia Lungs: decreased breath sounds Airway: Mallampati scale class IV Neurological: alert and oriented Last oral intake: >/= 8 hours ASA classification: III Emergent: no Anesthetic plan: proceed Anesthesia type and monitoring: general LMA Results Review: All pre-operative results and documents have been reviewed as part of the pre- operative evaluation. Informed Consent: The patient's anesthetic plan and its attendant risks and benefits were discussed with the patient/family/POA. Questions were solicited and answers provided to the satisfaction of the patient/family/POA.
--- NOTE | 2025-05-06 08:13 | P.CONUR_ITS ---
Assessment and Plan Assessment and plan (1) Ureterolithiasis: Code(s): N20.1 - Calculus of ureter Status: Acute (2) Hydronephrosis concurrent with and due to calculi of kidney and ureter: Code(s): N13.2 - Hydronephrosis with renal and ureteral calculous obstruction Status: Acute Plan Hematuria in the OR today for intervention. I would try to extract the stone the ureteroscopy through this a proximal stone. He understands we may not be successfully extracted the stone may simply place ureteral stent. This will be followed by definitive stone management at another session. He consents for cystoscopy, right retrograde pyelogram, right ureteroscopy, right ureteral stent placement. He understands risks of bleeding, infection, damage to the tract, inability remove the stone. He can likely be discharged home postprocedure Urology Consult Note HPI Date Seen: 05/06/25 Requesting Physician: Panfilo Salazar MD Primary Care Provider: TRACTOR TRAILER TRUCK DRIVER PHYSICIAN Consult Narrative Narrative: Krishna Armando is a 70 year old male with prior history of nephrolithiasis that passed on its own several years ago. He has had 2 days of right flank pain. He came to the emergency room on Wednesday. He was diagnosed with 5 mm proximal ureteral stone with hydronephrosis. He was sent home with pain medication. He failed a trial of conservative stone passage and re-presented to the ER on Wednesday afternoon. He is admitted the hospital and taken the OR today for stone management. He has noted nausea and vomiting with dry heaves. He has no fevers chills. No symptoms urinary tract infection. No visible blood in the urine Review of Systems 2 Review of Systems: All systems reviewed & are unremarkable except as noted in HPI and below PMFSH Past Medical History Medical History Chest pain Morbid obesity with BMI of 50.0-59.9, adult Hypersomnia Dyslipidemia Atrial fibrillation with rapid ventricular response 08/22/2024 new onset. spontaneously converted. maintained on amiodarone & Xarelto Hypertension Atrial fibrillation Coronary artery disease 2014 ID, stent X 2 Family History Family History Mother Pancreatic cancer Sibling Breast cancer Grandparent Breast cancer Father Acute myocardial infarction Social History Social History Smoking packs per day: 1 Smoking cigarettes per day: 20.0 Years smoked: 20 Smoking pack-years: 20.00 Smoking status: Former smoker Tobacco type: cigarettes Alcohol intake: never Substance use: never Substance use type: does not use Do You Feel Safe in your Home?: Yes Lack of Transportation: No Lack of Food: Never True Current Housing: I Have Housing Concerned About Future Housing: No Difficulty Paying Gas/Electric Bills: No Difficulty Paying for Meds: No Currently Unemployed: No Education: Associate Degree Difficulty w/ Childcare or Family Care: No Gender identity (if verbalized by the patient): Male Spiritual care concerns: No Meds Home Medications and Allergies Home Medications ?Medication ?Instructions ?Recorded ?Confirmed ?Type atorvastatin 40 mg tablet 80 mg PO DAILY 01/13/21 05/05/25 History hydrochlorothiazide 25 mg tablet 25 mg PO DAILY 01/13/21 05/05/25 History lisinopril 5 mg tablet 5 mg PO DAILY 01/13/21 05/05/25 History apixaban 5 mg tablet (Eliquis) 5 mg PO Q12HR #30 tabs 08/24/24 05/05/25 Rx aspirin 81 mg chewable tablet 81 mg PO DAILY@0800 #30 tabs 08/24/24 05/05/25 Rx (Children's Aspirin) amiodarone 200 mg tablet (Pacerone) 200 mg PO Q24H 10/27/24 05/05/25 History diphenhydramine HCl 25 mg capsule 25 mg PO TID PRN allergic reaction 10/27/24 05/05/25 Rx #14 caps famotidine 20 mg tablet 20 mg PO BID #14 tabs 10/27/24 05/05/25 Rx prednisone 20 mg tablet 40 mg (2 x 20 mg) PO DAILY #10 tabs 10/27/24 05/05/25 Rx rivaroxaban 20 mg tablet (Xarelto) 20 mg PO DAILY afib 10/27/24 05/05/25 History ondansetron 4 mg disintegrating 4 mg PO Q8H PRN nausea and 05/04/25 05/05/25 Rx tablet vomiting #15 tabs oxycodone 5 mg tablet 5 mg PO Q6H PRN pain #15 tabs 05/04/25 05/05/25 Rx tamsulosin 0.4 mg capsule (Flomax) 0.4 mg PO DAILY #7 caps 05/04/25 05/05/25 Rx amlodipine 5 mg tablet 5 mg PO DAILY 05/05/25 05/05/25 History carvedilol 3.125 mg tablet (Coreg) 6.25 mg PO Q12HR 05/05/25 05/05/25 History Allergies Allergy/AdvReac Type Severity Reaction Status Date / Time Sulfa (Sulfonamide Allergy Hives Verified 05/05/25 11:21 Antibiotics) Vital Signs Vital Signs - 24 hr 05/05/25 11:30 05/05/25 12:32 05/05/25 14:14 Temperature 97.6 F Pulse Rate 69 66 60 Respiratory Rate 16 20 22 H Blood Pressure 138/70 135/92 H 162/90 H Pulse Oximetry 98 95 93 Oxygen Delivery 05/05/25 14:53 05/05/25 20:47 05/05/25 21:45 Temperature 97.5 F L Pulse Rate 63 65 Respiratory Rate 16 Blood Pressure 133/65 Pulse Oximetry 97 Oxygen Delivery Room Air 05/05/25 21:46 05/06/25 05:31 Temperature 98.2 F 98.0 F Pulse Rate 65 64 Respiratory Rate 16 16 Blood Pressure 142/74 H 139/65 Pulse Oximetry 95 92 Oxygen Delivery Exam 2 Const: General: cooperative; No diaphoretic, ill appearing or lethargic O rientation/consciousness: patient oriented x3 Limitations: no limitations HENMT: Head: normal to inspection Eyes: General: appearance normal, both eyes and all related structures Chest: Chest palpation & inspection: normal inspection of the chest Resp: Effort & Inspection: normal respiratory effort and no cough GI: Inspection: obesity Skin: General skin exam: normal color Neuro: General: patient oriented x3 and moves all extremities Extrem: General: normal to inspection Psych: Appearance: grossly normal Results Labs 05/06/25 04:48 05/06/25 04:48 Labs: Short CBC 05/05/25 05/06/25 Range/Units 11:43 04:48 WBC 8.0 8.6 (4.5-10.0) K/mm3 Hgb 12.8 L 12.2 L (14.0-18.0) g/dL Hct 38.8 L 37.1 L (42.0-52.0) % Plt Count 166 153 (150-375) k/mm3 BMP 05/05/25 05/06/25 11:43 04:48 Sodium 136 L 134 L Potassium 3.7 3.5 Chloride 102 100 Carbon Dioxide 26 26 BUN 13 17 Creatinine 0.84 1.17 Glucose 163 H 131 H Calcium 8.9 8.7 Liver Function 05/05/25 Range/Units 11:43 Total Bilirubin 0.6 (0.2-1.3) mg/dL AST 33 (17-59) U/L ALT 37 (6-50) U/L Alkaline Phosphatase 64 (38-126) U/L Albumin 4.1 (3.5-5.1) g/dL Urine 05/05/25 Range/Units 14:13 Urine Color Yellow (Yellow) Urine Appearance Clear (Clear) Urine pH 5.0 (5.0-9.0) Ur Specific [place] 1.021 (1.001-1.035) Urine Protein Negative (Negative) mg/dL Urine Glucose (UA) Negative (Negative) mg/dL Imaging My impression: 5 mm proximal right ureteral stone with hydronephrosis
--- NOTE | 2025-05-06 08:16 | WPDHPUPDATE1 ---
History and Physical Update Update Date/Time: 05/06/25 08:16 History and Physical has been reviewed, including an updated exam of the patient. There are NO changes in the patient's condition. Risks, benefits, and alternatives have been discussed and questions answered. Patient agrees to proceed with procedure.
[2025-05-06] MEDS: ceFAZolin 3 GM/D5W 100 ML 100 ML IVPB (08:18)
[2025-05-06] MEDS: LIDOCAINE 2% GEL UROJET 10 ML PKG MUCOUS MEM (08:28)
--- NOTE | 2025-05-06 09:07 | P.OP_ITS ---
Procedure Note - Detailed Date of Procedure 05/06/25 Pre-op Diagnosis Ureterolithiasis on the right Post-op Diagnosis Same Procedure Performed Cystoscopy, right retrograde pyelogram, right ureteroscopy, right stent placement Surgeon Angel Luis Lovell MD Anesthesia General Indications A gentleman with a right proximal ureteral stone was failed outpatient management. He presents for a attempt at stone removal. He understands this may not be successful in a stent may simply be placed with definitive stone man agement to follow. Understands risks of bleeding, infection, damage to urinary tract. Agrees to proceed Findings Unable to pass flexible ureteral scope to access the proximal stone. Right stent placed Description of Procedure He has correctly identified. Informed consent obtained. For the operating room. He was given general anesthesia. Placed in dorsal lithotomy position. Prepped draped sterile fashion. Time-out performed. I performed cystoscopy. He had a very high bladder neck with enlarged prostate and median lobe. I examined his bladder the best I could but had difficulty seeing the dome due to the hiatus of his bladder neck and his obesity. I saw no bladder abnormalities. No tumors or stones. Right ureteral stones identified. I cannulated the right ureteral orifice. I performed right retrograde pyelogram. There was no extravasation. There was hydronephrosis proximal to a stone in the proximal ureter. Placed a guidewire into the kidney. I dilated the ureteral orifice the 810 dilator. I performed a rigid ureteroscopy. I was able to get to his bladder into his right ureter. It was difficult due to the highest his bladder neck. I was able to get the rigid ureteral scope into his distal ureter an approximately 3 cm up the ureter. I was unable to access the ureteral stone. I then placed a 2nd guidewire in his kidney. I attempted to perform flexible ureteroscopy. Due to his high bladder neck and his body habitus I was unable to get the flexible ureteral scope past the distal ureter or up into the proximal ureter. At this point my only option was to place ureteral stent. I placed 4.8 ureteral stent. Proximal coil in the upper pole kidney. Distal coil in the bladder. The bladder was drained. Stent was confirmed to be within the bladder and the kidney. He was awakened transferred to PACU in stable condition. Implants Ureteral stent Estimated Blood Loss 1 Urine Output 100 Drains Yes (Ureteral stent) Packing No Pathology None sent Complications No immediate complications Condition Stable Disposition PACU
[2025-05-06] MEDS: LACTATED RINGERS 1,000 ML 30 ML IV CONT (09:10)
[2025-05-06] MEDS: fentaNYL CITRATE INJ (*CRX) 100 MCG/2 ML VIAL 25 MCG IV PUSH ×3 (09:54→10:21)
--- NOTE | 2025-05-06 10:22 | SUR.PHASEI ---
RN tried to call report but RN has to call back.
[2025-05-06] MEDS: HYDROmorphone HCL INJ (*CRX) 1 MG/ML SYR 0.5 MG IV PUSH (10:59)
[2025-05-06] MEDS: SODIUM CHLORIDE 0.9% IV 1,000 ML 75 ML IV CONT ×2 (11:03)
[2025-05-06] MEDS: TAMSULOSIN HCL 0.4 MG CAPSULE PO (11:04)
[2025-05-06] MEDS: ATORVASTATIN 40 MG TABLET 80 MG PO (11:04)
[2025-05-06] MEDS: AMIODARONE HCL 200 MG TABLET PO (11:05)
[2025-05-06] MEDS: DOCUSATE SODIUM 100 MG CAPSULE PO ×2 (11:07→17:34)
--- NOTE | 2025-05-06 11:44 | PC.NURSE ---
RN gave morning medications late due to surgery.
[2025-05-06] MEDS: oxyCODONE HCL (*CRX) 5 MG TAB IR PO ×2 (12:07→17:34)
--- NOTE | 2025-05-06 17:32 | PC.NURSE ---
Patient's Toradol times have been off due to surgery and him wanting to wait on medications to try others.
[2025-05-07] MEDS: SODIUM CHLORIDE 0.9% IV 1,000 ML 75 ML IV CONT (00:30)
[2025-05-07 03:22] VITALS: BP 127/62; PULSE 64; RESP 20; TEMP 36.8; O2SAT 96
--- NOTE | 2025-05-07 08:04 | WPDANESPN ---
Anes - Prog Note Post-Op Date/Time: 05/07/25 08:04 Cardiovascular status: normal Respiratory status: normal Airway patency: baseline Mental status: baseline Post-Op hydration status: normal Vital Signs: Last Vital Signs Temp 36.8 C 05/07/25 03:22 Pulse 64 05/07/25 03:22 Resp 20 05/07/25 03:22 BP 127/62 05/07/25 03:22 Pulse Ox 96 05/07/25 03:22 O2 Del Method Room Air 05/06/25 20:00 O2 Flow Rate 2 05/06/25 10:10 Pain Score (VAS): 2 I/O: Intake & Output 05/06/25 05/07/25 05/07/25 23:59 07:59 15:59 Intake Total 100 1490 Balance 100 1490 Laboratory Tests 05/06/25 04:48 05/06/25 04:48 05/06/25 09:58 POC Capillary Glucose 140 H Post-procedural complaints: none Patient Feedback: Patient satisfied with anesthetic care.
[2025-05-07 08:05] VITALS: BP 164/57; PULSE 66; RESP 18; TEMP 36.7; O2SAT 95
[2025-05-07] MEDS: TAMSULOSIN HCL 0.4 MG CAPSULE PO (08:06)
[2025-05-07 08:07] VITALS: PULSE 66; RESP 18; O2SAT 95
[2025-05-07] MEDS: DOCUSATE SODIUM 100 MG CAPSULE PO (08:07)
[2025-05-07] MEDS: ATORVASTATIN 40 MG TABLET 80 MG PO (08:07)
[2025-05-07] MEDS: ASPIRIN 81 MG CHEWABLE TABLET PO (08:07)
[2025-05-07] MEDS: KETOROLAC 15 MG/ML VIAL (*BKC) IV PUSH (08:08)
--- NOTE | 2025-05-07 08:18 | P.CDI_ITS ---
CDI Query Clarification Request Patient with a BMI of 52.5 please provide a diagnosis to accompany this finding: * Overweight * Obesity * Morbid Obesity * Other/Unknown <Lakeisha Singleton RN - Last Filed: 05/07/25 08:18> Clarified Diagnosis Clarified Diagnosis: morbid obesity <Angelina Diaz APRN - Last Filed: 05/07/25 10:03>
--- NOTE | 2025-05-07 12:34 | P.PNIM_ITS ---
Progress Note: A&P Assessment and Plan (1) Hydronephrosis concurrent with and due to calculi of kidney and ureter: Code(s): N13.2 - Hydronephrosis with renal and ureteral calculous obstruction Status: Acute Assessment and Plan: consulted Plan for cystoscopy in a.m. Hold Xarelto NPO midnight sips with med Pain management Gentle IVF Continue Flomax Strain urine Cystoscopy, right retrograde pyelogram, right ureteroscopy, right stent placement today 05/06 (2) Ureterolithiasis: Code(s): N20.1 - Calculus of ureter Status: Acute Assessment and Plan: See plan above (3) Hypoxia: Code(s): R09.02 - Hypoxemia Status: Acute Assessment and Plan: Patient states that he was placed on oxygen after given pain medicine could be medication induced verses CHF verses sleep apnea Chest x-ray shows no acute process Likely related to medications an sleep apnea Patient would likely benefit from a outpatient sleep study (4) Atrial fibrillation: Code(s): I48.91 - Unspecified atrial fibrillation Status: Acute Assessment and Plan: Currently holding anticoagulation Xarelto Continue Amiodarone (5) Hyperglycemia: Code(s): R73.9 - Hyperglycemia, unspecified Status: Acute Assessment and Plan: Could be due to prednisone verses undiagnosed diabetes Patient states that he is no longer taking prednisone, and has a history of diabetes A1c pending (6) Dyslipidemia: Code(s): E78.5 - Hyperlipidemia, unspecified Status: Acute Assessment and Plan: Continue statin (7) Coronary artery disease: Code(s): I25.10 - Atherosclerotic heart disease of [place] coronary artery without angina pectoris Status: Acute Assessment and Plan: Continue Aspirin, Coreg, statin, and hydrochlorothiazide (8) Hypertension: Code(s): I10 - Essential (primary) hypertension Status: Acute Assessment and Plan: Continue amlodipine trend bp Time Spent With Patient Time with patient: 25 - 35 minutes Subjective Date/time seen: 05/06/25 12:34 Interval history: Cystoscopy, right retrograde pyelogram, right ureteroscopy, right stent placement today Review of Systems Review of Systems: 12 systems were reviewed and are negativ e except for as per HPI. All systems reviewed & are unremarkable except as noted in HPI and below Exam Narrative: General: Chronically ill, no acute distress ,calm, quiet HEENT: normocephalic, atraumatic. Mucous membranes moist. EOMI, PERRLA, bilateral sclera anicteric, no conjunctival injection. Neck supple without JVD, lymphadenopathy, or bruit. Respiratory: Diminished to ascultation bilaterally. No rales/rhonic/wheezes. Cardiovascular: Regular rate and rhythm, normal S1-S2 upon ascultation. No murmurs, rubs, or clicks. PMI is nondisplaced, capillary refill less than 3 second. Abdomen: Obese, round, no pulsatile masses, nondistended and nontender. No rebound, no guarding. No CVA tenderness, no hepatosplenomegaly. Bowel sounds present to all four quadrants. No high pitch or tinkling sounds, resonant to percussion. Extremities: No cyanosis, clubbing, Pulses are palpable 2/2. Active ROM to all four extremities. 2+ edema to mid messer Neuro: Alert and orientated x 4. PERRLA. Cranial nerves 2-12 intact without focal deficit. Skin: Warm, dry, and intact, without rash, erythema, or lesion. Psych: pleasant, cooperative, normal speech, normal affect, no hallucinations, no dysarthia Patient 2 L oxygen Const: General: comfortable Objective Data Vital Signs Vital Signs: Vital Signs - 24 hr 05/06/25 12:43 05/06/25 19:51 05/06/25 20:00 Temperature 97.9 F 98.8 F Pulse Rate 63 62 Respiratory Rate 18 20 Blood Pressure 148/64 H 136/75 Pulse Oximetry 96 96 Oxygen Delivery Room Air 05/06/25 21:44 05/07/25 03:22 05/07/25 08:05 Temperature 98.3 F 98.1 F Pulse Rate 64 64 66 Respiratory Rate 20 18 Blood Pressure 127/62 164/57 H Pulse Oximetry 96 95 Oxygen Delivery 05/07/25 08:07 05/07/25 08:07 Temperature Pulse Rate 66 66 Respiratory Rate 18 Blood Pressure Pulse Oximetry 95 Oxygen Delivery Room Air Intake/Output Intake/Output: Intake & Output 05/04/25 05/05/25 05/06/25 05/07/25 23:59 23:59 23:59 23:59 Intake Total 240 1266 1730 Output Total 100 100 Balance 140 1166 1730 Meds/Results Medications: Active Medications Generic Name Dose Route Start Last Admin Trade Name Freq PRN Reason Stop Dose Admin Acetaminophen 650 mg 05/05/25 13:37 Acetaminophen 325 Mg Tablet PO Q4H PRN Mild Pain (1-3) or Fever Amiodarone HCl 200 mg 05/06/25 09:00 05/06/25 11:06 Amiodarone Hcl 200 Mg Tablet PO Not Given DAILY [facility] Amlodipine Besylate 5 mg 05/06/25 09:00 05/07/25 08:06 Amlodipine Besylate 5 Mg Tablet PO 5 mg DAILY BETITO Administration Aspirin 81 mg 05/06/25 08:00 05/07/25 08:07 Aspirin 81 Mg Chewable Tablet PO 81 mg DAILY@0800 BETITO Administration Atorvastatin Calcium 80 mg 05/06/25 09:00 05/07/25 08:07 Atorvastatin 40 Mg Tablet PO 80 mg DAILY BETITO Administration Carvedilol 6.25 mg 05/05/25 21:00 05/07/25 08:07 Carvedilol 6.25 Mg Tablet PO 6.25 mg Q12HR BETITO Administration Docusate Sodium 100 mg 05/05/25 17:00 05/07/25 08:07 Docusate Sodium 100 Mg Capsule PO 100 mg BID BETITO Administration Hydrochlorothiazide 25 mg 05/06/25 09:00 05/07/25 08:06 Hydrochlorothiazide 25 Mg Tablet PO 25 mg DAILY BETITO Administration Hydromorphone HCl 0.5 mg 05/05/25 13:37 05/06/25 10:59 Hydromorphone Hcl Inj (*Crx) 1 Mg/Ml Syr IV PUSH 0.5 mg Q4H PRN Administration Pain Rated 7-10 Ketorolac Tromethamine 15 mg 05/05/25 15:00 05/07/25 08:08 Ketorolac 15 Mg/Ml Vial (*Bkc) IV PUSH 15 mg Q6H BETITO Administration Ondansetron HCl 4 mg 05/05/25 13:37 Ondansetron Inj 4 Mg/2 Ml Vial IV PUSH Q4H PRN Nausea Oxycodone HCl 5 mg 05/05/25 18:20 05/06/25 17:34 Oxycodone Hcl (*Crx) 5 Mg Tab Ir PO 5 mg Q6H PRN Administration PAIN RATED 7-10 Tamsulosin HCl 0.4 mg 05/06/25 09:00 05/07/25 08:06 Tamsulosin Hcl 0.4 Mg Capsule PO 0.4 mg DAILY BETITO Administration Radiology Results: ITS Impressions Abdomen/Pelvis CT 05/05/25 12:03 IMPRESSION: 1. No significant change in bilateral nephrolithiasis with 5 mm at least partially obstructing stone at the proximal right ureter with mild right hyd ronephrosis. Chest X-Ray 05/05/25 17:14 IMPRESSION: No acute cardiopulmonary process. Quality VTE Prophylaxis VTE prophylaxis: mechanical ordered
--- NOTE | 2025-05-07 12:37 | P.DS_ITS ---
DS: Admitting Diagnosis Discharge Date 05/07 Admitting Diagnosis kidney stone DS: Discharge Diagnosis Discharge Diagnosis (1) Hydronephrosis concurrent with and due to calculi of kidney and ureter: Code(s): N13.2 - Hydronephrosis with renal and ureteral calculous obstruction Status: Acute (2) Ureterolithiasis: Code(s): N20.1 - Calculus of ureter Status: Acute (3) Hypoxia: Code(s): R09.02 - Hypoxemia Status: Acute (4) Atrial fibrillation: Code(s): I48.91 - Unspecified atrial fibrillation Status: Acute (5) Hyperglycemia: Code(s): R73.9 - Hyperglycemia, unspecified Status: Acute (6) Dyslipidemia: Code(s): E78.5 - Hyperlipidemia, unspecified Status: Acute (7) Coronary artery disease: Code(s): I25.10 - Atherosclerotic heart disease of [place] coronary artery without angina pectoris Status: Acute (8) Hypertension: Code(s): I10 - Essential (primary) hypertension Status: Acute DS: Summary Hospital Course Hospital Course: 70-year-old male history of CAD, AFib on anticoagulation, presents the hospital with right flank and abdominal pain. Patient states that his right flank pain into the abdomen has increased overnight I presented back to the hospital because he is no longer able to tolerate the pain at home. Patient denies history of CHF. Patient did present to the emergency room yesterday with similar complaints found to have a 4.5 mm proximal right ureteral stone and right hydronephrosis and hydroureter, after IV fluids and pain management patient wanted to go home and try to pass the stone follow-up with Urology outpatient verses being admitted to the hospital for pain management and Neurology consult. With recommendations to come back into the emergency room if pain was not controlled. Patient denies nausea vomiting fever chills. consulted. Cystoscopy, right retrograde pyelogram, right ureteroscopy, right stent placement on 05/[address] Lovell. Tolerated well. Stable for discharge. Restart xarelto 48-72 h post procedure. Urology office will call for f/u instructions. Hga1c 6.8. pt never been on any meds. Discussed in details and he is agreeable to start Metformin. 500 mg daily x 1 week, then increase to 500 mg BID. hga1c/cmp need sot be repeated in 2-3 months Status at Discharge Functional status at discharge: independent ambulation Overall status at discharge: patient is progressing back to baseline Time Spent with Patient Time attestation: Total time spent providing and/or coordinating discharge services: Time spent: Greater than 30 minutes Exam Narrative: General: Chronically ill, no acute distress ,calm, quiet HEENT: normocephalic, atraumatic. Mucous membranes moist. EOMI, PERRLA, bilateral sclera anicteric, no conjunctival injection. Neck supple without JVD, lymphadenopathy, or bruit. Respiratory: Diminished to ascultation bilaterally. No rales/rhonic/wheezes. Cardiovascular: Regular rate and rhythm, normal S1-S2 upon ascultation. No murmurs, rubs, or clicks. PMI is nondisplaced, capillary refill less than 3 second. Abdomen: Obese, round, no pulsatile masses, nondistended and nontender. No rebound, no guarding. No CVA tenderness, no hepatosplenomegaly. Bowel sounds present to all four quadrants. No high pitch or tinkling sounds, resonant to percussion. Extremities: No cyanosis, clubbing, Pulses are palpable 2/2. Active ROM to all four extremities. 2+ edema to mid messer Neuro: Alert and orientated x 4. PERRLA. Cranial nerves 2-12 intact without focal deficit. Skin: Warm, dry, and intact, without rash, erythema, or lesion. Psych: pleasant, cooperative, normal speech, normal affect, no hallucinations, no dysarthia Patient 2 L oxygen Const: General: comfortable Discharge Plan Discharge Attending physician on discharge: Harpal Lao Consulting providers: Darrell Padilla Discharging Clinician: Angelina Diaz Patient Disposition: Home Activity: january shower Diet: diabetic Discharge Instructions: You were admitted with right flank and abdominal pain. consulted. Cystoscopy, right retrograde pyelogram, right ureteroscopy, right stent placement on 05/[address] Lovell. Tolerated well. Stable for discharge. Restart xarelto 48-72 h post procedure- so restart xarelto on 05/09 (48 h after procedure) Urology office will call for f/u instructions. Hga1c 6.8. As we discussed in details and he is agreeable to start Metformin. 500 mg daily x 1 week, then increase to 500 mg twice a day. You will need hga1c and kidney function recheck in 2-3 months after starting metfromin. Please clean your diet- avoid soda, juices, drink water instead. Eat smaller portions, avoid fried, high calorie foods, avoid sweets. Prioritize lean protein, grains, fruits and veggies. Lose weight- even 10% reduction in weight will be beneficial, and add exercise to your day- walking is a great start. Patient Instructions: Antibiotic Form, Meal Planning with Diabetes Exchanges (GEN), Type 2 Diabetes Management for Adults (GEN) Patient Language: Ukrainian Stand Alone Forms: General Discharge Information Follow-up/Referrals: Angel Luis Lovell MD [Physician] - 2 Weeks (urology office will call with jenn time/instructions) Darrell Padilla MD [Physician] - 2 Weeks PHYSICIAN,CEILING INSULATION BLOWER [Primary Care Provider] - 2 Weeks Discharge Medications: New metformin [Glucophage XR] 500 mg tablet extended release 24 hr 500 mg PO BID Qty: 90 0RF Rx Instructions: please take 500mg daily for 1 week, then increase to twice a day Continued atorvastatin 40 mg tablet 80 mg PO DAILY lisinopril 5 mg tablet 5 mg PO DAILY hydrochlorothiazide 25 mg tablet 25 mg PO DAILY aspirin [Children's Aspirin] 81 mg Tablet,Chewable 81 mg PO DAILY@0800 Qty: 30 0RF amiodarone [Pacerone] 200 mg Tablet 200 mg PO Q24H diphenhydramine HCl 25 mg capsule 25 mg PO TID PRN (Reason: allergic reaction) Qty: 14 0RF famotidine 20 mg tablet 20 mg PO BID Qty: 14 0RF tamsulosin [Flomax] 0.4 mg capsule 0.4 mg PO DAILY Qty: 7 0RF ondansetron 4 mg tablet,disintegrating 4 mg PO Q8H PRN (Reason: nausea and vomiting) Qty: 15 0RF oxycodone 5 mg tablet 5 mg PO Q6H PRN (Reason: pain) Qty: 15 0RF amlodipine 5 mg tablet 5 mg PO DAILY carvedilol [Coreg] 3.125 mg Tablet 6.25 mg PO Q12HR Held Xarelto 20 mg tablet 20 mg PO DAILY Hold Instructions: Resume on 05/09/25. Rx Instructions: must administer with evening meal Discontinued Eliquis 5 mg Tablet 5 mg PO Q12HR Qty: 30 0RF prednisone 20 mg tablet 40 mg PO DAILY Qty: 10 0RF Date of admission: 05/05/25 13:37 Primary Care Provider: PHYSICIAN,CEILING [employer]ATION [employer]OWER Admitting Provider: Panfilo Salazar Attending physician on admission: Panfilo Salazar Condition: Stable Quality VTE Prophylaxis VTE prophylaxis: mechanical ordered
== END 2025-05-07 13:33 | disposition home or self-care (01) ==
LOC: ANHED 13:45 → ANH2MED 05-06 05:39
PROVIDERS: Nurse Practitioner Gerontology; Urology; Admitting Provider General Practice; Emergency Provider Family Medicine; Visit Provider Family Medicine
PROC: (CPT 52352; principal; 2025-05-06 08:00)
DX: N13.2 Hydronephrosis with renal and ureteral calculous obstruction (principal); R09.02 Hypoxemia; R73.9 Hyperglycemia, unspecified; I10 Essential (primary) hypertension; I48.91 Unspecified atrial fibrillation; Z79.01 Long term (current) use of anticoagulants; I25.10 Atherosclerotic heart disease of native coronary artery without angina pectoris; Z87.891 Personal history of nicotine dependence; E78.5 Hyperlipidemia, unspecified; E66.01 Morbid (severe) obesity due to excess calories; Z68.43 Body mass index [BMI] 50.0-59.9, adult
CPT/HCPCS: 52332; 36415; 71045; 74176; 74420; 80048; 80053; 81001; 82948; 83036; 85025; 86850; 86900; 86901; 93005; 96374; 96375; 96376; 99285; J0690; A9270; C1769; C2617; G0378; J1171; J1885; J2003; J2250; J2270; J2405; J2704; J3010; J7030; J7120; Q9966

== ENCOUNTER 2025-05-17 00:53 | Day surgery (SDC) | payer MEDICARE, SELFPAY ==
--- NOTE | 2025-05-14 09:33 | PC.NURSE ---
Report to the Outpatient Waiting Room, entrance under the green pavilion located off [facility], at time _6 AM on date __05/17/25 . Planned Procedure Time: __7:30 AM .? Time changes happen often and if your time is changed the preop area will call you the afternoon before. - You and your visitor will be asked to self-screen and do not enter if you have any COVID symptoms. Please call surgeon if you need to reschedule. - A mask is optional within the hospital at this time. Patients may have clear liquids (water, carbonated beverages, clear teas, apple juice) until 3 hours prior to surgery ( 4:30 AM)with a maximum of 20 ounces. - No food from midnight until time of surgery and no smoking, or chewing tobacco (or any form of nicotine). No chewing gum, candy or mints. Take only the following medications with a SIP of water on the morning of surgery: ___AMIODARONE,AMLODIPINE,CARVEDILOL DO NOT STOP ANY OF YOUR OTHER PRESCRIPTION MEDICATIONS PRIOR TO SURGERY EXCEPT THE FOLLOWING Hold all vitamins and supplements for 3 days per anesthesiologist. Medications to discontinue per physician __WIFE STATES _LAST DOSE ASPIRIN WAS 05/12/25. XARELTO PER DR HUNTER. STATES (DR HUNTER) WAS CHECKING WITH HIS BUTTERMILK DRIER OPERATOR AND WILL CALL HIM BACK WHEN TO HOLD XARELTO Date to take last dose Please no make-up, nail turkmen, hairspray, perfume, deodorant, or body powder the day of surgery.? No jewelry (including any body piercings) or valuables the day of surgery, leave them at home.? Please take a shower or bath the night before, or the morning of, surgery with an antibacterial soap.? Wear comfortable, loose fitting clothing.? Children are encouraged to wear pajamas. - Jewelry must be removed prior to entering the operating room.? Rings and piercings that are not removed may be cut off. - The hospital will not accept responsibility for valuables.? - Please leave all valuables, including medications, at home the day of surgery. If you are going home after surgery, a licensed racecar driver must drive you home.? - NO public transportation without another adult if you receive anesthesia. - We recommend that an adult stay with you for 24 hours following discharge. - We also recommend that you do not drive, make important decision, drink alcoholic beverages, or take any drugs that were not prescribed by your health care provider for at least 24 hours after your discharge time. For Pediatric surgeries, we recommend two adults accompany the child home. Follow any additional instructions given to you from your surgeon. Telephone instructions given to __WIFE SIM and asked if any additional questions and then verbalized understanding. Patient advised to call surgeon office or pre surgery nurse liaison [phone] if any additional questions.
[2025-05-14 10:51] VITALS: BMI 47.0
--- NOTE | 2025-05-16 18:43 | PM.HPGS ---
History of Present Illness History of Present Illness Consent: Risks, benefits, and alternatives have been discussed and questions answered. Patient agrees to proceed with procedure. Chief complaint: Right Ureteral Stone Narrative: Krishna Armando is a 70 year old male who was in the emergency department on 05/06/2025 with a 5 mm right proximal ureteral stone. My partner, Dr. Angel Luis paz, placed a right ureteral stent. He now presents for definitive ureteroscopy with endoscopic stone management. We discussed risk including, not limited to, persistent fragments of that require additional treatment, hematuria, ureteral injury, ureteral stricture Review of Systems Cardiovascular: Cardiovascular: Denies chest pain, Denies lightheadedness, Denies palpitations and Denies dyspnea Respiratory: Respiratory: Denies dyspnea Gastrointestinal: Gastrointestinal: Denies diarrhea, Denies nausea and Denies vomiting Genitourinary: Genitourinary: Denies hematuria and Denies dysuria Endocrine: Endocrine: Denies palpitations REPLACED BY [facility] Past Medical History Medical History (Updated 05/16/25 @ 16:10 by Rober Pollock DO) Diabetes type 2, controlled Chest pain Morbid obesity with BMI of 50.0-59.9, adult Hypersomnia Dyslipidemia Atrial fibrillation with rapid ventricular response 08/22/2024 new onset. spontaneously converted. maintained on amiodarone & Xarelto Hypertension Atrial fibrillation Coronary artery disease 2015 [place], stent X 2 Family History Family History Mother Pancreatic cancer Sibling Breast cancer Grandparent Breast cancer Father Acute myocardial infarction Social History Social History Smoking packs per day: 1 Smoking cigarettes per day: 20.0 Years smoked: 20 Smoking pack-years: 20.00 Smoking status: Former smoker Tobacco type: cigarettes Smoking end date: 09/20/04 Alcohol intake: never Substance use: never Substance use type: does not use Do You Feel Safe in your Home?: Yes Lack of Transportation: No Lack of Food: Never True Current Housing: I Have Housing Concerned About Future Housing: No Difficulty Paying Gas/Electric Bills: No Difficulty Paying for Meds: No Currently Unemployed: No Education: Associate Degree Difficulty w/ Childcare or Family Care: No Living arrangements: with family Gender identity (if verbalized by the patient): Male Spiritual care concerns: No Meds Home Medications and Allergies Home Medications ?Medication ?Instructions ?Recorded ?Confirmed ?Type atorvastatin 40 mg tablet 80 mg PO DAILY 01/13/21 05/14/25 History hydrochlorothiazide 25 mg tablet 25 mg PO DAILY 01/13/21 05/14/25 History lisinopril 5 mg tablet 5 mg PO DAILY 01/13/21 05/14/25 History aspirin 81 mg chewable tablet 81 mg PO DAILY@0800 #30 tabs 08/24/24 05/14/25 Rx (Children's Aspirin) amiodarone 200 mg tablet (Pacerone) 200 mg PO Q24H 10/27/24 05/14/25 History diphenhydramine HCl 25 mg capsule 25 mg PO TID PRN allergic reaction 10/27/24 05/14/25 Rx #14 caps famotidine 20 mg tablet 20 mg PO BID #14 tabs 10/27/24 05/14/25 Rx rivaroxaban 20 mg tablet (Xarelto) 20 mg PO DAILY afib 10/27/24 05/14/25 History Held on 05/07/25. Instructions: Resume on 05/09/25. ondansetron 4 mg disintegrating 4 mg PO Q8H PRN nausea and 05/04/25 05/14/25 Rx tablet vomiting #15 tabs oxycodone 5 mg tablet 5 mg PO Q6H PRN pain #15 tabs 05/04/25 05/14/25 Rx tamsulosin 0.4 mg capsule (Flomax) 0.4 mg PO DAILY #7 caps 05/04/25 05/14/25 Rx amlodipine 5 mg tablet 5 mg PO DAILY 05/05/25 05/14/25 History carvedilol 3.125 mg tablet (Coreg) 6.25 mg PO Q12HR 05/05/25 05/14/25 History metformin 500 mg tablet,extended 500 mg PO BID #90 tabs 05/07/25 05/14/25 Rx release 24 hr (Glucophage XR) Allergies Allergy/AdvReac Type Severity Reaction Status Date / Time Sulfa (Sulfonamide Allergy Hives Verified 05/14/25 09:47 Antibiotics) lisinopril AdvReac Unknown HIVES AND Verified 05/14/25 09:47 LIP SWELLING Exam Const: General: no acute distress Resp: Effort & Inspection: normal respiratory effort GI: Inspection: non-distended GI Palp: No abdominal tenderness and No Guarding due to palpation present (GI) Auscultation: normal bowel sounds Assessment and Plan Assessment and plan (1) Ureterolithiasis: Code(s): N20.1 - Calculus of ureter Status: Acute Assessment and Plan: Cystoscopy, right ureteroscopy with laser lithotripsy, stone extraction with possible retrograde pyelography and stent replacement
[2025-05-17] VITALS (8 sets, daily range): BP systolic 104–161; BP diastolic 55–85; PULSE 60–67; RESP 16–22; TEMP 36.8–36.9; O2SAT 92–100; BMI 49.8
--- NOTE | ~2025-05-17 | XR_ITS ---
EXAMINATION: XR retrograde pyelo w/stent RT DATE: 05/17/2025 08:04 INDICATION: Right internal ureteral stent placement TECHNIQUE: Fluoroscopic images from a right internal ureteral stent placement are submitted for review. 54 seconds of fluoroscopy time. FINDINGS: There is a right double-J internal ureteral stent projecting in expected position, with proximal Crestline loop at the level of the renal pelvis and distal loop in the pelvis within the bladder lumen. IMPRESSION: 1. Right internal ureteral stent placement. Please refer to real-time procedural findings for details. Reviewed, dictated and finalized at location O. IMPRESSION: 1. Right internal ureteral stent placement. Please refer to real-time procedu ral findings for details.
--- NOTE | 2025-05-17 06:03 | WPDHPUPDATE1 ---
History and Physical Update Update Date/Time: 05/17/25 06:03 History and Physical has been reviewed, including an updated exam of the patient. There are NO changes in the patient's condition. Risks, benefits, and alternatives have been discussed and questions answered. Patient agrees to proceed with procedure.
--- NOTE | 2025-05-17 06:51 | P.PNAN_ITS ---
Anes - Initial Pre Proc Eval Procedure: Operation Date: 05/17/25 07:30 Proposed Procedures p Cystoscopy, Right Ureteroscopy, Right Retrograde Pyelogram, Holmium Laser Lithotripsy, Right Stone Extraction, Possible Right Stent Removal / Placement - Leo Boss MD Date/Time: 05/17/25 06:51 Surgeon: Leo Boss MD Pre Op Diagnosis: Right Ureteral Stone Patient Data Age: 70 Gender: M Height: 1.7 m Weight: 144.5 kg Last Vital Signs Temp 36.9 C 05/17/25 06:00 Pulse 67 05/17/25 06:00 Resp 18 05/17/25 06:00 BP 123/73 05/17/25 06:00 Pulse Ox 95 05/17/25 06:00 O2 Del Method Room Air 05/17/25 06:00 Allergies Allergy/AdvReac Type Severity Reaction Status Date / Time Sulfa (Sulfonamide Allergy Hives Verified 05/17/25 06:23 Antibiotics) lisinopril AdvReac Unknown HIVES AND Verified 05/17/25 06:23 LIP SWELLING Home Medications ?Medication ?Instructions ?Recorded ?Confirmed ?Type atorvastatin 40 mg tablet 80 mg PO DAILY 01/13/2104/21 History hydrochlorothiazide 25 mg tablet 25 mg PO DAILY 05/14/25 History aspirin 81 mg chewable tablet 81 mg PO DAILY@0800 #30 tabs 08/24/24 05/17/25 Rx (Children's Aspirin) amiodarone 200 mg tablet (Pacerone) 200 mg PO Q24H 04/1305/17/25 History diphenhydramine HCl 25 mg capsule 25 mg PO TID PRN all ergic reaction 10/27/24 05/14/25 Rx #14 caps rivaroxaban 20 mg tablet (Xarelto) 20 mg PO DAILY afib 10/27/24 05/17/25 History Held on 05/07/25. Instructions: Resume on 05/09/25. ondansetron 4 mg disintegrating 4 mg PO Q8H PRN nausea and 05/04/25 05/14/25 Rx tablet vomiting #15 tabs oxycodone 5 mg tablet 5 mg PO Q6H PRN pain #15 tab s 08/15/25 08/25/25 Rx amlodipine 5 mg tablet 5 mg PO DAILY 05/05/2505/17 History carvedilol 3.125 mg tablet (Coreg) 6.25 mg PO Q12HR 05/17/25 History metformin 500 mg tablet,extended 500 mg PO BID #90 tab s 05/07/25 05/14/25 Rx release 24 hr (Glucophage XR) Laboratory Tests 05/17/25 06:38 POC Capillary Glucose 116 H mg/dl (65-105) Patient hx anesthesia problems: none Family hx anesthesia problems: none Results Review: All pre-operative results and documents have been reviewed as part of the pre- operative evaluation. [facility] Past Medical History Medical History (Updated 05/16/25 @ 16:10 by Rober Pollock DO) Diabetes type 2, controlled Chest pain Morbid obesity with BMI of 50.0-59.9, adult Hypersomnia Dyslipidemia Atrial fibrillation with rapid ventricular response 08/22/2024 new onset. spontaneously converted. maintained on amiodarone & Xarelto Hypertension Atrial fibrillation Coronary artery disease 2015 [place], stent X 2 Family History Family History Mother Pancreatic cancer Sibling Breast cancer Grandparent Breast cancer Father Acute myocardial infarction Social History Social History Smoking packs per day: 1 Smoking cigarettes per day: 20.0 Years smoked: 20 Smoking pack-years: 20.00 Smoking status: Former smoker Tobacco type: cigarettes Smoking end date: 09/20/04 Alcohol intake: never Substance use: never Substance use type: does not use Do You Feel Safe in your Home?: Yes Lack of Transportation: No Lack of Food: Never True Current Housing: I Have Housing Concerned About Future Housing: No Difficulty Paying Gas/Electric Bills: No Difficulty Paying for Meds: No Currently Unemployed: No Education: Associate Degree Difficulty w/ Childcare or Family Care: No Living arrangements: with family Gender identity (if verbalized by the patient): Male Spiritual care concerns: No Anes - Eval Final PreProcedure Day of Procedure 05/17/25 06:51 Patient weight: morbidly obese Heart: regular rate and rhythm Lungs: clear to auscultation Airway: Mallampati scale class II Neurological: alert and oriented Last oral intake: >/= 8 hours ASA classification: III Emergent: no Anesthetic plan: proceed Anesthesia type and monitoring: general LMA and standard monitoring Results Review: All pre-operative results and documents have been reviewed as part of the pre- operative evaluation. Informed Consent: The patient's anesthetic plan and its attendant risks and benefits were discussed with the patient/family/POA. Questions were solicited and answers provided to the satisfaction of the patient/family/POA.
[2025-05-17] MEDS: ceFAZolin 3 GM/D5W 100 ML 100 ML IVPB (07:18)
[2025-05-17] MEDS: LIDOCAINE 2% GEL UROJET 10 ML PKG MUCOUS MEM (07:43)
--- NOTE | 2025-05-17 07:53 | S_PTH ---
PATIENT: Krishna Armando LOC: [facility] U#:[id number] AGE/SX: 70/M ROOM: RE05/17/[address]: Leo Boss MD : 1955 BED: DIS: 05/17/2025 SPEC #: [id number] RECD: 05/17/25 10:26 STATUS: AL REQ #: [id number] BENITA: 05/17/25 07:[address]: Leo Boss DEPT: [facility] Surgical RECD BY: Lena Reynolds ENTERED: 05/17/25 10:26 SP TYPE: Surgical OTHR DR: PERSONAL LINES ADVISOR PHYSICIAN Tissues: A - Stone Procedures: Gross Exam Level 1 Crystalline Analysis
[2025-05-17] MEDS: LACTATED RINGERS 1,000 ML 30 ML IV CONT ×2 (08:08→08:45)
--- NOTE | 2025-05-17 08:10 | W.PM.PROC2 ---
Procedure Note - Detailed Date of Procedure 05/17/25 Pre-op Diagnosis Right Ureteral Stone Post-op Diagnosis Same Procedure Performed Cystoscopy, right ureteral stent removal, right ureteroscopy with laser lithotripsy, stone extraction and ureteral stent replacement Surgeon Leo Boss MD Anesthesia General Description of Procedure Patient is brought to the operative suite where he was prepped and draped in routine sterile fashion while in dorsal lithotomy position after the uneventful induction of a general LMA anesthetic. Cystoscopy was undertaken with a 19 F rigid cystoscope. Tip of the indwelling stent is grasped and the stent is brought to the external urethral meatus. A 0.035 in glidewire was advanced into the renal pelvis. Distal ureter was dilated with an 8 F 10 F dilator. The safety wire was placed followed by in the 11 F/13 F ureteral access sheath. Ureteroscopy was undertaken with a 7.5 F flexible ureteral scope. Is right mid ureteral stone remains impacted with significant ureteral edema in the mid ureter. Using a 200 micron Rajinder laser fiber I fractured the stone into several small pieces, all of which were extracted with a 1.9 F disposable stone basket. I replaced a 4.8 F variable length stent with the proximal coil in renal pelvis and distal coil in the bladder. Scopes and wires were removed and he was taken recovery room good condition. Drains Yes Pathology Yes Complications No immediate complications
[2025-05-17] MEDS: oxyCODONE HCL (*CRX) 5 MG TAB IR PO (09:15)
== END 2025-05-17 09:53 | disposition home or self-care (01) ==
PROVIDERS: Visit Provider Urology
PROC: (CPT 52352; principal; 2025-05-17 07:30)
DX: N20.1 Calculus of ureter (principal); E11.9 Type 2 diabetes mellitus without complications; Z87.891 Personal history of nicotine dependence; E66.01 Morbid (severe) obesity due to excess calories; Z68.42 Body mass index [BMI] 45.0-49.9, adult
CPT/HCPCS: 52356; 74420; 82365; 82948; 88300; A9270; C1769; C1894; C2617; J0690; J1100; J2405; J2704; J3010; J7120; Q9966

== ENCOUNTER 2025-05-25 04:49 | Emergency (ER) | payer MEDICARE, SELFPAY ==
--- OUTSIDE RECORDS SUMMARY | 2024-06-14 04:45 | XMS_ITS ---
Author Organization [facility] Address [address], [place] [id number] Care Team Providers Care Produce Service Team Member Name Role Phone DAFNE DYWER Primary Care Provider [phone] REASON FOR VISIT annual check up/allergies/rash Encounters Encounter Location Date Provider Diagnosis [facility] [address], [place] [id number] 06/14/2024 DAFNE DWYER Plan Of Treatment No Information Progress Notes * Krishna ARMANDO EDOB:1955 (70 yo M)Acc No.[id number]:06/14/2024 Progress Notes Patient: Suleiman OBRIENy Delia Provider: Sharon DWYER MD :1955 A ge:69 Y S ex:Male Date:06/14/2024 Address[place] [id number] Subjective: * Chief Complaints: * 1 . Annual check up/allergies/rash. * Medical History: Objective: * Vitals: Assessment: Plan: * Treatment: * Images: * Electronic signature of DAFNE DWYER MD on 05/25/2025 at 05:40 AM CDT Sign off status: Pending * Provider: Sharon DWYER MD Date: 06/14/2024 Generated for Dericki angy/Catalino/eTransmitting on: 05/25/2025 05:40 AM CDT
--- OUTSIDE RECORDS SUMMARY | 2024-06-28 08:45 | XMS_ITS ---
Author Organization [facility] Address [address], [place] [id number] Care Team Providers Care Commercial Intern Name Role Phone DAFNE DWYER Primary Care Provider [phone] REASON FOR VISIT annual visit Encounters Encounter Location Date Provider Diagnosis [facility] [address], [place] [id number] 06/28/2024 DAFNE DWYER Plan Of Treatment No Information Progress Notes * Krishna ARMANDO EDOB:1955 (70 yo M)Acc No.[id number]:06/28/2024 Progress Notes Patient: Krishna OBRIEN Provider: Sharon DWYER MD :1955 A ge:69 Y S ex:Male Date:06/28/2024 Address[place] [id number] Subjective: * Chief Complaints: * 1 . Annual visit. * Medical History: Objective: * Vitals: Assessment: Plan: * Treatment: * Images: * Electronic signature of DAFNE DWYER MD on 05/25/2025 at 05:39 AM CDT Sign off status: Pending * Provider: Sharon DWYER MD Date: 1 Generated for Shruti travis/Catalino/Elliotitting on: 0 05/25/2025 05:39 AM CDT
--- NOTE | ~2025-05-25 | CT_ITS ---
EXAMINATION: CT abdomen pelvis w con DATE: 05/25/2025 06:13 INDICATION: Nausea, vomiting and constipation. TECHNIQUE: Computed tomography (CT) of the abdomen and pelvis was performed with 100 mL Omnipaque-350 intravenous contrast. Automated exposure control and iterative reconstruction technique were employed. The dose-length product was 1866.58 mGy-cm. COMPARISON: 05/05/2025 and 01/09/2021 FINDINGS: Mild dependent atelectasis in the bilateral lower lobes. Heart size is normal. Atherosclerotic coronary artery calcification is. No pericardial or pleural effusion. Unchanged 2.4 cm subdermal cystic lesion most likely an epidermoid/sebaceous cyst. Diffuse hepatic steatosis. Gallbladder, spleen, pancreas, bilateral adrenal glands are normal. 1.5 cm left renal cyst. 4 mm nonobstructing stone at a lower pole calyx of the right kidney. There are couple small regions of decreased cortical enhancement scattered throughout the right kidney suspicious for pyelonephritis. Right internal ureteral stent with p roximal loop in the pelvis and a middle calyx of the right kidney and distal loop in the normal bladder. 2 mm stone along side the internal ureteral stent at the proximal to mid right ureter at the level of L4. No hydronephrosis. There are few scattered clonic diverticula without adjacent from trace stranding to suggest diverticulitis. Bowels are normal. No free intraperitoneal gas or fluid. No pathologically enlarged abdominal or pelvic lymphadenopathy. Left total hip arthroplasty. Mild to moderate lumbar and lower thoracic spondylosis with bridging osteophytes at multiple levels consistent with diffuse idiopathic skeletal hyperostosis (DISH). IMPRESSION: 1. Geographic regions of decreased cortical enhancement in the right kidney suspicious for pyelonephritis. Correlate with urinalysis. 2. 4 mm nonobstructing right renal stone and 2 mm stone in the right ureter alongside a right internal ureteral stent in expected position. No hydronephrosis. Reviewed, dictated and finalized at location A. IMPRESSION: 1. Geographic regions of decreased cortical enhancement in the right kidney lisseth picious for pyelonephritis. Correlate with urinalysis. 2. 4 mm nonobstructing right renal stone and 2 mm stone in the right ureter little ngside a right internal ureteral stent in expected position. No hydronephrosis.
[2025-05-25 05:03] VITALS: BP 118/105; PULSE 77; RESP 20; O2SAT 94
[2025-05-25] MEDS: ONDANSETRON INJ 4 MG/2 ML VIAL IV PUSH (05:33)
[2025-05-25 05:39] LABS: Hematocrit 40.9 % (42.0-52.0); Hemoglobin 13.8 g/dL (14.0-18.0); Immature Granulocyte Percent A 0.9 % (0-0.5); Lymphocytes Absolute Auto 0.59 K/mm3 (0.9-3.2); Mean Corpuscular HGB Conc 33.7 g/dl (32-36); Mean Corpuscular Hemoglobin 30.8 pg (26-34); Mean Corpuscular Volume 91.3 fl (80-100); Nucleated Red Blood Cells Absolute Auto 0.000 K/mm3 (0.0-0.012); Nucleated Red Blood Cells Perc 0.0 % (0.0-0.2); Platelet Count Result 182 k/mm3 (150-375); Red Blood Count 4.48 M/mm3 (4.6-6.20); White Blood Count 15.5 K/mm3 (4.5-10.0)
--- OUTSIDE RECORDS SUMMARY | 2025-05-25 05:40 | XMS_ITS | Clinical Summary ---
Author Organization [employer] [facility] Address [address] [place] [address] Phone Care Team Providers Care Bakery Chef Name Role Phone Sanjay Mcwilliams MD Primary Care Provider [phone] Medications * This document contains information received [...] on file Medical Devices Implanted Type Area Binder Stripper Hand Device Identifier Shelf Expiration Date Model / Serial / Lot Acet Shell R3 3h 60mm - [id number] Implanted:06/20 (Quantity not on file) Left: Hip [employer]IDER [employer] NE[employer] INC [id number] 12/26/2031 [id number] / / [id number] Fem Head 09/02 Oxnm 28mm +8 - [id number] Implanted:06/20 (Quantity not on file) Left: Hip Sova [employer] NEP[employer] INC [id number] 08/16/2031 [id number] / / [id number] Or 30 Degree Dual Mobility Insert Implanted:06/20 (Quantity not on file) Left: Hip HAIDER AND NEPHEW ORTHO [id number] 03/15/2031 [id number] / / [id number] Or 30 Degree Dual Mobility Liner Implanted:06/20 (Quantity not on file) Left: Hip HAIDER AND NEPHEW ORTHO [id number] 03/30/2031 [id number] / / [id number] Pwdr Hemoabsorb Jenna 3gm - [id number] Implanted:06/20 (Quantity not on file) Left: Hip [employer] INC [id number] 03/17/2027 [id number] / / [id number] Redapt Femoral Standard Offset Implanted:06/20 (Quantity not on file) Left: Hip HAIDER AND NEPHEW ORTHO [id number] 12/22/2029 [id number] / / [id number] Care Teams Bakery Chef Relationship Specialty Start Date End Date Sanjay Mcwilliams MD [address] [place] [address] [facility] - General 06/25/22
--- OUTSIDE RECORDS SUMMARY | 2025-05-25 05:40 | XMS_ITS | Patient Health Record ---
Author Organization [facility] Address [address] [place], [place] [address] Care Team Providers Care Slice Plug Cutter Operator Name Role Phone DAFNE DWYER Primary Care Provider GILMAR GALAN Unavailable [phone] Allergies Allergen (clinical drug ingredient) Drug/Non Drug [...] Problem Status W/U Status Risk Notes Problem 435422074 Impaired fasting glucose (R73.01) Active confirmed Problem Essential hypertension (53583656) Essential (primary) hypertension (I10) Active confirmed Problem Morbid obesity (706970525) Morbid obesity with BMI of 40.0-44.9, adult (E66.01) Active confirmed Problem 546825331 Atherosclerotic heart disease of [place] coronary artery without angina pectoris (I25.10) Active confirmed Problem 388364982 Mixed hyperlipidemia (E78.2) Active confirmed Problem 432510686475805 Primary osteoarthritis of left hip (M16.12) Active confirmed Problem 607587767 History of [place] (myocardial infarction) (I25.2) Active confirmed Encounters Encounter Location Date Provider Diagnosis [facility] Primary [facility] [address] [place] [address] 08/16/2024 DAFNE DWYER [facility] [address] [place], [place] [id number] 11/01/2024 GILMAR GALAN Plan Of Treatment No Information Medical (General) History Medical History History ICD Code Essential (primary) hypertension I10 Morbid obesity with BMI of 40.0-44.9, ad ult E66.01 Mixed hyperlipidemia E78.2 Atherosclerotic heart diseas e of [place] coronary artery without angina pectoris I25.10 History of [place] (myocardial infarction) I2 5.2 Impaired fasting glucose R73.01 Primary osteoarthritis of left hip M16.1 2 Surgical History Surgery Date(Month/Year) Scientologist-Left Hip Replacement-Dr. Hernandez jone July 02, 2022 stents in heart: 80% occluded Hospitalization History Reason Date(Month/Year) heart attack
--- OUTSIDE RECORDS SUMMARY | 2025-05-25 05:40 | XMS_ITS | Encounter Summary ---
Author Organization [facility] Address [address] [facility] [place] [address] Phone Care Team Providers Care Uptwister Tender Name Role Phone Provider, None Primary Care Provider Emily Lam APRN, MECHANICAL STRIPER Unavailable [phone] Reason for Visit * Reason Comments Medication Refill Plavix- patient requ ires 90 day supply Encounter Details Date Type Department Care Team (Late st Contact Info) Description 05/13/[address] [facility] [place] - Card[facility] - [facility] [address] [place] [address] Rj Kern MD [address] [place], [place] [address] Medication Refill (Plavix- patient requires 90 day [...] Office Visit Best Stone MD [facility] [place] Showing recent visits within past 548 days and meeting all other requirements Future Appointments No visits were found meeting these conditions. Showing future appointments within next 90 days and meeting all other requirements documented in this encounter Plan of Treatment Upcoming Encounters Date Type Department Care Team (Late st Contact Info) Description 10/18/2025 9:15 AM COPYMAN Office Visit [facility] Cardiovascular [place] - Cardiology - [facility] [address] [place] [address] Leyda Brooks APRN, MECHANICAL STRIPER [address] [place] [address] documented as of this encounter Visit Diagnoses Diagnosis Coronary artery disease involving [place] coronary artery of diomede heart without angina pectoris ST elevation myocardial infarction involving right coronary artery (HCC) Acute myocardial infarction of inferoposterior wall, initial episode of care documented in this encounter Care Teams Uptwister Tender Relationship Specialty Start Date End Date Provider, None [place] PCP - General 06/20/15 Emily Knight APRN, MECHANICAL STRIPER [address] [place] [address] Nurse Practitioner Advanced Practice Nurse 12/05/24 documented as of this encounter
--- OUTSIDE RECORDS SUMMARY | 2025-05-25 05:40 | XMS_ITS | Clinical Summary ---
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 Gender Identity Not on file Sexual Orientation [...] ss (AWV) 03/20/2023 COVID-19 Vaccine (3 - 2024-2 6 season) 2025 03/11/2021, 02/04/2021 Influenza Vaccine (#1) 2025 RSV [...] Nam APN Medical Devices Implanted Type Area Drinking Water Technician Device Identifier Shelf Expiration Date Model / Serial / Lot Pwdr Hemoabsorb Jenna 3gm - [id number] Implanted:Qty: 1 on 07/02/2022 by Myles Simeon MD at [facility] Left: Hip BARD ACCESS SYSTEM[employer] I [id number] 03/17/2027 [id number] / / [id number] Or 30 Degree Dual Mobility Liner Implanted:Qty: 1 on 07/02/2022 by Myles Simeon MD at [facility] Left: Hip HAIDER \T\ NEPHEW ORTHO [id number] 03/30/2031 [id number] / / [id number] Acet Shell R3 3h 60mm - [id number] Implanted:Qty: 1 on 07/02/2022 by Myles Simeon MD at [facility] Left: Hip HAIDER \T\ NEPHEW INC [id number] 12/26/2031 [id number] / / [id number] Redapt Femoral Standard Offset Implanted:Qty: 1 on 07/02/2022 by Myles Simeon MD at [facility] Left: Hip HAIDER \T\ NEPHEW ORTHO [id number] 12/22/2029 [id number] / / [id number] Fem Head 09/02 Oxnm 28mm +8 - [id number] Implanted:Qty: 1 on 07/02/2022 by Myles Simeon MD at [facility] Left: Hip HAIDER \T\ NEPHE[employer] INC [id number] 08/16/2031 [id number] / / [id number] Or 30 Degree Dual Mobility Insert Implanted:Qty: 1 on 07/02/2022 by Myles Simeon MD at [facility] Left: Hip HAIDER \T\ NEPHEW ORTHO [id number] 03/15/2031 [id number] / / [id number] Insurance MEDICARE [employer] Care Teams Nylon Hot Wire Cutter Relationship Specialty Start Date End Date Sanjay Mcwilliams MD [address] [place] [address] PCP - General Family Medicine 06/25/22
--- OUTSIDE RECORDS SUMMARY | 2025-05-25 05:40 | XMS_ITS | Clinical Summary ---
Author Organization [facility] Address [address] [place] [address] Phone Care Team Providers Care Audio Visual Aide Name Role Phone Provider, None Primary Care Provider Emily Lam APRN, MEASURING CLERK Unavailable [phone] Allergies Active Allergy Reactions Criticality Noted Date [...] Tab by mouth daily. 100 Tab 0 05/24/20 15 Active nitroGLYCERIN (NITROSTAT) 0.4 MG SL TabletIndicatio ns:ST elevation myocardial infarction involving right coronary artery (HCC),Coronary artery disease involving picayune coronary artery of picayune heart without angina pectoris 1 Tablet by Sublingual route every 5 minutes as needed for Chest pain. 25 Tablet 3 11/01/19 24 Active atorvastatin (LIPITOR) 80 MG Tablet TAKE 1 TABLET BY MOUTH DAILY 90 Tablet 3 04/24/20 24 Active rivaroxaban (Xarelto) 20 MG TabletIndicatio ns:Atrial Fibrillation Take 1 Tablet by mouth daily (with dinner). Take with food. Indications: Atrial Fibrillation 90 Tablet 3 09/07/20 24 Active carvedilol (COREG) 3.125 MG TabletIndicatio ns:ST elevation myocardial infarction involving right coronary artery (HCC),Coronary artery disease involving picayune coronary artery of picayune heart without angina pectoris Take 2 Tablets by mouth 2 times daily. 180 Tablet 3 02/03/20 25 Active amLODIPine (NORVASC) 5 MG Tablet Take 1 Tablet by mouth daily. 90 Tablet 3 02/16/20 25 Active hydroCHLOROthia zide 25 MG Tablet TAKE 1 TABLET BY MOUTH DAILY 90 Tablet 3 02/16/20 25 Active amiodarone (CORDARONE) 200 MG Tablet TAKE 1 TABLET BY MOUTH DAILY 30 Tablet 05/14/20 25 Active amiodarone (CORDARONE) 200 MG Tablet Take 1 Tablet by mouth daily. 90 Tablet 02/15/20 25 2024 Discontinued Active Problems Problem Noted Date Diagnosed Date Coronary artery disease invo lving picayune coronary artery of picayune heart without angina pectoris 02/05/2016 STEMI (ST elevation myocardial infarction) 05/23 HTN (hypertension) 05/23/2015 HLD (hyperlipidemia) 05/23/2015 Encounters Date Type Department Care Team Description [facility] [address] [place] [address] Rj Kern MD Medication Management (ASA & Xarelto hold ) [facility] [address] [place] [address] Rj Kern MD Medication Refill 04/17/2025 [facility] [address] [place] [address] Rj Kern MD Edema in Legs (Likely from Amlodipine ) from Last 3 Months Immunizations Immunization [...] CDT Oxygen Saturation 96% 10/31/2019 2:57 PM MANAGER SALES SUPPORT Inhaled Oxygen Concentration - - Weight 147.6 kg (325 lb 6.4 oz) 025 10:32 AM CDT Height 172.7 cm (5' 8) 01/15/2025 10:3 2 AM CDT Body Mass Index 49.48 01/15/2025 10:32 AM CDT Plan of Treatment Upcoming Encounters Date Type Department Care Team (Late st Contact Info) Description 10/18/2025 9:15 AM MANAGER SALES SUPPORT Office Visit [facility] Cardiovascular [place] - Cardiology - [facility] [address] [place] [address] Leyda Brooks, GEMOLOGIST, MEASURING CLERK [address] [place] [address] Health Maintenance Due Date Last Done Comments [...] AAA Screening Ultrasound 2022 Influenza Immunization (#1) 2025 SARS-COV-2 Immunization (3 - season) 2025 03/11/2021, 02/04/2021 Td Immunization Every 10 Yea [...] this topic Medical Devices Implanted Type Area Weather Forcaster Device Identifier Shelf Expiration Date Model / Serial / Lot Stent Cor Maritza Rx Vision 3.5x12mm - [id number] Implanted:Qty : 1 on 05/23/2015 [facility] IMPLANT Right: Coronary [employer] [id number] / / [id number] Device Clsr Plug Angio-Seal Sts + 6fr - [id number] Implanted:Qty : 1 on 05/23/2015 [facility] IMPLANT Right: Groin ST YSABEL / ATRIAL FIB [id number] / / [id number] Insurance MEDICARE C [employer] Advance Directives * Full Code (Latest Code Status on File) Date Activated Date Inactivated Comments 05/23/2015 5:21 PM 05/25/2015 1:20 PM Full Code: FULL ARREST: Attempt Resuscitation/CPR and use intubation and mechanical ventilation as indicated. PRE-ARREST: Use all measures to stabilize patient. Care Teams Audio Visual Aide Relationship Specialty Start Date End Date Provider, None [place] PCP - General 06/20/15 Emily Knight, GEMOLOGIST, MEASURING CLERK [address] [place] [address] Nurse Practitioner Advanced Practice Nurse 12/05/24
--- OUTSIDE RECORDS SUMMARY | 2025-05-25 05:40 | XMS_ITS | Encounter Summary ---
Author Organization [facility] Address [address] [place] [address] Phone Care Team Providers Care Configuration Engineer Name Role Phone Sanjay Mcwilliams MD Primary Care Provider [phone] Encounter Details Date Type Department Care Team (Late st Contact Info) Description 07/02/2022 Anesthesia Event [facility] [address] [place] [address] Jc Toledo, DO [address] [place] [address] Social History Tobacco Use Types Packs/Day Years [...] on filedocumented in this encounter Care Teams Configuration Engineer Relationship Specialty Start Date End Date Sanjay Mcwilliams MD [address] [place] [address] PCP - General 06/25/22 documented as of this encounter
--- OUTSIDE RECORDS SUMMARY | 2025-05-25 05:40 | XMS_ITS | Patient Health Record ---
Author Organization [facility] Address [address] [place] [address] Care Team Providers Care Automobile Body Repair Supervisor Name Role Phone Sanjay Mcwilliams MD Primary Care Provider Unavailtanya e Myles Simeon Unavailable [phone] Allergies No Known Allergies Reason For Referral [...] osteoarthritis of the pelvic region and thigh (994894362) Unilateral primary osteoarthritis, left hip (M16.12) Active confirmed Problem Arthralgia of the pelvic region and thigh (635671579) Left hip pain (M25.552) Active confirmed Problem Abnormal gait (13690373) Impaired gait and mobility (R26.89) Active confirmed Problem Localized, primary osteoarthritis of the pelvic region and thigh (078969861) Bilateral primary osteoarthritis of hip (M16.0) 05/13/20 22 Active confirmed Plan Of Treatment No Information Insurance Providers Payer Name Payer Address Payer Phone Subscriber Number Group Number Insured Name Patient Relationship to Insured Coverage Start Date Coverage End Date Medicare Part B [address] [place], [place] [id number] Krishna Armando Self - patient is the insured 2 [facility] Insurance [address] [place] [address] [id number] Krishna Armando Self - patient is the insured 2 Medical (General) History Medical History History ICD Code ACUTE MYOCARDIAL INFARCTION, HYPERLIPIDEMIA, HYPERTENSION, Surgical History Surgery Date(Month/Year) Heart Surgery Heart surgery Left JONNATHAN 2021
--- OUTSIDE RECORDS SUMMARY | 2025-05-25 05:40 | XMS_ITS | Encounter Summary ---
Author Organization [facility] Address [address] [place] [address] Phone Care Team Providers Care Construction Management Instructor Name Role Phone Provider, None Primary Care Provider Emily Lam APRN, FIELD SOFTWARE ENGINEER Unavailable [phone] Reason for Visit * Reason Comments Medication Refill Lisinopril Encounter Details Date Type Department Care Team (Late st Contact Info) Description [facility] [place] [facility] - [facility] [address] [place] [address] Rj Kern MD [address] [place], [place] [id number] Medication Refill (Lisinopril) Social History Tobacco Use [...] Office Visit Best Stone MD [facility] [place] 10/31/19 Office Visit Latha Romero APN, FIELD SOFTWARE ENGINEER [facility] [place] Showing recent visits within past 548 days [...] st Contact Info) Description 10/18/2025 9:15 AM CLAY PLANT TREATER [facility] [place] [facility] - [facility] [address] [place] [phone] Leyda Brooks APRN, FIELD SOFTWARE ENGINEER [address] [facility] [place] [address] documented as of this encounter Visit Diagnoses Diagnosis Coronary artery disease involving chippewa-cree coronary artery of chippe[place]cree heart without angina pectoris ST elevation myocardial infarction involving right coronary artery (HCC) Acute myocardial infarction of inferoposterior wall, initial episode of care Essential hypertension Unspecified essential hypertension documented in this encounter Care Teams Construction Management Instructor Relationship Specialty Start Date End Date Provider, None [place] PCP - General 06/20/15 Emily Knight, OB GYN, FIELD SOFTWARE ENGINEER [address] [place] [address] Nurse Practitioner Advanced Practice Nurse 12/05/24 documented as of this encounter
[2025-05-25 05:48] LABS: Alanine Aminotransferase 26 U/L (6-50); Albumin Level 3.8 g/dL (3.5-5.1); Alkaline Phosphatase 77 U/L (38-126); Anion Gap 8 mmol/L (4-12); Aspartate Amino Transferase 31 U/L (17-59); Bilirubin,Total 1.1 mg/dL (0.2-1.3); Blood Urea Nitrogen 16 mg/dL (9-20); Calcium 8.6 mg/dL (8.4-10.2); Carbon Dioxide 26 mmol/L (22-30); Chloride 96 mmol/L (98-107); Estimated CRCL calculation 97 ml/min; Estimated Glomerular Filt Rate > 60; Glucose 188 mg/dL (65-110); Lipase 24 U/L (23-300); Magnesium 1.8 mg/dL (1.6-2.3); Potassium 3.5 mmol/L (3.4-5.0); Sodium 130 mmol/L (137-145); Total Protein 7.3 g/dL (6.3-8.2)
[2025-05-25 06:23] LABS: Add Urine Microscopic? YES; Appearance Urine Cloudy (Clear); Glucose Urine UA Negative (Negative); Leukocyte Esterase Ur 2+ LEU/UL (Negative); Need Manual Microscopic Reviewed; Nitrate Urine Negative (Negative); Specific Grav Ur 1.026 (1.001-1.035)
--- NOTE | 2025-05-25 06:38 | ED.ABDPAIN ---
HPI - Abdominal Pain General Chief Complaint: Abdominal Pain Stated Complaint: impacted, haven't pooped in 4-5 days Time Seen by Provider: 05/25/25 04:59 History of Present Illness HPI narrative: Patient is a 70-year-old male who presents to the emergency department this evening complaining of generalized abdominal pain and constipation. Patient states that he is not had a bowel movement for the past 4-5 days which is unusual for him. Patient usually has a bowel movement daily. Patient states that he recently had I a kidney stone removed last week and admits that he has been on pain medications, narcotics which could be contributing to his symptoms. States that he has felt nauseous but denies any vomiting episode, states that he is just having some dry heaves. Admits that he is passing gas. Denies any history of bowel obstruction or previous abdominal surgeries. No additional symptoms or concerns at this time. Related Data Home Medications ?Medication ?Instructions ?Recorded ?Confirmed ?Last Taken ?Type atorvastatin 40 mg tablet 80 mg PO DAILY 01/13/21 05/14/25 05/05/25 History hydrochlorothiazide 25 mg tablet 25 mg PO DAILY 01/13/21 05/14/25 05/05/25 History amiodarone 200 mg tablet (Pacerone) 200 mg PO Q24H 10/27/24 05/17/25 05/17/25 History rivaroxaban 20 mg tablet (Xarelto) 20 mg PO DAILY afib 10/27/24 05/17/25 05/14/25 History amlodipine 5 mg tablet 5 mg PO DAILY 05/05/25 05/17/25 05/17/25 History carvedilol 3.125 mg tablet (Coreg) 6.25 mg PO Q12HR 05/05/25 05/17/25 05/17/25 History Allergies Allergy/AdvReac Type Severity Reaction Status Date / Time Sulfa (Sulfonamide Allergy Hives Verified 05/25/25 05:04 Antibiotics) lisinopril AdvReac Unknown HIVES AND Verified 05/25/25 05:04 LIP SWELLING Review of Systems Review of Systems: All systems are reviewed and are negative unless stated otherwise in the HPI. [facility] Past Medical History Medical History Diabetes type 2, controlled Chest pain Morbid obesity with BMI of 50.0-59.9, adult Hypersomnia Dyslipidemia Atrial fibrillation with rapid ventricular response 08/22/2024 new onset. spontaneously converted. maintained on amiodarone & Xarelto Hypertension Atrial fibrillation Coronary artery disease 2015 [place], stent X 2 Family History Family History Mother Pancreatic cancer Sibling Breast cancer Grandparent Breast cancer Father Acute myocardial infarction Social History Social History Smoking packs per day: 1 Smoking cigarettes per day: 20.0 Years smoked: 20 Smoking pack-years: 20.00 Smoking status: Former smoker Tobacco type: cigarettes Smoking end date: 09/20/04 Alcohol intake: never Substance use: never Substance use type: does not use Do You Feel Safe in your Home?: Yes Lack of Transportation: No Lack of Food: Never True Current Housing: I Have Housing Concerned About Future Housing: No Difficulty Paying Gas/Electric Bills: No Difficulty Paying for Meds: No Currently Unemployed: No Education: Associate Degree Difficulty w/ Childcare or Family Care: No Living arrangements: with family Gender identity (if verbalized by the patient): Male Spiritual care concerns: No Exam Narrative: General: Alert, awake, afebrile, in no acute distress. HEENT: PERRL, no rhinorrhea, no post nasal drip, oropharynx clear. Neck: Trachea midline, no JVD, no lymphadenopathy. Cardiovascular: Regular rate and rhythm, no murmurs, rubs or gallops, no peripheral edema. Respiratory: Clear to auscultation bilaterally, no tachypnea, no wheezing, no rhonchi, no rubs, no respiratory distress. Abdomen: Soft, nontender, nondistended, no rebound, no guarding, no peritoneal signs. Musculoskeletal: No joint swelling or deformity, normal muscle tone. Skin: No rashes or petechia, no signs of infection. Psychiatric: Alert and oriented, normal behavior and judgment for situation. Neurological: Alert and oriented to person, place, and time. Follows all commands. No focal deficits, speech is clear and fluent. Course Vital Signs Vital signs: Vital Signs Pulse Rate 77 05/25/25 05:03 Respiratory Rate 20 05/25/25 05:03 Blood Pressure 118/105 H 05/25/25 05:03 Pulse Oximetry 94 05/25/25 05:03 Pulse Rate 77 05/25/25 05:03 Respiratory Rate 20 05/25/25 05:03 Blood Pressure 118/105 H 05/25/25 05:03 Pulse Oximetry 94 05/25/25 05:03 MDM - Abdominal Pain MDM Narrative Medical decision making narrative: The patient was evaluated by myself in the emergency department. History is obtained from patient who is an independent historian and physical exam was performed. External medical records were reviewed at this time. IV was established and pertinent tests were ordered. Patient was administered 1 L IV fluid bolus with normal saline, 4 mg IV Zofran for nausea and 4 mg of IV morphine for pain. Laboratory results obtained revealing leukocytosis of 15.5, otherwise unremarkable. Urinalysis did reveal trace ketones, 3+ blood, 2+ leuk esterase, greater than 100 RBCs and 21-50 white blood cells. Patient was administered 1 g of IV Rocephin at this time. He is denying any urinary symptoms including dysuria. Hematuria is expected given the recent kidney stone. Patient denies any bilateral flank pain. Imaging studies obtained included CT abdomen pelvis with IV contrast which was independently interpreted by me revealing right nephroureteral stent in adult position, no hydroureteronephrosis, correlate for UTI/pyelonephritis versus reactive changes due to stent, which is pending final radiology interpretation. Given that the patient's urinalysis did reveal 21-50 white blood cells with 2+ leuk esterases, did inform the patient that I will be treating him for UTI/pyelo. Patient was also informed that he will be placed on MiraLax/Colace regimen to help regulate his bowel and patient is in agreement. Differential diagnosis considerations include constipation, bowel obstruction, fecal impaction, dehydration. Comorbidities impacting this visit include current narcotic use. I have evaluated and discussed social determinants of health with the patient that could potentially impact subsequent diagnosis and treatment plans. On repeat assessment of the patient, reevaluation revealed that the patient is doing well and is in no acute distress. Patient symptoms have improved since he arrived to our emergency department. Repeat vital signs were all reviewed and noted to be stable. Differential diagnosis and treatment plan were discussed with the patient at bedside. Patient agrees with discussion and after shared medical decision making agrees with discharge. All questions were answered to the patient's satisfaction. Patient will follow up with Urology in 3-5 days. Script for MiraLax, Colace and cephalexin was sent to patient's pharmacy to take as prescribed. Patient was provided with strict return precautions and instructed to return to the emergency department if any new or worsening symptoms develop. The patient was discharged in stable condition. Lab Data 05/25/25 05:31 05/25/25 05:31 Labs: Lab Results 05/25/25 05/25/25 Range/Units 05:31 06:02 WBC 15.5 H (4.5-10.0) K/mm3 RBC 4.48 L (4.6-6.20) M/mm3 Hgb 13.8 L (14.0-18.0) g/dL Hct 40.9 L (42.0-52.0) % MCV 91.3 (80-100) fl MCH 30.8 (26-34) pg MCHC 33.7 (32-36) g/dl RDW 14.8 H (11.5-14.5) % Plt Count 182 (150-375) k/mm3 MPV 10.0 (7.4-10.4) fl Immature Gran % (Auto) 0.9 H (0-0.5) % Neut % (Auto) 85.9 H (45.5-73.1) % Lymph % (Auto) 3.8 L (18.3-44.2) % [place] % (Auto) 9.2 H (2.6-8.5) % Eos % (Auto) 0.1 (0-4.4) % Baso % (Auto) 0.1 L (0.2-1.2) % Lymph # (Auto) 0.59 L (0.9-3.2) K/mm3 [place] # (Auto) 1.4 H (0.1-0.6) K/mm3 Eos # (Auto) 0.0 (0-0.3) K/mm3 Baso # (Auto) 0.0 (0.0-0.1) K/mm3 Abs Immat Gran (auto) 0.14 H (0.00-0.031) K/mm3 Absolute Neuts (auto) 13.3 H (1.3-6.7) K/mm3 Absolute Nucleated RBC 0.000 (0.0-0.012) K/mm3 Nucleated RBC % 0.0 (0.0-0.2) % Sodium 130 L (137-145) mmol/L Potassium 3.5 (3.4-5.0) mmol/L Chloride 96 L (98-107) mmol/L Carbon Dioxide 26 (22-30) mmol/L Anion Gap 8 (4-12) mmol/L BUN 16 (9-20) mg/dL Creatinine 0.86 (0.7-1.3) mg/dL Estim Creat Clear Calc 97 ml/min Estimated GFR > 60 (59 - ) Glucose 188 H (65-110) mg/dL Calcium 8.6 (8.4-10.2) mg/dL Magnesium 1.8 (1.6-2.3) mg/dL Total Bilirubin 1.1 (0.2-1.3) mg/dL AST 31 (17-59) U/L ALT 26 (6-50) U/L Alkaline Phosphatase 77 (38-126) U/L Total Protein 7.3 (6.3-8.2) g/dL Albumin 3.8 (3.5-5.1) g/dL Lipase 24 (23-300) U/L Urine Color Dark yellow (Yellow) Urine Appearance Cloudy H (Clear) Urine pH 5.5 (5.0-9.0) Ur Specific [place] 1.026 (1.001-1.035) Urine Protein 3+ H (Negative) mg/dL Urine Glucose (UA) Negative (Negative) mg/dL Urine Ketones Trace H (Negative) mg/dL Ur Blood (Man) 3+ H (Negative) Urine Nitrate Negative (Negative) Urine Bilirubin 1+ H (Negative) Urine Urobilinogen 2.0 H (<2.0) mg/dL Add Ur Microanalysis Reviewed Leukocyte Esterase Rfl 2+ H (Negative) CHANDU/UL Urine RBC >100 H (0-2) /hpf Urine WBC 21-50 H (0-3) /hpf Ur Squamous Epith Cells Occasional (Few) /hpf Urine Bacteria Rare /hpf Urine Casts 3-5 Discharge Plan Discharge Clinical Impression: Acute UTI, Constipation Patient Disposition: Home Condition: Improved Instructions: Antibiotic Form, Constipation (DC), Urinary Tract Infection in Men (DC) Additional Instructions: Please follow-up with your family doctor within the next 3-5 days. Return to emergency department if any new or worsening symptoms develop. Take the prescribed antibiotic as instructed for UTI. Use the prescribed MiraLax and Colace as instructed. For MiraLax, use 17 g every hour for up to 5 hours until you have a bowel movement. Patient Language: Uzbek Prescriptions: New cephalexin 500 mg capsule 500 mg PO Q6H 10 Days Qty: 40 0RF polyethylene glycol 3350 [Miralax] 17 gram/dose powder 17 g PO DAILY Qty: 119 0RF Rx Instructions: May use 17 g every hour for up to 5 hours until you have a bowel movement. docusate sodium [Colace] 100 mg capsule 100 mg PO BID 7 Days Qty: 14 0RF No Action atorvastatin 40 mg tablet 80 mg PO DAILY hydrochlorothiazide 25 mg tablet 25 mg PO DAILY aspirin [Children's Aspirin] 81 mg Tablet,Chewable 81 mg PO DAILY@0800 Qty: 30 0RF Xarelto 20 mg tablet 20 mg PO DAILY Rx Instructions: must administer with evening meal amiodarone [Pacerone] 200 mg Tablet 200 mg PO Q24H diphenhydramine HCl 25 mg capsule 25 mg PO TID PRN (Reason: allergic reaction) Qty: 14 0RF ondansetron 4 mg tablet,disintegrating 4 mg PO Q8H PRN (Reason: nausea and vomiting) Qty: 15 0RF oxycodone 5 mg tablet 5 mg PO Q6H PRN (Reason: pain) Qty: 15 0RF amlodipine 5 mg tablet 5 mg PO DAILY carvedilol [Coreg] 3.125 mg Tablet 6.25 mg PO Q12HR metformin [Glucophage XR] 500 mg tablet extended release 24 hr 500 mg PO BID Qty: 90 0RF Rx Instructions: please take 500mg daily for 1 week, then increase to twice a day oxycodone 5 mg capsule 5 mg PO .every 6 hours PRN (Reason: pain) Qty: 12 0RF Follow-up/Referrals: PHYSICIAN,CHAMBER WALKER [Primary Care Provider, Internal Medicine] Leo Boss MD [Physician, Urology] - 3 Days Time of Disposition: 06:53
[2025-05-25] MEDS: SODIUM CHLORIDE 0.9% IV 1,000 ML 999 ML IV CONT (06:39)
[2025-05-25] MEDS: cefTRIAXone 1 GM in SODIUM CHLORIDE 0.9% IV 50 ML 100 ML IVPB (06:39)
[2025-05-25] MEDS: MORPHINE SULFATE (*CRX) 4 MG/ML INJ (06:39)
[2025-05-25 07:02] VITALS: BP 148/80; PULSE 77; RESP 16; TEMP 36.6; O2SAT 93
[2025-05-25 07:06] VITALS: BP 148/80; PULSE 84; RESP 20; O2SAT 94
== END 2025-05-25 07:38 | disposition home or self-care (01) ==
PROVIDERS: Emergency Provider Emergency Medicine
DX: N39.0 Urinary tract infection, site not specified (principal); K59.00 Constipation, unspecified; I48.91 Unspecified atrial fibrillation; I10 Essential (primary) hypertension; I25.2 Old myocardial infarction; I25.10 Atherosclerotic heart disease of native coronary artery without angina pectoris; E11.9 Type 2 diabetes mellitus without complications; E78.5 Hyperlipidemia, unspecified; E66.01 Morbid (severe) obesity due to excess calories; Z68.42 Body mass index [BMI] 45.0-49.9, adult; Z95.5 Presence of coronary angioplasty implant and graft; Z87.891 Personal history of nicotine dependence; Z79.82 Long term (current) use of aspirin; Z79.01 Long term (current) use of anticoagulants; Z79.899 Other long term (current) drug therapy; Z79.84 Long term (current) use of oral hypoglycemic drugs
CPT/HCPCS: 36415; 74177; 80053; 81001; 83690; 83735; 85025; 87086; 87186; 96365; 96375; 99284; J0696; J2270; J2405; J7030; Q9967